=== PATIENT | male | born 1945 | race Caucasian/White ===

== ENCOUNTER 2016-07-09 09:20 | Emergency (ER) ==
[2016-07-09 09:29] VITALS: BP 113/75; TEMP 97; BMI 22.1
[2016-07-09] MEDS ORDERED: URO-JET MUCOUSMEMB STA (09:35)
--- NOTE | 2016-07-09 10:02 | ED.PDOC ---
General ED Provider: Dr. CHRIS WEISS-ER Chief Complaint: Urinary Problem Stated Complaint: i havent been able to pee since i took that cold medicine Time Seen by Physician: 09:30 Mode of Arrival: Walk-In Information Source: Patient Exam Limitations: No limitations Primary Care Provider: KATLIN KAUR Nursing and Triage Documentation Reviewed and Agree: Yes Complaint Exam - Complaint/Exam Patient Complains of: Reports: Groin pain Onset/Duration: a few hours Symptoms Are: Still present Timing: Constant Initial Severity: Mild Current Severity: Moderate Location of Pain: Reports: Suprapubic Character: Reports: Constant pressure, Dull Aggravating: Reports: Voiding, Straining Alleviating: Reports: None Associated Signs and Symptoms: Reports: Decreased urine output. Denies: Diaphoresis, Back pain, Fever, Hematuria, Dysuria, Constipation, Blood in stool , Rectal pain, Appetite change, Nausea, Vomiting, Penile swelling, Penile discharge, Increased urine frequency, Increased thirst, Decreased activity, Lethargy, Scrotal pain, Scrotal swelling, Abdominal Pain Testicular Torsion Risk Factors: Reports: None Abdominal Findings: Present: None Differential Diagnoses: Other (urinary retention) Review of Systems - Review Of Systems Constitutional: Reports: No symptoms Eyes: Reports: No symptoms Ears, Nose, Mouth, Throat: Reports: No symptoms Respiratory: Reports: No symptoms Cardiac: Reports: No symptoms GI: Reports: No symptoms : Reports: Other Musculoskeletal: Reports: No symptoms Skin: Reports: No symptoms Neurological: Reports: No symptoms Endocrine: Reports: No symptoms Hematologic/Lymphatic: Reports: No symptoms All Other Systems: Reviewed and Negative Past Medical History - Past Medical History Endocrine: Reports: Unknown Cardiovascular: Reports: Unknown Respiratory: Reports: Unknown Hematological: Reports: Unknown Gastrointestinal: Reports: Unknown Genitourinary: Reports: Unknown Neuro/Psych: Reports: Unknown Musculoskeletal: Reports: Unknown Cancer: Reports: Unknown - Surgical History General Surgical History: Reports: Unknown - Family History Family History: Reports: Unknown - Social History Smoking Status: Former smoker Hx Substance Use: No Alcohol Screening: None Lives: With family Physical Exam - Physical Exam Appearance: Well-appearing, No pain distress, Well-nourished Eyes: CYNTHIA, EOMI, Conjunctiva clear ENT: Ears normal, Nose normal, Oropharynx normal Neck: Supple Respiratory: Airway patent, Breath sounds clear, Breath sounds equal, Respirations nonlabored Cardiovascular: RRR, Pulses normal, No rub, No murmur GI/: Soft Musculoskeletal: Normal strength, ROM intact, No edema, No calf tenderness Skin: Warm, Dry, Normal color Neurological: Sensation intact, Motor intact, Reflexes intact, Cranial nerves intact, Alert, Oriented Psychiatric: Affect appropriate, Mood appropriate Re-Evaluation - Re-Evaluation Time of Re-Evaluation: 10:07 Status: Improved (1500cc residual---feeling much better) Vital Signs Stable: Yes Pain Level: 1 Appearance: NAD Lungs: Clear Skin: Warm and Dry Neuro: Alert and Oriented X3 CV: RRR Critical Care Note - Critical Care Note Total Time (mins): 0 Course - Course Orders, Labs, Meds: Orders Category Date Time Status Bladder [ED BLADDER SCAN] .ONCE EMERGENCY 07/09/16 09:36 Active [place] [ED CATHETER INSERTION AND CARE] .ONCE EMERGENCY 07/09/16 09:35 Completed URINALYSIS C & S IF INDICATED Stat LAB 07/09/16 10:00 Received Lidocaine HCl [Uro-Jet] MEDS 07/09/16 09:35 Discontinued 10 ml [email or web address] ONCE STA Tamsulosin HCl [Flomax] MEDS 07/09/16 10:16 Discontinued 0.4 mg PO ONCE STA Medications Discontinued Medications Generic Name Dose Route Start Last Admin Trade Name Freq PRN Reason Stop Dose Admin Lidocaine HCl 10 ml 07/09/16 09:35 07/09/16 10:01 Uro-Jet [email or web address] 07/09/16 09:36 10 ml ONCE STA Administration Tamsulosin HCl 0.4 mg 07/09/16 10:16 Flomax PO 07/09/16 10:17 ONCE STA Vital Signs: Temp Pulse Resp BP Pulse Ox 07/09/16 09:21 97 F L 93 H 20 113/75 95 Departure - Departure Time of Disposition: 10:02 Disposition: HOME SELF-CARE Discharge Problem: Urinary retention Instructions: Urinary Retention in Men (ED) Condition: Good Pt referred to PMD for follow-up: Yes Additional Instructions: --flomax 0.4mg q hs #4---keep appt with dr kaur on monday--stop all cold medication--return if you cannot urinate Allergies/Adverse Reactions: Allergies No Known Allergies Allergy (Unverified 07/09/16 09:30) Disposition Discussed With: Patient, Family
[2016-07-09] MEDS ORDERED: FLOMAX PO STA (10:16)
[2016-07-09 10:18] LABS: BILIRUBIN,URINE Negative (NEGATIVE); KETONES,URINE Negative (NEGATIVE); LEUKOCYTE ESTERASE ,URINE Negative (NEGATIVE); NITRITE,URINE Negative (NEGATIVE); PROTEIN,URINE Negative (NEGATIVE); URINE, BLOOD Trace-intact (NEGATIVE)
[2016-07-09 10:20] LABS: ADD URINE MICROSCOPIC YES
[2016-07-09 10:35] LABS: SPERM,URINE 2+ (NOT PRESENT)
[2016-07-09] MEDS ORDERED: PYRIDIUM PO STA (10:37)
== END 2016-07-09 10:50 | disposition home or self-care (01) ==
LOC: ED 09:20
DX: R33.9 Retention of urine, unspecified (principal); R10.30 Lower abdominal pain, unspecified
CPT/HCPCS: 81001; 99283

== ENCOUNTER 2016-07-10 11:42 | Emergency (ER) ==
[2016-07-10 11:45] VITALS: BMI 22.1
[2016-07-10 11:51] VITALS: BP 90/58; TEMP 97
[2016-07-10] MEDS ORDERED: URO-JET MUCOUSMEMB STA (12:55)
--- NOTE | 2016-07-10 12:57 | ED.PDOC ---
General ED Provider: Dr. VALDEMAR RAMOS JR Chief Complaint: Urinary Problem Stated Complaint: Pt. having trouble urinating, was in ER yesterday and was straight cath to void and voided yesterday evening but hasnt since[End]3 days 97.0 62 16 97% 90/58 Pt. states that he has had trouble voiding for 3 days now[ End]. In yesterday for similar symptoms note remarks about cold medication, states plan was to leave with catheter but pain and bleeding- removed catheter and placed on flomax Time Seen by Physician: 12:55 Mode of Arrival: Walk-In Information Source: Patient Exam Limitations: No limitations Primary Care Provider: KATLIN CORTES Nursing and Triage Documentation Reviewed and Agree: No Review of Systems - Review Of Systems Constitutional: Reports: No symptoms Eyes: Reports: No symptoms Ears, Nose, Mouth, Throat: Reports: No symptoms Respiratory: Reports: No symptoms Cardiac: Reports: No symptoms GI: Reports: No symptoms : Reports: Pain Musculoskeletal: Reports: No symptoms Skin: Reports: No symptoms Neurological: Reports: No symptoms Endocrine: Reports: No symptoms Hematologic/Lymphatic: Reports: No symptoms All Other Systems: Other Past Medical History - Past Medical History Endocrine: Reports: Unknown Cardiovascular: Reports: Hypertension, Unknown Respiratory: Reports: COPD, Unknown Hematological: Reports: Unknown Gastrointestinal: Reports: Unknown Genitourinary: Reports: Unknown Neuro/Psych: Reports: Unknown Musculoskeletal: Reports: Unknown Cancer: Reports: Unknown - Surgical History General Surgical History: Reports: Stent (cardiac stents ) - Family History Family History: Reports: Unknown - Social History Smoking Status: Former smoker Hx Substance Use: No Alcohol Screening: None - Immunizations Tetanus Shot up to Date: Yes Physical Exam - Physical Exam Appearance: Well-appearing, Thin Pain Distress: Moderate Neck: Supple Respiratory: Airway patent GI/: Soft, Tender Skin: Warm Neurological: Sensation intact Critical Care Note - Critical Care Note Total Time (mins): 0 Course - Course Orders, Labs, Meds: Lab Review 07/10/16 13:50 Urine Color Yellow Urine Clarity Clear Urine pH 6.0 Ur Specific [place] 1.015 Urine Protein Negative Urine Glucose (UA) Negative Urine Ketones 1+ Urine Blood Trace-intact Urine Nitrite Positive Urine Bilirubin Negative Urine Urobilinogen 1.0 Ur Leukocyte Esterase Negative Ur Squamous Epith Cells 0-2 Orders Category Date Time Status ED BLADDER SCAN .ONCE EMERGENCY 07/10/16 12:55 Active ED CATHETER INSERTION AND CARE .ONCE EMERGENCY 07/10/16 12:55 Active URINALYSIS C & S IF INDICATED Stat LAB 07/10/16 13:50 Completed Hydrocodone Bit/Acetaminophen [[place] 7.5-325] MEDS 07/10/16 14:27 Discontinued 1 tab PO ONCE STA Lidocaine HCl [Uro-Jet] MEDS 07/10/16 12:55 Discontinued 10 ml MUCOUSMEMB ONCE STA Medications Discontinued Medications Generic Name Dose Route Start Last Admin Trade Name Freq PRN Reason Stop Dose Admin Acetaminophen/Hydrocodone Bitart 1 tab 07/10/16 14:27 07/10/16 14:34 [place] 7.5-325 PO 07/10/16 14:28 1 tab ONCE STA Administration Lidocaine HCl 10 ml 07/10/16 12:55 07/10/16 13:35 Uro-Jet MUCOUSMEMB 07/10/16 12:56 10 ml ONCE STA Administration Vital Signs: Temp Pulse Resp BP Pulse Ox 07/10/16 11:45 97.0 F L 62 16 90/58 L 97 Departure - Departure Time of Disposition: 14:48 Disposition: HOME SELF-CARE Discharge Problem: Urinary retention Instructions: Urinary Retention in Men (ED) Condition: Fair Pt referred to PMD for follow-up: Yes Additional Instructions: Please follow-up with Dr. Cortes in 1-2 days. LEG BAG FOR URINE TOLLIVER CATHETER TO DRAIN FOLLOW UP WITH pmd DISCUSS UROLOGY CONSULT CONTINUE FLOMAX RETURN IF BLOOD IN URINE OR IF FEVER Prescriptions: Hydrocodone Bit/Acetaminophen [[place] 5-325] 1 - 2 tab PO Q6HR PRN #12 tablet PRN Reason: pain Allergies/Adverse Reactions: Allergies No Known Allergies Allergy (Unverified 07/09/16 09:30) Home Medications: Ambulatory Orders Albuterol Sulfate [Proair Hfa] 07/10/16 Arformoterol Tartrate [Brovana] 07/10/16 Ascorbate Calcium [Vitamin C] 500 mg PO DAILY 07/10/16 Aspirin [Aspirin EC] 81 mg PO DAILY 07/10/16 Atorvastatin Calcium [Lipitor] 20 mg PO DAILY 07/10/16 Carvedilol [Coreg] 6.25 mg PO BID 07/10/16 Clopidogrel Bisulfate [Clopidogrel] 75 mg PO DAILY 07/10/16 Cyanocobalamin (Vitamin B-12) [Vitamin B12] 5,000 mcg INH DAILY 07/10/16 Diltiazem HCl 60 mg PO BID 07/10/16 Hydrocodone Bit/Acetaminophen [[place] 5-325] 1 - 2 tab PO Q6HR PRN #12 tablet 09/21 Mometasone/Formoterol [Dulera 200 Mcg/5 Mcg Inhaler] 200 mcg IN DAILY 07/10/16 Tiotropium [place] [Spiriva] 1 mcg INH DAILY 07/10/16 Triamterene/Hydrochlorothiazid [Dyazide] 1 cap PO DAILY 07/10/16 Valsartan/Hydrochlorothiazide [Diovan Hct 320-12.5 mg Tab] 320 mg PO DAILY 07/10 Vitamin E 400 intnl unit PO DAILY 07/10/16
[2016-07-10 14:07] LABS: BILIRUBIN,URINE Negative (NEGATIVE); KETONES,URINE 1+ (NEGATIVE); LEUKOCYTE ESTERASE ,URINE Negative (NEGATIVE); NITRITE,URINE Positive (NEGATIVE); PROTEIN,URINE Negative (NEGATIVE); URINE, BLOOD Trace-intact (NEGATIVE)
[2016-07-10 14:09] LABS: ADD URINE MICROSCOPIC YES
[2016-07-10] MEDS ORDERED: NORCO 7.5-325 PO STA (14:27)
== END 2016-07-10 15:57 | disposition home or self-care (01) ==
LOC: ED 11:42
DX: R33.9 Retention of urine, unspecified (principal); Z79.899 Other long term (current) drug therapy
CPT/HCPCS: 81001; 99282

== ENCOUNTER 2016-07-15 02:04 | Emergency (ER) ==
[2016-07-15 02:15] VITALS: BP 104/64; TEMP 97.7; BMI 26.4
[2016-07-15] MEDS ORDERED: URO-JET MUCOUSMEMB ONE (02:20)
[2016-07-15] MEDS ORDERED: URO-JET MUCOUSMEMB STA (02:35)
--- NOTE | 2016-07-15 03:08 | ED.PDOC ---
General ED Provider: Dr. STEVEN FUENTES Chief Complaint: Urinary Problem Stated Complaint: Has not been able to urinate since his catheter was removed at Dr. Cortes's office on , 07/14/16, at 11:30 am. Is feeling alot of pressure and pain. Had catheter for 5 days before removal. Time Seen by Physician: 02:20 Mode of Arrival: Wheelchair Information Source: Patient Exam Limitations: No limitations Primary Care Provider: KATLIN CORTES Referred to ED by: PCP Nursing and Triage Documentation Reviewed and Agree: Yes Review of Systems - Review Of Systems Constitutional: Reports: No symptoms Eyes: Reports: No symptoms Respiratory: Reports: No symptoms Cardiac: Reports: No symptoms GI: Reports: No symptoms : Reports: Other (difficulty urinating ) Musculoskeletal: Reports: No symptoms Skin: Reports: No symptoms Neurological: Reports: Anxiety Endocrine: Reports: No symptoms Hematologic/Lymphatic: Reports: No symptoms All Other Systems: Reviewed and Negative Past Medical History - Past Medical History Endocrine: Reports: Unknown Cardiovascular: Reports: Hypertension, Unknown Respiratory: Reports: COPD, Unknown Hematological: Reports: Unknown Gastrointestinal: Reports: Unknown Genitourinary: Reports: Unknown Neuro/Psych: Reports: Unknown Musculoskeletal: Reports: Unknown Cancer: Reports: Unknown - Surgical History General Surgical History: Reports: Stent (cardiac stents ) - Family History Family History: Reports: Unknown - Social History Smoking Status: Former smoker Hx Substance Use: No Alcohol Screening: None - Immunizations Tetanus Shot up to Date: Yes Physical Exam - Physical Exam Appearance: Well-appearing, No pain distress, Well-nourished Eyes: CYNTHIA, EOMI, Conjunctiva clear ENT: Ears normal, Nose normal, Oropharynx normal Respiratory: Airway patent, Breath sounds clear, Breath sounds equal, Respirations nonlabored Cardiovascular: RRR, Pulses normal, No rub, No murmur GI/: Soft, Nontender, No masses, Bowel sounds normal, No Organomegaly Musculoskeletal: Normal strength, ROM intact, No edema, No calf tenderness Skin: Warm, Dry, Normal color Neurological: Sensation intact, Motor intact, Reflexes intact, Cranial nerves intact, Alert, Oriented Psychiatric: Affect appropriate, Mood appropriate Critical Care Note - Critical Care Note Total Time (mins): 0 Course - Course Orders, Labs, Meds: Lab Review 07/15/16 03:07 Urine Color Yellow Urine Clarity Clear Urine pH 7.5 Ur Specific [place] 1.020 Urine Protein Negative Urine Glucose (UA) Negative Urine Ketones Trace Urine Blood 2+ Urine Nitrite Negative Urine Bilirubin Negative Urine Urobilinogen 0.2 Ur Leukocyte Esterase Negative Urine Microscopic RBC 10-20 Ur Squamous Epith Cells Not present Amorphous Sediment Trace Orders Category Date Time Status Ahumada [ED CATHETER INSERTION AND CARE] .ONCE EMERGENCY 07/15/16 02:35 Active UA [URINALYSIS C & S IF INDICATED] Stat LAB 07/15/16 03:07 Completed Lidocaine HCl [Uro-Jet] MEDS 07/15/16 02:20 Discontinued 10 ml MUCOUSMEMB .STK-MED ONE Lidocaine HCl [Uro-Jet] MEDS 07/15/16 02:35 Discontinued 10 ml MUCOUSMEMB ONCE STA Medications Discontinued Medications Generic Name Dose Route Start Last Admin Trade Name Freq PRN Reason Stop Dose Admin Lidocaine HCl 10 ml 07/15/16 02:35 07/15/16 02:42 Uro-Jet [email or web address] 07/15/16 02:36 Not Given ONCE STA Vital Signs: Temp Pulse Resp BP Pulse Ox 07/15/16 02:05 97.7 F 88 18 104/64 97 Departure - Departure Time of Disposition: 03:20 Disposition: HOME SELF-CARE Discharge Problem: Retention of urine Instructions: Urinary Retention in Men (ED) Condition: Fair Pt referred to PMD for follow-up: Yes Additional Instructions: continue using the leg bag until seen by Dr Cortes. Allergies/Adverse Reactions: Allergies No Known Allergies Allergy (Verified 07/15/16 02:11) Home Medications: Ambulatory Orders Albuterol Sulfate [Proair Hfa] 2 puff INH Q4H PRN 07/10/16 Arformoterol Tartrate [Brovana] 1 vial INH BID 07/10/16 Ascorbate Calcium [Vitamin C] 500 mg PO DAILY 07/10/16 Aspirin [Aspirin EC] 81 mg PO DAILY 07/10/16 Atorvastatin Calcium [Lipitor] 20 mg PO DAILY 07/10/16 Carvedilol [Coreg] 6.25 mg PO BID 07/10/16 Clopidogrel Bisulfate [Clopidogrel] 75 mg PO DAILY 07/10/16 Cyanocobalamin (Vitamin B-12) [Vitamin B12] 5,000 mcg INH DAILY 07/10/16 Diltiazem HCl 60 mg PO BID 07/10/16 Hydrocodone Bit/Acetaminophen [[place] 5-325] 1 - 2 tab PO Q6HR PRN #12 tablet 09/21 Mometasone/Formoterol [Dulera 200 Mcg/5 Mcg Inhaler] 200 mcg IN DAILY 07/10/16 Tiotropium [place] [Spiriva] 1 mcg INH DAILY 07/10/16 Triamterene/Hydrochlorothiazid [Dyazide] 1 cap PO DAILY 07/10/16 Valsartan/Hydrochlorothiazide [Diovan Hct 320-12.5 mg Tab] 320 mg PO DAILY 07/10 Vitamin E 400 intnl unit PO DAILY 07/10/16 Tamsulosin HCl [Flomax] 0.4 mg PO DAILY 07/15/16 Disposition Discussed With: Patient, Family
[2016-07-15 03:20] LABS: BILIRUBIN,URINE Negative (NEGATIVE); KETONES,URINE Trace (NEGATIVE); LEUKOCYTE ESTERASE ,URINE Negative (NEGATIVE); NITRITE,URINE Negative (NEGATIVE); PH,URINE 7.5 (5-9); PROTEIN,URINE Negative (NEGATIVE); URINE, BLOOD 2+ (NEGATIVE)
[2016-07-15 03:21] LABS: ADD URINE MICROSCOPIC YES
== END 2016-07-15 04:05 | disposition home or self-care (01) ==
LOC: ED 02:04
DX: R33.9 Retention of urine, unspecified (principal); Z79.899 Other long term (current) drug therapy
CPT/HCPCS: 81001; 99283

== ENCOUNTER 2016-07-18 13:28 | Outpatient (CLI) ==
[2016-07-18 13:58] LABS: ALBUMIN 3.2 g/dL (3.4-5.0); ALBUMIN/GLOBULIN RATIO 1.03; ANION GAP 11.6; BILIRUBIN,TOTAL 0.47 mg/dL (0.00-1.20); BUN/CREATININE RATIO 13.26; CALCIUM 9.1 mg/dL (8.2-10.2); CREATININE 0.98 mg/dL (0.60-1.10); POTASSIUM 4.6 mmol/L (3.5-5.1); TOTAL PROTEIN 6.3 g/dL (5.8-8.1)
== END 2016-07-18 13:29 | disposition home or self-care (01) ==
LOC: LAB 13:28
PROVIDERS: ATTEND Internal Medicine
DX: E87.1 Hypo-osmolality and hyponatremia (principal)
CPT/HCPCS: 36415; 80053

== ENCOUNTER 2016-07-26 01:47 | Inpatient (IN) ==
[2016-07-26] MEDS ORDERED: SOLU-MEDROL 125 MG IVP STA (01:49)
[2016-07-26] MEDS ORDERED: XOPENEX 1.25 MG NEB STA (01:50)
[2016-07-26] MEDS ORDERED: DUONEB NEB STA (01:50)
[2016-07-26 02:00] LABS: BASOPHILS # (AUTO) 0.1 K/uL (0-0.2); BASOPHILS % (AUTO) 0.3 % (0.0-3.0); EOSINOPHILS # (AUTO) 0.1 K/ul (0.0-0.7); EOSINOPHILS % (AUTO) 0.4 % (0.0-7.0); HEMATOCRIT 35.2 % (42.0-52.0); HEMOGLOBIN 12.4 g/dl (14.0-18.0); IMMATURE GRANULOCYTE % (AUTO) 0.7 % (0.0-5.0); LYMPHOCYTES # (AUTO) 2.1 K/uL (0.60-3.4); LYMPHOCYTES % (AUTO) 13.6 (10.0-50.0); MEAN CORPUSCULAR HEMOGLOBIN 28.6 pg (27.0-31.0); MEAN CORPUSCULAR HGB CONC 35.2 (31.8-35.4); MEAN CORPUSCULAR VOLUME 81.3 fl (80.0-94.0); MONOCYTES # (AUTO) 1.1 K/uL (0.4-2.0); MONOCYTES % (AUTO) 7.5 (0-10); NEUTROPHILS # (AUTO) 11.7 K/ul (2.0-6.9); NEUTROPHILS % (AUTO) 77.5; PLATELET COUNT 286 10^3/uL (140-440); RED BLOOD COUNT 4.33 10^6/ul (4.70-6.10); WHITE BLOOD COUNT 15.13 K/ul (4.2-10.2)
[2016-07-26 02:04] LABS: ABG BASE EXCESS -3 (-2.0-2.0); ABG HCO3 20.6 (22.0-26.0); ABG PCO2 29.3 mmHg (35-45); ABG PH 7.455 (7.35-7.45); ABG TCO2 21 (22.0-28.0)
[2016-07-26 02:28] LABS: ALANINE AMINOTRANSFERASE 23 U/L (12-78); ALBUMIN 3.1 g/dL (3.4-5.0); ALBUMIN/GLOBULIN RATIO 0.94; ALKALINE PHOSPHATASE 107 U/L (56-119); ASPARTATE AMINO TRANSFERASE 23 U/L (15-37); BILIRUBIN,TOTAL 0.61 mg/dL (0.00-1.20); BLOOD UREA NITROGEN 9 mg/dL (7-18); BUN/CREATININE RATIO 11.53; CALCIUM 8.8 mg/dL (8.2-10.2); CARBON DIOXIDE 24 mmol/L (23-31); CHLORIDE 92 mmol/L (98-107); CREATINE KINASE 44 U/L; CREATININE 0.78 mg/dL (0.60-1.10); GLUCOSE 92 mg/dL (82-115); SODIUM 125 mmol/L (136-145); TOTAL PROTEIN 6.4 g/dL (5.8-8.1)
--- NOTE | 2016-07-26 03:01 | ED.PDOC ---
General ED Provider: Dr. CHRIS WEISS-ER Chief Complaint: Shortness of Air Stated Complaint: hes had a prod cough and wheezing--using inhalers all day and got worse Time Seen by Physician: 02:05 Mode of Arrival: Ambulance Information Source: Patient, Family, EMT Exam Limitations: No limitations Primary Care Provider: KATLIN KAUR Nursing and Triage Documentation Reviewed and Agree: Yes Respiratory Complaint Exam - Respiratory Complaint/Exam Onset/Duration: 24hrs Symptoms Are: Still present Timing: Constant Initial Severity: Mild Current Severity: Moderate Location: Chest Character: Reports: Productive cough Aggravating: Reports: URI Alleviating: Reports: Bronchodilators, Spontaneous resolution Associated Signs and Symptoms: Reports: Dyspnea, Wheezing, URI. Denies: Rapid breathing, Fever, Chills, Chest pain, Pleuritic chest pain, Hemoptysis, Dizziness, Calf pain, Calf swelling, Edema, Nasal congestion, Hoarseness, Sinus discomfort, Vomiting, Sore throat, Weight loss, Decreased oral intake, Increased thirst, Increased appetite, Increased urination Related History: Reports: Similar episode History of Healthcare-Acquired Pneumonia: No Related Surgical History: Reports: None Pulmonary Embolism Risk Factors: None Cardiac Risk Factors: Reports: None Pseudomonas Risk Factors: Reports: Chronic Lung Disease Tuberculosis Risk Factors: Reports: Chronic Resp. Faliure Status Asthmaticus Risk Factors: Reports: None Home Oxygen Use: No Recent Stress Test: No Recent Echo/LV Function: No Current Antibiotic Use: No Current Asthma Medication Use: Yes Respiratory Distress: None Inadequate Respiratory Effort: No Dysphagia Present: No Stridor Present: No JVD Present: No Accessory Muscle Use: No Retractions: Intercostal Diminished Breath Sounds: No Prolonged Respiration: Expiratory phase Sinus Tenderness: None Grunting Respirations: No Kussmaul Respirations: No Differential Diagnoses: COPD Exacerbation, Pneumonia, Bronchitis Non-Traumatic Chest Pain Syncope: EKG Performed Review of Systems - Review Of Systems Constitutional: Reports: No symptoms Eyes: Reports: No symptoms Ears, Nose, Mouth, Throat: Reports: No symptoms Respiratory: Reports: Cough, Short of air, Wheezing Cardiac: Reports: No symptoms GI: Reports: No symptoms : Reports: No symptoms Musculoskeletal: Reports: No symptoms Skin: Reports: No symptoms Neurological: Reports: No symptoms Endocrine: Reports: No symptoms Hematologic/Lymphatic: Reports: No symptoms All Other Systems: Reviewed and Negative Past Medical History - Past Medical History Endocrine: Reports: Unknown Cardiovascular: Reports: Hypertension, Unknown Respiratory: Reports: COPD, Unknown Hematological: Reports: Unknown Gastrointestinal: Reports: Unknown Genitourinary: Reports: Unknown Neuro/Psych: Reports: Unknown Musculoskeletal: Reports: Unknown Cancer: Reports: Unknown - Surgical History General Surgical History: Reports: Stent (cardiac stents ) - Family History Family History: Reports: Unknown - Social History Smoking Status: Former smoker Hx Substance Use: No Alcohol Screening: None - Immunizations Tetanus Shot up to Date: Yes Physical Exam - Physical Exam Appearance: Well-appearing, No pain distress, Well-nourished Eyes: CYNTHIA, EOMI, Conjunctiva clear ENT: Ears normal, Nose normal, Oropharynx normal Neck: Supple Respiratory: Rhonchi, Wheezes Cardiovascular: RRR GI/: Soft, Nontender, No masses, Bowel sounds normal, No Organomegaly Musculoskeletal: Normal strength, ROM intact, No edema, No calf tenderness Skin: Warm Neurological: Sensation intact Psychiatric: Affect appropriate, Mood appropriate Interpretation - Radiology Interpretation Radiology Interpretation By: ED Physician Radiology Results: Negative Exam Interpreted: Portable CXR - EKG Interpretation Time of EKG #1: 03:01 Rate: Normal Rhythm: Sinus Ectopy: None [place]: NL ST Segment: Normal Re-Evaluation - Re-Evaluation Time of Re-Evaluation: 03:01 Status: Improved Vital Signs Stable: Yes Pain Level: 0 Appearance: NAD Lungs: Other (improved but stil with wheezes) Skin: Warm and Dry Neuro: Alert and Oriented X3 CV: RRR Physician Notification - Case Discussed Physician Notified: dr kaur Time of Notification: 03:02 Critical Care Note - Critical Care Note Total Time (mins): 0 Course - Course Hematology/Chemistry: 07/26/16 01:57 07/26/16 01:57 Orders, Labs, Meds: Lab Review 07/26/16 07/26/16 01:48 01:57 WBC 15.13 H RBC 4.33 L Hgb 12.4 L Hct 35.2 L MCV 81.3 MCH 28.6 MCHC 35.2 RDW Coeff of Bull 12.9 Plt Count 286 Immature Gran % (Auto) 0.7 Neut % (Auto) 77.5 Lymph % (Auto) 13.6 [place] % (Auto) 7.5 Eos % (Auto) 0.4 Baso % (Auto) 0.3 Immature Gran # (Auto) 0.1 Neut # 11.7 H Lymph # 2.1 [place] # 1.1 Eos # 0.1 Baso # 0.1 D-Dimer 2.01 Puncture Site Lb O2 Saturation 95.0 ABG pH 7.455 H ABG pCO2 29.3 L ABG pO2 72.0 L ABG HCO3 20.6 L ABG Total CO2 21 L ABG Base Excess -3 L Mohamud Test + O2 Delivery Device Neb Oxygen Liter Flow 10.00 FiO2 % 100.0 Sodium 125 L Potassium 4.0 Chloride 92 L Carbon Dioxide 24 Anion Gap 13.0 BUN 9 Creatinine 0.78 Estimated GFR (MDRD) 98.00 BUN/Creatinine Ratio 11.53 Glucose 92 Calcium 8.8 Total Bilirubin 0.61 AST 23 ALT 23 Alkaline Phosphatase 107 Total Creatine Kinase 44 Troponin I < 0.0100 B-Natriuretic Peptide 49 Total Protein 6.4 Albumin 3.1 L Globulin 3.3 Albumin/Globulin Ratio 0.94 Orders Category Date Time Status ABG DRAW REQUEST Stat CARDIO 07/26/16 01:48 Completed EKG-(ED ONLY) Stat CARDIO 07/26/16 01:48 Completed NEBULIZER TREATMENT Stat CARDIO 07/26/16 01:50 Completed [employer] [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] .ONCE EMERGENCY 07/26/16 01:49 Active IV [ED IV/MEDIPORT/POWERPORT] .ONCE EMERGENCY 07/26/16 01:49 Active ABG Stat LAB 07/26/16 01:48 Completed BNP [B-TYPE NATRIURETIC PEPTIDE] Stat LAB 07/26/16 01:57 Completed CBC W/ AUTO DIFF Stat LAB 07/26/16 01:57 Completed COMPREHENSIVE METABOLIC PANEL Stat LAB 07/26/16 01:57 Completed CREATINE KINASE Stat LAB 07/26/16 01:57 Completed D-DIMER Stat LAB 07/26/16 01:57 Completed RAPID FLU A/B Stat LAB 07/26/16 02:58 Ordered STREP SCREEN Stat LAB 07/26/16 02:58 Ordered TROPONIN I Stat LAB 07/26/16 01:57 Completed 0.9 % Sodium Chloride [Saline Flush] MEDS 07/26/16 01:49 Ordered 1 syr IVF PRN PRN Ipratropium/Albuterol Neb [Duoneb] MEDS 07/26/16 01:50 Discontinued 1 vial NEB ONCE STA Levalbuterol HCl [Xopenex 1.25 mg] MEDS 07/26/16 01:50 Discontinued 1 vial NEB ONCE STA Methylprednisolone Sod Succ/Pf [Solu-Medrol 125 mg] MEDS 07/26/16 01:49 Discontinued 125 mg IVP ONCE STA CXR [CHEST, 1V AP ONLY] Stat RADS 07/26/16 01:50 Taken Medications Generic Name Dose Route Start Last Admin Trade Name Jillian PRN Reason Stop Dose Admin Sodium Chloride 1 syr 07/26/16 01:49 07/26/16 01:59 Saline Flush IVF 1 syr PRN PRN Administration To flush IV Discontinued Medications Generic Name Dose Route Start Last Admin Trade Name Freq PRN Reason Stop Dose Admin Albuterol/Ipratropium 1 vial 07/26/16 01:50 07/26/16 02:00 Duoneb NEB 07/26/16 01:51 1 vial ONCE STA Administration Levalbuterol HCl 1 vial 07/26/16 01:50 07/26/16 02:10 Xopenex 1.25 Mg NEB 07/26/16 01:51 1 vial ONCE STA Administration Methylprednisolone Sodium Succinate 125 mg 07/26/16 01:49 07/26/16 01:58 Solu-Medrol 125 Mg IVP 07/26/16 01:50 125 mg ONCE STA Administration Vital Signs: Temp Pulse Resp BP Pulse Ox 07/26/16 02:03 99 F 96 H 36 H 149/67 H 95 Departure - Departure Time of Disposition: 03:02 Disposition: ADMITTED INPATIENT Discharge Problem: Obstructive chronic bronchitis with exacerbation Instructions: COPD (Chronic Obstructive Pulmonary Disease) (ED) Condition: Good Pt referred to PMD for follow-up: Yes Allergies/Adverse Reactions: Allergies No Known Allergies Allergy (Verified 07/26/16 02:35) Home Medications: Ambulatory Orders Albuterol Sulfate [Proair Hfa] 2 puff INH Q4H PRN 07/10/16 Arformoterol Tartrate [Brovana] 1 vial INH BID 07/10/16 Ascorbate Calcium [Vitamin C] 500 mg PO DAILY 07/10/16 Atorvastatin Calcium [Lipitor] 20 mg PO DAILY 07/10/16 Carvedilol [Coreg] 6.25 mg PO BID 07/10/16 Clopidogrel Bisulfate [Clopidogrel] 75 mg PO DAILY 07/10/16 Cyanocobalamin (Vitamin B-12) [Vitamin B12] 5,000 mcg PO DAILY 07/10/16 Diltiazem HCl 60 mg PO BID 07/10/16 Mometasone/Formoterol [Dulera 200 Mcg/5 Mcg Inhaler] 200 mcg IN DAILY 07/10/16 Tiotropium [place] [Spiriva] 1 mcg INH DAILY 07/10/16 Valsartan/Hydrochlorothiazide [Diovan Hct 320-12.5 mg Tab] 320 mg PO DAILY 07/10 Vitamin E 400 intnl unit PO DAILY 07/10/16 Tamsulosin HCl [Flomax] 0.4 mg PO DAILY 07/15/16 Aspirin [Ecotrin] 325 mg PO DAILY 07/26/16 Ciprofloxacin HCl [Cipro] 500 mg PO BID 07/26/16 Disposition Discussed With: Patient, Family
[2016-07-26] MEDS ORDERED: ROCEPHIN 1 GM in SODIUM CHLORIDE 100 ML IV STA (03:03)
[2016-07-26] MEDS: SODIUM CHLORIDE 1,000 ML IV SCH (03:19)
[2016-07-26] MEDS ORDERED: ROCEPHIN ONE (03:25)
[2016-07-26 03:26] LABS: FLU INTERNAL QC INTERNAL QC VALID; RAPID FLU A NEGATIVE (NEGATIVE); RAPID FLU B NEGATIVE (NEGATIVE)
[2016-07-26 04:14] VITALS: BMI 19.9
[2016-07-26] MEDS: DUONEB NEB SCH ×5 (05:04→22:50)
[2016-07-26] MEDS: SOLU-MEDROL 125 MG IVP SCH ×3 (05:57→20:50)
[2016-07-26 07:07] LABS: BASOPHILS % (AUTO) 0.2 % (0.0-3.0); HEMOGLOBIN 11.7 g/dl (14.0-18.0); IMMATURE GRANULOCYTE % (AUTO) 0.7 % (0.0-5.0); LYMPHOCYTES # (AUTO) 0.7 K/uL (0.60-3.4); MEAN CORPUSCULAR HEMOGLOBIN 28.7 pg (27.0-31.0); MEAN CORPUSCULAR HGB CONC 35.5 (31.8-35.4); MEAN CORPUSCULAR VOLUME 81.1 fl (80.0-94.0); MONOCYTES # (AUTO) 0.1 K/uL (0.4-2.0); NEUTROPHILS % (AUTO) 93.1; PLATELET COUNT 272 10^3/uL (140-440); RED BLOOD COUNT 4.07 10^6/ul (4.70-6.10); WHITE BLOOD COUNT 12.88 K/ul (4.2-10.2)
--- NOTE | 2016-07-26 07:26 | DI ---
Examination: Single radiographic image of the chest. Comparison: 07/16/2015. Reason for study: Dyspnea. FINDINGS: The lungs are hyperinflated. No pneumothorax, pleural effusion, or focal consolidation. There is blunting of the hemidiaphragms. Impression: 1. No acute cardiopulmonary process. 2. Likely chronic obstructive pulmonary disease.
[2016-07-26] MEDS: ASPIRIN EC PO SCH (08:07)
[2016-07-26] MEDS: COREG PO SCH ×2 (08:07→17:24)
[2016-07-26] MEDS ORDERED: MOMETASONE IN SCH (09:00)
[2016-07-26] MEDS ORDERED: HYDROCHLOROTHIAZIDE PO SCH ×2 (09:00)
[2016-07-26] MEDS ORDERED: NON-FORMULARY MEDICATION (Arformoterol Tartrate [Brovana] 1 VIAL) INH SCH (09:00)
[2016-07-26] MEDS ORDERED: FORMOTEROL IN SCH (09:00)
[2016-07-26] MEDS ORDERED: MUCINEX PO SCH (09:00)
[2016-07-26] MEDS ORDERED: [UNRECOGNIZED DRUG - OTHER] PO SCH (09:00)
[2016-07-26] MEDS ORDERED: VALSARTAN PO SCH (09:00)
[2016-07-26] MEDS ORDERED: CARDIZEM PO SCH ×2 (09:00)
[2016-07-26] MEDS: LOVENOX SUBCUT SCH (09:30)
[2016-07-26] MEDS: PLAVIX PO SCH (09:30)
[2016-07-26] MEDS: LIPITOR PO SCH (09:31)
[2016-07-26] MEDS: DIOVAN PO SCH (09:31)
[2016-07-26] MEDS: ZITHROMAX 500 MG in SODIUM CHLORIDE 250 ML IV SCH (09:32)
[2016-07-26] MEDS: FLOMAX PO SCH (09:33)
[2016-07-26] MEDS: CARDIZEM PO SCH ×4 (09:33→20:43)
[2016-07-26] MEDS: ROCEPHIN 1 GM in SODIUM CHLORIDE 100 ML IV SCH (11:36)
[2016-07-26 12:02] LABS: BILIRUBIN,URINE Negative (NEGATIVE); KETONES,URINE 1+ (NEGATIVE); LEUKOCYTE ESTERASE ,URINE Negative (NEGATIVE); NITRITE,URINE Negative (NEGATIVE); PROTEIN,URINE Negative (NEGATIVE); URINE, BLOOD 3+ (NEGATIVE)
[2016-07-26 12:04] LABS: ADD URINE MICROSCOPIC YES
--- NOTE | 2016-07-26 13:33 | HP ---
DATE OF SERVICE: 07/26/16 REASON FOR HOSPITALIZATION: Cough, congestion, shortness of breath. HISTORY OF PRESENT ILLNESS: This 71 year old WHITE/ M was hospitalized 07/26/16. The patient is hospitalized with acute respiratory failure and chronic lung disease. The patient's condition had been deteriorating for two days but last night got worse to the point where he was brought to the emergency room in the early a.m. with cough, congestion and shortness of breath. The patient's ABG on 100% FI02 showed a p02 of 72.0, pH of 7.455 with 95% saturation. REVIEW OF SYSTEMS: CONSTITUTIONAL: Weakness and fatigue. No night sweats. No fever or chills. HEENT: Eyes: No visual changes. No eye pain. No eye discharge. ENT: No runny nose. No epistaxis. No sinus pain. No sore throat. No odynophagia. No ear pain. No congestion. RESPIRATORY: Cough and congestion with yellowish sputum production. No hemoptysis. CARDIOVASCULAR: No angina symptoms. No CHF symptoms. Pleuritic type of chest pain. No palpitations. Shortness of breath. GASTROINTESTINAL: Poor appetite. No abdominal pain. No nausea or vomiting. No diarrhea or constipation. No hematemesis. No hematochezia. GENITOURINARY: Catheter in place - has been having problems passing urine for past 2 weeks with catheter introduced twice in ER. MUSCULOSKELETAL: No musculoskeletal pain. No joint swelling. NEUROLOGICAL: No headache. No neck pain. No syncope. No seizures. No dizziness. PSYCHIATRIC: Not anxious. No depression. No suicidal thoughts. No homicidal thoughts. SKIN: No rash. No lesions. Bruising to bottom of right foot. ENDOCRINE: No unexplained weight loss. No weight gain. HEMATOLOGIC/LYMPHATIC: No anemia. No purpura. No petechiae. No prolonged or excessive bleeding. No palpable lymph nodes. PERSONAL/FAMILY/SOCIAL HISTORY: , lives with . He is independent of all ADLs. Nonsmoker. No alcohol abuse. Family history of [place]. PAST MEDICAL/SURGICAL PROBLEMS: Cataracts Heart stents times four Enlarged prostate History of nicotine use Skin cancer with eyelid reconstruction Chronic lung disease Dyslipidemia Hypertension MEDICATIONS: (HOME) Valsartan/Hydrochlorothiazide 320 mg p.o. daily Atorvastatin/Lipitor 20 mg p.o. daily Diltiazem 60 mg p.o. b.i.d. Carvedilol 6.25 mg p.o. b.i.d. Vitamin E 400 unit p.o. daily Tiotropium [place] 1 mcg INH daily Mometasone/Formoterol 200 mcg IN daily Cyanocobalamin (Vitamin B12) 5,000 mcg p.o. daily Clopidogrel 75 mg p.o. daily Ascorbate Calcium 500 mg p.o. daily Arformoterol Tartrate (Brovana) one vial INH b.i.d. Albuterol (ProAir) two puff INH q.4h p.r.n. Tamsulosin 0.4 mg p.o. daily Ciprofloxacin 500 mg p.o. b.i.d. Aspirin 325 mg p.o. daily ALLERGIES: NKDA PHYSICAL EXAMINATION: GENERAL: The patient is lying in bed in no distress. VITAL SIGNS: Temperature 97.1, pulse 101, BP 140/71, respiratory rate 22, sats 100% on cannula. HEENT: Head normocephalic, atraumatic. Eyes: Extraocular muscles are intact. Pupils are equal, round and reactive to light and accommodation. Ears: No lesions. Nose appeared normal. Throat: No exudate or erythema. NECK: Supple. No JVD, no carotid bruit. No lymphadenopathy or thyromegaly. LUNGS: Decreased breath sounds bilaterally with mild wheeze. Percussion note normal. Chest symmetrical. HEART: S1, S2, no S3. No murmurs. No cyanosis or clubbing. No ascites. Pulses: Dorsalis pedis and posterior tibial pulses +1 both sides. ABDOMEN: Soft. Nontender. Bowel sounds active. No CVA tenderness. No mass felt. EXTREMITIES: Trace to 1+ pitting edema. Full range of motion of all extremities , equal. Bruise on the bottom of right foot. NEUROLOGIC: No focal deficit. Cranial nerves II through XII are grossly intact. No headache, no double vision or headache. SKIN: Not dry. Intact. Turgor - normal. LYMPHATIC: No palpable lymph nodes/no lymphedema. MUSCULOSKELETAL: Normal joints with no swelling. Muscle tone is normal. LAB DATA: 07/26/16 06:00: WBC 12.88 H, RBC 4.07 L, Hgb 11.7 L, Hct 33.0 L, MCV 81.1, MCH 28.7, MCHC 35.5 H, RDW Coeff of Bull 12.9, Plt Count 272, Immature Gran % (Auto) 0.7, Neut % (Auto) 93.1, Lymph % (Auto) 5.0 L, [place] % (Auto) 1.0, Eos % (Auto) 0.0, Baso % (Auto) 0.2, Immature Gran # (Auto) 0.1, Neut # 12.0 H, Lymph # 0.7, [place] # 0.1 L, Eos # 0.0, Baso # 0.0 ASSESSMENT: 1. Acute respiratory failure 2. Acute bronchitis 3. Severe chronic lung disease 4. Prostatic hypertrophy with obstruction 5. Dyslipidemia 6. Hypertension PLAN: 1. ABG in a.m. on room air 2. Increase Diltiazem to 90 mg b.i.d. 3. Discontinue Mucinex 4. IV antibiotics Rocephin and Zithromax 5. IV steroids 6. Nebs treatment 7. Monitor telemetry 8. Monitor oximetry 9. Continue IV fluids 10. Continue Ahumada 11. The patient is to see Dr. Solares on 07/28/16 EDUCATION CARRIED OUT ABOUT: The is in the room discussed the condition of the patient, answered all questions. CONDITION: Stable TIME SPENT: More than 70 minutes. SCRIBED BY: CHARLETTE PAINTING Aeronautical Engineering Teacher scribed while in presence of service performed by Dr. KATLIN CORTES on 07/26/16 ([id number]) [facility]
[2016-07-26] MEDS: NON-FORMULARY MEDICATION (Mometasone/Formoterol [Dulera 200 Mcg/5 Mcg Inhaler] 2 PUFF) IN SCH (14:59)
[2016-07-26 17:55] LABS: ABG BASE EXCESS 0 (-2.0-2.0); ABG HCO3 23.6 (22.0-26.0); ABG PCO2 31.1 mmHg (35-45); ABG PH 7.489 (7.35-7.45); ABG TCO2 25 (22.0-28.0)
[2016-07-26] MEDS: PERFOROMIST NEB SCH (21:28)
[2016-07-27] MEDS: DUONEB NEB SCH ×6 (04:25→22:02)
[2016-07-27] MEDS: SOLU-MEDROL 125 MG IVP SCH (04:53)
[2016-07-27 04:57] LABS: BASOPHILS % (AUTO) 0.1 % (0.0-3.0); HEMATOCRIT 32.7 % (42.0-52.0); HEMOGLOBIN 11.4 g/dl (14.0-18.0); IMMATURE GRANULOCYTE % (AUTO) 0.9 % (0.0-5.0); LYMPHOCYTES # (AUTO) 1.5 K/uL (0.60-3.4); MEAN CORPUSCULAR HEMOGLOBIN 28.6 pg (27.0-31.0); MEAN CORPUSCULAR HGB CONC 34.9 (31.8-35.4); MEAN CORPUSCULAR VOLUME 82.2 fl (80.0-94.0); MONOCYTES # (AUTO) 0.5 K/uL (0.4-2.0); MONOCYTES % (AUTO) 3.7 (0-10); NEUTROPHILS # (AUTO) 11.3 K/ul (2.0-6.9); NEUTROPHILS % (AUTO) 84.3; PLATELET COUNT 296 10^3/uL (140-440); RED BLOOD COUNT 3.98 10^6/ul (4.70-6.10); WHITE BLOOD COUNT 13.35 K/ul (4.2-10.2)
[2016-07-27 05:06] LABS: ABG PCO2 30.6 mmHg (35-45); ABG PH 7.497 (7.35-7.45)
[2016-07-27 05:07] LABS: ABG BASE EXCESS 0 (-2.0-2.0); ABG HCO3 23.7 (22.0-26.0); ABG TCO2 25 (22.0-28.0)
[2016-07-27 05:21] LABS: ALBUMIN 2.7 g/dL (3.4-5.0); ALBUMIN/GLOBULIN RATIO 0.93; ANION GAP 11.8; BILIRUBIN,TOTAL 0.35 mg/dL (0.00-1.20); BUN/CREATININE RATIO 12.98; CALCIUM 8.7 mg/dL (8.2-10.2); CREATININE 0.77 mg/dL (0.60-1.10); POTASSIUM 3.8 mmol/L (3.5-5.1); TOTAL PROTEIN 5.6 g/dL (5.8-8.1)
[2016-07-27] MEDS: PERFOROMIST NEB SCH ×2 (05:24→17:49)
[2016-07-27] MEDS: SODIUM CHLORIDE 1,000 ML IV SCH (07:26)
[2016-07-27] MEDS: ASPIRIN EC PO SCH (09:14)
[2016-07-27] MEDS: CARDIZEM PO SCH ×4 (09:14→20:26)
[2016-07-27] MEDS: COREG PO SCH ×2 (09:14→17:05)
[2016-07-27] MEDS: DIOVAN PO SCH (09:15)
[2016-07-27] MEDS: LIPITOR PO SCH (09:16)
[2016-07-27] MEDS: FLOMAX PO SCH (09:16)
[2016-07-27] MEDS: LOVENOX SUBCUT SCH (09:17)
[2016-07-27] MEDS: PLAVIX PO SCH (09:17)
[2016-07-27] MEDS: PREDNISONE PO SCH ×2 (09:17→17:05)
[2016-07-27] MEDS: ROCEPHIN 1 GM in SODIUM CHLORIDE 100 ML IV SCH (09:17)
[2016-07-27] MEDS: ZITHROMAX 500 MG in SODIUM CHLORIDE 250 ML IV SCH (10:30)
[2016-07-27] MEDS: NON-FORMULARY MEDICATION (Mometasone/Formoterol [Dulera 200 Mcg/5 Mcg Inhaler] 2 PUFF) IN SCH (14:55)
[2016-07-28] MEDS: DUONEB NEB SCH ×2 (01:32→04:47)
[2016-07-28] MEDS ORDERED: ROCEPHIN 1 GM in SODIUM CHLORIDE 100 ML IV SCH (05:00)
[2016-07-28] MEDS: PERFOROMIST NEB SCH (05:00)
[2016-07-28 05:21] VITALS: BP 151/66; TEMP 97.5
[2016-07-28 05:54] LABS: BASOPHILS % (AUTO) 0.1 % (0.0-3.0); HEMATOCRIT 34.4 % (42.0-52.0); LYMPHOCYTES # (AUTO) 1.6 K/uL (0.60-3.4); LYMPHOCYTES % (AUTO) 12.2 (10.0-50.0); MEAN CORPUSCULAR HEMOGLOBIN 28.5 pg (27.0-31.0); MEAN CORPUSCULAR HGB CONC 34.9 (31.8-35.4); MEAN CORPUSCULAR VOLUME 81.7 fl (80.0-94.0); MONOCYTES # (AUTO) 0.8 K/uL (0.4-2.0); MONOCYTES % (AUTO) 6.4 (0-10); NEUTROPHILS # (AUTO) 10.3 K/ul (2.0-6.9); NEUTROPHILS % (AUTO) 80.3; PLATELET COUNT 381 10^3/uL (140-440); RED BLOOD COUNT 4.21 10^6/ul (4.70-6.10); WHITE BLOOD COUNT 12.87 K/ul (4.2-10.2)
[2016-07-28] MEDS ORDERED: ZITHROMAX 500 MG in SODIUM CHLORIDE 250 ML IV SCH (06:00)
[2016-07-28 06:10] LABS: ALBUMIN 2.9 g/dL (3.4-5.0); ALBUMIN/GLOBULIN RATIO 0.94; ANION GAP 12.1; BILIRUBIN,TOTAL 0.39 mg/dL (0.00-1.20); CALCIUM 9.3 mg/dL (8.2-10.2); CREATININE 0.8 mg/dL (0.60-1.10); POTASSIUM 4.1 mmol/L (3.5-5.1)
[2016-07-28] MEDS: PREDNISONE PO SCH (08:21)
[2016-07-28] MEDS: FLOMAX PO SCH (08:21)
[2016-07-28] MEDS: CARDIZEM PO SCH ×2 (08:22→08:23)
[2016-07-28] MEDS: LIPITOR PO SCH (08:22)
[2016-07-28] MEDS: DIOVAN PO SCH (08:23)
[2016-07-28] MEDS: ASPIRIN EC PO SCH (08:23)
[2016-07-28] MEDS: COREG PO SCH (08:23)
[2016-07-28] MEDS: PLAVIX PO SCH (08:23)
[2016-07-28] MEDS: LOVENOX SUBCUT SCH (08:25)
--- NOTE | 2016-07-28 08:27 | PCM.PROG ---
Attending Provider: ATTENDING PROVIDER: Dr. KATILN CORTES DATE OF SERVICE: 07/28/16 discharge note SUBJECTIVE: This 71 year old WHITE/ M was hospitalized 07/26/16. The patient is hospitalized with bronchitis and pneumonitis. No cough or congestion. Condition has improved remarkably. REVIEW OF SYSTEMS: CONSTITUTIONAL: No night sweats. No fatigue, malaise, lethargy. No fever or chills. HEENT: Eyes: No visual changes. No eye pain. No eye discharge. ENT: No runny nose. No epistaxis. No sinus pain. No odynophagia. No congestion. RESPIRATORY: No cough, no congestion. No hemoptysis. CARDIOVASCULAR: No angina symptoms. No CHF symptoms. No atypical chest pain for CAD. No palpitations. No shortness of breath. GASTROINTESTINAL: No abdominal pain. No nausea or vomiting. No diarrhea or constipation. No hematemesis. No hematochezia. GENITOURINARY: No urgency. No frequency. No dysuria. No hematuria. No obstructive symptoms. No discharge. No pain. No significant abnormal bleeding. MUSCULOSKELETAL: No musculoskeletal pain; no joint swelling. NEUROLOGICAL: Awake, alert, oriented to time, place and person. No headache. No neck pain. No syncope. No seizures. No dizziness. PSYCHIATRIC: Not anxious. No depression. No suicidal thoughts. No homicidal thoughts. SKIN: No rash. No lesions. No wounds. ENDOCRINE: No unexplained weight loss. No weight gain. HEMATOLOGIC/LYMPHATIC: No anemia. No purpura. No petechiae. No prolonged or excessive bleeding. No palpable lymph nodes. PHYSICAL EXAMINATION: GENERAL: The patient is awake, alert and oriented, lying/sitting in bed in no distress. VITAL SIGNS: Temperature 97.5 F, Pulse 100, Respiratory Rate 22, BP 151/66, Pulse Ox 96% HEENT: Head normocephalic, atraumatic. Eyes: Extraocular muscles are intact. Pupils are equal, round and reactive to light and accommodation. Ears: No lesions. Nose appeared normal. Throat: No exudate or erythema. NECK: Supple. No JVD, no carotid bruit. No lymphadenopathy or thyromegaly. LUNGS: Decreased breath sounds. Clear to auscultation. Percussion note normal. Chest symmetrical. HEART: S1, S2, no S3. No murmurs. No cyanosis or clubbing. No ascites. Pulses: Dorsalis pedis and posterior tibial pulses +1 to +2 both sides. ABDOMEN: Soft. Non-tender. Bowel sounds active. No CVA tenderness. No mass felt. EXTREMITIES: No edema. Full range of motion of all extremities, equal. NEUROLOGIC: No focal deficit. Cranial nerves II through XII are grossly intact. No headache, no double vision or headache. SKIN: Not dry. Intact. Turgor-normal. LYMPHATIC: No palpable lymph nodes/no lymphedema. MUSCULOSKELETAL: Normal joints with no swelling. Muscle tone is normal. LAB REVIEW: 07/28/16 05:00 07/28/16 05:10 07/28/16 05:10: Sodium 129 L, Potassium 4.1, Chloride 95 L, Carbon Dioxide 26, Anion Gap 12.1, BUN 16, Creatinine 0.80, Estimated GFR (MDRD) 95.00, BUN/ Creatinine Ratio 20.00, Glucose 111, Calcium 9.3, Total Bilirubin 0.39, AST 37, ALT 28, Alkaline Phosphatase 88, Total Protein 6.0, Albumin 2.9 L, Globulin 3.1 , Albumin/Globulin Ratio 0.94 07/28/16 05:00: WBC 12.87 H, RBC 4.21 L, Hgb 12.0 L, Hct 34.4 L, MCV 81.7, MCH 28.5, MCHC 34.9, RDW Coeff of Bull 12.8, Plt Count 381, Immature Gran % (Auto) 1.0, Neut % (Auto) 80.3, Lymph % (Auto) 12.2, [place] % (Auto) 6.4, Eos % (Auto) 0.0, Baso % (Auto) 0.1, Immature Gran # (Auto) 0.1, Neut # 10.3 H, Lymph # 1.6, [place] # 0.8, Eos # 0.0, Baso # 0.0 ASSESSMENT: 1. Acute pneumonitis/bronchitis resolved. ABGs done yesterday showed oxygen saturation more than 90% on room air. 2. BPH with obstruction taken care of by Dr. Archuleta. Ahumada will be removed by Dr. Archuleta this morning. PLAN: 1. Discharge home 2. Prednisone and Keflex The patient requires home oxygen, continuous, due to shortness of air and saturation of 85% on room air at rest and patient is agreeable. Plan and coordination of the patient's care discussed in the presence of Buggy Operator and nurse. CONDITION: Stable SCRIBED BY: CHARLETTE PAINTING Land Classifier scribed while in presence of service performed by Dr. KATLIN CORTES on 07/28/16 ([id number])
--- NOTE | 2016-07-28 10:09 | CM.DICTOOL ---
ADMISSION: 07/26/16 03:06 DISCHARGE: July 28, 2016 DATE OF SERVICE: 07/28/16 FINAL DIAGNOSIS Acute Respiratory Failure COPD exacerbation Severe Chronic Lung Disease Hypertension Dyslipidemia Stent Application x 4 Enlarged Prostate with obstruction; Dr. Archuleta Former Smoker LAST VITALS Temp Pulse Resp BP Pulse Ox 97.5 F L 100 22 151/66 L 96 07/28/16 05:20 07/28/16 05:20 07/28/16 05:20 07/28/16 05:20 07/28/16 05:20 ACTIVE HOME MEDICATIONS Arformoterol Tartrate (Brovana) 1 vial nebulizer BID Last Admin: Aspirin (Aspirin Ec) 325 mg PO DAILYWM [facility] Last Admin: 07/28/16 08:23 Dose: 325 mg Atorvastatin Calcium (Lipitor) 20 mg PO DAILY [facility] Last Admin: 07/28/16 08:20 Dose: 20 mg Carvedilol (Coreg) 6.25 mg PO BIDWM [facility] Last Admin: 07/28/16 08:23 Dose: 6.25 mg Clopidogrel Bisulfate (Plavix) 75 mg PO DAILY [facility] Last Admin: 07/27/16 09:17 Dose: 75 mg Diltiazem HCl (Cardizem) 30 mg PO BID [facility] Last Admin: 07/28/16 08:23 Dose: 30 mg Diltiazem HCl (Cardizem) 60 mg PO BID [facility] Last Admin: 07/28/16 08:23 Dose: 60 mg Non-Formulary Medication (Mometasone/Formoterol [Dulera 200 Mcg/5 Mcg Inhaler]) 2 puff IN 1500 [facility] Last Admin: 07/27/16 14:55 Dose: 2 puff Prednisone (Prednisone) 10 mg PO BIDWM [facility] Last Admin: 07/28/16 08:21 Dose: 10 mg (PRESCRIPTION) Tamsulosin HCl (Flomax) 0.4 mg PO DAILY [facility] Last Admin: 07/28/16 08:23 Dose: 0.4 mg Valsartan (Diovan) 320 mg PO DAILY [facility] Last Admin: 07/07/16 08:23 Dose: 320 mg Tiotropium [place] (Spiriva) 1 mcg INH Daily Last Admin: ALLERGIES No Known Allergies Allergy (Verified 07/26/16 02:35) NEW PRESCRIPTIONS: Keflex 500 mg TID for 5 days Prednisone 10 mg BID Cardizem 90 mg BID SMOKING: Not Applicable DISEASE SPECIFIC EDUCATION: Oxygen use Prescriptions Use of Steroids Appointments LAB REVIEW: 07/27/16 04:53 07/27/16 04:53 07/27/16 04:55: Puncture Site Lb, O2 Saturation 91.0 L, ABG pH 7.497 H, ABG pCO2 30.6 L, ABG pO2 56.0 L*, ABG HCO3 23.7, ABG Total CO2 25, ABG Base Excess 0 , Mohamud Test +, FiO2 % 21.0 07/27/16 04:53: WBC 13.35 H, RBC 3.98 L, Hgb 11.4 L, Hct 32.7 L, MCV 82.2, MCH 28.6, MCHC 34.9, RDW Coeff of Bull 12.8, Plt Count 296, Immature Gran % (Auto) 0.9, Neut % (Auto) 84.3, Lymph % (Auto) 11.0, [place] % (Auto) 3.7, Eos % (Auto) 0.0, Baso % (Auto) 0.1, Immature Gran # (Auto) 0.1, Neut # 11.3 H, Lymph # 1.5, [place] # 0.5, Eos # 0.0, Baso # 0.0, Sodium 127 L, Potassium 3.8, Chloride 94 L, Carbon Dioxide 25, Anion Gap 11.8, BUN 10, Creatinine 0.77, Estimated GFR (MDRD ) 99.00, BUN/Creatinine Ratio 12.98, Glucose 155 H, Calcium 8.7, Total Bilirubin 0.35, AST 25, ALT 22, Alkaline Phosphatase 89, Total Protein 5.6 L, Albumin 2.7 L, Globulin 2.9, Albumin/Globulin Ratio 0.93 07/26/16 17:11: Puncture Site Lbrach, O2 Saturation 96.0, ABG pH 7.489 H, ABG pCO2 31.1 L, ABG pO2 71.0 L, ABG HCO3 23.6, ABG Total CO2 25, ABG Base Excess 0 , O2 Delivery Device Nc, Oxygen Liter Flow 2.00 PLAN: Discharge home with family Diet: Heart Healthy Activity: Gradually resume as tolerated Please call Dr. Billings's office to arrange a hospital follow-up visit for Monday or Monday of next week. Please keep appointment today (07-28-2016) with Dr. Archuleta at 9 am for catheter removal. Please follow any instructions given by urology for further appointments, catheter care if you are sent home with a new roger catheter. Home oxygen has been arranged through [facility] for continuous use at 2 liters per nasal cannula. Mr. Christian is alert and oriented x 3. He is independent with ADL'S, but may require minimal assistance due to shortness of air. He continues to have a productive cough of yellow mucus. Home oxygen has been arranged through [facility]. Patient will be discharged today with portable oxygen with conserving device at 2 liters per cannula. Skin is dry, bruising noted to bottom of right foot, upper extremities, scratches are noted to the right upper thigh. His appetite is good with intakes of 25-75%. Errol Blilings MD
--- NOTE | 2016-08-04 14:48 | PN ---
DATE OF SERVICE: 07/27/16 SUBJECTIVE: 71-year-old white male hospitalized with acute bronchitis, chronic lung disease. The patient's condition has improved remarkably. He wants to go home. He wants to keep his appointment tomorrow with Dr. Archuleta for his prostate problem for which he has a Tolliver catheter. REVIEW OF SYSTEMS: CONSTITUTIONAL: No night sweats. No fatigue, malaise, lethargy. No fever or chills. HEENT: Eyes: No visual changes. No eye pain. No eye discharge. ENT: No runny nose. No epistaxis. No sinus pain. No sore throat. No odynophagia. No congestion. RESPIRATORY: No cough, no congestion. No hemoptysis. CARDIOVASCULAR: No angina symptoms. No CHF symptoms. No atypical chest pain for CAD. No palpitations. No shortness of breath. GASTROINTESTINAL: Appetite has improved. No abdominal pain. No nausea or vomiting. No diarrhea or constipation. No hematemesis. No hematochezia. GENITOURINARY: No urgency. No frequency. No dysuria. No hematuria. No obstructive symptoms. No discharge. No pain. No significant abnormal bleeding. MUSCULOSKELETAL: No musculoskeletal pain; no joint swelling. NEUROLOGICAL: No headache. No neck pain. No syncope. No seizures. No dizziness. PSYCHIATRIC: Not anxious. No depression. No suicidal thoughts. No homicidal thoughts. SKIN: No rash. No lesions. No wounds. ENDOCRINE: No unexplained weight loss. No weight gain. HEMATOLOGIC/LYMPHATIC: No anemia. No purpura. No petechiae. No prolonged or excessive bleeding. No palpable lymph nodes. PHYSICAL EXAMINATION: GENERAL: The patient is oriented to time, place and person. VITAL SIGNS: Temperature 98, pulse 83, respiratory rate 20, BP 126/64, pulse ox 94%. HEENT: Head normocephalic, atraumatic. Eyes: Extraocular muscles are intact. Pupils are equal, round and reactive to light and accommodation. Ears: No lesions. Nose appeared normal. Throat: No exudate or erythema. NECK: Supple. No JVD, no carotid bruit. No lymphadenopathy or thyromegaly. LUNGS: Decreased breath sounds. Clear to auscultation. Percussion note normal. Chest symmetrical. HEART: S1, S2, no S3. No murmurs. No cyanosis or clubbing. No ascites. Pulses: Dorsalis pedis and posterior tibial pulses +1 to +2 both sides. ABDOMEN: Soft. Nontender. Bowel sounds active. No CVA tenderness. No mass felt. EXTREMITIES: No edema. Full range of motion of all extremities, equal. NEUROLOGIC: No focal deficit. Cranial nerves II through XII are grossly intact. No headache, no double vision or headache. SKIN: Not dry. Intact. Turgor - normal. LYMPHATIC: No palpable lymph nodes/no lymphedema. MUSCULOSKELETAL: Normal joints with no swelling. Muscle tone is normal. LABS: Hemoglobin 11.4, hematocrit 32, WBC 13,000, normal differential. Creatinine 0.7 , BUN 10, potassium 3.8, BNP 49. ASSESSMENT: 1. ACUTE RESPIRATORY FAILURE/ACUTE BRONCHITIS/PNEUMONITIS SEEMS TO BE RESOLVING 2. TOLLIVER CATHETER WITH BPH PLAN: 1. Continue Tolliver 2. Discharge tomorrow and the patient has appointment with urologist at 9 a.m. 3. Discontinue Hydrochlorothiazide because of hyponatremia. 4. Restrict fluid intake. 5. Discontinue telemetry. 6. The patient will be discharged on Keflex and Prednisone which will be started today. 7. Cardizem 90 mg p.o. twice a day. 8. Prednisone 10 mg twice a day. EDUCATION CARRIED OUT ABOUT: The side effects of Prednisone with avascular necrosis of the femoral head is discussed. The side effects of steroids like cataracts, osteoporosis, all discussed. TIME SPENT: More than 30 minutes. Plan and coordination of the patient's care discussed in the presence of nurse. SHEA
--- NOTE | 2016-08-04 14:56 | DS ---
DATE OF SERVICE: 07/28/16 FINAL DIAGNOSIS: 1. ACUTE RESPIRATORY FAILURE 2. COPD EXACERBATION 3. SEVERE CHRONIC LUNG DISEASE 4. HYPERTENSION 5. DYSLIPIDEMIA 6. STENT APPLICATION TIMES FOUR 7. ENLARGED PROSTATE WITH OBSTRUCTION; DR. GUADARRAMA 8. FORMER SMOKER V/S AT DISCHARGE: Temperature 97.5, pulse 100, respiratory rate 22, BP 151/66, pulse ox 96 DISCHARGE INSTRUCTIONS: Followup appointment: Please call Dr. Billings's office to arrange a followup visit for Monday or Monday of next week. Please keep appointment today 07/28/[address] Guadarrama at 9 a.m. for catheter removal. Please follow any instructions given by urology for further appointments, catheter care if you are sent home with a new roger catheter. MEDICATIONS AT DISCHARGE: Valsartan/Hydrochlorothiazide 320 mg p.o. daily Atorvastatin Calcium (Lipitor) 20 mg p.o. daily Diltiazem 60 mg p.o. b.i.d. Carvedilol (Coreg) 6.25 mg p.o. b.i.d. Vitamin E 400 international units p.o. daily Tiotropium [place] (Spiriva) one mcg INH daily Mometasone/Formoterol (Dulera 200 mcg/5 mcg inhaler) 8.8 gm two puff IN daily Cyanocobalamin 5,000 mcg p.o. daily Clopidogrel 75 mg p.o. daily Ascorbate Calcium 500 mg p.o. daily Arformoterol (Brovana) one vial INH b.i.d. Albuterol two puff INH q.4h p.r.n. Tamsulosin 0.4 mg p.o. daily Aspirin 325 mg p.o. daily NEW PRESCRIPTIONS: Keflex 500 mg t.i.d. for 5 days Prednisone 10 mg b.i.d. Cardizem 90 mg b.i.d. DIET INSTRUCTIONS: Heart Healthy ACTIVITY: Gradually resume as tolerated SMOKING: N/A DISEASE SPECIFIC EDUCATION: Oxygen use Prescriptions Use of steroids Appointments HOSPITAL COURSE: This is a 71-year-old white male hospitalized with COPD, acute bronchitis, pneumonitis. The patient was treated with IV antibiotics, steroids. The patient' s condition improved. Nebs treatments were also given. The patient's respiratory status improved remarkably. Sodium was going up at time of discharge. He was advised to restrict fluid intake which he has been taking more because of his kidney problems. 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 He is going to go to Dr. Guadarrama , Urologist, for further evaluation. Very likely the Roger catheter will be removed. He is already on Flomax. The patient is going to be discharged on Keflex and Prednisone. Condition at time of discharge is stable. LABS: Hemoglobin 12, hematocrit 34, WBC 12,000, normal differential. Creatinine 0.8, BUN 16, potassium 4.1, sodium 129, BNP 49. TIME SPENT: More than 60 minutes. MTDD
== END 2016-07-28 08:40 | disposition home or self-care (01) | DRG 190 ==
LOC: ED 01:47 → SCU 03:06
PROVIDERS: ADMIT Internal Medicine; ATTEND Internal Medicine
DX: J44.1 Chronic obstructive pulmonary disease with (acute) exacerbation (principal); J18.9 Pneumonia, unspecified organism; J96.00 Acute respiratory failure, unspecified whether with hypoxia or hypercapnia; N13.8 Other obstructive and reflux uropathy; N40.1 Benign prostatic hyperplasia with lower urinary tract symptoms; J20.9 Acute bronchitis, unspecified; I10 Essential (primary) hypertension; E78.5 Hyperlipidemia, unspecified; Z96.0 Presence of urogenital implants; Z79.01 Long term (current) use of anticoagulants; Z79.899 Other long term (current) drug therapy; Z87.891 Personal history of nicotine dependence
CPT/HCPCS: 36415; 80053; 81001; 82550; 82803; 83880; 84484; 85025; 85379; 87081; 87651; 87804; 87880; 93005; 93010; 94640; 94761; 96365; 96375; 99284

== ENCOUNTER 2016-07-29 04:13 | Emergency (ER) ==
[2016-07-29] MEDS ORDERED: URO-JET MUCOUSMEMB STA (04:14)
[2016-07-29 04:24] VITALS: TEMP 97.1; BMI 20.7
--- NOTE | 2016-07-29 04:24 | ED.PDOC ---
General ED Provider: Dr. CHRIS WEISS-ER Chief Complaint: Urinary Problem Stated Complaint: i cant pee Time Seen by Physician: 04:22 Mode of Arrival: Walk-In Information Source: Patient, Family Exam Limitations: No limitations Primary Care Provider: KATLIN KAUR Nursing and Triage Documentation Reviewed and Agree: Yes Complaint Exam - Complaint/Exam Patient Complains of: Reports: Groin pain Onset/Duration: today Symptoms Are: Still present Timing: Constant Episodes of Voiding Over Last 12 Hours: 0 Initial Severity: Mild Current Severity: Moderate Location of Pain: Reports: Suprapubic Character: Reports: Constant pressure, Dull Aggravating: Reports: Voiding, Straining, Palpation Alleviating: Reports: None Associated Signs and Symptoms: Reports: Decreased urine output Related History: Reports: Similar episode Last Voided: this am after catheter removed at urology office Testicular Torsion Risk Factors: Reports: None Surgical Obstruction Risk Factors: Reports: None Differential Diagnoses: Other Review of Systems - Review Of Systems Constitutional: Reports: No symptoms Eyes: Reports: No symptoms Ears, Nose, Mouth, Throat: Reports: No symptoms Respiratory: Reports: No symptoms Cardiac: Reports: No symptoms GI: Reports: No symptoms : Reports: Pain Musculoskeletal: Reports: No symptoms Skin: Reports: No symptoms Neurological: Reports: No symptoms Endocrine: Reports: No symptoms Hematologic/Lymphatic: Reports: No symptoms All Other Systems: Reviewed and Negative Past Medical History - Past Medical History Endocrine: Reports: Unknown Cardiovascular: Reports: Hypertension, Unknown Respiratory: Reports: COPD, Unknown Hematological: Reports: Unknown Gastrointestinal: Reports: Unknown Genitourinary: Reports: Unknown Neuro/Psych: Reports: Unknown Musculoskeletal: Reports: Unknown Cancer: Reports: Unknown - Surgical History General Surgical History: Reports: Stent (cardiac stents ) - Family History Family History: Reports: Unknown - Social History Smoking Status: Former smoker Hx Substance Use: No Alcohol Screening: None Lives: With family Physical Exam - Physical Exam Appearance: Well-appearing, No pain distress, Well-nourished Eyes: CYNTHIA ENT: Ears normal, Nose normal, Oropharynx normal Neck: Supple Respiratory: Airway patent Cardiovascular: RRR, Pulses normal, No rub, No murmur GI/: Soft, Nontender, No masses, Bowel sounds normal, No Organomegaly Musculoskeletal: Normal strength, ROM intact, No edema, No calf tenderness Skin: Warm, Dry, Normal color Neurological: Sensation intact Psychiatric: Affect appropriate, Mood appropriate Re-Evaluation - Re-Evaluation Time of Re-Evaluation: 04:50 Status: Improved (450cc in roger bag) Vital Signs Stable: Yes Pain Level: 1 Appearance: NAD Lungs: Clear Skin: Warm and Dry Neuro: Alert and Oriented X3 CV: RRR Critical Care Note - Critical Care Note Total Time (mins): 0 Course - Course Orders, Labs, Meds: Orders Category Date Time Status Roger [ED CATHETER INSERTION AND CARE] .ONCE EMERGENCY 07/29/16 04:14 Active Hydrocodone Bit/Acetaminophen [[place] 5-325] MEDS 07/29/16 04:44 Discontinued 1 tab PO ONCE STA Lidocaine HCl [Uro-Jet] MEDS 07/29/16 04:14 Discontinued 10 ml MUCOUSMEMB ONCE STA Medications Discontinued Medications Generic Name Dose Route Start Last Admin Trade Name Freq PRN Reason Stop Dose Admin Acetaminophen/Hydrocodone Bitart 1 tab 07/29/16 04:44 [place] 5-325 PO 07/29/16 04:45 ONCE STA Lidocaine HCl 10 ml 07/29/16 04:14 07/29/16 04:29 Uro-Jet MUCOUSMEMB 07/29/16 04:15 10 ml ONCE STA Administration Vital Signs: Temp Pulse Resp BP Pulse Ox 07/29/16 04:15 97.1 F L 95 H 28 H 156/102 H 97 Departure - Departure Time of Disposition: 04:51 Disposition: HOME SELF-CARE Discharge Problem: Urinary retention Instructions: Urinary Retention in Men (ED) Condition: Fair Pt referred to PMD for follow-up: Yes Additional Instructions: f/u with urology/dr kaur Allergies/Adverse Reactions: Allergies No Known Allergies Allergy (Verified 07/29/16 04:24) Home Medications: Ambulatory Orders Albuterol Sulfate [Proair Hfa] 2 puff INH Q4H PRN 07/10/16 Arformoterol Tartrate [Brovana] 1 vial INH BID 07/10/16 Ascorbate Calcium [Vitamin C] 500 mg PO DAILY 07/10/16 Atorvastatin Calcium [Lipitor] 20 mg PO DAILY 07/10/16 Carvedilol [Coreg] 6.25 mg PO BID 07/10/16 Clopidogrel Bisulfate [Clopidogrel] 75 mg PO DAILY 07/10/16 Cyanocobalamin (Vitamin B-12) [Vitamin B12] 5,000 mcg PO DAILY 07/10/16 Mometasone/Formoterol [Dulera 200 Mcg/5 Mcg Inhaler] 2 puff IN DAILY 07/10/16 Tiotropium [place] [Spiriva] 1 mcg INH DAILY 07/10/16 Valsartan/Hydrochlorothiazide [Diovan Hct 320-12.5 mg Tab] 320 mg PO DAILY 07/10 Vitamin E 400 intnl unit PO DAILY 07/10/16 Tamsulosin HCl [Flomax] 0.4 mg PO DAILY 07/15/16 Aspirin [Ecotrin] 325 mg PO DAILY 07/26/16 Cephalexin [Keflex] 500 mg PO Q8HR #15 capsule 07/28/16 Diltiazem HCl [Cardizem] 90 mg PO BID #60 tablet 07/28/16 Prednisone 10 mg PO BIDWM #10 tablet 07/28/16 Disposition Discussed With: Patient, Family
[2016-07-29] MEDS ORDERED: NORCO 5-325 PO STA (04:44)
[2016-07-29 05:42] VITALS: BP 106/74
== END 2016-07-29 05:42 | disposition home or self-care (01) ==
LOC: ED 04:13
DX: R33.9 Retention of urine, unspecified (principal); R10.30 Lower abdominal pain, unspecified; Z79.899 Other long term (current) drug therapy
CPT/HCPCS: 99283

== ENCOUNTER 2016-08-08 11:16 | Inpatient (IN) ==
[2016-08-08] MEDS ORDERED: CARDIZEM INJ IVP STA ×3 (11:39→14:02)
[2016-08-08] MEDS ORDERED: SOLU-MEDROL 125 MG IVP STA (11:44)
[2016-08-08] MEDS ORDERED: XOPENEX 0.63 MG NEB STA (11:44)
[2016-08-08] MEDS ORDERED: SOLU-MEDROL 125 MG ONE (11:45)
[2016-08-08 11:47] LABS: ABG BASE EXCESS -1 (-2.0-2.0); ABG HCO3 21.8 (22.0-26.0); ABG TCO2 23 (22.0-28.0)
[2016-08-08 12:00] LABS: BASOPHILS # (AUTO) 0.1 K/uL (0-0.2); BASOPHILS % (AUTO) 0.2 % (0.0-3.0); EOSINOPHILS # (AUTO) 0.1 K/ul (0.0-0.7); EOSINOPHILS % (AUTO) 0.3 % (0.0-7.0); HEMATOCRIT 35.8 % (42.0-52.0); HEMOGLOBIN 12.2 g/dl (14.0-18.0); IMMATURE GRANULOCYTE % (AUTO) 1.1 % (0.0-5.0); LYMPHOCYTES # (AUTO) 1.7 K/uL (0.60-3.4); LYMPHOCYTES % (AUTO) 8.6 (10.0-50.0); MEAN CORPUSCULAR HEMOGLOBIN 28.5 pg (27.0-31.0); MEAN CORPUSCULAR HGB CONC 34.1 (31.8-35.4); MEAN CORPUSCULAR VOLUME 83.6 fl (80.0-94.0); MONOCYTES # (AUTO) 1.6 K/uL (0.4-2.0); MONOCYTES % (AUTO) 7.9 (0-10); NEUTROPHILS # (AUTO) 16.4 K/ul (2.0-6.9); NEUTROPHILS % (AUTO) 81.9; PLATELET COUNT 370 10^3/uL (140-440); RED BLOOD COUNT 4.28 10^6/ul (4.70-6.10); WHITE BLOOD COUNT 20.03 K/ul (4.2-10.2)
[2016-08-08] MEDS ORDERED: AMIDATE IVP STA (12:07)
[2016-08-08] MEDS ORDERED: AMIDATE IVP ONE (12:08)
[2016-08-08 12:16] LABS: FLU INTERNAL QC INTERNAL QC VALID; RAPID FLU A NEGATIVE (NEGATIVE); RAPID FLU B NEGATIVE (NEGATIVE)
[2016-08-08 12:41] LABS: ALBUMIN 2.9 g/dL (3.4-5.0); ALBUMIN/GLOBULIN RATIO 0.91; ANION GAP 14.5; BILIRUBIN,TOTAL 0.74 mg/dL (0.00-1.20); BUN/CREATININE RATIO 19.53; CALCIUM 9.2 mg/dL (8.2-10.2); CREATININE 1.28 mg/dL (0.60-1.10); POTASSIUM 4.5 mmol/L (3.5-5.1); TOTAL PROTEIN 6.1 g/dL (5.8-8.1); TROPONIN I 0.017 ng/ml (0.0000-0.4000)
[2016-08-08] MEDS ORDERED: CARDIZEM INJ 125 MG in SODIUM CHLORIDE 100 ML IV SCH (13:00)
--- NOTE | 2016-08-08 13:38 | DI ---
EXAM: CHEST FRONTAL VIEW HISTORY: Shortness of breath. COMPARISON: 07/26/2016 FINDINGS: Heart size remains within normal limits. There is diffuse, chronic appearing interstitial accentuation. Lungs are hyperinflated and there is relative lucency of the lung zones suggesting e mphysema. Moderate density in the right lung base is new and consistent with pneumonia. Probable t race right pleural effusion. Lungs are otherwise clear. IMPRESSION: Moderate right base pneumonia. Cannot exclude a component chronic obstructive pulmonary disease. Correlate clinically.
[2016-08-08] MEDS ORDERED: VANCOMYCIN 1 GM in SODIUM CHLORIDE 250 ML IV STA (14:01)
[2016-08-08] MEDS ORDERED: ROCEPHIN 1 GM in SODIUM CHLORIDE 50 ML IV STA (14:01)
--- NOTE | 2016-08-08 14:03 | US ---
EXAM: ULTRASOUND LOWER EXTREMITY VENOUS DOPPLER EXAM HISTORY: Leg pain. FINDINGS: Bilateral lower extremity venous Doppler exam. Real time genao-scale, Doppler spectral abdirashid lysis and color-flow Doppler imaging performed. The veins targeted for evaluation include the commo n femoral, greater saphenous, profundus, femoral, popliteal, peroneal, anterior tibial and posterior tibial. The evaluated veins demonstrated normal spontaneous flow and compression without evidence of thrombosis. IMPRESSION: No venous thrombosis identified within the areas evaluated.
[2016-08-08] MEDS ORDERED: ROCEPHIN ONE (14:08)
--- NOTE | 2016-08-08 15:06 | CT ---
EXAM: CT ABDOMEN AND PELVIS HISTORY: Abdominal pain, urinary retention TECHNIQUE: CT abdomen and pelvis without intravenous contrast. Images were reconstructed using 5 m m section thickness. Reformations were prepared. COMPARISON: 03/06/2013 FINDINGS: Diagnostic limitations exist without including contrast enhanced images. Artifact from arms remaini ng down within the scanning field of view degrades image quality. No obvious focal hepatic lesions. Splenic calcifications consistent with old granulomatous disease. Gallbladder is poorly seen. No gross pancreatic or adrenal pathology. There is no hydronephrosis. Severe atherosclerotic disease without aneurysmal caliber of the aorta. There is a 1.1 cm retrocrural lymph node on the right whic h has been seen since at least the prior study in 2012, nonspecific although slightly larger. No obvious gastric pathology. An appendix, if present is not seen. There is no right lower quadran t inflammation identified. Moderate fecal retention with nonobstructive bowel gas pattern. Urinary bladder is decompressed via Ahumada catheter. The prostate is mildly enlarged. No ascites. No abdominal wall hernia. Moderate degenerative disc and facet disease of the lower spine. There i s a tiny droplet of gas seen anterior to the left sided L5/S1 facets, possibly related to degenerati ve disc or joint disease, less likely regional infection. Cannot exclude a disc extrusion central/l eft paracentral L3/L4. There is no paraspinal fluid collection. Consider correlation with MRI. Jo-Ann ng bases reveal a mass-like consolidations posteriorly on the right with a background of emphysema. No pneumoperitoneum. IMPRESSION: 1. There is a tiny droplet of gas seen anterior to the left sided L5/S1 facets, possibly related to degenerative disc or joint disease, less likely regional infection. Cannot exclude a disc extrusio n central/left paracentral L3/L4. There is no paraspinal fluid collection. Consider obtaining joel ent history and physical examination. Correlation with MRI can be considered if indicated. 2. Mass-like consolidations in the right lung base could represent neoplasia and / or pneumonia. Fo llow-up CT chest recommended. 3. Urinary bladder is decompressed by a Ahumada catheter. Mild prostate enlargement. 4. Severe atherosclerotic disease.
[2016-08-08] MEDS ORDERED: LASIX IVP ONE (16:00)
[2016-08-08] MEDS ORDERED: SODIUM CHLORIDE 1,000 ML IV SCH ×2 (16:00)
[2016-08-08 16:33] VITALS: BMI 22.0
[2016-08-08] MEDS ORDERED: PROAIR HFA IH PRN (16:37)
[2016-08-08] MEDS: COREG PO SCH (17:27)
[2016-08-08] MEDS ORDERED: LASIX IVP STA (17:56)
[2016-08-08] MEDS: DUONEB NEB SCH ×2 (18:25→23:55)
[2016-08-08] MEDS: ELIQUIS PO SCH (20:35)
[2016-08-08] MEDS: CARDIZEM PO SCH (20:36)
[2016-08-08] MEDS: SOLU-MEDROL 125 MG IVP SCH (20:52)
[2016-08-08] MEDS ORDERED: NON-FORMULARY MEDICATION (Arformoterol Tartrate [Brovana] 1 VIAL) INH SCH (21:00)
[2016-08-08] MEDS ORDERED: CARDIZEM PO SCH ×2 (21:00)
[2016-08-08 22:11] LABS: CREATINE KINASE 28 U/L
[2016-08-09] MEDS: SODIUM CHLORIDE 1,000 ML IV SCH (01:15)
[2016-08-09] MEDS: DUONEB NEB SCH ×4 (05:10→23:35)
[2016-08-09] MEDS: PERFOROMIST NEB SCH ×2 (05:20→18:28)
[2016-08-09] MEDS: SOLU-MEDROL 125 MG IVP SCH (05:29)
[2016-08-09 05:56] LABS: BASOPHILS % (AUTO) 0.1 % (0.0-3.0); HEMATOCRIT 30.8 % (42.0-52.0); HEMOGLOBIN 10.6 g/dl (14.0-18.0); IMMATURE GRANULOCYTE % (AUTO) 0.7 % (0.0-5.0); LYMPHOCYTES # (AUTO) 1.5 K/uL (0.60-3.4); LYMPHOCYTES % (AUTO) 13.3 (10.0-50.0); MEAN CORPUSCULAR HEMOGLOBIN 28.7 pg (27.0-31.0); MEAN CORPUSCULAR HGB CONC 34.4 (31.8-35.4); MEAN CORPUSCULAR VOLUME 83.5 fl (80.0-94.0); MONOCYTES # (AUTO) 0.2 K/uL (0.4-2.0); MONOCYTES % (AUTO) 1.7 (0-10); NEUTROPHILS # (AUTO) 9.3 K/ul (2.0-6.9); NEUTROPHILS % (AUTO) 84.2; PLATELET COUNT 303 10^3/uL (140-440); RED BLOOD COUNT 3.69 10^6/ul (4.70-6.10)
[2016-08-09 06:17] LABS: ALBUMIN 2.5 g/dL (3.4-5.0); ALBUMIN/GLOBULIN RATIO 0.89; ANION GAP 14.7; BILIRUBIN,TOTAL 0.47 mg/dL (0.00-1.20); BUN/CREATININE RATIO 25.21; CALCIUM 8.4 mg/dL (8.2-10.2); CREATININE 1.15 mg/dL (0.60-1.10); POTASSIUM 4.7 mmol/L (3.5-5.1); TOTAL PROTEIN 5.3 g/dL (5.8-8.1)
[2016-08-09 06:23] LABS: CREATINE KINASE 28 U/L
[2016-08-09] MEDS ORDERED: SOLU-MEDROL 125 MG IVP SCH (08:56)
[2016-08-09] MEDS ORDERED: PLAVIX PO SCH (09:00)
[2016-08-09] MEDS ORDERED: NON-FORMULARY MEDICATION (Ascorbate Calcium [Vitamin C] 500 MG) PO SCH ×22 (09:00)
[2016-08-09] MEDS ORDERED: VITAMIN E PO SCH (09:00)
[2016-08-09] MEDS: ROCEPHIN 1 GM in SODIUM CHLORIDE 100 ML IV SCH (10:06)
[2016-08-09] MEDS: ASPIRIN EC PO SCH (10:09)
[2016-08-09] MEDS: ELIQUIS PO SCH ×2 (10:10→22:03)
[2016-08-09] MEDS: COREG PO SCH ×2 (10:10→17:08)
[2016-08-09] MEDS: NON-FORMULARY MEDICATION (Cyanocobalamin (Vitamin B-12) [Vitamin B12] 5,000 MCG) PO SCH (10:10)
[2016-08-09] MEDS: CARDIZEM PO SCH ×2 (10:10→22:03)
[2016-08-09] MEDS: FLOMAX PO SCH (10:11)
[2016-08-09] MEDS: LIPITOR PO SCH (10:11)
[2016-08-09] MEDS: NON-FORMULARY MEDICATION (Mometasone/Formoterol [Dulera 200 Mcg/5 Mcg Inhaler] 2 PUFF) IN SCH (10:12)
[2016-08-09] MEDS: VITAMIN E PO SCH (10:12)
[2016-08-09] MEDS: VITAMIN C PO SCH (10:12)
[2016-08-09] MEDS: SPIRIVA IH SCH (10:14)
--- NOTE | 2016-08-09 10:16 | CT ---
EXAM: CT chest with contrast. HISTORY: Right lung base. Mass-like consolidation. COMPARISON: Abdominal CT [address] 12/05/2012. TECHNIQUE: Multiple axial images of the chest were obtained following intravenous administration of 75 mL of Omnipaque 350, low osmolar. Images were reformatted in the sagittal and coronal planes. FINDINGS: Nonenlarged mediastinal and hilar lymph nodes present. Heart size is normal. Atheroscle rotic calcifications present. No pericardial effusion identified. Small right pleural effusion noted. Several discrete spiculated nodular densities are seen in the r ight lower lobe. The largest area measures 2.9 x 2.2 cm on axial image 50. Tiny left pleural effus ion is present. Biapical scarring is stable. Severe emphysematous changes are present. Calcified granulomatous changes noted. No pneumothorax identified. Limited images of the upper abdomen demonstrate no acute finding. There are mild compression deform ities of the superior endplates of T11 and L1 with minimal retropulsion of the posterior-superior en dplate of L1 which flattens the ventral thecal sac IMPRESSION: 1. Spiculated nodular densities in the right lower lobe could represent pneumonia in the appropriat e setting. Neoplasm could be present. Recommend follow-up chest CT in 4-6 weeks after appropriate therapy if clinical history is suggestive of pneumonia. Otherwise, tissue sampling should be consid ered. 2. Small right and tiny left pleural effusions. 3. Severe emphysema. 4. Mild T11 and L1 superior endplate fractures which may be subacute.
[2016-08-09] MEDS ORDERED: LASIX IVP ONE (10:20)
--- NOTE | 2016-08-09 11:39 | HP ---
DATE OF SERVICE: 08/08/16 CHIEF COMPLAINT: Shortness of breath. HISTORY OF PRESENT ILLNESS: This is a 71-year-old male who was recently admitted to Dr. Billings on 07/26/16 for COPD exacerbation secondary to bronchitis. He went home, was not feeling better with cough, congestion and shortness of breath which was getting worse. Today he had palpitations and felt so short of breath he could not even get up so the patient's called the EMT, who brought the patient to the emergency room. He was seen by Dr. Santa in the emergency room. The patient was in rapid atrial fibrillation with hypotension. Cardizem IV push was given and they were almost ready to do the cardioversion but the blood pressure came back and the patient was further evaluated. White count was 20,000. ABGs showed a pH 7.50, pc02 28.0, p02 63. BNP was 171. BUN and creatinine were slightly elevated [address]28. Influenza negative. CT of the abdomen and pelvis done which did show right-sided pleural effusion with mass-like structure and fluid and some air under L4-L5 but the patient does not have any lower back pain. At that time the patient was admitted to the hospital for IV antibiotics and breathing treatments. The patient also had worsening of the lower extremity edema for which Venous Doppler was done and was negative for clots. REVIEW OF SYSTEMS: CONSTITUTIONAL: Weakness, tiredness. No fever, no chills. HEENT: Normal. ENDOCRINE: No weight gain; no weight loss. CVS: Shortness of breath. Palpitations. No chest pain. No PND, no orthopnea. RESPIRATORY: Cough and congestion. No hemoptysis. GI: No nausea, no vomiting. No abdominal pain. No melena. : No hematuria. No polyuria. MUSCULOSKELETAL: No joint swelling. PSYCHIATRIC: Not anxious. No depression. No suicidal thoughts. No homicidal thoughts. SKIN: Intact, no open lesions. PAST MEDICAL HISTORY: CAD status post four stents Hypertension COPD Enlarged prostate with obstructive uropathy on Tolliver catheter PAST SURGICAL HISTORY: Skin cancer, lower eyelid with reconstruction PERSONAL HISTORY: Nicotine use quitting 10 years ago. FAMILY HISTORY: Significant for [place]. MEDICATIONS: (HOME) Lipitor Coreg Vitamin E Spiriva Dulera Vitamin B Plavix Vitamin C Brovana ProAir Flomax Ecotrin Cardizem Cipro ALLERGIES: NKDA PHYSICAL EXAMINATION: V/S: BP 110/50, respiratory rate 22, heart rate 89 irregular. HEENT: Atraumatic, normocephalic. Ill appearing male lying in bed, Cachetic. No scleral icterus. Mucosa dry, pallor positive. NECK: Supple. No JVD, no bruit. No lymphadenopathy. No thyromegaly. HEART: S1, S2 irregular. LUNGS: Decreased basilar crackles, decreased entry. ABDOMEN: Soft, nontender. Bowel sounds are active. No CVA tenderness. No rigidity or guarding. EXTREMITIES: 2 to 3+ edema. No cyanosis or clubbing. MUSCULOSKELETAL: Normal joints, no swelling. NEUROLOGIC: The patient is awake, alert, oriented times three. SKIN: Intact; no open lesions. LYMPHATIC: No lymph nodes palpable. LABS: White count 20.03, hemoglobin 12.2, hematocrit 35.8, platelet count 370. ABG pH 7.50, pc02 28.0, p02 63. Sodium 131, potassium 4.5, chloride 96, bicarb 25, BUN 25, creatinine 1.28, BNP 171. Influenza negative. Chest x-ray shows moderate right basilar pneumonia, cannot exclude component of COPD. Venous Doppler negative for clots. CT of abdomen and pelvis showed right lower lobe consolidation with questionable mass. ASSESSMENT: 1. RESPIRATORY DISTRESS FROM RIGHT LOWER LOBE PNEUMONIA, QUESTIONABLE MASS SECONDARY TO [facility] ACQUIRED PNEUMONIA WITH RECENT HOSPITALIZATION 2. HYPOXEMIA 3. STATUS POST RAPID ATRIAL FIBRILLATION STATUS POST HYPOTENSION 4. HISTORY OF COPD STATUS POST STENT 5. RENAL OUTFLOW OBSTRUCTION FROM THE PROSTATE ON TOLLIVER CATHETER 6. ACUTE RENAL FAILURE 7. HYPERTENSION PLAN: 1. Admit the patient to SCU 2. CBC, CMP today and daily 3. Cardiac enzymes and troponins 4. Daily I & O's 5. Keep legs elevated 6. Rocephin 1 gm daily 7. Vancomycin 1 gm daily 8. Solu-Medrol 80 q.8hr 9. Eliquis 2.5 mg twice a day 10. Cardizem 60 mg b.i.d. not 90 b.i.d. 11. I will follow with the patient in daily rounds [facility]
[2016-08-09] MEDS: VANCOMYCIN 1 GM in SODIUM CHLORIDE 250 ML IV SCH (11:55)
--- NOTE | 2016-08-09 11:57 | PCM.PROG ---
Attending Provider: ATTENDING PROVIDER: Dr. LUDWIG ESCOBEDO DATE OF SERVICE: 08/09/16 SUBJECTIVE: This 71 year old WHITE/ M was hospitalized 08/08/16. The patient is in sinus rhythm. Swelling in lower extremities has gone down considerably. The patient is admitted with right lower lobe pneumonia. CT scan of the chest showed a questionable mass. The patient is feeling better today. Leg edema has virtually resolved back in sinus rhythm REVIEW OF SYSTEMS: CONSTITUTIONAL: No fever, no chills. ENDOCRINE: No weight loss or weight gain. HEENT: No sinus drainage, no sore throat. CVS: No angina symptoms. No CHF symptoms. No palpitations. No atypical chest pain for CAD. No shortness of breath. RESPIRATORY: No cough, no hemoptysis. GI: No melena. No abdominal pain. No nausea, no vomiting. : No hematuria. No polyuria. SKIN: No rash. No wounds. MUSCULOSKELETAL: No pain. CRANE CHASER: No blackout, no dizziness. No headache. No double vision. PSYCHIATRIC: Not anxious; no depression. No suicidal thoughts. No homicidal thoughts. PHYSICAL EXAMINATION: GENERAL: Lying in bed in no distress. VITAL SIGNS: Temperature 97.9 F, Pulse 87, Respiratory Rate 20, BP 121/54, Pulse Ox 95% HEENT: Normocephalic, atraumatic. Mucosa is dry, pallor positive. NECK: No JVD, no carotid bruit. No lymphadenopathy. CARDIAC: S1, S2, no S3. No murmur, gallop or regurgitation. LUNGS: Clear to auscultation.decreased entry some crackles. ABDOMEN: Soft, non-tender. Bowel sounds active. No rigidity, guarding or CVA tenderness. EXTREMITIES: No clubbing, cyanosis. Wrinkles in the lower extremities, trace edema. NEUROLOGIC: Awake, alert and oriented x3. LYMPHATIC: No palpable lymph nodes SKIN: Not dry. Intact. MUSCULOSKELETAL: No joint swelling. LAB REVIEW: 08/09/16 05:53 08/09/16 05:53 08/09/16 05:53: WBC 11.10 H D, RBC 3.69 L, Hgb 10.6 L, Hct 30.8 L, MCV 83.5, MCH 28.7, MCHC 34.4, RDW Coeff of Bull 13.4, Plt Count 303, Immature Gran % (Auto ) 0.7, Neut % (Auto) 84.2, Lymph % (Auto) 13.3, [place] % (Auto) 1.7, Eos % (Auto) 0.0, Baso % (Auto) 0.1, Immature Gran # (Auto) 0.1, Neut # 9.3 H, Lymph # 1.5, W[place]er # 0.2 L, Eos # 0.0, Baso # 0.0, Sodium 131 L, Potassium 4.7, Chloride 98, Carbon Dioxide 23, Anion Gap 14.7, BUN 29 H, Creatinine 1.15 H, Estimated GFR ( MDRD) 63.00, BUN/Creatinine Ratio 25.21, Glucose 110, Calcium 8.4, Total Bilirubin 0.47, AST 21, ALT 27, Alkaline Phosphatase 73, Total Creatine Kinase 28, Troponin I < 0.0100, Total Protein 5.3 L, Albumin 2.5 L, Globulin 2.8, Albumin/Globulin Ratio 0.89 08/08/16 21:45: Total Creatine Kinase 28, Troponin I < 0.0100 ASSESSMENT: 1. RESPIRATORY DISTRESS FROM RIGHT LOWER LOBE PNEUMONIA, QUESTIONABLE MASS SECONDARY TO [facility] ACQUIRED PNEUMONIA WITH RECENT HOSPITALIZATION 2. HYPOXEMIA 3. STATUS POST RAPID ATRIAL FIBRILLATION STATUS POST HYPOTENSION 4. HISTORY OF COPD STATUS POST STENT 5. RENAL OUTFLOW OBSTRUCTION FROM THE PROSTATE ON TOLLIVER CATHETER 6. ACUTE RENAL FAILURE 7. HYPERTENSION PLAN: 1. CT chest with contrast then give Lasix 20 mg iv push once after CT 2. Stop Plavix 3. Continue Ecotrin 4. Continue Coreg 5. Continue Cardizem 6. Continue Vancomycin 7. Continue Rocephin 8. Decrease Solu-Medrol to 40 mg 9. Duonebs Plan and coordination of the patient's care discussed in the presence of Restaurant Area Manager and nurse. EDUCATION: CONDITION: SCRIBED BY: CHARLETTE PAINTING, Telephone Order Supervisor scribed while in presence of service performed by Dr. LUDWIG ESCOBEDO on 08/09/16 ([id number])
[2016-08-09] MEDS: SOLU-MEDROL 40 MG IVP SCH ×2 (12:07→22:42)
[2016-08-10 04:18] LABS: BASOPHILS % (AUTO) 0.1 % (0.0-3.0); HEMOGLOBIN 10.6 g/dl (14.0-18.0); IMMATURE GRANULOCYTE % (AUTO) 0.6 % (0.0-5.0); LYMPHOCYTES # (AUTO) 1.1 K/uL (0.60-3.4); LYMPHOCYTES % (AUTO) 6.7 (10.0-50.0); MEAN CORPUSCULAR HEMOGLOBIN 28.6 pg (27.0-31.0); MEAN CORPUSCULAR HGB CONC 35.3 (31.8-35.4); MEAN CORPUSCULAR VOLUME 81.1 fl (80.0-94.0); MONOCYTES # (AUTO) 0.4 K/uL (0.4-2.0); MONOCYTES % (AUTO) 2.4 (0-10); NEUTROPHILS # (AUTO) 15.4 K/ul (2.0-6.9); NEUTROPHILS % (AUTO) 90.2; PLATELET COUNT 330 10^3/uL (140-440); WHITE BLOOD COUNT 17.03 K/ul (4.2-10.2)
[2016-08-10 04:39] LABS: ALBUMIN 2.5 g/dL (3.4-5.0); ALBUMIN/GLOBULIN RATIO 0.83; ANION GAP 12.2; BILIRUBIN,TOTAL 0.32 mg/dL (0.00-1.20); BUN/CREATININE RATIO 28.7; CALCIUM 8.6 mg/dL (8.2-10.2); CREATININE 1.08 mg/dL (0.60-1.10); POTASSIUM 4.2 mmol/L (3.5-5.1); TOTAL PROTEIN 5.5 g/dL (5.8-8.1)
[2016-08-10] MEDS: PERFOROMIST NEB SCH ×2 (04:46→18:20)
[2016-08-10] MEDS: DUONEB NEB SCH ×4 (05:00→23:32)
[2016-08-10] MEDS: SOLU-MEDROL 40 MG IVP SCH ×3 (05:11→20:03)
[2016-08-10] MEDS: SODIUM CHLORIDE 1,000 ML IV SCH (06:15)
[2016-08-10] MEDS: SPIRIVA IH SCH (08:39)
[2016-08-10] MEDS: ELIQUIS PO SCH ×2 (08:40→20:03)
[2016-08-10] MEDS: VITAMIN E PO SCH (08:40)
[2016-08-10] MEDS: ROCEPHIN 1 GM in SODIUM CHLORIDE 100 ML IV SCH (08:41)
[2016-08-10] MEDS: COREG PO SCH ×2 (08:41→17:49)
[2016-08-10] MEDS: LIPITOR PO SCH (08:41)
[2016-08-10] MEDS: CARDIZEM PO SCH ×2 (08:41→20:03)
[2016-08-10] MEDS: VITAMIN C PO SCH (08:41)
[2016-08-10] MEDS: ASPIRIN EC PO SCH (08:41)
[2016-08-10] MEDS: FLOMAX PO SCH (08:41)
[2016-08-10] MEDS: NON-FORMULARY MEDICATION (Cyanocobalamin (Vitamin B-12) [Vitamin B12] 5,000 MCG) PO SCH (08:50)
[2016-08-10] MEDS: NON-FORMULARY MEDICATION (Mometasone/Formoterol [Dulera 200 Mcg/5 Mcg Inhaler] 2 PUFF) IN SCH (08:50)
[2016-08-10] MEDS: SILVADENE CREAM TP SCH ×2 (09:54→20:04)
[2016-08-10] MEDS: VANCOMYCIN 1 GM in SODIUM CHLORIDE 250 ML IV SCH (09:55)
[2016-08-10] MEDS ORDERED: LASIX IVP ONE (10:20)
--- NOTE | 2016-08-10 10:46 | PCM.PROG ---
Attending Provider: ATTENDING PROVIDER: Dr. LUDWIG ESCOBEDO DATE OF SERVICE: 08/10/16 SUBJECTIVE: This 71 year old WHITE/ M was hospitalized 08/08/16. The patient states he is breathing better. He is still coughing. Bowels have not moved since the , which he states is normal for him. Will try some prune juice. Discussed results of chest CT, reveals mass or pneumonia, discussed with the patient seeing Dr. Hopkins as an outpatient. The patient has a wound to the right buttock, 2 cm x 2 cm, open, which is from using a heating pad at home. REVIEW OF SYSTEMS: CONSTITUTIONAL: No night sweats. No fatigue, malaise, lethargy. No fever or chills. HEENT: Eyes: No visual changes. No eye pain. No eye discharge. ENT: No runny nose. No epistaxis. No sinus pain. No odynophagia. No congestion. RESPIRATORY: Cough and congestion. No hemoptysis. CARDIOVASCULAR: No angina symptoms. No CHF symptoms. No atypical chest pain for CAD. No palpitations. No shortness of breath. GASTROINTESTINAL: Constipation. No abdominal pain. No nausea or vomiting. No hematemesis. No hematochezia. GENITOURINARY: No urgency. No frequency. No dysuria. No hematuria. No obstructive symptoms. No discharge. No pain. No significant abnormal bleeding. MUSCULOSKELETAL: No musculoskeletal pain; no joint swelling. NEUROLOGICAL: Awake, alert, oriented to time, place and person. No headache. No neck pain. No syncope. No seizures. No dizziness. PSYCHIATRIC: Not anxious. No depression. No suicidal thoughts. No homicidal thoughts. SKIN: No rash. No lesions. Wound, right buttock 2 x 2 cm, red, open. ENDOCRINE: No unexplained weight loss. No weight gain. HEMATOLOGIC/LYMPHATIC: No anemia. No purpura. No petechiae. No prolonged or excessive bleeding. No palpable lymph nodes. PHYSICAL EXAMINATION: GENERAL: The patient is awake, alert and oriented, sitting up in bed in no distress. VITAL SIGNS: Temperature 97.9 F, Pulse 96, Respiratory Rate 18, BP 123/73, Pulse Ox 96% HEENT: Head normocephalic, atraumatic. Eyes: Extraocular muscles are intact. Pupils are equal, round and reactive to light and accommodation. Ears: No lesions. Nose appeared normal. Throat: No exudate or erythema. NECK: Supple. No JVD, no carotid bruit. No lymphadenopathy or thyromegaly. LUNGS: Decreased entry. Clear to auscultation. Percussion note normal. Chest symmetrical. HEART: S1, S2, no S3. No murmurs. No cyanosis or clubbing. No ascites. Pulses: Dorsalis pedis and posterior tibial pulses +1 to +2 both sides. ABDOMEN: Soft. Non-tender. Bowel sounds active. No CVA tenderness. No mass felt. Wound, right buttock 2cm x 2 cm, red, open. EXTREMITIES: No edema. Full range of motion of all extremities, equal. NEUROLOGIC: No focal deficit. Cranial nerves II through XII are grossly intact. No headache, no double vision or headache. SKIN: Not dry. Intact. Turgor-normal. LYMPHATIC: No palpable lymph nodes/no lymphedema. MUSCULOSKELETAL: Normal joints with no swelling. Muscle tone is normal. LAB REVIEW: 08/10/16 04:00 08/10/16 04:00 08/10/16 04:00: WBC 17.03 H D, RBC 3.70 L, Hgb 10.6 L, Hct 30.0 L, MCV 81.1, MCH 28.6, MCHC 35.3, RDW Coeff of Bull 13.5, Plt Count 330, Immature Gran % (Auto ) 0.6, Neut % (Auto) 90.2, Lymph % (Auto) 6.7 L, [place] % (Auto) 2.4, Eos % (Auto ) 0.0, Baso % (Auto) 0.1, Immature Gran # (Auto) 0.1, Neut # 15.4 H, Lymph # 1.1 , [place] # 0.4, Eos # 0.0, Baso # 0.0, Sodium 133 L, Potassium 4.2, Chloride 99, Carbon Dioxide 26, Anion Gap 12.2, BUN 31 H, Creatinine 1.08, Estimated GFR ( MDRD) 67.00, BUN/Creatinine Ratio 28.70, Glucose 115, Calcium 8.6, Total Bilirubin 0.32, AST 22, ALT 31, Alkaline Phosphatase 71, Total Protein 5.5 L, Albumin 2.5 L, Globulin 3.0, Albumin/Globulin Ratio 0.83 ASSESSMENT: 1. RESPIRATORY DISTRESS FROM RIGHT LOWER LOBE PNEUMONIA, QUESTIONABLE MASS SECONDARY TO [facility] ACQUIRED PNEUMONIA WITH RECENT HOSPITALIZATION 2. HYPOXEMIA 3. STATUS POST RAPID ATRIAL FIBRILLATION STATUS POST HYPOTENSION 4. HISTORY OF COPD STATUS POST STENT 5. RENAL OUTFLOW OBSTRUCTION FROM THE PROSTATE ON TOLLIVER CATHETER 6. ACUTE RENAL FAILURE 7. HYPERTENSION PLAN: 1. Apply Silvadene to wound on the buttock area. 2. Lasix 20 mg IVP once 3. Discussion with patient concerning mass in lung; advised to followup with Dr. Hopkins as an outpatient. 4. Prune juice or magnesium citrate for constipation. Plan and coordination of the patient's care discussed in the presence of Senior Support Engineer and nurse. CONDITION: Stable SCRIBED BY: CHARLETTE PAINTING, Manager Farm scribed while in presence of service performed by Dr. LUDWIG ESCOBEDO on 08/10/16 ([id number])
[2016-08-10] MEDS ORDERED: CITRATE OF MAGNESIA PO STA (17:51)
[2016-08-10] MEDS ORDERED: ZOFRAN 4 MG/2 ML IVP PRN (20:07)
[2016-08-11] MEDS: SOLU-MEDROL 40 MG IVP SCH (04:34)
[2016-08-11] MEDS: DUONEB NEB SCH ×4 (05:11→23:00)
[2016-08-11] MEDS: PERFOROMIST NEB SCH ×2 (05:24→18:20)
[2016-08-11 05:33] LABS: BASOPHILS % (AUTO) 0.1 % (0.0-3.0); HEMATOCRIT 30.5 % (42.0-52.0); HEMOGLOBIN 10.3 g/dl (14.0-18.0); IMMATURE GRANULOCYTE % (AUTO) 0.8 % (0.0-5.0); LYMPHOCYTES # (AUTO) 1.2 K/uL (0.60-3.4); LYMPHOCYTES % (AUTO) 9.4 (10.0-50.0); MEAN CORPUSCULAR HEMOGLOBIN 28.1 pg (27.0-31.0); MEAN CORPUSCULAR HGB CONC 33.8 (31.8-35.4); MEAN CORPUSCULAR VOLUME 83.3 fl (80.0-94.0); MONOCYTES # (AUTO) 0.4 K/uL (0.4-2.0); NEUTROPHILS # (AUTO) 11.4 K/ul (2.0-6.9); NEUTROPHILS % (AUTO) 86.7; PLATELET COUNT 321 10^3/uL (140-440); RED BLOOD COUNT 3.66 10^6/ul (4.70-6.10); WHITE BLOOD COUNT 13.13 K/ul (4.2-10.2)
[2016-08-11 05:45] LABS: ALBUMIN 2.5 g/dL (3.4-5.0); ALBUMIN/GLOBULIN RATIO 0.89; ANION GAP 11.8; BILIRUBIN,TOTAL 0.3 mg/dL (0.00-1.20); BUN/CREATININE RATIO 29.47; CALCIUM 8.4 mg/dL (8.2-10.2); CREATININE 0.95 mg/dL (0.60-1.10); POTASSIUM 4.8 mmol/L (3.5-5.1); TOTAL PROTEIN 5.3 g/dL (5.8-8.1)
[2016-08-11] MEDS: ROCEPHIN 1 GM in SODIUM CHLORIDE 100 ML IV SCH (08:41)
[2016-08-11] MEDS: VITAMIN C PO SCH (08:44)
[2016-08-11] MEDS: ELIQUIS PO SCH ×2 (08:44→20:40)
[2016-08-11] MEDS: VITAMIN E PO SCH (08:44)
[2016-08-11] MEDS: ASPIRIN EC PO SCH (08:44)
[2016-08-11] MEDS: FLOMAX PO SCH (08:44)
[2016-08-11] MEDS: CARDIZEM PO SCH ×2 (08:44→20:40)
[2016-08-11] MEDS: COREG PO SCH ×2 (08:44→18:24)
[2016-08-11] MEDS: LIPITOR PO SCH (08:44)
[2016-08-11] MEDS: NON-FORMULARY MEDICATION (Cyanocobalamin (Vitamin B-12) [Vitamin B12] 5,000 MCG) PO SCH (08:45)
[2016-08-11] MEDS: SILVADENE CREAM TP SCH ×2 (08:45→20:50)
[2016-08-11] MEDS: SPIRIVA IH SCH (08:46)
[2016-08-11] MEDS: NON-FORMULARY MEDICATION (Mometasone/Formoterol [Dulera 200 Mcg/5 Mcg Inhaler] 2 PUFF) IN SCH (08:46)
[2016-08-11] MEDS: VANCOMYCIN 1 GM in SODIUM CHLORIDE 250 ML IV SCH (09:50)
--- NOTE | 2016-08-11 10:19 | PCM.PROG ---
Attending Provider: ATTENDING PROVIDER: Dr. LUDWIG ESCOBEDO DATE OF SERVICE: 08/11/16 SUBJECTIVE: This 71 year old WHITE/ M was hospitalized 08/08/16. The patient had a small bowel movement after Fleet's enema was given. The patient states he is feeling pretty good. REVIEW OF SYSTEMS: CONSTITUTIONAL: No fever, no chills. ENDOCRINE: No weight loss or weight gain. HEENT: No sinus drainage, no sore throat. CVS: No angina symptoms. No CHF symptoms. No palpitations. No atypical chest pain for CAD. No shortness of breath. RESPIRATORY: No cough, no hemoptysis. GI: No melena. No abdominal pain. No nausea, no vomiting. : No hematuria. No polyuria. SKIN: No rash. No wounds. MUSCULOSKELETAL: No pain. CERTIFIED PHYSICIAN ASSISTANT: No blackout, no dizziness. No headache. No double vision. PSYCHIATRIC: Not anxious; no depression. No suicidal thoughts. No homicidal thoughts. PHYSICAL EXAMINATION: GENERAL: Sitting in chair in no distress. VITAL SIGNS: Temperature 97.1 F, Pulse 81, Respiratory Rate 20, BP 112/66, Pulse Ox 98% HEENT: Normocephalic, atraumatic. Mucosa is dry, pallor positive. NECK: No JVP, no carotid bruit. No lymphadenopathy. CARDIAC: S1, S2, no S3. No murmur, gallop or regurgitation. LUNGS: Decreased entry. Clear to auscultation. ABDOMEN: Soft, non-tender. Bowel sounds active. No rigidity, guarding or CVA tenderness. EXTREMITIES: No clubbing, cyanosis or edema. NEUROLOGIC: Awake, alert and oriented x3. LYMPHATIC: No palpable lymph nodes SKIN: Not dry. Intact. MUSCULOSKELETAL: No joint swelling. LAB REVIEW: 08/11/16 05:05 08/11/16 05:05 08/11/16 05:05: WBC 13.13 H, RBC 3.66 L, Hgb 10.3 L, Hct 30.5 L, MCV 83.3, MCH 28.1, MCHC 33.8, RDW Coeff of Bull 13.3, Plt Count 321, Immature Gran % (Auto) 0.8, Neut % (Auto) 86.7, Lymph % (Auto) 9.4 L, [place] % (Auto) 3.0, Eos % (Auto) 0.0, Baso % (Auto) 0.1, Immature Gran # (Auto) 0.1, Neut # 11.4 H, Lymph # 1.2, [place] # 0.4, Eos # 0.0, Baso # 0.0, Sodium 136, Potassium 4.8, Chloride 102, Carbon Dioxide 27, Anion Gap 11.8, BUN 28 H, Creatinine 0.95, Estimated GFR ( MDRD) 78.00, BUN/Creatinine Ratio 29.47, Glucose 111, Calcium 8.4, Total Bilirubin 0.30, AST 22, ALT 35, Alkaline Phosphatase 67, Total Protein 5.3 L, Albumin 2.5 L, Globulin 2.8, Albumin/Globulin Ratio 0.89 ASSESSMENT: 1. RESPIRATORY DISTRESS FROM RIGHT LOWER LOBE PNEUMONIA, QUESTIONABLE MASS SECONDARY TO [facility] ACQUIRED PNEUMONIA WITH RECENT HOSPITALIZATION 2. HYPOXEMIA 3. STATUS POST RAPID ATRIAL FIBRILLATION STATUS POST HYPOTENSION 4. HISTORY OF COPD STATUS POST STENT 5. RENAL OUTFLOW OBSTRUCTION FROM THE PROSTATE ON TOLLIVER CATHETER 6. ACUTE RENAL FAILURE 7. HYPERTENSION PLAN: 1. KUB 2. Have patient up and about 3. Prednisone 10 mg b.i.d. 4. Continue antibiotics Rocephin and Vancomycin Plan and coordination of the patient's care discussed in the presence of Software Installer and nurs CONDITION: Stable SCRIBED BY: CHARLETTE PAINTING Bunch Breaker scribed while in presence of service performed by Dr. LUDWIG ESCOBEDO on 08/11/16 ([id number])
--- NOTE | 2016-08-11 12:14 | DI ---
EXAM: KUB HISTORY: Constipation and abdominal discomfort FINDINGS / IMPRESSION: The stomach is mildly distended with air. Bowel gas pattern grossly unrema rkable. Slight excess fecal retention without obstructive bowel gas pattern. No suspicious calcifi cation.
[2016-08-11] MEDS: SODIUM CHLORIDE 1,000 ML IV SCH ×2 (12:38)
[2016-08-11] MEDS: PREDNISONE PO SCH (18:24)
[2016-08-12] MEDS: DUONEB NEB SCH ×2 (05:18→11:10)
[2016-08-12] MEDS: PERFOROMIST NEB SCH (05:28)
[2016-08-12 05:49] LABS: BASOPHILS % (AUTO) 0.1 % (0.0-3.0); HEMATOCRIT 30.7 % (42.0-52.0); HEMOGLOBIN 10.3 g/dl (14.0-18.0); IMMATURE GRANULOCYTE % (AUTO) 0.7 % (0.0-5.0); LYMPHOCYTES # (AUTO) 1.3 K/uL (0.60-3.4); LYMPHOCYTES % (AUTO) 10.4 (10.0-50.0); MEAN CORPUSCULAR HEMOGLOBIN 28.4 pg (27.0-31.0); MEAN CORPUSCULAR HGB CONC 33.6 (31.8-35.4); MEAN CORPUSCULAR VOLUME 84.6 fl (80.0-94.0); MONOCYTES # (AUTO) 0.7 K/uL (0.4-2.0); MONOCYTES % (AUTO) 5.3 (0-10); NEUTROPHILS # (AUTO) 10.3 K/ul (2.0-6.9); NEUTROPHILS % (AUTO) 83.5; PLATELET COUNT 294 10^3/uL (140-440); RED BLOOD COUNT 3.63 10^6/ul (4.70-6.10); WHITE BLOOD COUNT 12.35 K/ul (4.2-10.2)
[2016-08-12 06:04] LABS: ALBUMIN 2.4 g/dL (3.4-5.0); ALBUMIN/GLOBULIN RATIO 0.96; ANION GAP 10.5; BILIRUBIN,TOTAL 0.34 mg/dL (0.00-1.20); BUN/CREATININE RATIO 29.76; CALCIUM 8.3 mg/dL (8.2-10.2); CREATININE 0.84 mg/dL (0.60-1.10); POTASSIUM 4.5 mmol/L (3.5-5.1); TOTAL PROTEIN 4.9 g/dL (5.8-8.1)
[2016-08-12] MEDS: CARDIZEM PO SCH (08:57)
[2016-08-12] MEDS: ASPIRIN EC PO SCH (08:57)
[2016-08-12] MEDS: COREG PO SCH (08:57)
[2016-08-12] MEDS: NON-FORMULARY MEDICATION (Cyanocobalamin (Vitamin B-12) [Vitamin B12] 5,000 MCG) PO SCH (08:58)
[2016-08-12] MEDS: ELIQUIS PO SCH (09:00)
[2016-08-12] MEDS: FLOMAX PO SCH (09:00)
[2016-08-12] MEDS: LIPITOR PO SCH (09:00)
[2016-08-12] MEDS: VITAMIN E PO SCH (09:01)
[2016-08-12] MEDS: SPIRIVA IH SCH (09:01)
[2016-08-12] MEDS: PREDNISONE PO SCH (09:01)
[2016-08-12] MEDS: NON-FORMULARY MEDICATION (Mometasone/Formoterol [Dulera 200 Mcg/5 Mcg Inhaler] 2 PUFF) IN SCH (09:01)
[2016-08-12] MEDS: ROCEPHIN 1 GM in SODIUM CHLORIDE 100 ML IV SCH (09:01)
[2016-08-12] MEDS: SILVADENE CREAM TP SCH (09:01)
[2016-08-12] MEDS: VITAMIN C PO SCH (09:01)
[2016-08-12] MEDS: VANCOMYCIN 1 GM in SODIUM CHLORIDE 250 ML IV SCH (09:40)
[2016-08-12 10:20] VITALS: BP 128/70; TEMP 98.4
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
--- NOTE | 2016-08-12 11:44 | PCM.PROG ---
Attending Provider: ATTENDING PROVIDER: Dr. LUDWIG MUÑOZ DATE OF SERVICE: 08/12/16 SUBJECTIVE: This 71 year old WHITE/ M was hospitalized 08/08/16. The patient states he is doing good today. He is breathing better. He has no edema. The patient's Tolliver catheter will remain in place until followup with the urologist. REVIEW OF SYSTEMS: CONSTITUTIONAL: No fever, no chills. ENDOCRINE: No weight loss or weight gain. HEENT: No sinus drainage, no sore throat. CVS: No angina symptoms. No CHF symptoms. No palpitations. No atypical chest pain for CAD. No shortness of breath. No PND, no orthopnea. RESPIRATORY: No cough, no hemoptysis. GI: No melena. No abdominal pain. No nausea, no vomiting. : No hematuria. No polyuria. SKIN: No rash. No wounds. MUSCULOSKELETAL: No pain. TEST HOLE DRILLER: No blackout, no dizziness. No headache. No double vision. PSYCHIATRIC: Not anxious; no depression. No suicidal thoughts. No homicidal thoughts. PHYSICAL EXAMINATION: GENERAL: Lying in bed in no distress. VITAL SIGNS: Temperature 98.0 F, Pulse 75, Respiratory Rate 22, BP 132/73, Pulse Ox 98% HEENT: Normocephalic, atraumatic. Mucosa is dry, pallor positive. NECK: No JVP, no carotid bruit. No lymphadenopathy. CARDIAC: S1, S2, no S3. No murmur, gallop or regurgitation. LUNGS: Decreased breath sounds. Clear to auscultation. ABDOMEN: Soft, non-tender. Bowel sounds active. No rigidity, guarding or CVA tenderness. EXTREMITIES: No clubbing, cyanosis or edema. NEUROLOGIC: Awake, alert and oriented x3. LYMPHATIC: No palpable lymph nodes SKIN: Not dry. Intact. MUSCULOSKELETAL: No joint swelling. LAB REVIEW: 08/12/16 05:05 08/12/16 05:05 08/12/16 05:05: WBC 12.35 H, RBC 3.63 L, Hgb 10.3 L, Hct 30.7 L, MCV 84.6, MCH 28.4, MCHC 33.6, RDW Coeff of Bull 13.2, Plt Count 294, Immature Gran % (Auto) 0.7, Neut % (Auto) 83.5, Lymph % (Auto) 10.4, [place] % (Auto) 5.3, Eos % (Auto) 0.0, Baso % (Auto) 0.1, Immature Gran # (Auto) 0.1, Neut # 10.3 H, Lymph # 1.3, [place] # 0.7, Eos # 0.0, Baso # 0.0, Sodium 135 L, Potassium 4.5, Chloride 102, Carbon Dioxide 27, Anion Gap 10.5, BUN 25 H, Creatinine 0.84, Estimated GFR ( MDRD) 90.00, BUN/Creatinine Ratio 29.76, Glucose 95, Calcium 8.3, Total Bilirubin 0.34, AST 23, ALT 37, Alkaline Phosphatase 67, Total Protein 4.9 L, Albumin 2.4 L, Globulin 2.5, Albumin/Globulin Ratio 0.96 ASSESSMENT: Please see below. 1. RESPIRATORY DISTRESS FROM RIGHT LOWER LOBE PNEUMONIA, QUESTIONABLE MASS SECONDARY TO [facility] ACQUIRED PNEUMONIA WITH RECENT HOSPITALIZATION 2. HYPOXEMIA 3. STATUS POST RAPID ATRIAL FIBRILLATION STATUS POST HYPOTENSION 4. HISTORY OF COPD STATUS POST STENT 5. RENAL OUTFLOW OBSTRUCTION FROM THE PROSTATE ON TOLLIVER CATHETER 6. ACUTE RENAL FAILURE 7. HYPERTENSION PLAN: 1. Discharge home 2. Keflex 500 mg twice a day for 10 days 3. Prednisone 10 mg twice a day for five days 4. Probiotics 5. Increase hydration 6. Elevate legs when at rest 7. Keep followup with Dr. Hopkins on the 8. Followup with Urology, Dr. Archuleta as advised 8. Dr. Muñoz will see next week in the office Plan and coordination of the patient's care discussed in the presence of Map Drafter and nurse. EDUCATION: Discussed with the patient medications, Prednisone and its side effects to include avascular necrosis, cataracts, diabetes mellitus, et cetera. The patient has a nebulizer with continuous oxygen, and would benefit from a rollator walker at home to assist in ambulation and to assist him in carrying his portable oxygen tank as needed. CONDITION: Stable SCRIBED BY: CHARLETTE PAINTNIG, Department Coordinator scribed while in presence of service performed by Dr. LUDWIG MUÑOZ on 08/12/16 ([id number])
--- NOTE | 2016-08-17 15:41 | PN ---
DATE OF SERVICE: 08/12/16 FINAL DIAGNOSIS: 1. Pneumonia 2. COPD exacerbation 3. Atrial fibrillation, converted to Sinus Rhythm 4. Hypertension 5. Dyslipidemia 6. Cardiac stent X4 7. Enlarged Prostate with obstruction, Dr. Archuleta 8. Mild T11 and L1 superior endplate fractures per CT 9. Neoplasm verus pneumonia RLL per CT. LAST VITALS: Temperature 98.4, pulse 82, respiratory rate 16, blood pressure 128/70 and pulse ox 98%. DISCHARGE INSTRUCTIONS: Discharge the patient home. Continue use of oxygen at 2 liters per cannula at all times. Continue home nebulizer treatments of Brovana twice daily. Elevate head to assist breathing. Elevate legs at all times when in bed or sitting to reduce swelling. Ahumada catheter to close drainage system. Empty collection bad when needed. Catheter care twice daily with soap/water cleaning around insertion site. MEDICATIONS AT DISCHARGE: ProAir Vitamin C Aspirin Lipitor Coreg Cardizem Dulera Cyanocobalamin Prednisone Flomax Spiriva Vitamin E Brovana Plavix ALLERGIES: No known allergies NEW PRESCRIPTIONS: Keflex 500mg twice a day for five days Prednisone 10mg twice a day for five days. DIET INSTRUCTIONS: Heart healthy. Add yogurt once or twice daily ACTIVITY: Gradually resume as tolerated. Use Rollator for stability and to assist with oxygen. SMOKING: N/A DISEASE SPECIFIC EDUCATION: Steroids Pneumonia COPD Appointments Oxygen Activity HOSPITAL COURSE: Kishore Christian who was recently discharged from the hospital after diagnosis with the pneumonia. He was under the under the care of Dr. Billings. He went home and started coughing, congestion like he was getting worse so he came back to the emergency room and was seen by Dr. Louie. White count was 20,000. ABG showed the pH 7.50, pCO2 28 and pO2 63. BNP was 171 and lactic acid 15.2. CT of the chest, Venous Doppler looking for the clots and the CT of the chest showed the right lower lobe questionable mass with the consolidation and pleural effusion. At that time the patient was admitted to the hospital for the IV antibiotics and the IV fluids. The patient's legs were elevated and Lasix was given. With that the patient's leg edema instantly disappeared. The patient was given Vancomycin and Rocephin 1 gram daily, DUO NEBS, Solu-Medrol was given. The patient was initially in atrial fibrillation with rapid ventricular rate and hypotensive but the fluid Bolus given in the emergency room the blood pressure came back. Continued on the Solu-Medrol 80mg Q 8 hours. The rhythm later went into the regular rhythm and did not have any problem. White count became normal. Vancomycin drop levels were normal. Influenza test was negative. CT of the chest was repeated with the IV contrast which it did show the spiculated appearance of the mass. We made an outpatient consultation with the Dr. Hopkins. The patient verbalized understanding. The patient has seen Dr. Hopkins in the past. The patient is on the Ahumada Catheter from the complication of the urinary flow obstruction. He has an appointment with Dr. Steven and he will followup with the clinic on August 19. As the patient is doing better and up and about and did not have problem. Saturation being maintained about 92-93% he is discharged home. TIME SPENT: More than 55 minutes today. SHEA
--- NOTE | 2016-08-18 10:49 | ED.PDOC ---
General ED Provider: Dr. MEENA JONES Chief Complaint: Shortness of Air Stated Complaint: SHORT OF AIR Time Seen by Physician: 11:20 Mode of Arrival: Wheelchair Information Source: Patient, Family Exam Limitations: No limitations Primary Care Provider: KATLIN CORTES Nursing and Triage Documentation Reviewed and Agree: Yes Respiratory Complaint Exam - Respiratory Complaint/Exam Symptoms Are: Still present Timing: Intermittent Initial Severity: Mild Current Severity: Mild Location: Throat, Chest Character: Reports: Non-productive cough Aggravating: Reports: None Alleviating: Reports: Spontaneous resolution Associated Signs and Symptoms: Denies: Rapid breathing, Dyspnea, Fever, Chills, Chest pain, Pleuritic chest pain, Wheezing, Hemoptysis, Dizziness, Calf pain, Calf swelling, Edema, URI, Nasal congestion, Hoarseness, Sinus discomfort, Vomiting, Sore throat, Weight loss, Decreased oral intake, Increased thirst, Increased appetite, Increased urination Related History: Reports: Similar episode History of Healthcare-Acquired Pneumonia: No Related Surgical History: Reports: None Pulmonary Embolism Risk Factors: Bedrest Cardiac Risk Factors: Reports: Hypertension Pseudomonas Risk Factors: Reports: None Tuberculosis Risk Factors: Reports: None Status Asthmaticus Risk Factors: Reports: None Home Oxygen Use: No Recent Stress Test: No Recent Echo/LV Function: No Current Antibiotic Use: No Current Asthma Medication Use: No Respiratory Distress: None Inadequate Respiratory Effort: No Dysphagia Present: No Stridor Present: No JVD Present: No Accessory Muscle Use: No Retractions: Not Present Diminished Breath Sounds: No Sinus Tenderness: None Grunting Respirations: No Kussmaul Respirations: No Differential Diagnoses: Pneumonia, Bronchitis Review of Systems - Review Of Systems Constitutional: Reports: Malaise, Weakness Eyes: Reports: No symptoms Ears, Nose, Mouth, Throat: Reports: No symptoms Respiratory: Reports: Cough, Short of air, Wheezing Cardiac: Reports: No symptoms GI: Reports: No symptoms : Reports: No symptoms Musculoskeletal: Reports: No symptoms Skin: Reports: No symptoms Neurological: Reports: No symptoms Endocrine: Reports: No symptoms Hematologic/Lymphatic: Reports: No symptoms All Other Systems: Reviewed and Negative Past Medical History - Past Medical History Endocrine: Reports: Unknown Cardiovascular: Reports: Hypertension, Unknown Respiratory: Reports: COPD, Unknown Hematological: Reports: Unknown Gastrointestinal: Reports: Unknown Genitourinary: Reports: Unknown Neuro/Psych: Reports: Unknown Musculoskeletal: Reports: Unknown Cancer: Reports: Unknown - Surgical History General Surgical History: Reports: Stent (cardiac stents ) - Family History Family History: Reports: Unknown - Social History Smoking Status: Former smoker Hx Substance Use: No Alcohol Screening: None Physical Exam - Physical Exam Appearance: Well-appearing, No pain distress, Well-nourished Eyes: CYNTHIA, EOMI, Conjunctiva clear ENT: Ears normal, Nose normal, Oropharynx normal Respiratory: Rhonchi, Wheezes Cardiovascular: RRR, Pulses normal, No rub, No murmur GI/: Soft, Nontender, No masses, Bowel sounds normal, No Organomegaly Musculoskeletal: Normal strength, ROM intact, No edema, No calf tenderness Skin: Warm, Dry, Normal color Neurological: Sensation intact, Motor intact, Reflexes intact, Cranial nerves intact, Alert, Oriented Psychiatric: Affect appropriate, Mood appropriate Critical Care Note - Critical Care Note Total Time (mins): 0 Course - Course Hematology/Chemistry: 08/12/16 05:05 08/12/16 05:05 Orders, Labs, Meds: Lab Review 08/08/16 08/08/16 11:40 11:45 WBC 20.03 H RBC 4.28 L Hgb 12.2 L Hct 35.8 L MCV 83.6 MCH 28.5 MCHC 34.1 RDW Coeff of Bull 13.4 Plt Count 370 Immature Gran % (Auto) 1.1 Neut % (Auto) 81.9 Lymph % (Auto) 8.6 L [place] % (Auto) 7.9 Eos % (Auto) 0.3 Baso % (Auto) 0.2 Immature Gran # (Auto) 0.2 Neut # 16.4 H Lymph # 1.7 [place] # 1.6 Eos # 0.1 Baso # 0.1 Puncture Site R brach O2 Saturation 94.0 L ABG pH 7.50 H ABG pCO2 28.0 L ABG pO2 63.0 L ABG HCO3 21.8 L ABG Total CO2 23 ABG Base Excess -1 Mohamud Test + O2 Delivery Device Nc Oxygen Liter Flow 2.00 Sodium 131 L Potassium 4.5 Chloride 96 L Carbon Dioxide 25 Anion Gap 14.5 BUN 25 H Creatinine 1.28 H Estimated GFR (MDRD) 55.00 BUN/Creatinine Ratio 19.53 Glucose 94 Lactic Acid 15.2 Calcium 9.2 Total Bilirubin 0.74 AST 19 ALT 29 Alkaline Phosphatase 87 Total Creatine Kinase 32 Troponin I 0.0170 B-Natriuretic Peptide 171 H Total Protein 6.1 Albumin 2.9 L Globulin 3.2 Albumin/Globulin Ratio 0.91 TSH 1.532 Free T4 1.21 H Influenza A (Rapid) Negative Influenza B (Rapid) Negative Orders Category Date Time Status ABG DRAW REQUEST Stat CARDIO 08/08/16 11:37 Completed EKG-(ED ONLY) Stat CARDIO 08/08/16 11:34 Completed EKG-(ED ONLY) Stat CARDIO 08/08/16 12:15 Completed ED IV/MEDIPORT/POWERPORT .ONCE EMERGENCY 08/08/16 11:34 Active ABG Stat LAB 08/08/16 11:40 Completed B-TYPE NATRIURETIC PEPTIDE Stat LAB 08/08/16 11:45 Completed BLOOD CULTURE Stat LAB 08/08/16 11:45 Completed CBC W/ AUTO DIFF Stat LAB 08/08/16 11:45 Completed COMPREHENSIVE METABOLIC PANEL Stat LAB 08/08/16 11:45 Completed CREATINE KINASE Stat LAB 08/08/16 11:45 Completed FREE T4 (FREE THYROXINE) Stat LAB 08/08/16 11:45 Completed LACTIC ACID Stat LAB 08/08/16 11:45 Completed MOLECULAR GROUP A STREP Stat LAB 08/08/16 11:45 Completed RAPID FLU A/B Stat LAB 08/08/16 11:45 Completed STREP SCREEN Stat LAB 08/08/16 11:45 Completed THYROID STIMULATING HORMONE Stat LAB 08/08/16 11:45 Completed TROPONIN I Stat LAB 08/08/16 11:45 Completed 0.9 % Sodium Chloride [Saline Flush] MEDS 08/08/16 11:34 Discontinued 1 syr IVF PRN PRN Ceftriaxone Sodium [Rocephin] MEDS 08/08/16 14:08 Discontinued 1 gm .ROUTE .STK-MED ONE Ceftriaxone Sodium [Rocephin] 1 gm MEDS 08/08/16 14:01 Discontinued 0.9 % Sodium Chloride [Sodium Chloride] 50 ml IV ONCE Diltiazem HCl Inj [Cardizem Inj] MEDS 08/08/16 11:39 Discontinued 15 mg IVP ONCE STA Diltiazem HCl Inj [Cardizem Inj] MEDS 08/08/16 14:02 Discontinued 15 mg IVP ONCE STA Etomidate [Amidate] MEDS 08/08/16 12:08 Discontinued 20 mg IVP .STK-MED ONE Methylprednisolone Sod Succ/Pf [Solu-Medrol 125 mg] MEDS 08/08/16 11:45 Discontinued 125 mg .ROUTE .STK-MED ONE Methylprednisolone Sod Succ/Pf [Solu-Medrol 125 mg] MEDS 08/08/16 11:44 Discontinued 125 mg IVP ONCE STA Vancomycin HCl [Vancomycin] 1 gm MEDS 08/08/16 14:01 Discontinued 0.9 % Sodium Chloride [Sodium Chloride] 250 ml IV ONCE CHEST, 1V AP ONLY Stat RADS 08/08/16 11:[address] ABDOMEN/PELVIS WO CONTRAST Stat RADS 08/08/16 14:04 Completed U/S VENOUS SCAN DARY LEGS Stat RADS 08/08/16 11:34 Completed Medications Discontinued Medications Generic Name Dose Route Start Last Admin Trade Name Freq PRN Reason Stop Dose Admin Albuterol Sulfate 2 puff 08/08/16 16:37 Proair Hfa IH Q4H PRN shortness of air Albuterol/Ipratropium 1 vial 08/08/16 18:00 08/12/16 11:10 Duoneb NEB 1 vial RTQ6H ADDY Administration Apixaban 2.5 mg 08/08/16 21:00 08/12/16 09:00 Eliquis PO 2.5 mg BID ADDY Administration Ascorbic Acid 500 mg 08/09/16 09:00 08/12/16 09:01 Vitamin C PO 500 mg DAILY ADDY Administration Aspirin 325 mg 08/09/16 08:00 08/12/16 08:57 Aspirin Ec PO 325 mg DAILYWM ADDY Administration Atorvastatin Calcium 20 mg 08/09/16 09:00 08/12/16 09:00 Lipitor PO 20 mg DAILY ADDY Administration Carvedilol 6.25 mg 08/08/16 17:30 08/12/16 08:57 Coreg PO 6.25 mg BIDWM ADDY Administration Diltiazem HCl 15 mg 08/08/16 11:39 08/08/16 11:52 Cardizem Inj IVP 08/08/16 11:40 15 mg ONCE STA Administration Diltiazem HCl 15 mg 08/08/16 14:02 08/08/16 12:02 Cardizem Inj IVP 08/08/16 14:03 15 mg ONCE STA Administration Diltiazem HCl 90 mg 08/08/16 21:00 Cardizem PO BID ADDY Diltiazem HCl 60 mg 08/08/16 21:00 08/12/16 08:57 Cardizem PO 60 mg BID ADDY Administration Formoterol Fumarate 1 mcg 08/08/16 18:00 08/09/16 05:20 Perforomist NEB 20 mcg RTBID ADDY Administration Formoterol Fumarate 20 mcg 08/09/16 18:00 08/12/16 05:28 Perforomist NEB 20 mcg RTBID ADDY Administration Furosemide 20 mg 08/08/16 17:56 08/08/16 19:17 Lasix IVP 08/08/16 17:57 Not Given ONCE STA Furosemide 20 mg 08/08/16 16:00 08/09/16 06:58 Lasix IVP 08/08/16 16:01 Not Given ONCE ONE Furosemide 20 mg 08/10/16 10:20 Lasix IVP 08/10/16 10:21 ONCE ONE Furosemide 20 mg 08/09/16 10:20 08/09/16 10:29 Lasix IVP 08/09/16 10:21 20 mg ONCE ONE Administration Vancomycin HCl 1 gm/ Sodium 250 mls @ 250 mls/hr 08/08/16 14:01 08/08/16 15: 17 Chloride IV 08/08/16 15:00 250 mls/hr ONCE STA Administration Ceftriaxone Sodium 1 gm/ 50 mls @ 75 mls/hr 08/08/16 14:01 08/08/16 14:23 Sodium Chloride IV 08/08/16 14:40 75 mls/hr ONCE STA Administration Sodium Chloride 1,000 mls @ 75 mls/hr 08/08/16 16:00 08/08/16 19:17 Sodium Chloride IV Not Given .[id number] ADDY Sodium Chloride 1,000 mls @ 250 mls/hr 08/08/16 16:00 08/08/16 12:10 Sodium Chloride IV 250 mls/hr Q0H ADDY Administration Ceftriaxone Sodium 1 gm/ 100 mls @ 100 mls/hr 08/09/16 09:00 08/12/16 09:01 Sodium Chloride IV 100 mls/hr DAILY ADDY Administration Vancomycin HCl 1 gm/ Sodium 250 mls @ 125 mls/hr 08/09/16 09:00 08/12/16 09: 40 Chloride IV 125 mls/hr DAILY ADDY Administration Sodium Chloride 1,000 mls @ 40 mls/hr 08/08/16 17:04 08/11/16 12:38 Sodium Chloride IV 40 mls/hr .Q25H ADDY Administration Magnesium Citrate 5 oz 08/10/16 17:51 08/10/16 18:12 Citrate Of Magnesia PO 08/10/16 17:52 5 oz ONCE STA Administration Methylprednisolone Sodium Succinate 125 mg 08/08/16 11:44 08/08/16 11:48 Solu-Medrol 125 Mg IVP 08/08/16 11:45 125 mg ONCE STA Administration Methylprednisolone Sodium Succinate 80 mg 08/08/16 21:00 08/09/16 05:29 Solu-Medrol 125 Mg IVP 80 mg Q8HR ADDY Administration Methylprednisolone Sodium Succinate 40 mg 08/09/16 13:00 08/11/16 04:34 Solu-Medrol 40 Mg IVP 40 mg Q8HR ADDY Administration Non-Formulary Medication 2 puff 08/09/16 09:00 08/12/16 09:01 Mometasone/Formoterol [Dulera 200 Mcg/5 Mcg Inhaler] IN Not Given DAILY ADDY Non-Formulary Medication 5,000 mcg 08/09/16 09:00 08/12/16 08:58 Cyanocobalamin (Vitamin B-12) [Vitamin B12] PO Not Given DAILY ADDY Ondansetron HCl 4 mg 08/10/16 20:07 08/10/16 20:11 Zofran 4 Mg/2 Ml IVP 4 mg Q6H PRN Administration Nausea / Vomiting Prednisone 10 mg 08/11/16 17:30 08/12/16 09:01 Prednisone PO 10 mg BIDWM ADDY Administration Silver Sulfadiazine 1 applic 08/10/16 09:00 08/12/16 09:01 Silvadene Cream TP 1 applic BID ADDY Administration Sodium Chloride 1 syr 08/08/16 11:34 08/10/16 13:26 Saline Flush IVF 1 syr PRN PRN Administration To flush IV Sodium Chloride 1 syr 08/08/16 21:00 08/12/16 05:08 Saline Flush IVF 1 syr Q8HR ADDY Administration Tamsulosin HCl 0.4 mg 08/09/16 09:00 08/12/16 09:00 Flomax PO 0.4 mg DAILY ADDY Administration Tiotropium [place] 1 cap 08/09/16 09:00 08/12/16 09:01 Spiriva IH 1 cap DAILY ADDY Administration Vitamin E 400 unit 08/09/16 09:00 08/12/16 09:01 Vitamin E PO 400 unit DAILY ADDY Administration Vital Signs: Temp Pulse Resp BP Pulse Ox 08/08/16 12:21 110/50 L 08/08/16 12:15 80 91/59 L 08/08/16 12:08 140 H 76/40 L 08/08/16 12:04 160 H 60/38 L 08/08/16 11:18 96.4 F L 120 H 40 H 104/37 L 96 Departure - Departure Time of Disposition: 12:00 Disposition: ADMITTED INPATIENT Discharge Problem: A-fib Pneumonia Qualifiers: Pneumonia type: due to unspecified organism Condition: Fair Pt referred to PMD for follow-up: Yes (ADMITT) Allergies/Adverse Reactions: Allergies No Known Allergies Allergy (Verified 08/08/16 11:28) Home Medications: Ambulatory Orders Albuterol Sulfate [Proair Hfa] 2 puff INH Q4H PRN 07/10/16 Arformoterol Tartrate [Brovana] 1 vial INH BID 07/10/16 Ascorbate Calcium [Vitamin C] 500 mg PO DAILY 07/10/16 Atorvastatin Calcium [Lipitor] 20 mg PO DAILY 07/10/16 Carvedilol [Coreg] 6.25 mg PO BID 07/10/16 Clopidogrel Bisulfate [Clopidogrel] 75 mg PO DAILY 07/10/16 Cyanocobalamin (Vitamin B-12) [Vitamin B12] 5,000 mcg PO DAILY 07/10/16 Mometasone/Formoterol [Dulera 200 Mcg/5 Mcg Inhaler] 2 puff IN DAILY 07/10/16 Tiotropium [place] [Spiriva] 1 mcg INH DAILY 07/10/16 Vitamin E 400 intnl unit PO DAILY 07/10/16 Tamsulosin HCl [Flomax] 0.4 mg PO DAILY 07/15/16 Aspirin [Ecotrin] 325 mg PO DAILY 07/26/16 Ciprofloxacin HCl [Cipro] 500 mg PO Q12HR 08/08/16 Cephalexin [Keflex] 500 mg PO Q12HR #10 capsule 08/12/16 Prednisone 10 mg PO BIDWM #10 tablet 08/12/16 Disposition Discussed With: Patient
== END 2016-08-12 12:49 | disposition home or self-care (01) | DRG 194 ==
LOC: ED 11:16 → SCU 15:38 → UNDOADMIN 15:38
PROVIDERS: ADMIT Emergency Medicine; ATTEND Emergency Medicine
DX: J18.9 Pneumonia, unspecified organism (principal); J90 Pleural effusion, not elsewhere classified; N13.8 Other obstructive and reflux uropathy; S22.089A Unspecified fracture of T11-T12 vertebra, initial encounter for closed fracture; S32.019A Unspecified fracture of first lumbar vertebra, initial encounter for closed fracture; R06.02 Shortness of breath; D38.1 Neoplasm of uncertain behavior of trachea, bronchus and lung; I48.91 Unspecified atrial fibrillation; I10 Essential (primary) hypertension; E78.5 Hyperlipidemia, unspecified; N40.1 Benign prostatic hyperplasia with lower urinary tract symptoms; I95.9 Hypotension, unspecified; R60.0 Localized edema; K59.00 Constipation, unspecified; S31.819A Unspecified open wound of right buttock, initial encounter; Z79.01 Long term (current) use of anticoagulants; Z79.899 Other long term (current) drug therapy; Z95.5 Presence of coronary angioplasty implant and graft; Z87.891 Personal history of nicotine dependence
CPT/HCPCS: 36415; 80053; 80202; 82550; 82803; 83605; 83880; 84439; 84443; 84484; 85025; 87040; 87081; 87651; 87804; 87880; 93005; 93010; 94640; 96361; 96365; 96367; 96375; 99285

== ENCOUNTER 2016-09-10 23:43 | Inpatient (IN) ==
[2016-09-10] MEDS ORDERED: DUONEB NEB STA (23:48)
--- NOTE | 2016-09-10 23:50 | ED.PDOC ---
General ED Provider: Dr. STEVEN FUENTES Chief Complaint: Shortness of Air Stated Complaint: patient states he was discharged one month ago for COPD excercerbation. Since he has been home he has progressively gotten weaker with some shortness of breath today. His legs have become more swollen. Time Seen by Physician: 23:50 Mode of Arrival: Wheelchair Information Source: Patient Primary Care Provider: KATLIN CORTES Nursing and Triage Documentation Reviewed and Agree: Yes Respiratory Complaint Exam - Respiratory Complaint/Exam Symptoms Are: Still present Timing: Constant Initial Severity: Moderate Current Severity: Moderate Location: Chest Character: Reports: Non-productive cough Aggravating: Reports: Weather Associated Signs and Symptoms: Reports: Dyspnea, URI. Denies: Rapid breathing, Fever, Chills, Chest pain, Pleuritic chest pain, Wheezing, Hemoptysis, Dizziness , Calf pain, Calf swelling, Edema, Nasal congestion, Hoarseness, Sinus discomfort, Vomiting, Sore throat, Weight loss, Decreased oral intake, Increased thirst, Increased appetite, Increased urination History of Healthcare-Acquired Pneumonia: No Related Surgical History: Reports: None Pulmonary Embolism Risk Factors: None Cardiac Risk Factors: Reports: None Pseudomonas Risk Factors: Reports: Chronic Lung Disease, Repeat Antibx in 3 months Tuberculosis Risk Factors: Reports: Corticosteriod use Status Asthmaticus Risk Factors: Reports: Recent admissions Home Oxygen Use: Yes (2 liters ) Recent Stress Test: No Recent Echo/LV Function: No Current Antibiotic Use: No Current Asthma Medication Use: Yes Dysphagia Present: No Stridor Present: No JVD Present: No Accessory Muscle Use: No Diminished Breath Sounds: Yes Prolonged Respiration: Inspiratory phase Sinus Tenderness: None Grunting Respirations: No Kussmaul Respirations: No Differential Diagnoses: COPD Exacerbation Review of Systems - Review Of Systems Constitutional: Reports: Weakness. Denies: Loss of appetite Eyes: Reports: No symptoms Ears, Nose, Mouth, Throat: Reports: No symptoms Respiratory: Reports: Cough, Short of air Cardiac: Reports: No symptoms GI: Reports: No symptoms : Reports: No symptoms Musculoskeletal: Reports: No symptoms Skin: Reports: No symptoms Neurological: Reports: No symptoms Endocrine: Reports: No symptoms Hematologic/Lymphatic: Reports: No symptoms All Other Systems: Reviewed and Negative Past Medical History - Past Medical History Endocrine: Reports: Unknown Cardiovascular: Reports: Hypertension, Unknown Respiratory: Reports: COPD, Unknown Hematological: Reports: Unknown Gastrointestinal: Reports: Unknown Genitourinary: Reports: Unknown Neuro/Psych: Reports: Unknown Musculoskeletal: Reports: Unknown Cancer: Reports: Unknown - Surgical History General Surgical History: Reports: Stent (cardiac stents ) - Family History Family History: Reports: Unknown - Social History Smoking Status: Former smoker Hx Substance Use: No Alcohol Screening: None Physical Exam - Physical Exam Appearance: Ill-appearing, Thin Ill-appearing: Moderate Pain Distress: None Eyes: CYNTHIA, EOMI, Conjunctiva clear ENT: Ears normal, Nose normal, Oropharynx normal Neck: Supple Respiratory: Breath sounds diminished Cardiovascular: RRR Musculoskeletal: Normal strength, ROM intact, No calf tenderness, Edema (lower legs bilaterally 3+) Skin: Warm, Dry, Normal color Neurological: Sensation intact, Motor intact, Reflexes intact, Cranial nerves intact, Alert, Oriented Psychiatric: Anxious Interpretation - Radiology Interpretation Radiology Interpretation By: ED Physician Radiology Results: Negative Exam Interpreted: Portable CXR - Accounts Receivable Manager Rate: Normal Rhythm: Sinus Ectopy: None - EKG Interpretation Time of EKG #1: 23:54 Rate: Normal Rhythm: Sinus Ectopy: None [place]: NL ST Segment: Normal 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 Critical Care Note - Critical Care Note Total Time (mins): 30 Course - Course Hematology/Chemistry: 09/10/16 00:05 09/10/16 00:05 Orders, Labs, Meds: Lab Review 09/10/16 09/10/16 00:05 23:55 WBC 11.75 H RBC 3.92 L Hgb 10.8 L Hct 33.1 L MCV 84.4 MCH 27.6 MCHC 32.6 RDW Coeff of Bull 14.8 Plt Count 437 Immature Gran % (Auto) 2.3 Neut % (Auto) 58.5 Lymph % (Auto) 28.8 [place] % (Auto) 9.0 Eos % (Auto) 0.8 Baso % (Auto) 0.6 Immature Gran # (Auto) 0.3 Neut # 6.9 Lymph # 3.4 [place] # 1.1 Eos # 0.1 Baso # 0.1 Puncture Site Lb O2 Saturation 96.0 ABG pH 7.495 H ABG pCO2 40.6 ABG pO2 75.0 L ABG HCO3 31.2 H ABG Total CO2 32 H ABG Base Excess 8 H Mohamud Test + O2 Delivery Device Bnc Oxygen Liter Flow 2.00 FiO2 % 28.0 Sodium 132 L Potassium 3.5 Chloride 90 L Carbon Dioxide 33 H Anion Gap 12.5 BUN 12 Creatinine 0.73 Estimated GFR (MDRD) 106.00 BUN/Creatinine Ratio 16.43 Glucose 129 H Lactic Acid 10.2 Calcium 8.9 Total Bilirubin 0.47 AST 16 ALT 13 Alkaline Phosphatase 106 Total Creatine Kinase 20 Troponin I < 0.0100 B-Natriuretic Peptide 33 Total Protein 6.6 Albumin 2.7 L Globulin 3.9 Albumin/Globulin Ratio 0.69 Orders Category Date Time Status ADMIT PATIENT INPATIENT .TO [facility] (MONITORED BED) ADMISSION 09/11/16 00: 31 Active ABG DRAW REQUEST Stat CARDIO 09/10/16 23:48 Completed EKG-(ED ONLY) Stat CARDIO 09/10/16 23:48 Completed NEBULIZER TREATMENT Routine CARDIO 09/11/16 00:38 Ordered NEBULIZER TREATMENT Stat CARDIO 09/10/16 23:48 Completed OXYGEN Routine CARDIO 09/11/16 00:31 Ordered ACTIVITY .BR with BRP CARE 09/11/16 00:33 Active INTAKE & OUTPUT Q8HR CARE 09/11/16 00:31 Active TELEMETRY MONITORING TELE CARE 09/11/16 00:33 Active VITAL SIGNS Q4HR CARE 09/11/16 00:33 Active CARDIAC DIET DIETARY 09/11/16 Breakfast Ordered ED APPLY O2 .ONCE EMERGENCY 09/10/16 23:48 Active ED BODY ART TECHNICIAN APPLIED .ONCE EMERGENCY 09/10/16 23:48 Active ED IV/MEDIPORT/POWERPORT .ONCE EMERGENCY 09/10/16 23:48 Active ABG Stat LAB 09/10/16 23:55 Completed B-TYPE NATRIURETIC PEPTIDE Stat LAB 09/10/16 00:05 Completed BLOOD CULTURE Stat LAB 09/10/16 00:05 Received CBC W/ AUTO DIFF DAILY@0600 LAB 09/11/16 06:00 Ordered CBC W/ AUTO DIFF DAILY@0600 LAB 09/12/16 06:00 Ordered CBC W/ AUTO DIFF DAILY@0600 LAB 09/13/16 06:00 Ordered CBC W/ AUTO DIFF DAILY@0600 LAB 09/14/16 06:00 Ordered CBC W/ AUTO DIFF DAILY@0600 LAB 09/15/16 06:00 Ordered CBC W/ AUTO DIFF DAILY@0600 LAB 09/16/16 06:00 Ordered CBC W/ AUTO DIFF DAILY@0600 LAB 09/17/16 06:00 Ordered CBC W/ AUTO DIFF DAILY@0600 LAB 09/18/16 06:00 Ordered CBC W/ AUTO DIFF DAILY@0600 LAB 09/19/16 06:00 Ordered CBC W/ AUTO DIFF DAILY@0600 LAB 09/20/16 06:00 Ordered CBC W/ AUTO DIFF DAILY@0600 LAB 09/21/16 06:00 Ordered CBC W/ AUTO DIFF DAILY@0600 LAB 09/22/16 06:00 Ordered CBC W/ AUTO DIFF DAILY@0600 LAB 09/23/16 06:00 Ordered CBC W/ AUTO DIFF DAILY@0600 LAB 09/24/16 06:00 Ordered CBC W/ AUTO DIFF DAILY@0600 LAB 09/25/16 06:00 Ordered CBC W/ AUTO DIFF DAILY@0600 LAB 09/26/16 06:00 Ordered CBC W/ AUTO DIFF DAILY@0600 LAB 09/27/16 06:00 Ordered CBC W/ AUTO DIFF DAILY@0600 LAB 09/28/16 06:00 Ordered CBC W/ AUTO DIFF DAILY@0600 LAB 09/29/16 06:00 Ordered CBC W/ AUTO DIFF DAILY@06 LAB 09/30/16 06:00 Ordered CBC W/ AUTO DIFF Stat LAB 09/10/16 00:05 Completed COMPREHENSIVE METABOLIC PANEL DAILY@0600 LAB 09/11/16 06:00 Ordered COMPREHENSIVE METABOLIC PANEL DAILY@0600 LAB 09/12/16 06:00 Ordered COMPREHENSIVE METABOLIC PANEL DAILY@0600 LAB 09/13/16 06:00 Ordered COMPREHENSIVE METABOLIC PANEL DAILY@0600 LAB 09/14/16 06:00 Ordered COMPREHENSIVE METABOLIC PANEL DAILY@0600 LAB 09/15/16 06:00 Ordered COMPREHENSIVE METABOLIC PANEL DAILY@0600 LAB 09/16/16 06:00 Ordered COMPREHENSIVE METABOLIC PANEL DAILY@0600 LAB 09/17/16 06:00 Ordered COMPREHENSIVE METABOLIC PANEL DAILY@0600 LAB 09/18/16 06:00 Ordered COMPREHENSIVE METABOLIC PANEL DAILY@0600 LAB 09/19/16 06:00 Ordered COMPREHENSIVE METABOLIC PANEL DAILY@0600 LAB 09/20/16 06:00 Ordered COMPREHENSIVE METABOLIC PANEL DAILY@0600 LAB 09/21/16 06:00 Ordered COMPREHENSIVE METABOLIC PANEL DAILY@0600 LAB 09/22/16 06:00 Ordered COMPREHENSIVE METABOLIC PANEL DAILY@0600 LAB 09/23/16 06:00 Ordered COMPREHENSIVE METABOLIC PANEL DAILY@0600 LAB 09/24/16 06:00 Ordered COMPREHENSIVE METABOLIC PANEL DAILY@0600 LAB 09/25/16 06:00 Ordered COMPREHENSIVE METABOLIC PANEL DAILY@0600 LAB 09/26/16 06:00 Ordered COMPREHENSIVE METABOLIC PANEL DAILY@0600 LAB 09/27/16 06:00 Ordered COMPREHENSIVE METABOLIC PANEL DAILY@0600 LAB 09/28/16 06:00 Ordered COMPREHENSIVE METABOLIC PANEL DAILY@0600 LAB 09/29/16 06:00 Ordered COMPREHENSIVE METABOLIC PANEL DAILY@0600 LAB 09/30/16 06:00 Ordered COMPREHENSIVE METABOLIC PANEL Stat LAB 09/10/16 00:05 Completed CREATINE KINASE Stat LAB 09/10/16 00:05 Completed LACTIC ACID Stat LAB 09/10/16 00:05 Completed PROCALCITONIN Stat LAB 09/10/16 00:05 Received TROPONIN I Stat LAB 09/10/16 00:05 Completed 0.9 % Sodium Chloride [Saline Flush] MEDS 09/10/16 23:48 Ordered 1 syr IVF PRN PRN Acetaminophen [Tylenol] MEDS 09/11/16 00:31 Ordered 650 mg PO Q4H PRN Arformoterol Tartrate [Brovana] MEDS 09/11/16 09:00 Ordered 1 vial INH BID Ascorbate Calcium [Vitamin C] MEDS 09/11/16 09:00 Ordered 500 mg PO DAILY Aspirin [Aspirin EC] MEDS 09/11/16 09:00 Ordered 325 mg PO DAILY Carvedilol [Coreg] MEDS 09/11/16 09:00 Ordered 6.25 mg PO BID Clopidogrel Bisulfate [Plavix] MEDS 09/11/16 09:00 Ordered 75 mg PO DAILY Cyanocobalamin (Vitamin B-12) [Vitamin B12] MEDS 09/11/16 09:00 Ordered 5,000 mcg PO DAILY Enoxaparin Sodium [Lovenox] MEDS 09/11/16 09:00 Ordered 30 mg SUBCUT DAILY Ipratropium/Albuterol Neb [Duoneb] MEDS 09/10/16 23:48 Discontinued 1 vial NEB ONCE STA Ipratropium/Albuterol Neb [Duoneb] MEDS 09/11/16 00:31 Ordered 1 vial NEB RTQ2H PRN Ipratropium/Albuterol Neb [Duoneb] MEDS 09/11/16 06:00 Ordered 1 vial NEB RTQID Methylprednisolone Sod Succ/Pf [Solu-Medrol 125 mg] MEDS 09/11/16 00:25 Discontinued 125 mg IVP ONCE STA Methylprednisolone Sod Succ/Pf [Solu-Medrol 40 mg] MEDS 09/11/16 05:00 Ordered 80 mg IVP Q8HR Mometasone/Formoterol [Dulera 200 Mcg/5 Mcg Inhaler] MEDS 09/11/16 09:00 Ordered 2 puff IN DAILY Ondansetron HCl/Pf [Zofran 4 mg/2 ml] MEDS 09/11/16 00:31 Ordered 4 mg IVP Q6H PRN Sodium Chloride 0.9% [Sodium Chloride] 1,000 ml MEDS 09/11/16 01:00 Ordered IV 60 mls/hr Tamsulosin HCl [Flomax] MEDS 09/11/16 09:00 Ordered 0.4 mg PO DAILY Vitamin E [Vitamin E] MEDS 09/11/16 09:00 Ordered 400 intnl unit PO DAILY RESUSCITATION STATUS Routine OTHERS 09/11/16 00:31 Ordered CHEST, 1V AP ONLY Stat RADS 09/10/16 23:48 Taken OT CONSULTATION Routine THERAPIES 09/11/16 Ordered PT CONSULT Routine THERAPIES 09/11/16 Ordered Medications Generic Name Dose Route Start Last Admin Trade Name Freq PRN Reason Stop Dose Admin Acetaminophen 650 mg 09/11/16 00:31 Tylenol PO Q4H PRN Fever Albuterol/Ipratropium 1 vial 09/11/16 06:00 Duoneb NEB RTQID ADDY Albuterol/Ipratropium 1 vial 09/11/16 00:31 Duoneb NEB RTQ2H PRN Wheezing Aspirin 325 mg 09/11/16 09:00 Aspirin Ec PO DAILY [facility] Carvedilol 6.25 mg 09/11/16 09:00 Coreg PO BID ADDY Clopidogrel Bisulfate 75 mg 09/11/16 09:00 Plavix PO DAILY [facility] Enoxaparin Sodium 30 mg 09/11/16 09:00 Lovenox SUBCUT DAILY [facility] Sodium Chloride 1,000 mls @ 60 mls/hr 09/11/16 01:00 Sodium Chloride IV .[id number] [facility] Methylprednisolone Sodium Succinate 80 mg 09/11/16 05:00 Solu-Medrol 40 Mg IVP Q8HR [facility] Non-Formulary Medication 500 mg 09/11/16 09:00 Ascorbate Calcium [Vitamin C] PO DAILY [facility] Non-Formulary Medication 5,000 mcg 09/11/16 09:00 Cyanocobalamin (Vitamin B-12) [Vitamin B12] PO DAILY [facility] Non-Formulary Medication 2 puff 09/11/16 09:00 Mometasone/Formoterol [Dulera 200 Mcg/5 Mcg Inhaler] IN DAILY [facility] Non-Formulary Medication 400 intnl unit 09/11/16 09:00 Vitamin E [Vitamin E] PO DAILY [facility] Non-Formulary Medication 1 vial 09/11/16 09:00 Arformoterol Tartrate [Brovana] INH BID [facility] Ondansetron HCl 4 mg 09/11/16 00:31 Zofran 4 Mg/2 Ml IVP Q6H PRN Nausea / Vomiting Sodium Chloride 1 syr 09/10/16 23:48 09/11/16 00:35 Saline Flush IVF 1 syr PRN PRN Administration To flush IV Tamsulosin HCl 0.4 mg 09/11/16 09:00 Flomax PO DAILY [facility] Discontinued Medications Generic Name Dose Route Start Last Admin Trade Name Freq PRN Reason Stop Dose Admin Albuterol/Ipratropium 1 vial 09/10/16 23:48 09/10/16 23:58 Duoneb NEB 09/10/16 23:49 1 vial ONCE STA Administration Methylprednisolone Sodium Succinate 125 mg 09/11/16 00:25 09/11/16 00:35 Solu-Medrol 125 Mg IVP 09/11/16 00:26 125 mg ONCE STA Administration Vital Signs: Temp Pulse Resp BP Pulse Ox 09/10/16 23:45 98.7 F 80 21 139/66 98 Departure - Departure Time of Disposition: 00:45 Disposition: ADMITTED INPATIENT Discharge Problem: COPD exacerbation, Weakness generalized Condition: Fair Pt referred to PMD for follow-up: Yes Allergies/Adverse Reactions: Allergies No Known Allergies Allergy (Verified 08/08/16 11:28) Home Medications: Ambulatory Orders Albuterol Sulfate [Proair Hfa] 2 puff INH Q4H PRN 07/10/16 Arformoterol Tartrate [Brovana] 1 vial INH BID 07/10/16 Ascorbate Calcium [Vitamin C] 500 mg PO DAILY 07/10/16 Carvedilol [Coreg] 6.25 mg PO BID 07/10/16 Clopidogrel Bisulfate [Clopidogrel] 60 mg PO DAILY 07/10/16 Cyanocobalamin (Vitamin B-12) [Vitamin B12] 5,000 mcg PO DAILY 07/10/16 Mometasone/Formoterol [Dulera 200 Mcg/5 Mcg Inhaler] 2 puff IN DAILY 07/10/16 Tiotropium [place] [Spiriva] 1 mcg INH DAILY 07/10/16 Vitamin E 400 intnl unit PO DAILY 07/10/16 Tamsulosin HCl [Flomax] 0.4 mg PO DAILY 07/15/16 Aspirin [Ecotrin] 325 mg PO DAILY 07/26/16 Ciprofloxacin HCl [Cipro] 500 mg PO Q12HR 08/08/16
[2016-09-10] MEDS ORDERED: DUONEB NEB ONE (23:58)
[2016-09-11 00:12] LABS: ABG BASE EXCESS 8 (-2.0-2.0); ABG HCO3 31.2 (22.0-26.0); ABG PCO2 40.6 mmHg (35-45); ABG PH 7.495 (7.35-7.45); ABG TCO2 32 (22.0-28.0)
[2016-09-11 00:12] LABS: BASOPHILS # (AUTO) 0.1 K/uL (0-0.2); BASOPHILS % (AUTO) 0.6 % (0.0-3.0); EOSINOPHILS # (AUTO) 0.1 K/ul (0.0-0.7); EOSINOPHILS % (AUTO) 0.8 % (0.0-7.0); HEMATOCRIT 33.1 % (42.0-52.0); HEMOGLOBIN 10.8 g/dl (14.0-18.0); IMMATURE GRANULOCYTE % (AUTO) 2.3 % (0.0-5.0); LYMPHOCYTES # (AUTO) 3.4 K/uL (0.60-3.4); LYMPHOCYTES % (AUTO) 28.8 (10.0-50.0); MEAN CORPUSCULAR HEMOGLOBIN 27.6 pg (27.0-31.0); MEAN CORPUSCULAR HGB CONC 32.6 (31.8-35.4); MEAN CORPUSCULAR VOLUME 84.4 fl (80.0-94.0); MONOCYTES # (AUTO) 1.1 K/uL (0.4-2.0); NEUTROPHILS # (AUTO) 6.9 K/ul (2.0-6.9); NEUTROPHILS % (AUTO) 58.5; PLATELET COUNT 437 10^3/uL (140-440); RED BLOOD COUNT 3.92 10^6/ul (4.70-6.10); WHITE BLOOD COUNT 11.75 K/ul (4.2-10.2)
[2016-09-11] MEDS ORDERED: SOLU-MEDROL 125 MG IVP STA (00:25)
[2016-09-11] MEDS ORDERED: TYLENOL PO PRN (00:31)
[2016-09-11] MEDS ORDERED: ZOFRAN 4 MG/2 ML IVP PRN (00:31)
[2016-09-11] MEDS ORDERED: DUONEB NEB PRN (00:31)
[2016-09-11 00:39] LABS: ALANINE AMINOTRANSFERASE 13 U/L (12-78); ALBUMIN 2.7 g/dL (3.4-5.0); ALBUMIN/GLOBULIN RATIO 0.69; ALKALINE PHOSPHATASE 106 U/L (56-119); ANION GAP 12.5; ASPARTATE AMINO TRANSFERASE 16 U/L (15-37); BILIRUBIN,TOTAL 0.47 mg/dL (0.00-1.20); BLOOD UREA NITROGEN 12 mg/dL (7-18); BUN/CREATININE RATIO 16.43; CALCIUM 8.9 mg/dL (8.2-10.2); CARBON DIOXIDE 33 mmol/L (23-31); CHLORIDE 90 mmol/L (98-107); CREATINE KINASE 20 U/L; CREATININE 0.73 mg/dL (0.60-1.10); GLUCOSE 129 mg/dL (82-115); POTASSIUM 3.5 mmol/L (3.5-5.1); SODIUM 132 mmol/L (136-145); TOTAL PROTEIN 6.6 g/dL (5.8-8.1)
[2016-09-11] MEDS ORDERED: SODIUM CHLORIDE 1,000 ML IV SCH (01:00)
[2016-09-11 02:42] VITALS: BMI 18.1
[2016-09-11 04:53] LABS: BASOPHILS # (AUTO) 0.1 K/uL (0-0.2); BASOPHILS % (AUTO) 0.5 % (0.0-3.0); EOSINOPHILS % (AUTO) 0.1 % (0.0-7.0); HEMATOCRIT 31.6 % (42.0-52.0); HEMOGLOBIN 10.4 g/dl (14.0-18.0); IMMATURE GRANULOCYTE % (AUTO) 2.9 % (0.0-5.0); LYMPHOCYTES # (AUTO) 2.2 K/uL (0.60-3.4); LYMPHOCYTES % (AUTO) 19.1 (10.0-50.0); MEAN CORPUSCULAR HEMOGLOBIN 27.6 pg (27.0-31.0); MEAN CORPUSCULAR HGB CONC 32.9 (31.8-35.4); MEAN CORPUSCULAR VOLUME 83.8 fl (80.0-94.0); MONOCYTES # (AUTO) 0.2 K/uL (0.4-2.0); MONOCYTES % (AUTO) 1.9 (0-10); NEUTROPHILS # (AUTO) 8.7 K/ul (2.0-6.9); NEUTROPHILS % (AUTO) 75.5; PLATELET COUNT 427 10^3/uL (140-440); RED BLOOD COUNT 3.77 10^6/ul (4.70-6.10); WHITE BLOOD COUNT 11.52 K/ul (4.2-10.2)
[2016-09-11] MEDS ORDERED: SOLU-MEDROL 40 MG IVP SCH (05:00)
[2016-09-11 05:12] LABS: ALBUMIN 2.4 g/dL (3.4-5.0); ALBUMIN/GLOBULIN RATIO 0.71; ANION GAP 11.6; BILIRUBIN,TOTAL 0.49 mg/dL (0.00-1.20); BUN/CREATININE RATIO 14.28; CALCIUM 8.7 mg/dL (8.2-10.2); CREATININE 0.7 mg/dL (0.60-1.10); POTASSIUM 3.6 mmol/L (3.5-5.1); TOTAL PROTEIN 5.8 g/dL (5.8-8.1)
[2016-09-11] MEDS: DUONEB NEB SCH ×4 (05:22→22:42)
[2016-09-11] MEDS ORDERED: SOLU-MEDROL 40 MG ONE ×2 (05:39→05:44)
[2016-09-11] MEDS ORDERED: DUONEB NEB SCH (06:00)
--- NOTE | 2016-09-11 06:52 | DI ---
EXAM: Chest one view HISTORY: Cough, shortness of breath COMPARISON: 08/08/2016 TECHNIQUE: Single view of the chest was performed FINDINGS: Lungs are hyperinflated. Improved right basilar consolidation with small residual opacit y. Granulomatous calcification. There is no pleural effusion or pneumothorax. The heart is normal in size. The mediastinal contour is normal. There are no acute abnormalities of the bones. IMPRESSION: 1. Improved right basilar consolidation with small residual opacity. A spiculated nodular density was described on CT 08/09/2016. CT follow-up is recommended as described. 2. Emphysema. Report faxed at time of dictation
[2016-09-11] MEDS: PLAVIX PO SCH (08:24)
[2016-09-11] MEDS: VITAMIN C PO SCH (08:24)
[2016-09-11] MEDS: COREG PO SCH ×2 (08:24→16:56)
[2016-09-11] MEDS: LOVENOX SUBCUT SCH (08:24)
[2016-09-11] MEDS: FLOMAX PO SCH (08:24)
[2016-09-11] MEDS: ASPIRIN EC PO SCH (08:24)
[2016-09-11] MEDS: VITAMIN E PO SCH (08:24)
[2016-09-11] MEDS: NON-FORMULARY MEDICATION (Mometasone/Formoterol [Dulera 200 Mcg/5 Mcg Inhaler] 2 PUFF) IN SCH (08:59)
[2016-09-11] MEDS: NON-FORMULARY MEDICATION (Cyanocobalamin (Vitamin B-12) [Vitamin B12] 5,000 MCG) PO SCH (08:59)
[2016-09-11] MEDS ORDERED: NON-FORMULARY MEDICATION (Ascorbate Calcium [Vitamin C] 500 MG) PO SCH ×22 (09:00)
[2016-09-11] MEDS ORDERED: VITAMIN E PO SCH (09:00)
[2016-09-11] MEDS ORDERED: NON-FORMULARY MEDICATION (Arformoterol Tartrate [Brovana] 1 VIAL) INH SCH (09:00)
[2016-09-11] MEDS ORDERED: ROCEPHIN ONE (13:37)
[2016-09-11] MEDS: SOLU-MEDROL 125 MG IVP SCH ×2 (13:39→20:54)
[2016-09-11] MEDS: ROCEPHIN 1 GM in SODIUM CHLORIDE 50 ML IV SCH (13:40)
[2016-09-11] MEDS: SODIUM CHLORIDE 1,000 ML IV SCH ×2 (13:40→21:00)
--- NOTE | 2016-09-11 13:52 | CT ---
EXAM: CT of the chest without contrast History: Chronic obstructive pulmonary disease, lung mass. Comparison: Chest radiograph 09/11/2016, chest CT 08/09/2016 Technique: Multiplanar CT images through the thorax were obtained without the administration of IV contrast Findings: Heart size is within normal limits. Trace pericardial fluid. Atherosclerotic vascular c alcifications of the thoracic aorta. Coronary calcifications. No pathologically enlarged axillary or mediastinal lymph nodes. Evaluation for hilar lymph nodes is limited due to the lack of contrast administration but no bulky hilar adenopathy is seen. Emphysema again noted. Biapical scarring again noted. Significantly improved spiculated right lowe r lung mass-like area of consolidation now measuring 1.9 cm x 1.2 cm. No pleural fluid and no pneum othorax. Within the visualized upper abdomen, evaluation is limited due to motion artifact. The visualized o sseous structures unchanged. No acute osseous abnormalities identified. Stable chronic compression deformities within the lower thoracic and upper lumbar spine. Impression: 1. Significantly decreased size of right basilar nodular consolidation. Continued follow-up is rec ommended to document complete resolution. No developing opacities. 2. Emphysema. 3. Coronary artery disease.
[2016-09-11] MEDS: LASIX TAB PO SCH (13:59)
[2016-09-11] MEDS ORDERED: PERFOROMIST NEB SCH (18:00)
[2016-09-12 04:44] LABS: BASOPHILS % (AUTO) 0.2 % (0.0-3.0); HEMATOCRIT 29.2 % (42.0-52.0); HEMOGLOBIN 9.8 g/dl (14.0-18.0); IMMATURE GRANULOCYTE % (AUTO) 2.9 % (0.0-5.0); LYMPHOCYTES # (AUTO) 2.6 K/uL (0.60-3.4); LYMPHOCYTES % (AUTO) 20.3 (10.0-50.0); MEAN CORPUSCULAR HEMOGLOBIN 27.5 pg (27.0-31.0); MEAN CORPUSCULAR HGB CONC 33.6 (31.8-35.4); MEAN CORPUSCULAR VOLUME 81.8 fl (80.0-94.0); MONOCYTES # (AUTO) 0.4 K/uL (0.4-2.0); MONOCYTES % (AUTO) 3.3 (0-10); NEUTROPHILS # (AUTO) 9.3 K/ul (2.0-6.9); NEUTROPHILS % (AUTO) 73.3; PLATELET COUNT 425 10^3/uL (140-440); RED BLOOD COUNT 3.57 10^6/ul (4.70-6.10); WHITE BLOOD COUNT 12.67 K/ul (4.2-10.2)
[2016-09-12 05:02] LABS: ALBUMIN 2.3 g/dL (3.4-5.0); ALBUMIN/GLOBULIN RATIO 0.79; ANION GAP 11.6; BILIRUBIN,TOTAL 0.34 mg/dL (0.00-1.20); BUN/CREATININE RATIO 17.91; CALCIUM 8.4 mg/dL (8.2-10.2); CREATININE 0.67 mg/dL (0.60-1.10); POTASSIUM 3.6 mmol/L (3.5-5.1); TOTAL PROTEIN 5.2 g/dL (5.8-8.1)
[2016-09-12] MEDS: DUONEB NEB SCH ×2 (05:04→11:05)
[2016-09-12] MEDS: SOLU-MEDROL 125 MG IVP SCH ×2 (05:59→13:00)
[2016-09-12] MEDS: LASIX TAB PO SCH (06:06)
[2016-09-12] MEDS: LOVENOX SUBCUT SCH (08:29)
[2016-09-12] MEDS: ROCEPHIN 1 GM in SODIUM CHLORIDE 50 ML IV SCH (08:29)
[2016-09-12] MEDS: COREG PO SCH (08:30)
[2016-09-12] MEDS: FLOMAX PO SCH (08:30)
[2016-09-12] MEDS: PLAVIX PO SCH (08:30)
[2016-09-12] MEDS: VITAMIN C PO SCH (08:30)
[2016-09-12] MEDS: ASPIRIN EC PO SCH (08:30)
[2016-09-12] MEDS: VITAMIN E PO SCH (08:30)
[2016-09-12] MEDS: NON-FORMULARY MEDICATION (Mometasone/Formoterol [Dulera 200 Mcg/5 Mcg Inhaler] 2 PUFF) IN SCH (08:31)
[2016-09-12] MEDS: NON-FORMULARY MEDICATION (Cyanocobalamin (Vitamin B-12) [Vitamin B12] 5,000 MCG) PO SCH (08:31)
[2016-09-12 10:17] VITALS: BP 123/73; TEMP 97
--- NOTE | 2016-09-12 11:14 | CM.DICTOOL ---
ADMISSION: 09/11/16 00:46 DISCHARGE: 09/12/16 DATE OF SERVICE: 09/12/16 FINAL DIAGNOSIS COPD EXACERBATION PENUMBOAZ 08/22 A-FIB BY HISTORY HYPERTENSION DYSLIPIDEMIA CAD S/P STENT APPLICATION X4 BPH WITH OBSTRUCTION (FOLLOWED BY DR. GUADARRAMA) COUDE CATH-LONG-TERM NEED MILD T 11 AND L1 SUPERIOR END PLATE FRACTURES (CT CHEST 08/09/16) LAST VITALS Temp Pulse Resp BP Pulse Ox 97 F L 115 H 20 123/73 99 09/12/16 10:00 09/12/16 10:00 09/12/16 10:00 09/12/16 10:00 09/12/16 10:00 ACTIVE MEDICATIONS Arformoterol Tartrate (Brovana) 1 vial INH BID Ascorbic Acid (Vitamin C) 500 mg PO DAILY [facility] Last Admin: 09/12/16 08:30 Dose: 500 mg Aspirin (Aspirin Ec) 325 mg PO DAILYWM [facility] Last Admin: 09/12/16 08:30 Dose: 325 mg Carvedilol (Coreg) 6.25 mg PO BIDWM [facility] Last Admin: 09/12/16 08:30 Dose: 6.25 mg Clopidogrel Bisulfate (Plavix) 75 mg PO DAILY [facility] Last Admin: 09/12/16 08:30 Dose: 75 mg Diltiazem HCL (Cardizem) 30 mg PO BID (REDUCED DOSE) Furosemide (Lasix Tab) 40 mg PO QDAC [facility] Last Admin: 09/12/16 06:06 Dose: 40 mg Cyanocobalamin (Vitamin B-12) [Vitamin B12] 5,000 mcg PO DAILY [facility] Last Admin: 09/12/16 08:31 Dose: Not Given Mometasone/Formoterol [Dulera 200 Mcg/5 Mcg Inhaler] 2 puff IN DAILY [facility] Last Admin: 09/12/16 08:31 Dose: Not Given Potassium Chloride (Micro K Cap) 10 meq PO DAILY Tamsulosin HCl (Flomax) 0.4 mg PO DAILY [facility] Last Admin: 09/12/16 08:30 Dose: 0.4 mg Tiotropium [place] (Spiriva) 1 mcg INH DAILY Vitamin E (Vitamin E) 400 unit PO DAILY [facility] Last Admin: 09/12/16 08:30 Dose: 400 unit ALLERGIES No Known Allergies Allergy (Verified 08/08/16 11:28) NEW PRESCRIPTIONS: REDUCE YOUR CARDIZEM TO 30 MG BY MOUTH TWICE DAILY NEW MEDICATIONS: KEFLEX 500 MG, TAKE ONE TABLET BY MOUTH EVERY 12 HOURS FOR 5 DAYS MEDROL DOSEPAK, TAKE DIRECTED WITH FOOD SMOKING: FORMER SMOKER NONE NOW DISEASE SPECIFIC EDUCATION: COPD HOME MEDICATIONS NEW MEDICATIONS FOLLOW UP LAB REVIEW: 09/12/16 04:42 09/12/16 04:42 09/12/16 04:42: WBC 12.67 H, RBC 3.57 L, Hgb 9.8 L, Hct 29.2 L, MCV 81.8, MCH 27.5, MCHC 33.6, RDW Coeff of Bull 14.6, Plt Count 425, Immature Gran % (Auto) 2.9, Neut % (Auto) 73.3, Lymph % (Auto) 20.3, [place] % (Auto) 3.3, Eos % (Auto) 0.0, Baso % (Auto) 0.2, Immature Gran # (Auto) 0.4, Neut # 9.3 H, Lymph # 2.6, [place] # 0.4, Eos # 0.0, Baso # 0.0, Sodium 131 L, Potassium 3.6, Chloride 95 L, Carbon Dioxide 28, Anion Gap 11.6, BUN 12, Creatinine 0.67, Estimated GFR (MDRD ) 117.00, BUN/Creatinine Ratio 17.91, Glucose 131 H, Calcium 8.4, Total Bilirubin 0.34, AST 15, ALT 12, Alkaline Phosphatase 81, Total Protein 5.2 L, Albumin 2.3 L, Globulin 2.9, Albumin/Globulin Ratio 0.79 PLAN: DISCHARGE HOME TODAY RETURN TO SEE DR. ESCOBEDO IN HIS OFFICE IN 5-7 DAYS. PLEASE PHONE TO SCHEDULE YOUR FOLLOW UP APPOINTMENT RESUME YOUR HOME MEDICATIONS PER LIST PROVIDED BY THE NURSING STAFF REDUCE YOUR CARDIZEM TO 30 MG BY MOUTH TWICE DAILY NEW MEDICATIONS: KEFLEX 500 MG, TAKE ONE TABLET BY MOUTH EVERY 12 HOURS FOR 5 DAYS MEDROL DOSEPAK, TAKE DIRECTED WITH FOOD ACTIVITY: GET PLENTY OF REST AT HOME. GRADUALLY INCREASE YOUR ACTIVITY LEVEL ACCORDING TO YOUR TOLERATIONS DIET: HEALTHY HEART SUMMARY: THE PATIENT IS ALERT AND ORIENTED X3. CURRENTLY HE RESIDES AT HOME WITH HIS SPOUSE. HE HAS BEEN INDEPENDENT WITH ADL'S. HE DESIRES TO RETURN TO HIS HOME AT DISCHARGE. WE OFFERED SHORT-TERM LONGTERM PLACEMENT. THE PATIENT DECLINES AT THIS TIME SAYING, "I THINK I AM OK AT HOME." HE HAS A ROLLING WALKER, OXYGEN, NEBULIZER AND A BEDSIDE COMMODE AT HOME. HE DOES NOT UTILIZE HOME HEALTH OR HOMEMAKING SERVICES. HE DECLINES HOME HEALTH SAYING HE DOES NOT WANT TO BE "HOME BOUND" TO MEET THE HOME HEALTH SERVICE REQUIREMENTS. THE PATIENT'S SKIN TURGOR IS INTACT. THERE ARE NO DECUBITUS ULCERS PRESENT AT DISCHARGE. HE IS AWARE AND AGREEABLE FOR TODAY'S DISCHARGE PLANS. DR. LUDWIG ESCOBEDO M.D
--- NOTE | 2016-09-12 13:06 | PCM.PROG ---
Attending Provider: ATTENDING PROVIDER: Dr. LUDWIG ESCOBEDO DATE OF SERVICE: 09/12/16 SUBJECTIVE: This 71 year old WHITE/ M was hospitalized 09/11/16. The patient is admitted with COPD exacerbation, bronchitis, and leg edema. The leg edema has resolved. CT of the chest was done yesterday which showed improved nodule in the lung, no mass. The patient has seen Dr. Hopkins in the past and has followup in the near future. No fever no chills. REVIEW OF SYSTEMS: CONSTITUTIONAL: No fever, no chills. ENDOCRINE: No weight loss or weight gain. HEENT: No sinus drainage, no sore throat. CVS: No angina symptoms. No CHF symptoms. No palpitations. No atypical chest pain for CAD. No shortness of breath. RESPIRATORY: No cough, no hemoptysis. GI: No melena. No abdominal pain. No nausea, no vomiting. : No hematuria. No polyuria. SKIN: No rash. No wounds. MUSCULOSKELETAL: No pain. PATTERN CUTTER: No blackout, no dizziness. No headache. No double vision. PSYCHIATRIC: Not anxious; no depression. No suicidal thoughts. No homicidal thoughts. PHYSICAL EXAMINATION: GENERAL: Lying in bed in no distress. VITAL SIGNS: Temperature 97.0 F, Pulse 104, Respiratory Rate 20, BP 130/67, Pulse Ox 98% HEENT: Normocephalic, atraumatic. Mucosa is dry, pallor positive. NECK: No JVP, no carotid bruit. No lymphadenopathy. CARDIAC: S1, S2, no S3. No murmur, gallop or regurgitation. LUNGS: Decreased breath sounds. Clear to auscultation. ABDOMEN: Soft, non-tender. Bowel sounds active. No rigidity, guarding or CVA tenderness. EXTREMITIES: Leg edema is not clinically seen. No clubbing, cyanosis. NEUROLOGIC: Awake, alert and oriented x3. LYMPHATIC: No palpable lymph nodes SKIN: Not dry. Intact. MUSCULOSKELETAL: No joint swelling. LAB REVIEW: 09/12/16 04:42 09/12/16 04:42 09/12/16 04:42: WBC 12.67 H, RBC 3.57 L, Hgb 9.8 L, Hct 29.2 L, MCV 81.8, MCH 27.5, MCHC 33.6, RDW Coeff of Bull 14.6, Plt Count 425, Immature Gran % (Auto) 2.9, Neut % (Auto) 73.3, Lymph % (Auto) 20.3, [place] % (Auto) 3.3, Eos % (Auto) 0.0, Baso % (Auto) 0.2, Immature Gran # (Auto) 0.4, Neut # 9.3 H, Lymph # 2.6, [place] # 0.4, Eos # 0.0, Baso # 0.0, Sodium 131 L, Potassium 3.6, Chloride 95 L, Carbon Dioxide 28, Anion Gap 11.6, BUN 12, Creatinine 0.67, Estimated GFR (MDRD ) 117.00, BUN/Creatinine Ratio 17.91, Glucose 131 H, Calcium 8.4, Total Bilirubin 0.34, AST 15, ALT 12, Alkaline Phosphatase 81, Total Protein 5.2 L, Albumin 2.3 L, Globulin 2.9, Albumin/Globulin Ratio 0.79 ASSESSMENT: 1. COPD exacerbation secondary to bronchitis 2. Worsening leg edema 3. CAD bypass surgery 4. CHF 5. Diastolic heart failure 6. Hypertension 7. Dyslipidemia 8. BPH Caudet catheter PLAN: 1. Have the patient ambulate today 2. Continue Rocephin and Solu-Medrol 3. Possible discharge per family Plan and coordination of the patient's care discussed in the presence of Cargo Broker and nurse. CONDITION: Stable SCRIBED BY: Fabienne GUILLENist scribed while in presence of service performed by Dr. LUDWIG ESCOBEDO on 09/12/16 ([id number])
--- NOTE | 2016-09-14 09:33 | HP ---
DATE OF SERVICE: 09/12/16 FINAL DIAGNOSIS: 1. COPD exacerbation 2. Pneumonia, which is better 3. Dependant edema, which is improved. 4. Atrial fibrillation by history 5. Hypertension 6. Dyslipidemia 7. Status post stent application x4 8. BPH with obstruction followed by Dr. Archuleta 9. Coude Catheterizing 10.Mild T11 and L1 superior end plate compression fractures VITALS AT DISCHARGE: Temperature 97, pulse 115, respiratory 20, blood pressure 123/73 and pulse ox 99 %. DISCHARGE INSTRUCTIONS: Discharge home today. Return to see Dr. Muñoz in his office in 5-7 days. Resume home medications as per list provided by the nursing staff. MEDICATIONS AT DISCHARGE: Vitamin E Spiriva Flomax Potassium Dulera Lasix Cardizem Plavix Coreg Aspirin Vitamin C Brovana NEW PRESCRIPTIONS: Reduce Cardizem to 30mg twice a day Keflex 500mg twice a day for five days Medrol dose pack DIET INSTRUCTIONS: Cardiac and Healthy ACTIVITY: As much as tolerated. Keep the legs elevated when resting. No salt diet. SMOKING: Former Smoker None Now DISEASE SPECIFIC EDUCATION: COPD Dependant leg edema Congestive heart failure been discussed with the patient on multiple occasions. HOSPITAL COURSE: Kishore Christian who is a 71 year old male with multiple medical problems came to the emergency room with cough and congestion, worsening leg edema. He was seen by Dr. Morales in the emergency room and the ABG showed the pH 7.95, pCO2 40.6. pO2 75. His BNP was 33. WBC was slightly elevated at 11.75. Chest x-ray showed improved right basilar consolidation with small residual opacity, a spiculated nodular density was seen on the CAT scan. At that time the patient was admitted to the hospital and started on the IV antibiotics and breathing treatments and steroids. Kept the legs elevated and Lasix was given. CAT scan was done for the opacity and the x-ray suggested significantly decreased right basilar nodular density. Continued followup, emphysema and coronary artery disease. Legs been keeping elevated and with the extra dose of Lasix the leg edema was eventually disappear and nonvisible. BUN and Creatinine was steady and did not have any complications. As patient was doing good and did not have any problems and had been up and about walking a little.The major concern was the leg edema which we did not explain that low protein and coronary artery disease and COPD are making the leg edema worse and he has to keep watching his salt intake and keep legs elevated when resting. Suggested about the tight fitting socks but the patient's refused to do that. TIME SPENT: More than 55 minutes. SHEA
--- NOTE | 2016-09-15 09:44 | HP ---
DATE OF SERVICE: 09/11/16 CHIEF COMPLAINT: Shortness of breath. HISTORY OF PRESENT ILLNESS: This is a 71-year-old male with history of COPD, dependent edema, was recently diagnosed with a lung mass on a CT scan last month and he has seen Dr. Hopkins. He has been having worsening shortness of breath, cough and congestion, productive of yellow-green phlegm and swelling in the legs were getting worse; the patient's was worried and brought the patient to the emergency room seen by Dr. Morales in the ER. The patient was afebrile. White count 11,000. ABG showed pH 7.49, pc02 40.0, p02 75, BNP negative. Chest x-ray showed considerable consolidation and there was 2 to 3+ leg edema. At that time, the patient was admitted to the hospital secondary to COPD exacerbation and worsening leg edema, acute on chronic. REVIEW OF SYSTEMS: CONSTITUTIONAL: No fever, no chills. HEENT: Normal. ENDOCRINE: No weight gain; no weight loss. CVS: No chest pain. No PND, no orthopnea. No shortness of breath. No PND, no orthopnea. RESPIRATORY: No cough, no congestion. No hemoptysis. GI: No nausea, no vomiting. No abdominal pain. No melena. : No hematuria. No polyuria. MUSCULOSKELETAL: No joint swelling. PSYCHIATRIC: Not anxious. No depression. No suicidal thoughts. No homicidal thoughts. SKIN: Intact, no open lesions. PAST MEDICAL HISTORY: 1. CAD status post stents times four 2. Atrial fibrillation which resolved by itself during hospital stay 3. Hypertension 4. History of pneumonia 5. COPD on 2L/nc 6. Enlarged prostate 7. Lung mass, seen by Dr. Hopkins in followup 8. The patient has BPH and Coude catheter in place. PAST SURGICAL HISTORY: None PERSONAL HISTORY: The patient quit smoking 10 years ago; and lives with the . FAMILY HISTORY: Significant for [place]. MEDICATIONS: (HOME) 1. Coreg 2. Vitamin E 3. Spiriva 4. Vitamin B12 5. Plavix 6. Vitamin C 7. Brovana 8. ProAir 9. Flomax 10. Ecotrin 11. Cardizem ALLERGIES: NKDA PHYSICAL EXAMINATION: V/S: BP 132/64, respiratory rate 16, heart rate 100, temperature 97.1. HEENT: Atraumatic, normocephalic. No scleral icterus. Pallor positive. Mucosa dry. NECK: Supple. No JVD, no bruit. No lymphadenopathy. No thyromegaly. HEART: S1, S2 normal. No murmur. No cyanosis or clubbing. No ascites. LUNGS: Decreased breath sounds with basilar crackles. ABDOMEN: Soft, nontender. Bowel sounds are active. No CVA tenderness. No rigidity or guarding. EXTREMITIES: No cyanosis, clubbing or pedal edema. MUSCULOSKELETAL: Grossly intact. NEUROLOGIC: The patient is awake, alert, oriented times three. SKIN: Intact and dry. LYMPHATIC: No lymph nodes palpable. LABS: Sodium 132, potassium 3.5, chloride 90, bicarb 33, BUN 12, creatinine 0.72, glucose 129. BNP 33. First set of cardiac enzymes are negative. White count 11.75, hemoglobin 10.8, hematocrit 33.1, platelet count 437. ASSESSMENT: 1. COPD EXACERBATION SECONDARY TO PNEUMONIA WITH LUNG MASS, WILL EVALUATE WITH CT SCAN. 2. DEPENDENT EDEMA. 3. HISTORY OF CAD STATUS POST STENT. 4. HYPERTENSION. 5. DYSLIPIDEMIA. 6. BPH, INDWELLING CATHETER. PLAN: 1. Admit the patient to the regular floor. 2. CBC, CMP today and daily. 3. Cardiac enzymes and troponin. 4. Will get CT scan of the chest to further evaluate the lung mass. 5. Continue home medication: a) Duonebs q.6hr b) Solu-Medrol 80 q.8hr 6. Will decrease fluid to 30 mL/hr. 7. Lasix 40 mg p.o. daily. 8. Rocephin 1 gm daily. 9. Daily I & O's. 10. Decrease fluids to 30 mL/hr. 11. Will follow the patient in daily rounds. TIME SPENT: More than 70 minutes today for admission. [facility]
== END 2016-09-12 13:00 | disposition home or self-care (01) | DRG 190 ==
LOC: ED 23:43 → MEDSURG B 09-11 00:46
PROVIDERS: ADMIT Emergency Medicine; ATTEND Emergency Medicine
DX: J44.1 Chronic obstructive pulmonary disease with (acute) exacerbation (principal); J18.9 Pneumonia, unspecified organism; I50.30 Unspecified diastolic (congestive) heart failure; N13.8 Other obstructive and reflux uropathy; R53.1 Weakness; R06.02 Shortness of breath; R60.0 Localized edema; I10 Essential (primary) hypertension; R91.8 Other nonspecific abnormal finding of lung field; E78.5 Hyperlipidemia, unspecified; N40.1 Benign prostatic hyperplasia with lower urinary tract symptoms; I25.2 Old myocardial infarction; Z96.0 Presence of urogenital implants; Z99.81 Dependence on supplemental oxygen; Z79.02 Long term (current) use of antithrombotics/antiplatelets; Z87.891 Personal history of nicotine dependence; Z86.79 Personal history of other diseases of the circulatory system; Z95.1 Presence of aortocoronary bypass graft; Z95.5 Presence of coronary angioplasty implant and graft
CPT/HCPCS: 36415; 80053; 82550; 82803; 83605; 83880; 84145; 84484; 85025; 87040; 93005; 93010; 94640; 96374; 97802; 99284

== ENCOUNTER 2016-10-03 12:15 | Emergency (ER) ==
[2016-10-03 12:21] VITALS: BP 127/75; TEMP 97.9; BMI 18.4
[2016-10-03] MEDS ORDERED: URO-JET MUCOUSMEMB ONE (12:31)
--- NOTE | 2016-10-03 12:43 | ED.PDOC ---
General ED Provider: Dr. CHRIS WEISS-ER Chief Complaint: Urinary Problem Stated Complaint: my catheter isnt working Time Seen by Physician: 12:20 Mode of Arrival: Wheelchair Information Source: Patient, Family Exam Limitations: No limitations Primary Care Provider: KATLIN CORTES Nursing and Triage Documentation Reviewed and Agree: Yes Complaint Exam - Complaint/Exam Patient Complains of: Reports: Dysuria Onset/Duration: 24hrs Symptoms Are: Still present Timing: Constant Initial Severity: Mild Current Severity: Mild Location of Pain: Reports: Suprapubic Character: Reports: Dull Aggravating: Reports: Voiding Associated Signs and Symptoms: Denies: Diaphoresis, Back pain, Fever, Hematuria , Dysuria, Constipation, Blood in stool, Rectal pain, Appetite change, Nausea, Vomiting, Penile swelling, Penile discharge, Decreased urine output, Increased urine frequency, Increased thirst, Decreased activity, Lethargy, Scrotal pain, Scrotal swelling, Abdominal Pain Testicular Torsion Risk Factors: Reports: None Surgical Obstruction Risk Factors: Reports: None Abdominal Findings: Present: None Differential Diagnoses: Other Review of Systems - Review Of Systems Constitutional: Reports: No symptoms Eyes: Reports: No symptoms Ears, Nose, Mouth, Throat: Reports: No symptoms Respiratory: Reports: No symptoms Cardiac: Reports: No symptoms GI: Reports: No symptoms : Reports: Other Musculoskeletal: Reports: No symptoms Skin: Reports: No symptoms Neurological: Reports: No symptoms Endocrine: Reports: No symptoms Hematologic/Lymphatic: Reports: No symptoms All Other Systems: Reviewed and Negative Past Medical History - Past Medical History Previously Healthy: No Endocrine: Reports: Unknown Cardiovascular: Reports: Hypertension, Unknown Respiratory: Reports: COPD, Unknown Hematological: Reports: Unknown Gastrointestinal: Reports: Unknown Genitourinary: Reports: Unknown Neuro/Psych: Reports: Unknown Musculoskeletal: Reports: Unknown Cancer: Reports: Unknown - Surgical History General Surgical History: Reports: Stent (cardiac stents ) - Family History Family History: Reports: Unknown - Social History Smoking Status: Former smoker Hx Substance Use: No Alcohol Screening: None Lives: With family Physical Exam - Physical Exam Appearance: Well-appearing, No pain distress, Well-nourished Pain Distress: Mild Eyes: CYNTHIA, EOMI, Conjunctiva clear ENT: Ears normal, Nose normal, Oropharynx normal Neck: Supple Respiratory: Airway patent Cardiovascular: RRR, Pulses normal, No rub, No murmur GI/: Soft, Nontender, No masses, Bowel sounds normal, No Organomegaly Musculoskeletal: Normal strength, ROM intact, No edema, No calf tenderness Skin: Warm, Dry, Normal color Neurological: Sensation intact, Motor intact, Reflexes intact, Cranial nerves intact, Alert, Oriented Psychiatric: Affect appropriate Procedures - Additional Procedures Additional Procedures: Other (urinary catheter replaced--18gr..draining urine) Critical Care Note - Critical Care Note Total Time (mins): 0 Course - Course Orders, Labs, Meds: Orders Category Date Time Status Lidocaine HCl [Uro-Jet] MEDS 10/03/16 12:31 Discontinued 10 ml MUCOUSMEMB .STK-MED ONE Vital Signs: Temp Pulse Resp BP Pulse Ox 10/03/16 12:15 97.9 F 98 H 22 127/75 95 Departure - Departure Time of Disposition: 12:51 Disposition: HOME SELF-CARE Discharge Problem: Retention of urine Instructions: Urinary Retention in Men (ED) Condition: Stable Pt referred to PMD for follow-up: Yes Additional Instructions: f/u with urology Allergies/Adverse Reactions: Allergies No Known Allergies Allergy (Verified 10/03/16 12:21) Home Medications: Ambulatory Orders Albuterol Sulfate [Proair Hfa] 2 puff INH Q4H PRN 07/10/16 Arformoterol Tartrate [Brovana] 1 vial INH BID 07/10/16 Ascorbate Calcium [Vitamin C] 500 mg PO DAILY 07/10/16 Carvedilol [Coreg] 6.25 mg PO BID 07/10/16 Clopidogrel Bisulfate [Clopidogrel] 60 mg PO DAILY 07/10/16 Cyanocobalamin (Vitamin B-12) [Vitamin B12] 5,000 mcg PO DAILY 07/10/16 Tiotropium [place] [Spiriva] 1 mcg INH DAILY 07/10/16 Vitamin E 400 intnl unit PO DAILY 07/10/16 Tamsulosin HCl [Flomax] 0.4 mg PO DAILY 07/15/16 Aspirin [Ecotrin] 325 mg PO DAILY 07/26/16 Furosemide [Lasix] 40 mg PO DAILY 09/11/16 Potassium Chloride [Micro-K Cap] 10 meq PO DAILY 09/11/16 Mometasone/Formoterol [Dulera 200 Mcg/5 Mcg Inhaler] 8.8 gm IH PRN PRN 09/12/16 Diltiazem HCl [Cardizem] 60 mg PO DAILY 10/03/16 Disposition Discussed With: Patient, Family
[2016-10-03] MEDS ORDERED: URO-JET MUCOUSMEMB STA (12:54)
== END 2016-10-03 13:15 | disposition home or self-care (01) ==
LOC: ED 12:15
DX: R33.9 Retention of urine, unspecified (principal); R30.0 Dysuria; Z96.0 Presence of urogenital implants
CPT/HCPCS: 99282

== ENCOUNTER 2016-10-05 09:56 | Emergency (ER) ==
[2016-10-05 10:06] VITALS: BP 96/64; TEMP 97.6; BMI 18.3
[2016-10-05] MEDS ORDERED: DUONEB NEB STA (10:23)
[2016-10-05 10:41] LABS: ABG BASE EXCESS 3 (-2.0-2.0); ABG HCO3 25.3 (22.0-26.0); ABG PCO2 28.8 mmHg (35-45); ABG PH 7.552 (7.35-7.45); ABG TCO2 26 (22.0-28.0)
[2016-10-05 10:44] LABS: BASOPHILS # (AUTO) 0.1 K/uL (0-0.2); BASOPHILS % (AUTO) 0.6 % (0.0-3.0); EOSINOPHILS # (AUTO) 0.2 K/ul (0.0-0.7); EOSINOPHILS % (AUTO) 1.9 % (0.0-7.0); HEMATOCRIT 33.3 % (42.0-52.0); HEMOGLOBIN 11.3 g/dl (14.0-18.0); IMMATURE GRANULOCYTE % (AUTO) 0.6 % (0.0-5.0); LYMPHOCYTES # (AUTO) 2.1 K/uL (0.60-3.4); LYMPHOCYTES % (AUTO) 20.6 (10.0-50.0); MEAN CORPUSCULAR HEMOGLOBIN 28.6 pg (27.0-31.0); MEAN CORPUSCULAR HGB CONC 33.9 (31.8-35.4); MEAN CORPUSCULAR VOLUME 84.3 fl (80.0-94.0); MONOCYTES % (AUTO) 9.2 (0-10); NEUTROPHILS # (AUTO) 6.9 K/ul (2.0-6.9); NEUTROPHILS % (AUTO) 67.1; PLATELET COUNT 281 10^3/uL (140-440); RED BLOOD COUNT 3.95 10^6/ul (4.70-6.10); WHITE BLOOD COUNT 10.33 K/ul (4.2-10.2)
--- NOTE | 2016-10-05 10:59 | DI ---
EXAM: Chest one view, frontal view only. HISTORY: Chest pain. COMPARISON: 09/11/2016. FINDINGS: The heart size is normal. There is no pulmonary vascular congestion. Th small focus of right basilar consolidation persists. Otherwise, the lungs are clear. No pleural effusion or pneum othorax is seen. No acute osseous abnormality is identified. IMPRESSION: Stable small focus of right basilar consolidation. Continued follow-up is recommended.
--- NOTE | 2016-10-05 11:05 | ED.PDOC ---
General Stated Complaint: states at 0500 "just couldnt breathe"--turned o2 up-- used neb without relief--uses o2 all the time-- states had pneumonia august and july this year--today has cough with yellow sputum[ End ]since 0500 97.6 83 24 92% 96/64 12/15 Time Seen by Physician: 10:15 Mode of Arrival: Walk-In Information Source: Family Exam Limitations: No limitations Nursing and Triage Documentation Reviewed and Agree: No <VALDEMAR RAMOS JR - Last Filed: 10/05/16 19:17> <LUDWIG ESCOBEDO - Last Filed: 10/05/16 19:38> ED Provider: Dr. LUDWIG ESCOBEDO Chief Complaint: Respiratory Complaint Primary Care Provider: KATLIN CORTES Review of Systems - Review Of Systems Constitutional: Reports: Chills, Malaise, Weakness Eyes: Reports: No symptoms Ears, Nose, Mouth, Throat: Reports: No symptoms Respiratory: Reports: Cough (yellow productive/Congestion ), Short of air Cardiac: Reports: No symptoms GI: Reports: No symptoms : Reports: Burning (at catheter site has had chills), Other Musculoskeletal: Reports: Muscle pain Skin: Reports: No symptoms Neurological: Reports: Cognitive dysfunction Endocrine: Reports: No symptoms Hematologic/Lymphatic: Reports: No symptoms All Other Systems: Other <VALDEMAR RAMOS JR - Last Filed: 10/05/16 19:17> Past Medical History - Past Medical History Previously Healthy: No Endocrine: Reports: Unknown Cardiovascular: Reports: CAD, Hypertension, A-Fib (intermittent afib in past), Unknown Respiratory: Reports: COPD, Unknown Hematological: Reports: Unknown Gastrointestinal: Reports: Unknown Genitourinary: Reports: Unknown Neuro/Psych: Reports: Unknown Musculoskeletal: Reports: Unknown Cancer: Reports: Unknown, Other - Surgical History General Surgical History: Reports: Stent (cardiac stents ), Other ( reconstruction on eye, skin C/A removed, prostrate ) - Family History Family History: Reports: Unknown - Social History Smoking Status: Former smoker Hx Substance Use: No Alcohol Screening: None <VALDEMAR RAMOS JR - Last Filed: 10/05/16 19:17> Physical Exam - Physical Exam Appearance: Ill-appearing, Thin Ill-appearing: Mild Pain Distress: Mild Eyes: CYNTHIA, EOMI, Conjunctiva clear ENT: Ears normal, Nose normal, Oropharynx normal Neck: Supple Respiratory: Airway patent, Breath sounds equal, Respirations nonlabored, Crackles, Rhonchi, Wheezes Cardiovascular: RRR, Pulses normal, No rub, No murmur GI/: Soft, Nontender, No masses, Bowel sounds normal, No Organomegaly Musculoskeletal: ROM intact, Limited strength Skin: Warm, Dry, Normal color Neurological: Alert Psychiatric: Mood appropriate <VALDEMAR RAMOS JR - Last Filed: 10/05/16 19:17> Interpretation - Radiology Interpretation Radiology Interpretation By: Radiologist Radiology Results: Positive Exam Interpreted: CT Scan (RLL pneumonia) Radiology Interpretation By: Radiologist Radiology Results: Positive Exam Interpreted: CXR - EKG Interpretation Time of EKG #1: 10:30 Rate: Normal Rhythm: Sinus ST Segment: Other (LBBB) EKG Comparison: Other (09/09 09/20 read as old ami no sig change pt notes hx afib) <VALDEMAR RAMOS JR - Last Filed: 10/05/16 19:17> Physician Notification - Case Discussed Physician Notified: FANNY Time of Notification: 17:15 (WILL SEE PATIENT AT 1830) <VALDEMAR RAMOS JR - Last Filed: 10/05/16 19:17> - Case Discussed Time of Notification: 19:38 (dr rivera) <LUDWIG ESCOBEDO - Last Filed: 10/05/16 19:38> Critical Care Note - Critical Care Note Total Time (mins): 20 <VALDEMAR RAMOS JR - Last Filed: 10/05/16 19:17> Course - Course Hematology/Chemistry: 10/05/16 10:40 10/05/16 10:40 <VALDEMAR RAMOS JR - Last Filed: 10/05/16 19:17> - Course Hematology/Chemistry: 10/05/16 10:40 10/05/16 10:40 <LUDWIG ESCOBEDO - Last Filed: 10/05/16 19:38> - Course Orders, Labs, Meds: Lab Review 10/05/16 10/05/16 10/05/16 10:35 10:40 11:40 WBC 10.33 H RBC 3.95 L Hgb 11.3 L Hct 33.3 L MCV 84.3 MCH 28.6 MCHC 33.9 RDW Coeff of Bull 15.6 H Plt Count 281 Immature Gran % (Auto) 0.6 Neut % (Auto) 67.1 Lymph % (Auto) 20.6 Stokes % (Auto) 9.2 Eos % (Auto) 1.9 Baso % (Auto) 0.6 Immature Gran # (Auto) 0.1 Neut # 6.9 Lymph # 2.1 Stokes # 1.0 Eos # 0.2 Baso # 0.1 D-Dimer (Manual) 1442.20 Puncture Site R rad O2 Saturation 98.0 ABG pH 7.552 H* ABG pCO2 28.8 L ABG pO2 85.0 ABG HCO3 25.3 ABG Total CO2 26 ABG Base Excess 3 H Mohamud Test + O2 Delivery Device Nc Oxygen Liter Flow 2.00 Sodium 129 L Potassium 3.4 L Chloride 91 L Carbon Dioxide 28 Anion Gap 13.4 BUN 10 Creatinine 0.72 Estimated GFR (MDRD) 107.00 BUN/Creatinine Ratio 13.88 Glucose 93 Lactic Acid 9.7 Calcium 9.0 Total Bilirubin 0.73 AST 18 ALT 19 Alkaline Phosphatase 101 Total Creatine Kinase 20 Troponin I < 0.0100 B-Natriuretic Peptide 31 Total Protein 6.1 Albumin 2.9 L Globulin 3.2 Albumin/Globulin Ratio 0.91 Procalcitonin 0.07 Urine Color [place] Urine Clarity Turbid Urine pH 5.0 Ur Specific [place] 1.010 Urine Protein 2+ Urine Glucose (UA) Trace Urine Ketones Negative Urine Blood 3+ Urine Nitrite Positive Urine Bilirubin 1+ Urine Urobilinogen 2.0 Ur Leukocyte Esterase 3+ Urine Microscopic WBC Tntc Ur Squamous Epith Cells Not present Orders Category Date Time Status ABG DRAW REQUEST Stat CARDIO 10/05/16 10:22 Completed EKG-(ED ONLY) Stat CARDIO 10/05/16 10:21 Completed NEBULIZER TREATMENT Stat CARDIO 10/05/16 10:23 Completed NPO REMINDER: IMAGING ONCE CARE 10/05/16 12:10 Completed ED APPLY O2 .ONCE EMERGENCY 10/05/16 10:21 Active ED GROUP WORK PROGRAM DIRECTOR APPLIED .ONCE EMERGENCY 10/05/16 10:21 Active ED IV/MEDIPORT/POWERPORT .ONCE EMERGENCY 10/05/16 10:21 Active ABG Stat LAB 10/05/16 10:35 Completed B-TYPE NATRIURETIC PEPTIDE Stat LAB 10/05/16 10:40 Completed BLOOD CULTURE Stat LAB 10/05/16 10:40 Received CBC W/ AUTO DIFF Stat LAB 10/05/16 10:40 Completed COMPREHENSIVE METABOLIC PANEL Stat LAB 10/05/16 10:40 Completed CREATINE KINASE Stat LAB 10/05/16 10:40 Completed D-DIMER Stat LAB 10/05/16 10:40 Completed LACTIC ACID Stat LAB 10/05/16 10:40 Completed PROCALCITONIN Stat LAB 10/05/16 10:40 Completed TROPONIN I Stat LAB 10/05/16 10:40 Completed UA [URINALYSIS C & S IF INDICATED] Stat LAB 10/05/16 11:40 Completed URINE CULTURE Routine LAB 10/05/16 11:40 Received 0.9 % Sodium Chloride [Saline Flush] MEDS 10/05/16 10:21 Active 1 syr IVF PRN PRN Ipratropium/Albuterol Neb [Duoneb] MEDS 10/05/16 10:23 Discontinued 1 vial NEB ONCE STA CHEST, 1V AP ONLY Stat RADS 10/05/16 10:[address] CHEST PE PROTOCOL Stat RADS 10/05/16 12:[address] THORACIC SPINE W/O CONTRAST Stat RADS 10/05/16 15:23 Completed Medications Generic Name Dose Route Start Last Admin Trade Name Freq PRN Reason Stop Dose Admin Sodium Chloride 1 syr 10/05/16 10:21 Saline Flush IVF PRN PRN To flush IV Discontinued Medications Generic Name Dose Route Start Last Admin Trade Name Freq PRN Reason Stop Dose Admin Albuterol/Ipratropium 1 vial 10/05/16 10:23 10/05/16 10:30 Duoneb NEB 10/05/16 10:24 1 vial ONCE STA Administration Vital Signs: Temp Pulse Resp BP Pulse Ox 10/05/16 09:57 97.6 F 83 24 96/64 92 L Departure - Departure Time of Disposition: 14:09 Pt referred to PMD for follow-up: Yes <VALDEMAR RAMOS JR - Last Filed: 10/05/16 19:17> - Departure Transfer Form Completed: Yes Disposition Discussed With: Patient, Family <LUDWIG ESCOBEDO - Last Filed: 10/05/16 19:38> - Departure Disposition: TSF SHORT-TRM HOSP Discharge Problem: UTI (urinary tract infection) due to urinary indwelling catheter Qualifiers: Indwelling urinary catheter type: indwelling urethral catheter Encounter type: initial encounter Qualifier Code: (T83.511A) Infection and inflammatory reaction due to indwelling urethral catheter, initial encounter Pneumonia Qualifiers: Pneumonia type: due to unspecified organism Laterality: right Lung location: lower lobe of lung Qualifier Code: (J18.1) Lobar pneumonia, unspecified organism Instructions: Urinary Tract Infection in Men (ED), Roger Catheter Placement and Care (ED), Phenazopyridine (By mouth) Condition: Fair Additional Instructions: vannessa Urologist about roger replacement if not available would have outpatient replacement of roger in two days(while on antibiotic) check urine culture in two days for effectiveness for infection chest shows changes consistent with infection- follow up as scheduled- recommend repeat chest xray return if fever over 101.0 worsening cough or new symptoms Prescriptions: Sulfamethoxazole/Trimethoprim [Bactrim Ds 800/160 mg] 1 tab PO Q12HR #14 tablet Guaifenesin/Codeine Phosphate [Robitussin AC Syrup] 10 ml PO Q6H PRN #240 ml PRN Reason: Cough Allergies/Adverse Reactions: Allergies No Known Allergies Allergy (Verified 10/05/16 10:08) Home Medications: Ambulatory Orders Albuterol Sulfate [Proair Hfa] 2 puff INH Q4H PRN 07/10/16 Arformoterol Tartrate [Brovana] 1 vial INH BID 07/10/16 Ascorbate Calcium [Vitamin C] 500 mg PO DAILY 07/10/16 Carvedilol [Coreg] 6.25 mg PO BID 07/10/16 Clopidogrel Bisulfate [Clopidogrel] 60 mg PO DAILY 07/10/16 Cyanocobalamin (Vitamin B-12) [Vitamin B12] 5,000 mcg PO DAILY 07/10/16 Tiotropium [place] [Spiriva] 1 mcg INH DAILY 07/10/16 Vitamin E 400 intnl unit PO DAILY 07/10/16 Tamsulosin HCl [Flomax] 0.4 mg PO DAILY 07/15/16 Aspirin [Ecotrin] 325 mg PO DAILY 07/26/16 Furosemide [Lasix] 40 mg PO DAILY 09/11/16 Potassium Chloride [Micro-K Cap] 10 meq PO DAILY 09/11/16 Mometasone/Formoterol [Dulera 200 Mcg/5 Mcg Inhaler] 8.8 gm IH PRN PRN 09/12/16 Diltiazem HCl [Cardizem] 60 mg PO DAILY 10/03/16 Guaifenesin/Codeine Phosphate [Robitussin AC Syrup] 10 ml PO Q6H PRN #240 ml Sulfamethoxazole/Trimethoprim [Bactrim Ds 800/160 mg] 1 tab PO Q12HR #14 tablet 10/05/16
[2016-10-05 11:15] LABS: ALANINE AMINOTRANSFERASE 19 U/L (12-78); ALBUMIN 2.9 g/dL (3.4-5.0); ALBUMIN/GLOBULIN RATIO 0.91; ALKALINE PHOSPHATASE 101 U/L (56-119); ANION GAP 13.4; ASPARTATE AMINO TRANSFERASE 18 U/L (15-37); BILIRUBIN,TOTAL 0.73 mg/dL (0.00-1.20); BLOOD UREA NITROGEN 10 mg/dL (7-18); BUN/CREATININE RATIO 13.88; CARBON DIOXIDE 28 mmol/L (23-31); CHLORIDE 91 mmol/L (98-107); CREATINE KINASE 20 U/L; CREATININE 0.72 mg/dL (0.60-1.10); GLUCOSE 93 mg/dL (82-115); POTASSIUM 3.4 mmol/L (3.5-5.1); SODIUM 129 mmol/L (136-145); TOTAL PROTEIN 6.1 g/dL (5.8-8.1)
[2016-10-05 11:47] LABS: BILIRUBIN,URINE 1+ (NEGATIVE); KETONES,URINE Negative (NEGATIVE); LEUKOCYTE ESTERASE ,URINE 3+ (NEGATIVE); NITRITE,URINE Positive (NEGATIVE); PROTEIN,URINE 2+ (NEGATIVE); URINE, BLOOD 3+ (NEGATIVE)
[2016-10-05 11:50] LABS: ADD URINE MICROSCOPIC YES
--- NOTE | 2016-10-05 13:10 | CT ---
EXAM: CT Angiogram Chest. HISTORY: Shortness of breath. Elevated D-dimer. COMPARISON: Radiograph earlier the same day. Chest CT 09/11/2016. TECHNIQUE: Multiple axial images of the chest were obtained following intravenous administration of 125 mL of Omnipaque 350, low osmolar. Images were reformatted in the sagittal and coronal plane. 3-D and maximum intensity projection reformatted images were created on an independent workstation. FINDINGS: No mediastinal, hilar, or axillary lymphadenopathy identified. Heart size is normal. No pericardial effusion identified. Atherosclerotic calcifications are present.. No pulmonary arteri al filling defects are seen. Severe emphysematous changes noted bilaterally. Biapical scarring is present. Multifocal nodular consolidation noted in the right lower lobe which may be slightly worse sedrick. No pleural effusion or pneumothorax identified. Limited images of the upper abdomen are unremarkable. Severe compression deformity of T9 is new. N o significant retropulsion identified. There are old stable compression deformities of T11 and L1. IMPRESSION: 1. No evidence for pulmonary embolus. 2. Slight worsening of right lower lobe consolidation suggesting pneumonia. Continued follow-up is recommended. 3. Emphysema with biapical scarring. 4. New severe T9 compression fracture.
--- NOTE | 2016-10-05 16:24 | CT ---
EXAM: CT thoracic spine without contrast. HISTORY: T9 fracture. COMPARISON: Chest CT earlier the same day as well as 09/11/2016. TECHNIQUE: Multiple axial images of the thoracic spine were obtained without intravenous contrast. Images were reformatted in the sagittal and coronal planes. FINDINGS: Compression fracture of T9 noted resulting in approximately 75% loss of vertebral body he ight. No significant retropulsion identified. Mild superior endplate compression deformities of T1 1 and mild superior endplate burst fracture of L1 are old. Vertebral body heights are otherwise nor mal. No subluxation identified. No significant spinal stenosis detected. Paravertebral soft tissu es are without acute abnormality. Right lower lobe consolidation, biapical scarring and severe emph ysematous changes again noted. IMPRESSION: 1. Severe compression fracture of T9 which is new since 09/11/2016. 2. Old T11 and L1 fractures.
[2016-10-05] MEDS ORDERED: ROCEPHIN 1 GM in SODIUM CHLORIDE 50 ML IV STA (19:38)
[2016-10-05] MEDS ORDERED: ROCEPHIN ONE (19:57)
== END 2016-10-05 20:22 | disposition short-term general hospital (02) ==
LOC: ED 09:56
DX: T83.511A Infection and inflammatory reaction due to indwelling urethral catheter, initial encounter (principal); J18.1 Lobar pneumonia, unspecified organism; R06.02 Shortness of breath; I44.7 Left bundle-branch block, unspecified; Z96.0 Presence of urogenital implants; Z86.79 Personal history of other diseases of the circulatory system; Z79.01 Long term (current) use of anticoagulants; Z79.899 Other long term (current) drug therapy; Z99.81 Dependence on supplemental oxygen
CPT/HCPCS: 36415; 80053; 81001; 82550; 82803; 83605; 83880; 84145; 84484; 85025; 85379; 87040; 87086; 93005; 93010; 94640; 96365; 99285

== ENCOUNTER 2016-10-05 20:27 | Outpatient (CLI) ==
[2016-10-05 10:06] VITALS: BMI 18.3
== END 2016-10-05 20:28 | disposition home or self-care (01) ==
LOC: AMBL 20:27
PROVIDERS: ATTEND Emergency Medicine
DX: J18.9 Pneumonia, unspecified organism (principal); N39.0 Urinary tract infection, site not specified; S22.079A Unspecified fracture of T9-T10 vertebra, initial encounter for closed fracture

== ENCOUNTER 2016-10-16 19:05 | Emergency (ER) ==
[2016-10-16 19:10] VITALS: BP 116/61; TEMP 98.6; BMI 18.4
[2016-10-16] MEDS ORDERED: URO-JET MUCOUSMEMB STA (19:14)
[2016-10-16 20:15] LABS: BILIRUBIN,URINE Negative (NEGATIVE); KETONES,URINE Negative (NEGATIVE); LEUKOCYTE ESTERASE ,URINE 1+ (NEGATIVE); NITRITE,URINE Positive (NEGATIVE); PROTEIN,URINE 1+ (NEGATIVE); URINE, BLOOD 1+ (NEGATIVE)
[2016-10-16 20:21] LABS: ADD URINE MICROSCOPIC YES; BACTERIA,URINE TRACE (NOT PRESENT)
[2016-10-16] MEDS ORDERED: AUGMENTIN 500-125 MG TAB PO STA (20:25)
--- NOTE | 2016-10-16 20:28 | ED.PDOC ---
General ED Provider: Dr. CHRIS WEISS-ER Chief Complaint: Urinary Problem Stated Complaint: my catheter is leaking and it ann Time Seen by Physician: 19:10 Mode of Arrival: Wheelchair Information Source: Patient Exam Limitations: No limitations Primary Care Provider: KATLIN CORTES Nursing and Triage Documentation Reviewed and Agree: Yes Complaint Exam - Complaint/Exam Patient Complains of: Reports: Dysuria Onset/Duration: 24hrs Symptoms Are: Still present Initial Severity: Mild Current Severity: Mild Location of Pain: Reports: None Character: Reports: Constant pressure, Dull, Dark urine, Cloudy urine Aggravating: Reports: Voiding Alleviating: Reports: None Associated Signs and Symptoms: Reports: Dysuria. Denies: Diaphoresis, Back pain , Fever, Hematuria, Constipation, Blood in stool, Rectal pain, Appetite change, Nausea, Vomiting, Penile swelling, Penile discharge, Decreased urine output, Increased urine frequency, Increased thirst, Decreased activity, Lethargy, Scrotal pain, Scrotal swelling, Abdominal Pain Related History: Reports: Similar episode Testicular Torsion Risk Factors: Reports: None Surgical Obstruction Risk Factors: Reports: None Abdominal Findings: Present: None Differential Diagnoses: Prostatitis, UTI, Other Review of Systems - Review Of Systems Constitutional: Reports: No symptoms Eyes: Reports: No symptoms Ears, Nose, Mouth, Throat: Reports: No symptoms Respiratory: Reports: No symptoms Cardiac: Reports: No symptoms GI: Reports: No symptoms : Reports: Burning, Dysuria Musculoskeletal: Reports: No symptoms Skin: Reports: No symptoms Neurological: Reports: No symptoms Endocrine: Reports: No symptoms Hematologic/Lymphatic: Reports: No symptoms All Other Systems: Reviewed and Negative Past Medical History - Past Medical History Previously Healthy: No Endocrine: Reports: Unknown Cardiovascular: Reports: CAD, Hypertension, A-Fib (intermittent afib in past), Unknown Respiratory: Reports: COPD, Unknown Hematological: Reports: Unknown Gastrointestinal: Reports: Unknown Genitourinary: Reports: Unknown Neuro/Psych: Reports: Unknown Musculoskeletal: Reports: Unknown Cancer: Reports: Unknown, Other Other Pertinent Past Medical History: htn ca cadcough/songestion prod yellow - Surgical History General Surgical History: Reports: Stent (cardiac stents ), Other ( reconstruction on eye, skin C/A removed, prostrate ) - Family History Family History: Reports: Unknown - Social History Smoking Status: Former smoker Hx Substance Use: No Alcohol Screening: None - Immunizations Tetanus Shot up to Date: Yes Physical Exam - Physical Exam Appearance: Well-appearing, No pain distress, Well-nourished Pain Distress: Mild Eyes: CYNTHIA ENT: Ears normal, Nose normal, Oropharynx normal Neck: Supple Respiratory: Airway patent, Breath sounds clear, Breath sounds equal, Respirations nonlabored Cardiovascular: RRR, Pulses normal, No rub, No murmur GI/: Soft, Nontender, No masses, Bowel sounds normal, No Organomegaly Musculoskeletal: Normal strength Skin: Warm Neurological: Sensation intact Psychiatric: Affect appropriate, Mood appropriate Critical Care Note - Critical Care Note Total Time (mins): 0 Course - Course Orders, Labs, Meds: Lab Review 10/16/16 19:55 Urine Color Yellow Urine Clarity Clear Urine pH 7.0 Ur Specific [place] 1.015 Urine Protein 1+ Urine Glucose (UA) Trace Urine Ketones Negative Urine Blood 1+ Urine Nitrite Positive Urine Bilirubin Negative Urine Urobilinogen 1.0 Ur Leukocyte Esterase 1+ Urine Microscopic RBC 5-10 Urine Microscopic WBC 5-10 Ur Squamous Epith Cells Not present Calcium Oxalate Crystal Trace Urine Bacteria Trace Orders Category Date Time Status [place] [ED CATHETER INSERTION AND CARE] .ONCE EMERGENCY 10/16/16 19:14 Active URINALYSIS C & S IF INDICATED Stat LAB 10/16/16 19:55 Completed URINE CULTURE Stat LAB 10/16/16 20:00 Ordered Amoxicillin/Potassium Clav [Augmentin 500-125 mg Tab] MEDS 10/16/16 20:25 Stat 1 tab PO ONCE STA Lidocaine HCl [Uro-Jet] MEDS 10/16/16 19:14 Discontinued 10 ml MUCOUSMEMB ONCE STA Medications Generic Name Dose Route Start Last Admin Trade Name Freq PRN Reason Stop Dose Admin Amoxicillin/Clavulanate Potassium 1 tab 10/16/16 20:25 Augmentin 500-125 Mg Tab PO 10/16/16 20:26 ONCE STA Discontinued Medications Generic Name Dose Route Start Last Admin Trade Name Freq PRN Reason Stop Dose Admin Lidocaine HCl 10 ml 10/16/16 19:14 10/16/16 19:44 Uro-Jet MUCOUSMEMB 10/16/16 19:15 10 ml ONCE STA Administration Vital Signs: Temp Pulse Resp BP Pulse Ox 10/16/16 19:06 98.6 F 83 20 116/61 90 L Departure - Departure Time of Disposition: 20:32 Disposition: HOME SELF-CARE Discharge Problem: Urinary retention UTI (urinary tract infection) Qualifiers: Urinary tract infection type: site unspecified Hematuria presence: without hematuria Qualifier Code: (N39.0) Urinary tract infection, site not specified Instructions: Urinary Retention in Men (ED) Condition: Good Pt referred to PMD for follow-up: Yes Additional Instructions: augmentin 500mg bid x 7days--f/u with pcp/urology Allergies/Adverse Reactions: Allergies azithromycin Adverse Reaction (Verified 10/16/16 19:12) lost voice, weakness Home Medications: Ambulatory Orders Albuterol Sulfate [Proair Hfa] 2 puff INH Q4H PRN 07/10/16 Arformoterol Tartrate [Brovana] 1 vial INH BID 07/10/16 Ascorbate Calcium [Vitamin C] 500 mg PO DAILY 07/10/16 Carvedilol [Coreg] 6.25 mg PO BID 07/10/16 Clopidogrel Bisulfate [Clopidogrel] 60 mg PO DAILY 07/10/16 Cyanocobalamin (Vitamin B-12) [Vitamin B12] 5,000 mcg PO DAILY 07/10/16 Tiotropium [place] [Spiriva] 1 mcg INH DAILY 07/10/16 Vitamin E 400 intnl unit PO DAILY 07/10/16 Tamsulosin HCl [Flomax] 0.4 mg PO DAILY 07/15/16 Aspirin [Ecotrin] 325 mg PO DAILY 07/26/16 Furosemide [Lasix] 40 mg PO DAILY 09/11/16 Potassium Chloride [Micro-K Cap] 10 meq PO DAILY 09/11/16 Diltiazem HCl [Cardizem] 60 mg PO DAILY 10/03/16 Phenazopyridine HCl [Urinary Pain Relief] 1 tab PO TID PRN 10/16/16 Disposition Discussed With: Patient, Family
== END 2016-10-16 20:40 | disposition home or self-care (01) ==
LOC: ED 19:05
DX: N39.0 Urinary tract infection, site not specified (principal); R33.9 Retention of urine, unspecified; Z79.899 Other long term (current) drug therapy; Z96.0 Presence of urogenital implants
CPT/HCPCS: 81001; 87086; 99283

== ENCOUNTER 2016-10-27 13:38 | Outpatient (CLI) ==
--- NOTE | 2016-10-27 15:29 | CT ---
EXAM: CT chest without contrast HISTORY: Lung nodule follow-up. Patient with history of pneumonia 4 weeks ago and history of chron ic obstructive pulmonary disease. COMPARISON: CT chest 10/05/2016, 09/11/2016 and multiple priors including 12/05/2012 TECHNIQUE: Serial axial images of the chest were obtained from the lung apices to the upper abdomen without contrast. These were viewed in multiple planes. FINDINGS: The thyroid is normal. The visualized vessels demonstrates scattered atherosclerotic dis ease of the aorta. Pulmonary arteries are unchanged from prior exam. The heart is normal with trac e pericardial fluid. There are atherosclerotic changes of the coronary arteries. There is no lymph adenopathy. There is no pneumothorax or pleural effusion. There is mild apical pleural thickening. Moderate to severe emphysematous disease is present. There is patchy ground-glass and nodularity in the right lower lobe. There is nodular consolidation adjacent to the fissure on image 58. There is nodular gr ound-glass in the left lower lobe. The airway is patent. Soft tissues in the upper abdomen are unremarkable. There is moderate atherosclerotic disease. Ther e is superior endplate fracture at L1 and T11. There is progression of compression fracture at T9. IMPRESSION: 1. Patchy nodular ground-glass was redemonstrated in the right lower lobe with nodular consolidatio n adjacent to the fissure in the right lower lobe. Findings may represent residual changes from pre vious infection noted on 08/09/2016. This has overall improved in comparison to 08/09/2016. 2. Stable moderate to severe emphysematous disease. There is stable apical fibrosis. 3. Progression of T9 compression fracture with unchanged superior endplate compression deformities at L1 and T11.
== END 2016-10-27 13:39 | disposition home or self-care (01) ==
LOC: RAD 13:38
PROVIDERS: ATTEND Internal Medicine Pulmonary Disease
DX: J44.9 Chronic obstructive pulmonary disease, unspecified (principal)

== ENCOUNTER 2016-10-29 19:27 | Inpatient (IN) | payer OTHER ==
[2016-10-29] MEDS ORDERED: SOLU-MEDROL 125 MG IVP STA (19:33)
[2016-10-29] MEDS ORDERED: ROCEPHIN 1 GM in SODIUM CHLORIDE 50 ML IV STA (19:33)
[2016-10-29] MEDS ORDERED: DUONEB NEB STA (19:36)
[2016-10-29] MEDS ORDERED: XOPENEX 1.25 MG NEB STA (19:36)
[2016-10-29 19:53] LABS: BASOPHILS % (AUTO) 0.5 % (0.0-3.0); EOSINOPHILS # (AUTO) 0.1 K/ul (0.0-0.7); EOSINOPHILS % (AUTO) 1.1 % (0.0-7.0); HEMATOCRIT 32.9 % (42.0-52.0); HEMOGLOBIN 11.3 g/dl (14.0-18.0); IMMATURE GRANULOCYTE % (AUTO) 0.4 % (0.0-5.0); LYMPHOCYTES # (AUTO) 2.6 K/uL (0.60-3.4); LYMPHOCYTES % (AUTO) 30.2 (10.0-50.0); MEAN CORPUSCULAR HEMOGLOBIN 28.3 pg (27.0-31.0); MEAN CORPUSCULAR HGB CONC 34.3 (31.8-35.4); MEAN CORPUSCULAR VOLUME 82.5 fl (80.0-94.0); MONOCYTES % (AUTO) 11.2 (0-10); NEUTROPHILS # (AUTO) 4.8 K/ul (2.0-6.9); NEUTROPHILS % (AUTO) 56.6; PLATELET COUNT 290 10^3/uL (140-440); RED BLOOD COUNT 3.99 10^6/ul (4.70-6.10); WHITE BLOOD COUNT 8.47 K/ul (4.2-10.2)
[2016-10-29 20:19] LABS: ABG BASE EXCESS 1 (-2.0-2.0); ABG PCO2 34.2 mmHg (35-45); ABG PH 7.466 (7.35-7.45)
[2016-10-29 20:20] LABS: ALBUMIN 3.2 g/dL (3.4-5.0); ALBUMIN/GLOBULIN RATIO 1.1; ANION GAP 14.8; BILIRUBIN,TOTAL 0.49 mg/dL (0.00-1.20); CREATININE 0.75 mg/dL (0.60-1.10); POTASSIUM 4.8 mmol/L (3.5-5.1); TOTAL PROTEIN 6.1 g/dL (5.8-8.1)
[2016-10-29 20:20] LABS: ABG HCO3 24.7 (22.0-26.0); ABG TCO2 26 (22.0-28.0)
[2016-10-29] MEDS ORDERED: ROCEPHIN ONE (20:40)
[2016-10-29] MEDS ORDERED: SODIUM CHLORIDE 500 ML IV STA (20:47)
[2016-10-29] MEDS ORDERED: LOPRESSOR IVP STA (20:50)
--- NOTE | 2016-10-29 20:51 | CT ---
Exam: CT of the chest without contrast History: Dyspnea Technique: [address] of the chest without intravascular contrast FINDINGS: Lung windows show severe emphysematous change. No infiltrative opacities. Bilateral api vannessa scarring. Right lower lobe midlung and posterior scarring stable from 10/27/2016. No mediastin al lymph node enlargement or abundance. Atherosclerotic vascular calcifications of the coronary art eries and aorta. No acute findings of the upper abdomen. Compression fracture of L1, T11 and T9: Change from recent prior. Impression: 1. Severe emphysema 2. Apical and right lower lobe scarring. No developing opacities compared with 10/27/2016.
--- NOTE | 2016-10-29 21:08 | ED.PDOC ---
General ED Provider: Dr. CHRIS WEISS-ER Chief Complaint: Shortness of Air Stated Complaint: im sob Time Seen by Physician: 20:45 Mode of Arrival: Wheelchair Information Source: Patient Exam Limitations: No limitations Primary Care Provider: KATLIN KAUR Nursing and Triage Documentation Reviewed and Agree: Yes Respiratory Complaint Exam - Respiratory Complaint/Exam Onset/Duration: 2 days Symptoms Are: Still present Timing: Constant Initial Severity: Mild Current Severity: Mild Location: Chest Character: Reports: Non-productive cough Aggravating: Reports: URI Alleviating: Reports: Bronchodilators Associated Signs and Symptoms: Reports: Dyspnea. Denies: Rapid breathing, Fever , Chills, Chest pain, Pleuritic chest pain, Wheezing, Hemoptysis, Dizziness, Calf pain, Calf swelling, Edema, URI, Nasal congestion, Hoarseness, Sinus discomfort, Vomiting, Sore throat, Weight loss, Decreased oral intake, Increased thirst, Increased appetite, Increased urination Related History: Reports: Similar episode History of Healthcare-Acquired Pneumonia: No Related Surgical History: Reports: None Pulmonary Embolism Risk Factors: None Cardiac Risk Factors: Reports: Hypertension Pseudomonas Risk Factors: Reports: Chronic Lung Disease Tuberculosis Risk Factors: Reports: Chronic Resp. Faliure Home Oxygen Use: Yes Recent Stress Test: No Recent Echo/LV Function: No Current Antibiotic Use: No Current Asthma Medication Use: No Respiratory Distress: Mild Inadequate Respiratory Effort: No Dysphagia Present: No Stridor Present: No JVD Present: No Accessory Muscle Use: No Retractions: Not Present Diminished Breath Sounds: Yes Sinus Tenderness: None Grunting Respirations: No Kussmaul Respirations: No Differential Diagnoses: COPD Exacerbation Non-Traumatic Chest Pain Syncope: EKG Performed Review of Systems - Review Of Systems Constitutional: Reports: No symptoms Eyes: Reports: No symptoms Ears, Nose, Mouth, Throat: Reports: No symptoms Respiratory: Reports: Short of air, Wheezing Cardiac: Reports: No symptoms GI: Reports: No symptoms : Reports: No symptoms Musculoskeletal: Reports: No symptoms Skin: Reports: No symptoms Neurological: Reports: No symptoms Endocrine: Reports: No symptoms Hematologic/Lymphatic: Reports: No symptoms All Other Systems: Reviewed and Negative Past Medical History - Past Medical History Previously Healthy: No Endocrine: Reports: Unknown Cardiovascular: Reports: CAD, Hypertension, A-Fib, Unknown Respiratory: Reports: COPD, Unknown Hematological: Reports: Unknown Gastrointestinal: Reports: Unknown Genitourinary: Reports: Unknown Neuro/Psych: Reports: Unknown Musculoskeletal: Reports: Unknown Cancer: Reports: Unknown, Other Other Pertinent Past Medical History: htn ca cadcough/songestion prod yellow - Surgical History General Surgical History: Reports: Stent, Other - Family History Family History: Reports: Unknown - Social History Smoking Status: Former smoker Hx Substance Use: No Alcohol Screening: None - Immunizations Tetanus Shot up to Date: Yes Physical Exam - Physical Exam Appearance: Well-appearing, No pain distress, Well-nourished Eyes: CYNTHIA, EOMI, Conjunctiva clear ENT: Ears normal, Nose normal, Oropharynx normal Neck: Supple Respiratory: Airway patent, Breath sounds diminished Cardiovascular: RRR, Pulses normal, No rub, No murmur GI/: Soft, Nontender, No masses, Bowel sounds normal, No Organomegaly Musculoskeletal: Normal strength Skin: Warm, Dry, Normal color Neurological: Sensation intact, Motor intact, Reflexes intact, Cranial nerves intact, Alert, Oriented Psychiatric: Affect appropriate, Anxious Interpretation - Radiology Interpretation Radiology Interpretation By: Radiologist Radiology Results: Positive Exam Interpreted: CT Scan Physician Notification - Case Discussed Physician Notified: dr kaur Time of Notification: 21:08 Critical Care Note - Critical Care Note Total Time (mins): 0 Course - Course Hematology/Chemistry: 10/29/16 19:45 10/29/16 19:45 Orders, Labs, Meds: Lab Review 10/29/16 10/29/16 19:45 20:10 WBC 8.47 RBC 3.99 L Hgb 11.3 L Hct 32.9 L MCV 82.5 MCH 28.3 MCHC 34.3 RDW Coeff of Bull 14.2 Plt Count 290 Immature Gran % (Auto) 0.4 Neut % (Auto) 56.6 Lymph % (Auto) 30.2 [place] % (Auto) 11.2 H Eos % (Auto) 1.1 Baso % (Auto) 0.5 Immature Gran # (Auto) 0.0 Neut # 4.8 Lymph # 2.6 [place] # 1.0 Eos # 0.1 Baso # 0.0 Puncture Site Rradial O2 Saturation 97.0 ABG pH 7.466 H ABG pCO2 34.2 L ABG pO2 81.0 L ABG HCO3 24.7 ABG Total CO2 26 ABG Base Excess 1 Mohamud Test + O2 Delivery Device Nc Oxygen Liter Flow 2.00 Sodium 122 L Potassium 4.8 Chloride 88 L Carbon Dioxide 24 Anion Gap 14.8 BUN 12 Creatinine 0.75 Estimated GFR (MDRD) 102.00 BUN/Creatinine Ratio 16.00 Glucose 84 Lactic Acid 8.9 Calcium 9.0 Total Bilirubin 0.49 AST 17 ALT 14 Alkaline Phosphatase 126 H B-Natriuretic Peptide 15 Total Protein 6.1 Albumin 3.2 L Globulin 2.9 Albumin/Globulin Ratio 1.10 Procalcitonin < 0.05 Orders Category Date Time Status ABG DRAW REQUEST Stat CARDIO 10/29/16 19:32 Completed EKG-(ED ONLY) Stat CARDIO 10/29/16 19:31 Completed NEBULIZER TREATMENT Stat CARDIO 10/29/16 19:37 Completed Loom Operator [ED COMPENSATION VICE PRESIDENT APPLIED] .ONCE EMERGENCY 10/29/16 19:32 Active IV [ED IV/MEDIPORT/POWERPORT] .ONCE EMERGENCY 10/29/16 19:32 Active ABG Stat LAB 10/29/16 20:10 Completed BLOOD CULTURE Stat LAB 10/29/16 19:45 Received BNP [B-TYPE NATRIURETIC PEPTIDE] Stat LAB 10/29/16 19:45 Completed CBC W/ AUTO DIFF Stat LAB 10/29/16 19:45 Completed COMPREHENSIVE METABOLIC PANEL Stat LAB 10/29/16 19:45 Completed LACTIC ACID Stat LAB 10/29/16 19:45 Completed PROCALCITONIN Stat LAB 10/29/16 19:45 Completed 0.9 % Sodium Chloride [Saline Flush] MEDS 10/29/16 19:32 Ordered 1 syr IVF PRN PRN Ceftriaxone Sodium [Rocephin] MEDS 10/29/16 20:40 Discontinued 1 gm .ROUTE .STK-MED ONE Ceftriaxone Sodium [Rocephin] 1 gm MEDS 10/29/16 19:33 Discontinued 0.9 % Sodium Chloride [Sodium Chloride] 50 ml IV ONCE Ipratropium/Albuterol Neb [Duoneb] MEDS 10/29/16 19:36 Discontinued 1 vial NEB ONCE STA Levalbuterol HCl [Xopenex 1.25 mg] MEDS 10/29/16 19:36 Discontinued 1 vial NEB ONCE STA Methylprednisolone Sod Succ/Pf [Solu-Medrol 125 mg] MEDS 10/29/16 19:33 Discontinued 125 mg IVP ONCE STA Metoprolol Tartrate [Lopressor] MEDS 10/29/16 20:50 Discontinued 10 mg IVP ONCE STA Sodium Chloride 0.9% [Sodium Chloride] 500 ml MEDS 10/29/16 20:[address] CHEST W/O CONTRAST Stat RADS 10/29/16 19:33 Completed Medications Generic Name Dose Route Start Last Admin Trade Name Freq PRN Reason Stop Dose Admin Sodium Chloride 500 mls @ 500 mls/hr 10/29/16 20:47 10/29/16 20:50 Sodium Chloride IV 10/29/16 21:46 500 mls/hr BOLUS STA Administration Sodium Chloride 1 syr 10/29/16 19:32 Saline Flush IVF PRN PRN To flush IV Discontinued Medications Generic Name Dose Route Start Last Admin Trade Name Freq PRN Reason Stop Dose Admin Albuterol/Ipratropium 1 vial 10/29/16 19:36 10/29/16 20:28 Duoneb NEB 10/29/16 19:37 1 vial ONCE STA Administration Ceftriaxone Sodium 1 gm/ 50 mls @ 75 mls/hr 10/29/16 19:33 Sodium Chloride IV 10/29/16 20:12 ONCE STA Levalbuterol HCl 1 vial 10/29/16 19:36 10/29/16 20:36 Xopenex 1.25 Mg NEB 10/29/16 19:37 1 vial ONCE STA Administration Methylprednisolone Sodium Succinate 125 mg 10/29/16 19:33 10/29/16 20:51 Solu-Medrol 125 Mg IVP 10/29/16 19:34 125 mg ONCE STA Administration Metoprolol Tartrate 10 mg 10/29/16 20:50 10/29/16 21:04 Lopressor IVP 10/29/16 20:51 10 mg ONCE STA Administration Vital Signs: Temp Pulse Resp BP Pulse Ox 10/29/16 20:40 97.9 F 150 H 38 H 85/62 L 82 L Departure - Departure Time of Disposition: 21:08 Disposition: ADMITTED INPATIENT Discharge Problem: COPD exacerbation Instructions: COPD (Chronic Obstructive Pulmonary Disease) (ED) Condition: Stable Pt referred to PMD for follow-up: No Allergies/Adverse Reactions: Allergies azithromycin Adverse Reaction (Verified 10/16/16 19:12) lost voice, weakness Home Medications: Ambulatory Orders Albuterol Sulfate [Proair Hfa] 2 puff INH Q4H PRN 07/10/16 Arformoterol Tartrate [Brovana] 1 vial INH BID 07/10/16 Ascorbate Calcium [Vitamin C] 500 mg PO DAILY 07/10/16 Carvedilol [Coreg] 6.25 mg PO BID 07/10/16 Clopidogrel Bisulfate [Clopidogrel] 60 mg PO DAILY 07/10/16 Cyanocobalamin (Vitamin B-12) [Vitamin B12] 5,000 mcg PO DAILY 07/10/16 Tiotropium [place] [Spiriva] 1 mcg INH DAILY 07/10/16 Vitamin E 400 intnl unit PO DAILY 07/10/16 Tamsulosin HCl [Flomax] 0.4 mg PO DAILY 07/15/16 Aspirin [Ecotrin] 325 mg PO DAILY 07/26/16 Furosemide [Lasix] 40 mg PO DAILY 09/11/16 Potassium Chloride [Micro-K Cap] 10 meq PO DAILY 09/11/16 Diltiazem HCl [Cardizem] 60 mg PO DAILY 10/03/16 Phenazopyridine HCl [Urinary Pain Relief] 1 tab PO TID PRN 10/16/16 Disposition Discussed With: Patient, Family
[2016-10-29] MEDS ORDERED: CARDIZEM INJ 125 MG in SODIUM CHLORIDE 100 ML IV SCH (22:00)
[2016-10-29] MEDS ORDERED: CARDIZEM INJ ONE (22:13)
[2016-10-29 23:41] VITALS: BMI 17.9
[2016-10-29 23:46] LABS: BILIRUBIN,URINE Negative (NEGATIVE); KETONES,URINE Negative (NEGATIVE); LEUKOCYTE ESTERASE ,URINE 3+ (NEGATIVE); NITRITE,URINE Negative (NEGATIVE); PROTEIN,URINE Negative (NEGATIVE); URINE, BLOOD 2+ (NEGATIVE)
[2016-10-29 23:54] LABS: ADD URINE MICROSCOPIC YES
[2016-10-29 23:55] LABS: BACTERIA,URINE 1+ (NOT PRESENT)
[2016-10-30] MEDS: XOPENEX 1.25 MG NEB SCH ×5 (00:06→23:31)
[2016-10-30] MEDS: SODIUM CHLORIDE 1,000 ML IV SCH ×3 (00:29→20:38)
[2016-10-30] MEDS ORDERED: SOLU-MEDROL 40 MG ONE (04:09)
[2016-10-30 04:59] LABS: HEMATOCRIT 32.7 % (42.0-52.0); HEMOGLOBIN 11.3 g/dl (14.0-18.0); IMMATURE GRANULOCYTE % (AUTO) 0.5 % (0.0-5.0); LYMPHOCYTES # (AUTO) 1.1 K/uL (0.60-3.4); LYMPHOCYTES % (AUTO) 28.6 (10.0-50.0); MEAN CORPUSCULAR HEMOGLOBIN 28.4 pg (27.0-31.0); MEAN CORPUSCULAR HGB CONC 34.6 (31.8-35.4); MEAN CORPUSCULAR VOLUME 82.2 fl (80.0-94.0); MONOCYTES % (AUTO) 1.1 (0-10); NEUTROPHILS # (AUTO) 2.6 K/ul (2.0-6.9); NEUTROPHILS % (AUTO) 69.8; PLATELET COUNT 275 10^3/uL (140-440); RED BLOOD COUNT 3.98 10^6/ul (4.70-6.10); WHITE BLOOD COUNT 3.77 K/ul (4.2-10.2)
[2016-10-30] MEDS ORDERED: SOLU-MEDROL 40 MG IVP SCH (05:00)
[2016-10-30 05:18] LABS: ALBUMIN/GLOBULIN RATIO 1.03; BILIRUBIN,TOTAL 0.38 mg/dL (0.00-1.20); BUN/CREATININE RATIO 15.06; CALCIUM 8.8 mg/dL (8.2-10.2); CREATININE 0.73 mg/dL (0.60-1.10); TOTAL PROTEIN 5.9 g/dL (5.8-8.1)
[2016-10-30] MEDS ORDERED: SOLU-MEDROL 125 MG IVP SCH (07:30)
[2016-10-30] MEDS: LASIX TAB PO SCH (08:38)
[2016-10-30] MEDS: FLOMAX PO SCH (08:38)
[2016-10-30] MEDS: ASPIRIN EC PO SCH (08:38)
[2016-10-30] MEDS: COREG PO SCH ×2 (08:38→20:38)
[2016-10-30] MEDS: SPIRIVA IH SCH (08:38)
[2016-10-30] MEDS: LOVENOX SUBCUT SCH ×2 (08:39→08:47)
[2016-10-30] MEDS: PLAVIX PO SCH (08:46)
[2016-10-30] MEDS: NON-FORMULARY MEDICATION (Cyanocobalamin (Vitamin B-12) [Vitamin B12] 5,000 MCG) PO SCH (08:48)
[2016-10-30] MEDS ORDERED: MICRO-K CAP PO SCH (09:00)
[2016-10-30] MEDS ORDERED: NON-FORMULARY MEDICATION (Arformoterol Tartrate [Brovana] 1 VIAL) INH SCH (09:00)
[2016-10-30] MEDS ORDERED: PLAVIX PO SCH (09:00)
[2016-10-30] MEDS ORDERED: CARDIZEM PO SCH (09:00)
[2016-10-30] MEDS: SOLU-MEDROL 125 MG IVP SCH ×2 (13:18→20:38)
[2016-10-30] MEDS: ROCEPHIN 1 GM in SODIUM CHLORIDE 50 ML IV SCH (20:38)
[2016-10-30] MEDS ORDERED: NON-FORMULARY MEDICATION (Arformoterol Tartrate [Brovana] 1 VIAL) NEB SCH (21:00)
[2016-10-31] MEDS: SOLU-MEDROL 125 MG IVP SCH ×3 (04:01→20:02)
[2016-10-31 04:59] LABS: HEMATOCRIT 30.7 % (42.0-52.0); HEMOGLOBIN 10.7 g/dl (14.0-18.0); IMMATURE GRANULOCYTE % (AUTO) 0.3 % (0.0-5.0); LYMPHOCYTES # (AUTO) 1.5 K/uL (0.60-3.4); LYMPHOCYTES % (AUTO) 24.1 (10.0-50.0); MEAN CORPUSCULAR HEMOGLOBIN 28.5 pg (27.0-31.0); MEAN CORPUSCULAR HGB CONC 34.9 (31.8-35.4); MEAN CORPUSCULAR VOLUME 81.6 fl (80.0-94.0); MONOCYTES # (AUTO) 0.2 K/uL (0.4-2.0); MONOCYTES % (AUTO) 3.6 (0-10); NEUTROPHILS # (AUTO) 4.5 K/ul (2.0-6.9); PLATELET COUNT 268 10^3/uL (140-440); RED BLOOD COUNT 3.76 10^6/ul (4.70-6.10); WHITE BLOOD COUNT 6.18 K/ul (4.2-10.2)
[2016-10-31 05:20] LABS: ALBUMIN 2.8 g/dL (3.4-5.0); ALBUMIN/GLOBULIN RATIO 1.12; ANION GAP 14.2; BILIRUBIN,TOTAL 0.29 mg/dL (0.00-1.20); BUN/CREATININE RATIO 20.58; CALCIUM 8.7 mg/dL (8.2-10.2); CREATININE 0.68 mg/dL (0.60-1.10); POTASSIUM 4.2 mmol/L (3.5-5.1); TOTAL PROTEIN 5.3 g/dL (5.8-8.1)
[2016-10-31] MEDS: XOPENEX 1.25 MG NEB SCH ×4 (05:21→23:02)
[2016-10-31] MEDS: LASIX TAB PO SCH (05:30)
[2016-10-31] MEDS: PERFOROMIST NEB SCH ×2 (05:55→18:24)
[2016-10-31] MEDS ORDERED: PHENAZOPYRIDINE HCL PO PRN (07:28)
[2016-10-31] MEDS: PYRIDIUM PO PRN ×3 (07:51→19:46)
[2016-10-31] MEDS: PLAVIX PO SCH (08:32)
[2016-10-31] MEDS: FLOMAX PO SCH (08:32)
[2016-10-31] MEDS: ASPIRIN EC PO SCH (08:32)
[2016-10-31] MEDS: COREG PO SCH ×2 (08:32→20:02)
[2016-10-31] MEDS: NON-FORMULARY MEDICATION (Cyanocobalamin (Vitamin B-12) [Vitamin B12] 5,000 MCG) PO SCH (08:33)
[2016-10-31] MEDS: SPIRIVA IH SCH (08:33)
--- NOTE | 2016-10-31 10:07 | HP ---
DATE OF SERVICE: 10/30/16 REASON FOR HOSPITALIZATION: COPD with acute shortness of breath. HISTORY OF PRESENT ILLNESS: 71-year-old white male has been having difficulty breathing for 2 days, is coughing up yellowish sputum but mostly it is nonproductive cough day and night. According to the , his appetite is very poor, denies any chills or fever. Unable to sleep at night. REVIEW OF SYSTEMS: CONSTITUTIONAL: Weakness and fatigue. No night sweats. No fever or chills. HEENT: Eyes: No visual changes. No eye pain. No eye discharge. ENT: No runny nose. No epistaxis. No sinus pain. No sore throat. No odynophagia. No ear pain. No congestion. RESPIRATORY: Dry cough and congestion - occasional yellowish sputum. No hemoptysis. CARDIOVASCULAR: Pleuritic type of pain. No angina symptoms. No CHF symptoms. No palpitations. No shortness of breath. No PND, no orthopnea. GASTROINTESTINAL: Poor appetite. No abdominal pain. No nausea or vomiting. No diarrhea or constipation. No hematemesis. No hematochezia. GENITOURINARY: No urgency. No frequency. No dysuria. No hematuria. No obstructive symptoms. No discharge. No pain. No significant abnormal bleeding. MUSCULOSKELETAL: Generalized weakness especially right lower extremity and right upper extremity especially right thumb. NEUROLOGICAL: No headache. No neck pain. No syncope. No seizures. No dizziness. PSYCHIATRIC: Not anxious. No depression. No suicidal thoughts. No homicidal thoughts. SKIN: No rash. No lesions. No wounds. ENDOCRINE: No unexplained weight loss. No weight gain. HEMATOLOGIC/LYMPHATIC: No anemia. No purpura. No petechiae. No prolonged or excessive bleeding. No palpable lymph nodes. PERSONAL/FAMILY/SOCIAL HISTORY: Nonsmoker, quit smoking 15 years ago. No alcohol abuse. and lives with the . Unable to do most activities of daily living, needs help. The patient has a Tolliver catheter. PAST MEDICAL/SURGICAL PROBLEMS: 1. Severe chronic lung disease 2. Cor pulmonale 3. Hypertension 4. Benign prostatic hypertrophy with obstructive problems requiring Tolliver catheter MEDICATIONS: 1. Albuterol 2. ProAir HFA two puffs four times a day 3. Brovana one vial twice a day 4. Carvedilol 12.5 mg twice a day 5. Clopidogrel 75 mg p.o. daily 6. Flomax 0.4 mg daily 7. Aspirin one a day 8. Lasix 40 mg p.o. daily 9. K-Tab 10 mEq p.o. daily 10. Cardizem 60 mg daily 11. Zestril 10 mg p.o. daily 12. Nitroglycerin p.r.n. sublingual for chest pain 13. Spironolactone 225 p.o. daily 14. Spiriva one puff daily ALLERGIES: ERYTHROMYCIN PHYSICAL EXAMINATION: GENERAL: The patient is oriented to time, place and person. VITAL SIGNS: Temperature 97.9, pulse 150/min, respiratory rate 30, BP 85/62, pulse ox 82%. HEENT: Head normocephalic, looks pale. Severe distress. Intercostal space retractions. No slcerotic or icteric sclerae. NECK: Supple. No JVP, no carotid bruit. No lymphadenopathy or thyromegaly. LUNGS: Decreased breath sounds with mild wheeze bilaterlaly. Percussion note normal. Chest symmetrical. HEART: PMI not palpable on auscultation. S1, S2, no S3. No murmurs. No cyanosis or clubbing. No ascites. Pulses: Dorsalis pedis and posterior tibial pulses +1 bilaterally. ABDOMEN: Soft. Nontender. Bowel sounds active. No CVA tenderness. No mass felt. Tolliver catheter present. EXTREMITIES: Trace edema. Full range of motion of all extremities, equal. STEAM FITTER: Normal with normal mental status. SKIN: Not dry. Intact. Turgor - normal. LYMPHATIC: No palpable lymph nodes/no lymphedema. MUSCULOSKELETAL: Normal joints with no swelling. Muscle tone is normal. LABS: ABG p02 81, pc02 34, pH 7.46 with 97% saturation; that is on 2L. Sodium 122, creatinine 0.7, BUN 12, liver profile negative. BNP 15. The patient on room air had 82% saturation with 38 respirations with pulse of 150 on admission with respiratory rate of 38. ASSESSMENT: 1. ACUTE RESPIRATORY FAILURE WITH SEVERE CHRONIC LUNG DISEASE 2. COR PULMONALE 3. PERMANENT TOLLIVER CATHETER FOR THE PAST 3 TO 4 MONTHS WITH BPH 4. WEIGHT LOSS SECONDARY TO MULTIPLE MEDICAL PROBLEMS 5. GENERALIZED OSTEOARTHRITIS 6. ANEMIA 7. HYPONATREMIA PLAN: 1. IV Normal Saline 2. Watch for fluid overload 3. IV Lasix 4. IV steroids 5. IV antiotics 6. Nebs treatment 7. Inhalers 8. Telemetry 9 Daily CBC and CMP CONDITION: Stable PROGNOSIS: Poor TIME SPENT: More than 70 minutes. MTDD
--- NOTE | 2016-10-31 12:01 | PN ---
DATE OF SERVICE: 10/30/16 SUBJECTIVE: The patient is a 71 year old white male hospitalized with acute exacerbation of COPD. The patient has severe chronic lung disease with Cor Pulmonale. The patient's condition is stable at present time and feeling a lot better. His appetite has improved a lot. is in the room. We went through the list of medications and also all his medical problems. REVIEW OF SYSTEMS: CONSTITUTIONAL: No night sweats. No fatigue, malaise, lethargy. No fever or chills. HEENT: Eyes: No visual changes. No eye pain. No eye discharge. ENT: No runny nose. No epistaxis. No sinus pain. No sore throat. No odynophagia. No congestion. RESPIRATORY: No cough, no congestion. No hemoptysis. CARDIOVASCULAR: No angina symptoms. No CHF symptoms. No atypical chest pain for CAD. No palpitations. Shortness of breath on exertion. No PND. No Orthopnea. GASTROINTESTINAL: No abdominal pain. No nausea or vomiting. No diarrhea or constipation. No hematemesis. No hematochezia. GENITOURINARY: No urgency. No frequency. No dysuria. No hematuria. No obstructive symptoms. No discharge. No pain. No significant abnormal bleeding. Still has Ahumada Catheter. MUSCULOSKELETAL: No musculoskeletal pain; no joint swelling. NEUROLOGICAL: No headache. No neck pain. No syncope. No seizures. No dizziness. PSYCHIATRIC: Not anxious. No depression. No suicidal thoughts. No homicidal thoughts. SKIN: No rash. No lesions. No wounds. ENDOCRINE: No unexplained weight loss. No weight gain. HEMATOLOGIC/LYMPHATIC: No anemia. No purpura. No petechiae. No prolonged or excessive bleeding. No palpable lymph nodes. PHYSICAL EXAMINATION: GENERAL: The patient is oriented to time, place and person. VITAL SIGNS: Temperature 99, pulse 86, respiratory rate 20, blood pressure 120/ 60 and pulse ox 99%. HEENT: Head normocephalic, atraumatic. Eyes: Extraocular muscles are intact. Pupils are equal, round and reactive to light and accommodation. Ears: No lesions. Nose appeared normal. Throat: No exudate or erythema. NECK: Supple. No JVD, no carotid bruit. No lymphadenopathy or thyromegaly. LUNGS: Decreased breath sounds but clear to auscultation. Percussion note normal. Chest symmetrical. HEART: S1, S2, no S3. No murmurs. No cyanosis or clubbing. No ascites. Pulses: Dorsalis pedis and posterior tibial pulses +1 to +2 both sides. ABDOMEN: Soft. Nontender. Bowel sounds active. No CVA tenderness. No mass felt. EXTREMITIES: No edema. Full range of motion of all extremities, equal. NEUROLOGIC: No focal deficit. Cranial nerves II through XII are grossly intact. No headache, no double vision or headache. SKIN: Not dry. Intact. Turgor - normal. LYMPHATIC: No palpable lymph nodes/no lymphedema. MUSCULOSKELETAL: Normal joints with no swelling. Muscle tone is normal. The patient has lost some weight in the past three to four months after he has been on Ahumada Catheter. The patient is followed by Dr. Archuleta. Since July the patient Ahumada Catheter. Sever times the Ahumada Catheter was taken out but the patient was unable to void. The patient is not able to undergo cystoscopy because of patient's poor medical condition. The patient ended up the [facility] because of fracture with T spine which Dr. Newell checked it out and there is nothing that could be done. It is a stable fracture which support from above and below according to Dr. Newell that's what said. Dr. Seay was on consultation and echocardiogram revealed that patient has low ejection fraction and they ended up doing Cardiolite test with scare tissue on the heart. The patient's BNP is 15 and doesn't have any CHF but he is definitely Cor Pulmonale. Yesterday the patient's sodium was 118 and today is 127. He is on normal saline 60cc. The patient is also on antibiotics. ASSESSMENT: 1.Acute bronchitis with chronic lung disease 2.Hyponatremia 3.Ahumada Catheter with BPH 4.Severe chronic lung disease 5.Cor Pulmonale 6. Anemia PLAN: 1. Continue IV antibiotics 2. Continue IV normal saline 3. Discontinue Lovenox 4. Discontinue Potassium 5. Continue Ahumada Catheter The patient quit smoking 15 years ago. CONDITION: Stable. TIME SPENT: More than 30 minutes. Plan and coordination of the patient's care discussed in the presence of nurse. SHEA
--- NOTE | 2016-10-31 12:53 | PCM.PROG ---
Attending Provider: ATTENDING PROVIDER: Dr. KATLIN CORTES DATE OF SERVICE: 10/31/16 SUBJECTIVE: This 71 year old WHITE/ M was hospitalized 10/29/16 with COPD and acute bronchitis with respiratory distress. Respiratory rate was 38 with 82% oxygen saturation on admission and low blood pressure. The patient has improved; not in respiratory distress. The patient is still weak and tired and still has Ahumada catheter, which was burning. REVIEW OF SYSTEMS: CONSTITUTIONAL: Weakness, tiredness. No night sweats. No fever or chills. HEENT: Eyes: No visual changes. No eye pain. No eye discharge. ENT: No runny nose. No epistaxis. Voice is hoarse. No sinus pain. No odynophagia. No congestion. RESPIRATORY: No cough, no congestion. No hemoptysis. CARDIOVASCULAR: No angina symptoms. No CHF symptoms. No atypical chest pain for CAD. No palpitations. No shortness of breath. No PND, no orthopnea. GASTROINTESTINAL: No abdominal pain. No nausea or vomiting. No diarrhea or constipation. No hematemesis. No hematochezia. GENITOURINARY: Ahumada in place draining clear urine. MUSCULOSKELETAL: No musculoskeletal pain; no joint swelling. NEUROLOGICAL: Awake, alert, oriented to time, place and person. No headache. No neck pain. No syncope. No seizures. No dizziness. PSYCHIATRIC: Not anxious. No depression. No suicidal thoughts. No homicidal thoughts. SKIN: No rash. No lesions. No wounds. ENDOCRINE: No unexplained weight loss. No weight gain. HEMATOLOGIC/LYMPHATIC: No anemia. No purpura. No petechiae. No prolonged or excessive bleeding. No palpable lymph nodes. PHYSICAL EXAMINATION: GENERAL: The patient is awake, alert and oriented, sitting in chair in no distress. VITAL SIGNS: Temperature 97.3 F, Pulse 85, Respiratory Rate 19, BP 143/80, Pulse Ox 95% HEENT: Head normocephalic, atraumatic. Eyes: Extraocular muscles are intact. Pupils are equal, round and reactive to light and accommodation. Ears: No lesions. Nose appeared normal. Throat: No exudate or erythema. NECK: Supple. No JVD, no carotid bruit. No lymphadenopathy or thyromegaly. LUNGS: Good air entry. Decreased breath sounds. Clear to auscultation. Percussion note normal. Chest symmetrical. HEART: S1, S2, no S3. No murmurs. No cyanosis or clubbing. No ascites. Pulses: Dorsalis pedis and posterior tibial pulses +1 to +2 both sides. ABDOMEN: Soft. Non-tender. Bowel sounds active. No CVA tenderness. No mass felt. EXTREMITIES: No edema. Full range of motion of all extremities, equal. NEUROLOGIC: No focal deficit. Cranial nerves II through XII are grossly intact. No headache, no double vision or headache. SKIN: Not dry. Intact. Turgor-normal. LYMPHATIC: No palpable lymph nodes/no lymphedema. MUSCULOSKELETAL: Normal joints with no swelling. Muscle tone is normal. LAB REVIEW: 10/31/16 04:58 10/31/16 04:58 10/31/16 04:58: WBC 6.18, RBC 3.76 L, Hgb 10.7 L, Hct 30.7 L, MCV 81.6, MCH 28.5 , MCHC 34.9, RDW Coeff of Bull 14.0, Plt Count 268, Immature Gran % (Auto) 0.3, Neut % (Auto) 72.0, Lymph % (Auto) 24.1, Owen % (Auto) 3.6, Eos % (Auto) 0.0, Baso % (Auto) 0.0, Immature Gran # (Auto) 0.0, Neut # 4.5, Lymph # 1.5, Owen # 0.2 L, Eos # 0.0, Baso # 0.0, Sodium 129 L, Potassium 4.2, Chloride 97 L, Carbon Dioxide 22 L, Anion Gap 14.2, BUN 14, Creatinine 0.68, Estimated GFR ( MDRD) 115.00, BUN/Creatinine Ratio 20.58, Glucose 132 H, Calcium 8.7, Total Bilirubin 0.29, AST 18, ALT 18, Alkaline Phosphatase 106, Total Protein 5.3 L, Albumin 2.8 L, Globulin 2.5, Albumin/Globulin Ratio 1.12 ASSESSMENT: 1. Acute bronchitis improving 2. Severe chronic lung disease with cor pulmonale 3. Ahumada with benign prostatic hypertrophy. He has had the Ahumada since July 2016. Dr. Archuleta was unable to do cystoscopy due to the patient's condition. He underwent workup for CHF by Dr. Seay at [facility] when admitted with back pain for thoracic compression fracture. The patient was seen by Dr. Newell, Neurology, who thinks the cerebral compression fracture is supported by vertebral above and below. PLAN: 1. Continue antibiotics steroids nebs treatment. Plan and coordination of the patient's care discussed in the presence of Millinery Blocker and nurse. CONDITION: Stable SCRIBED BY: CHARLETTE PAINTING, Dietetic Tech scribed while in presence of service performed by Dr. KATLIN CORTES on 10/31/16 ([id number])
[2016-10-31] MEDS: SODIUM CHLORIDE 1,000 ML IV SCH (15:09)
--- NOTE | 2016-10-31 15:14 | RS.OTINEVL ---
Subjective - Patient information Date of Evaluation: 10/31/16 Admitted From:: Home Usual Living Arrangement: With Spouse Living Arrangement Comments: Pt lives at home with . He walks with a rollator walker. She is his caregiver. Home Environment: Stairs (few) Medical History Comments:: COPD, irregular heart beat, UIT, SOA, TN, bronchitis , O2 at 2 liters all of the time, Benign prostatic hyperplasia, telemetry, HTN, Subjective Information/ Patient Comments:: "I get so short of breath. Getting in the bed was more difficult that walking." - Level of function Abilities prior to this admission: Patient was working 40 hours a week back in July of this year. Pt has had 5 admissions to the hospital. Pt has had pneumonia x 2, now he has bronchitis , and laryngitis. Current Level of Function: Partially Dependent Current Equipment Used at Home: automatic bp cuff, home o2, rolling walker Pain Assessment - Pain Pain Score: 0 Pain Aggravating Factors: Changing Position Interventions - Objective Patient Orientation: Person, Place, Situation Current Interventions: IV's, Oxygen, Telemetry, Ahumada Catheter Observation: Pt is very weak and has lost alot of weight. Interventions - ROM Right Upper Extremity AROM: WFL's Left Upper Extremity AROM: WFL's - Strength Right Upper Extremity Strength: Mild Weakness Left Upper Extremity Strength: Mild Weakness - Sensation Right Upper Extremity Sensation: Intact/Normal Left Upper Extremity Sensation: Intact/Normal Balance - Sitting Balance Static Sitting Balance: Good Dynamic Sitting Balance: Fair - Standing Balance Static Standing Balance: Fair Dynamic Standing Balance: Fair ADL Skills - Self Feeding Self Feeding: Set Up Only - Grooming Grooming: Set Up Only - Bathing Bathing UE: Min Assist Bathing LE: Min Assist - Dressing Dressing UE: Min Assist Dressing LE: Min Assist - Toilet Management Toileting Management: Min Assist, 2 person assist Functional Mobility - Bed Mobility Rolling R/L: Min Assist Scooting: Min Assist Supine to Sit: Min Assist Sit to Supine: Min Assist - Transfers Sit to Stand: Min Assist Stand to Sit: CGA Stand Pivot Transfers: CGA, 2 person assist - Ambulation Weight Bearing Status: FWB Assistive Device Used: Rollator Assistance needed with Ambulation: CGA, 2 person assist - Safety Awareness Safety Awareness: Good Additional Treatment Performed - Additional units charged ADL: 15 - Time with patient Total treatment time: 34 Activities Patient Interests:: Watching Television Patient Education Patient Education: Education of diagnosis, Activity Modification Teaching Recipient: Patient Teaching Methods: Teach Back Method Used, Discussion, Demonstration Assessment Problem List:: Decreased level of function, Requires training/education, Decreased safety/Risk of falls, Weakness, Pain limits previous level of function Rehab Potential: Good Further Therapy Indicated?: Yes Short Term Goals - Goals GOAL 1: Pt to tolerate bed mobility to CGA. Goal to be met by: 11/07/16 GOAL 2: Pt to increase activity tolerance to 10 minutes with 1 rest. Goal to be met by: 11/07/16 GOAL 3: Pt to increase dyn. stand balance to Good- for sink level ADLS. Cad Design Engineer Goals GOAL 1: Pt to be independent with bed mobility. Goal to be met by: 11/14/16 GOAL 2: Pt to tolerate 20 minutes of activity tolerance. Goal to be met by: 11/14/16 GOAL 3: Pt to increase dyn. stand. balance to Good+ for sink level ADLS. Goal to be met by: 11/14/16 Plan Plan of Care: Therapeutic EX, Neuromuscular Re-Educ, Therapeutic Activity, Self- Care/Home Management Frequency of Treatment: 1-2 X day, as tolerated Duration of Treatment: 2 Weeks Anticipated Discharge Destination: Home
--- NOTE | 2016-10-31 18:16 | RS.BEDDYS ---
Subjective Number of treatment sessions: 1 Date of Evaluation: 10/31/16 Date of Onset/Injury/Change in Status: 10/29/16 Treatment Diagnosis: SOB, coughing with liquids Current Level of Function: This 71 year old male was referred for skilled ST due to observation of coughing with thin liquids. Pt currently requires assistance for walking and bed mobility, however can maintain upright 90 degree posture for up to 60 minutes. Pt has no hx of swallowing difficulties, however has two recent episodes of pneumonia in the last six months. Pt currently has laryngitis with a weak, breathy vocal quality. Pt is at mild risk for aspiration and/or penetration with thin liquids due to laryngeal weakness. Current Diet: Regular diet with thin liquids. Current Subjective/complaints:: Pt complains of laryngitis for one week. This is the first time in 30 years pt has had an episode of laryngitis. Pt reports SOB with exertion and requires up to 10 minutes to recover. Meal times reported at 30 minutes with 50% intake due to fatigue during the middle of the meal. Pt does report slight improvement with breath support since admission to hospital. Medical History Comments:: Anemia, COPD with 2 Liters O2, Acute bronchitis, pneumonia, weight loss, hyponatremia. Pt reported heart attack 2017. Hx Home Medications: Refer to current medications for complete list. Patient's Goals: Pt to increase endurance and breath support and regain vocal quality and loudness. ST to have pt on safest and least restrictive diet texture. General Information - General Patient Orientation: Person, Place, Time, Situation Ability to Follow Directions: Good Oral Expression Ability: No Impairment - Voice Voice Quality: Hoarse, Loss of Voice Voice Pitch: Limited Variation Voice Loudness: Severely Soft/Quiet (Pt reports loss of voice one week prior to admission. Pt not able to phonate. Breathy and hoarse quality noted.) Oral-Facial Assessment - Face Facial Symmetry: Symmetrical Facial Movement: Controlled - Dental/Labial Mouth Occlusion: Normal Teeth Characteristics: Missing, Dental Appliance Lip Protrusion: Normal Lip Retraction: Normal Puff Cheeks: Reduced Strength - Lingual Protrusion: Weak Retraction: Weak Tip Lateralization: Weak Repeated Tip Lateralization: Weak Tip Elevation: Weak Repeated Tip Elevation: Weak Comments: required mandibular assistance for lingual movements. Generalized weakness Food Presentation - Solids Food Presented: Mechanical Soft Behaviors/Comments: APPEALS WRITER presented mechanical soft via spoon and finger foods. WNL with bolus formation and swallow response. Minimal to no lignual residue. No overt s/s of aspiration. Food Presented: Regular Behaviors/Comments: Finger foods presented. Pt with decreased rotary chew and discoordinated breathing pattern. Difficulty with breath support during meal. No overt s/s of aspiration noted. - Liquids Liquid Presented: Thin Behaviors/Comments: 75% of trials pt had delayed cough. Trials all presented via controlled straw drinks. Pt with 2-4 second swallow delay over multiple trials. Discoordinated muscle movements via laryngeal palpation. Liquid Presented: [place] Behaviors/Comments: Via controlled and uncontrolled straw drinks. No overt s/s of aspiration noted. WNL with timing and coordination of liquids. - Recommendations: Dysphagia Evaluation Dietary Recommendations: Normal, [place]-thick liquids Comments:: Softer foods presented to decrease fatigue with meal. Pt safe to have regular diet texture. All liquids to be nectar thick. Dysphagia Swallow Precautions/Strategies: Sitting Upright (90 deg) Comments:: Pt requests straw. APPEALS WRITER recommends straw or open cup with nectar liquids. - Summary Dysphagia Evaluation Summary: Pt with pharyngeal/laryngeal weakness as characterized by laryngitis, swallow delay, and muscle movements assessed via laryngeal palpation. APPEALS WRITER recommends nectar thick liquids with regular texture and soft foods for safest and least restrictive diet texture. Further Therapy Indicated?: Yes Rehab Potential: Good Functional Reporting G Codes: Current CJ Goal CI Severity Impairment Rationale: Pt on nectar thick liquid consistency. Short Term Goals Problem: Swallow response Goal #1: 10/10 trials of thin liquids without overt s/s of aspiration Goal to be met by: 11/07/16 Problem: Swallow muscles Goal #2: Pt to complete laryngeal elevation exercises with mild difficulty. Goal to be met by: 11/07/16 Problem: Laryngitis Goal #3: Pt to complete laryngeal/vocal exercises with mild difficulty Goal to be met by: 11/07/16 Problem: Swallowing safety Goal #4: Pt to verbalize and demonstrate safe swallowing with PO intake. Goal to be met by: 11/07/16 Shelter Goals Problem: Swallowing Goal #1: Pt to consume thin liquids without overt s/s of aspiration Goal to be met by: 11/11/16 Problem: Vocal quality Goal #2: Pt to improve vocal quality for successful communication exchanges. Goal to be met by: 11/07/16 Plan Duration of Treatment: 2 Weeks Frequency of Treatment: 2-3 times a week Anticipated Discharge Destination: Home
[2016-10-31] MEDS ORDERED: MIRALAX PO PRN ×2 (19:52→20:05)
[2016-10-31] MEDS ORDERED: MIRALAX ONE (19:56)
[2016-10-31] MEDS: ROCEPHIN 1 GM in SODIUM CHLORIDE 50 ML IV SCH (20:01)
[2016-11-01] MEDS: PYRIDIUM PO PRN ×3 (01:47→17:58)
[2016-11-01 04:43] LABS: HEMATOCRIT 30.2 % (42.0-52.0); HEMOGLOBIN 10.4 g/dl (14.0-18.0); IMMATURE GRANULOCYTE % (AUTO) 0.5 % (0.0-5.0); LYMPHOCYTES # (AUTO) 1.3 K/uL (0.60-3.4); LYMPHOCYTES % (AUTO) 20.4 (10.0-50.0); MEAN CORPUSCULAR HEMOGLOBIN 28.3 pg (27.0-31.0); MEAN CORPUSCULAR HGB CONC 34.4 (31.8-35.4); MEAN CORPUSCULAR VOLUME 82.3 fl (80.0-94.0); MONOCYTES # (AUTO) 0.3 K/uL (0.4-2.0); MONOCYTES % (AUTO) 5.5 (0-10); NEUTROPHILS # (AUTO) 4.6 K/ul (2.0-6.9); NEUTROPHILS % (AUTO) 73.6; PLATELET COUNT 275 10^3/uL (140-440); RED BLOOD COUNT 3.67 10^6/ul (4.70-6.10); WHITE BLOOD COUNT 6.19 K/ul (4.2-10.2)
[2016-11-01] MEDS: XOPENEX 1.25 MG NEB SCH ×4 (05:00→23:01)
[2016-11-01] MEDS: SOLU-MEDROL 125 MG IVP SCH ×3 (05:08→20:09)
[2016-11-01] MEDS: PERFOROMIST NEB SCH ×2 (05:13→18:20)
[2016-11-01 05:17] LABS: ALBUMIN 2.7 g/dL (3.4-5.0); ALBUMIN/GLOBULIN RATIO 1.17; ANION GAP 11.1; BILIRUBIN,TOTAL 0.26 mg/dL (0.00-1.20); BUN/CREATININE RATIO 27.53; CALCIUM 8.6 mg/dL (8.2-10.2); CREATININE 0.69 mg/dL (0.60-1.10); POTASSIUM 4.1 mmol/L (3.5-5.1)
[2016-11-01] MEDS: LASIX TAB PO SCH (05:38)
[2016-11-01] MEDS: ASPIRIN EC PO SCH (08:22)
[2016-11-01] MEDS ORDERED: DIFLUCAN PO STA (08:39)
[2016-11-01] MEDS: SODIUM CHLORIDE 1,000 ML IV SCH ×2 (08:54→09:30)
[2016-11-01] MEDS: FLOMAX PO SCH (09:28)
[2016-11-01] MEDS: COREG PO SCH ×2 (09:29→20:09)
[2016-11-01] MEDS: SPIRIVA IH SCH (09:29)
[2016-11-01] MEDS: PLAVIX PO SCH (09:29)
[2016-11-01] MEDS: NON-FORMULARY MEDICATION (Cyanocobalamin (Vitamin B-12) [Vitamin B12] 5,000 MCG) PO SCH (09:30)
--- NOTE | 2016-11-01 11:54 | PCM.PROG ---
Attending Provider: ATTENDING PROVIDER: Dr. KATLIN CORTES DATE OF SERVICE: 11/01/16 SUBJECTIVE: This 71 year old WHITE/ M was hospitalized 10/29/16. The patient is lying in bed fatigued. Cough is somewhat improved. The patient has been afebrile through the night. Vital signs are stable. REVIEW OF SYSTEMS: CONSTITUTIONAL: Generalized weakness due to shortness of breath. No night sweats. No fever or chills. HEENT: Eyes: No visual changes. No eye pain. No eye discharge. ENT: No runny nose. No epistaxis. No sinus pain. No odynophagia. No congestion. RESPIRATORY: No cough, no congestion. No hemoptysis. CARDIOVASCULAR: No angina symptoms. No CHF symptoms. No atypical chest pain for CAD. No palpitations. Shortness of breath on minimal exertion. GASTROINTESTINAL: No abdominal pain. No nausea or vomiting. No diarrhea or constipation. No hematemesis. No hematochezia. GENITOURINARY: No urgency. No frequency. No dysuria. No hematuria. No obstructive symptoms. No discharge. No pain. No significant abnormal bleeding. MUSCULOSKELETAL: No musculoskeletal pain; no joint swelling. NEUROLOGICAL: Awake, alert, oriented to time, place and person. No headache. No neck pain. No syncope. No seizures. No dizziness. PSYCHIATRIC: Not anxious. No depression. No suicidal thoughts. No homicidal thoughts. SKIN: No rash. No lesions. No wounds. ENDOCRINE: No unexplained weight loss. No weight gain. HEMATOLOGIC/LYMPHATIC: No anemia. No purpura. No petechiae. No prolonged or excessive bleeding. No palpable lymph nodes. PHYSICAL EXAMINATION: GENERAL: The patient is awake, alert and oriented, lying/sitting in bed in no distress. VITAL SIGNS: Temperature 97.6 F, Pulse 84, Respiratory Rate 20, BP 119/68, Pulse Ox 95% HEENT: Head normocephalic, atraumatic. Eyes: Extraocular muscles are intact. Pupils are equal, round and reactive to light and accommodation. Ears: No lesions. Nose appeared normal. Throat: No exudate or erythema. NECK: Supple. No JVD, no carotid bruit. No lymphadenopathy or thyromegaly. LUNGS: Lungs are clear bilaterally with significantly diminished breath sounds bilaterally. Percussion note normal. Chest symmetrical. HEART: S1, S2, no S3. No murmurs. No cyanosis or clubbing. No ascites. Pulses: Dorsalis pedis and posterior tibial pulses +1 to +2 both sides. ABDOMEN: Soft. Non-tender. Bowel sounds active. No CVA tenderness. No mass felt. EXTREMITIES: No edema. Full range of motion of all extremities, equal. NEUROLOGIC: No focal deficit. Cranial nerves II through XII are grossly intact. No headache, no double vision or headache. SKIN: Not dry. Intact. Turgor-normal. LYMPHATIC: No palpable lymph nodes/no lymphedema. MUSCULOSKELETAL: Normal joints with no swelling. Muscle tone is normal. LAB REVIEW: 11/01/16 04:30 11/01/16 04:30 11/01/16 04:30: WBC 6.19, RBC 3.67 L, Hgb 10.4 L, Hct 30.2 L, MCV 82.3, MCH 28.3 , MCHC 34.4, RDW Coeff of Bull 14.1, Plt Count 275, Immature Gran % (Auto) 0.5, Neut % (Auto) 73.6, Lymph % (Auto) 20.4, [place] % (Auto) 5.5, Eos % (Auto) 0.0, Baso % (Auto) 0.0, Immature Gran # (Auto) 0.0, Neut # 4.6, Lymph # 1.3, [place]le # 0.3 L, Eos # 0.0, Baso # 0.0, Sodium 131 L, Potassium 4.1, Chloride 98, Carbon Dioxide 26, Anion Gap 11.1, BUN 19 H, Creatinine 0.69, Estimated GFR (MDRD) 113.00, BUN/Creatinine Ratio 27.53, Glucose 115, Calcium 8.6, Total Bilirubin 0.26, AST 18, ALT 20, Alkaline Phosphatase 91, Total Protein 5.0 L, Albumin 2.7 L, Globulin 2.3, Albumin/Globulin Ratio 1.17 ASSESSMENT: 1. Acute bronchitis improving 2. Severe chronic lung disease with cor pulmonale 3. Ahumada with benign prostatic hypertrophy. He has had the Ahumada since July 2016. Dr. Archuleta was unable to do cystoscopy due to the patient's condition. He underwent workup for CHF by Dr. Seay at [facility] when admitted with back pain for thoracic compression fracture. The patient was seen by Dr. Newell, Neurology, who thinks the cerebral compression fracture is supported by vertebral above and below. 4. Urine culture positive for yeast. 5. Bladder spasms. 6. Generalized weakness. PLAN: 1. Diet, soft, easy to chew foods with nectar thick liquids. 2. Continue OT treatment and evaluation. 3. Diflucan 150 mg one today and again on . Plan and coordination of the patient's care discussed in the presence of Party Host and nurse. CONDITION: Stable SCRIBED BY: CHARLETTE PAINTING Geographic Information Systems Director scribed while in presence of service performed by Dr. KATLIN CORTES/HANNAH LEIVA APRN on 11/01/16 ([id number])
[2016-11-01] MEDS: ROCEPHIN 1 GM in SODIUM CHLORIDE 50 ML IV SCH (20:09)
[2016-11-02] MEDS: SODIUM CHLORIDE 1,000 ML IV SCH (01:32)
[2016-11-02 04:30] LABS: HEMATOCRIT 29.8 % (42.0-52.0); HEMOGLOBIN 10.3 g/dl (14.0-18.0); IMMATURE GRANULOCYTE % (AUTO) 0.4 % (0.0-5.0); LYMPHOCYTES # (AUTO) 1.2 K/uL (0.60-3.4); LYMPHOCYTES % (AUTO) 24.7 (10.0-50.0); MEAN CORPUSCULAR HEMOGLOBIN 28.6 pg (27.0-31.0); MEAN CORPUSCULAR HGB CONC 34.6 (31.8-35.4); MEAN CORPUSCULAR VOLUME 82.8 fl (80.0-94.0); MONOCYTES # (AUTO) 0.3 K/uL (0.4-2.0); NEUTROPHILS # (AUTO) 3.5 K/ul (2.0-6.9); NEUTROPHILS % (AUTO) 69.9; PLATELET COUNT 260 10^3/uL (140-440); WHITE BLOOD COUNT 4.97 K/ul (4.2-10.2)
[2016-11-02 04:59] LABS: ALBUMIN 2.7 g/dL (3.4-5.0); ALBUMIN/GLOBULIN RATIO 1.35; ANION GAP 11.8; BILIRUBIN,TOTAL 0.29 mg/dL (0.00-1.20); BUN/CREATININE RATIO 27.94; CALCIUM 8.4 mg/dL (8.2-10.2); CREATININE 0.68 mg/dL (0.60-1.10); POTASSIUM 3.8 mmol/L (3.5-5.1); TOTAL PROTEIN 4.7 g/dL (5.8-8.1)
[2016-11-02] MEDS: XOPENEX 1.25 MG NEB SCH ×4 (05:00→23:07)
[2016-11-02] MEDS: PERFOROMIST NEB SCH ×2 (05:14→18:28)
[2016-11-02] MEDS: SOLU-MEDROL 125 MG IVP SCH (05:39)
[2016-11-02] MEDS: LASIX TAB PO SCH (06:00)
[2016-11-02] MEDS: PYRIDIUM PO PRN (06:01)
[2016-11-02] MEDS: SPIRIVA IH SCH (08:55)
[2016-11-02] MEDS: NON-FORMULARY MEDICATION (Cyanocobalamin (Vitamin B-12) [Vitamin B12] 5,000 MCG) PO SCH (08:56)
[2016-11-02] MEDS: FLOMAX PO SCH (08:56)
[2016-11-02] MEDS: ASPIRIN EC PO SCH (08:56)
[2016-11-02] MEDS: PLAVIX PO SCH (08:56)
[2016-11-02] MEDS: COREG PO SCH ×2 (08:57→17:21)
[2016-11-02] MEDS: PREDNISONE PO SCH ×2 (12:15→17:21)
--- NOTE | 2016-11-02 13:56 | PCM.PROG ---
Attending Provider: ATTENDING PROVIDER: Dr. KATLIN CORTES DATE OF SERVICE: 11/02/16 SUBJECTIVE: This 71 year old WHITE/ M was hospitalized 10/29/16 with COPD exacerbation. The patient's condition is improved. He says he is feeling better , coughing less. The patient is still weak and short of breath on minimal exertion. The patient feels much better. REVIEW OF SYSTEMS: CONSTITUTIONAL: Weakness. No night sweats. No fatigue, malaise, lethargy. No fever or chills. HEENT: Eyes: No visual changes. No eye pain. No eye discharge. ENT: No runny nose. No epistaxis. No sinus pain. No odynophagia. No congestion. RESPIRATORY: Less cough, no congestion. No hemoptysis. CARDIOVASCULAR: No angina symptoms. No CHF symptoms. No atypical chest pain for CAD. No palpitations. Shortness of breath on minimal exertion. GASTROINTESTINAL: No abdominal pain. No nausea or vomiting. No diarrhea or constipation. No hematemesis. No hematochezia. GENITOURINARY: No urgency. No frequency. No dysuria. No hematuria. No obstructive symptoms. No discharge. No pain. No significant abnormal bleeding. MUSCULOSKELETAL: No musculoskeletal pain; no joint swelling. NEUROLOGICAL: Awake, alert, oriented to time, place and person. No headache. No neck pain. No syncope. No seizures. No dizziness. PSYCHIATRIC: Not anxious. No depression. No suicidal thoughts. No homicidal thoughts. SKIN: No rash. No lesions. No wounds. ENDOCRINE: No unexplained weight loss. No weight gain. HEMATOLOGIC/LYMPHATIC: No anemia. No purpura. No petechiae. No prolonged or excessive bleeding. No palpable lymph nodes. PHYSICAL EXAMINATION: GENERAL: The patient is awake, alert and oriented, in bed in no distress. VITAL SIGNS: Temperature 97.7 F, Pulse 74, Respiratory Rate 21, BP 126/67, Pulse Ox 92% HEENT: Head normocephalic, atraumatic. Eyes: Extraocular muscles are intact. Pupils are equal, round and reactive to light and accommodation. Ears: No lesions. Nose appeared normal. Throat: No exudate or erythema. NECK: Supple. No JVD, no carotid bruit. No lymphadenopathy or thyromegaly. LUNGS: Decreased breath sounds. Clear to auscultation. Percussion note normal. Chest symmetrical. HEART: S1, S2, no S3. No murmurs. No cyanosis or clubbing. No ascites. Pulses: Dorsalis pedis and posterior tibial pulses +1 to +2 both sides. ABDOMEN: Soft. Non-tender. Bowel sounds active. No CVA tenderness. No mass felt. EXTREMITIES: No edema. Full range of motion of all extremities, equal. NEUROLOGIC: No focal deficit. Cranial nerves II through XII are grossly intact. No headache, no double vision or headache. SKIN: Not dry. Intact. Turgor-normal. LYMPHATIC: No palpable lymph nodes/no lymphedema. MUSCULOSKELETAL: Normal joints with no swelling. Muscle tone is normal. LAB REVIEW: 11/02/16 04:29 11/02/16 04:29 11/02/16 04:29: WBC 4.97, RBC 3.60 L, Hgb 10.3 L, Hct 29.8 L, MCV 82.8, MCH 28.6 , MCHC 34.6, RDW Coeff of Bull 13.9, Plt Count 260, Immature Gran % (Auto) 0.4, Neut % (Auto) 69.9, Lymph % (Auto) 24.7, [place] % (Auto) 5.0, Eos % (Auto) 0.0, Baso % (Auto) 0.0, Immature Gran # (Auto) 0.0, Neut # 3.5, Lymph # 1.2, [place] # 0.3 L, Eos # 0.0, Baso # 0.0, Sodium 131 L, Potassium 3.8, Chloride 96 L, Carbon Dioxide 27, Anion Gap 11.8, BUN 19 H, Creatinine 0.68, Estimated GFR ( MDRD) 115.00, BUN/Creatinine Ratio 27.94, Glucose 107, Calcium 8.4, Total Bilirubin 0.29, AST 16, ALT 20, Alkaline Phosphatase 83, Total Protein 4.7 L, Albumin 2.7 L, Globulin 2.0, Albumin/Globulin Ratio 1.35 ASSESSMENT: 1. Acute bronchitis and sputum grew Serratia sensitive to Rocephin. 2. Severe chronic lung disease 3. Cor Pulmonale 4. Hyponatremia 5. BPH with Ahumada (Dr. Archuleta) 6. The patient has extreme weakness and has lost a lot of muscle, transfers with help but unable to walk. Physical Therapy is working with him showing him exercises. PLAN: 1. Continue Rocephin one more. 2. Discontinue IV fluids. 3. Discontinue Solu-Medrol. 4. Prednisone 10 mg b.i.d. Plan and coordination of the patient's care discussed in the presence of Project/Production Manager Imaging and nurse. CONDITION: Stable SCRIBED BY: CHARLETTE PAINTING Dowel Setting Machine Operator scribed while in presence of service performed by Dr. KATLIN CORTES on 11/02/16 ([id number])
[2016-11-02] MEDS: ROCEPHIN 1 GM in SODIUM CHLORIDE 50 ML IV SCH (21:05)
[2016-11-03] MEDS: PYRIDIUM PO PRN ×2 (02:36→18:38)
[2016-11-03] MEDS: XOPENEX 1.25 MG NEB SCH ×4 (05:20→23:12)
[2016-11-03] MEDS: PERFOROMIST NEB SCH ×2 (05:29→17:20)
[2016-11-03 05:39] LABS: HEMATOCRIT 32.1 % (42.0-52.0); HEMOGLOBIN 11.2 g/dl (14.0-18.0); IMMATURE GRANULOCYTE % (AUTO) 0.9 % (0.0-5.0); LYMPHOCYTES # (AUTO) 1.6 K/uL (0.60-3.4); LYMPHOCYTES % (AUTO) 24.7 (10.0-50.0); MEAN CORPUSCULAR HEMOGLOBIN 28.4 pg (27.0-31.0); MEAN CORPUSCULAR HGB CONC 34.9 (31.8-35.4); MEAN CORPUSCULAR VOLUME 81.3 fl (80.0-94.0); MONOCYTES # (AUTO) 0.6 K/uL (0.4-2.0); MONOCYTES % (AUTO) 8.8 (0-10); NEUTROPHILS # (AUTO) 4.3 K/ul (2.0-6.9); NEUTROPHILS % (AUTO) 65.6; PLATELET COUNT 278 10^3/uL (140-440); RED BLOOD COUNT 3.95 10^6/ul (4.70-6.10); WHITE BLOOD COUNT 6.51 K/ul (4.2-10.2)
[2016-11-03] MEDS: LASIX TAB PO SCH (05:52)
[2016-11-03 05:59] LABS: ALBUMIN 2.8 g/dL (3.4-5.0); ALBUMIN/GLOBULIN RATIO 1.33; ANION GAP 12.4; BILIRUBIN,TOTAL 0.36 mg/dL (0.00-1.20); BUN/CREATININE RATIO 30.88; CALCIUM 8.6 mg/dL (8.2-10.2); CREATININE 0.68 mg/dL (0.60-1.10); POTASSIUM 3.4 mmol/L (3.5-5.1); TOTAL PROTEIN 4.9 g/dL (5.8-8.1)
[2016-11-03] MEDS: NON-FORMULARY MEDICATION (Cyanocobalamin (Vitamin B-12) [Vitamin B12] 5,000 MCG) PO SCH (08:04)
[2016-11-03] MEDS: PLAVIX PO SCH (08:29)
[2016-11-03] MEDS: ASPIRIN EC PO SCH (08:29)
[2016-11-03] MEDS: FLOMAX PO SCH (08:29)
[2016-11-03] MEDS: PREDNISONE PO SCH ×2 (08:29→17:02)
[2016-11-03] MEDS: COREG PO SCH ×2 (08:29→17:02)
[2016-11-03] MEDS: SPIRIVA IH SCH (08:29)
[2016-11-03] MEDS ORDERED: DIFLUCAN PO ONE (09:00)
[2016-11-03] MEDS: CARDIZEM PO SCH ×2 (09:00→21:08)
[2016-11-03] MEDS: ALDACTONE PO SCH (09:01)
[2016-11-03] MEDS: ZESTRIL PO SCH (09:01)
--- NOTE | 2016-11-03 10:25 | RS.DYSPHDC ---
Subjective Date of Discharge: 11/03/16 (d/c hospital 11/04/16) Date of Evaluation: 10/31/16 Duration of Therapy: 1 week Number of sessions: 3 Functional Reporting G Codes: Current CI, Goal CI, Discharge CI Severity Impairment Rationale: Pt with minimal risk for aspiration. Weak vocal quality and dentition quality. Short Term Goals Problem: Swallow response Goal #1: 10/10 trials of thin liquids without overt s/s of aspiration Goal to be met by: 11/07/16 Progress Towards Goal: Met Comments:: No overt s/s of aspiration on 10/10 trials of thin liquids via open cup. Problem: Swallow muscles Goal #2: Pt to complete laryngeal elevation exercises with mild difficulty. Goal to be met by: 11/07/16 Progress Towards Goal: Met Problem: Laryngitis Goal #3: Pt to complete laryngeal/vocal exercises with mild difficulty Goal to be met by: 11/07/16 Progress Towards Goal: Partially Met Comments:: Pt vocalized with soft vocal quality this date. Problem: Swallowing safety Goal #4: Pt to verbalize and demonstrate safe swallowing with PO intake. Goal to be met by: 11/07/16 Progress Towards Goal: Met Comments:: PLYWOOD FACTORY WORKER reviewed all safety strategies and pt demonstrated/verbalized Ind. Long-Term Goals Problem: Swallowing Goal #1: Pt to consume thin liquids without overt s/s of aspiration Goal to be met by: 11/11/16 Progress towards goal: Met Comments:: No overt s/s with and without PO intake. Problem: Vocal quality Goal #2: Pt to improve vocal quality for successful communication exchanges. Goal to be met by: 11/07/16 Progress towards goal: Partially Met Comments:: Pt still has soft vocal quality. Vocal exercises provided for ind practice Reason for Discharge Comments: Pt reported increased fatigue this date, which PLYWOOD FACTORY WORKER attributes to decrease of steroids. Vocal quality was weaker this date, but pt could vocalize. Vocal hygiene education was provided and printed documents were left for pt to use in the home environment. PLYWOOD FACTORY WORKER reviewed all information on printed documents including vocal exercises, laryngeal exercises, and safe swallow techniques. Pt reported no changes with swallow function and consumption of thin liquids. RN reported no changes in lung sounds and that pt had general improvements and was ready for discharge tomorrow this date. Reason for Discharge/Current Status:: Pt is planned to discharge to home tomorrow this date with . Pt is currently on thin liquids with regular diet texture without overt s/s of aspiration. Pt has increased education and training with safe swallowing and monitoring O2 levels with meals. Pt's voice is still weak but improving everyday.
--- NOTE | 2016-11-03 10:53 | PCM.PROG ---
Attending Provider: ATTENDING PROVIDER: Dr. KATLIN CORTES DATE OF SERVICE: 11/03/16 SUBJECTIVE: This 71 year old WHITE/ M was hospitalized 10/29/16. The patient is lying in bed feeling some stronger. The patient walked yesterday. Blood pressure has been elevated. Will restart Cardizem, Lisinopril and Aldactone. The patient is encouraged to be up and about today. REVIEW OF SYSTEMS: CONSTITUTIONAL: Fatigue. No night sweats. No fever or chills. HEENT: Eyes: No visual changes. No eye pain. No eye discharge. ENT: No runny nose. No epistaxis. No sinus pain. No odynophagia. No congestion. RESPIRATORY: No cough, no congestion. No hemoptysis. CARDIOVASCULAR: No angina symptoms. No CHF symptoms. No atypical chest pain for CAD. No palpitations. Shortness of breath is improving. GASTROINTESTINAL: No abdominal pain. No nausea or vomiting. No diarrhea or constipation. No hematemesis. No hematochezia. GENITOURINARY: No urgency. No frequency. No dysuria. No hematuria. No obstructive symptoms. No discharge. No pain. No significant abnormal bleeding. MUSCULOSKELETAL: No musculoskeletal pain; no joint swelling. NEUROLOGICAL: Awake, alert, oriented to time, place and person. No headache. No neck pain. No syncope. No seizures. No dizziness. PSYCHIATRIC: Not anxious. No depression. No suicidal thoughts. No homicidal thoughts. SKIN: No rash. No lesions. No wounds. ENDOCRINE: No unexplained weight loss. No weight gain. HEMATOLOGIC/LYMPHATIC: No anemia. No purpura. No petechiae. No prolonged or excessive bleeding. No palpable lymph nodes. PHYSICAL EXAMINATION: GENERAL: The patient is awake, alert and oriented, lying/sitting in bed in no distress. VITAL SIGNS: Temperature 97 F, Pulse 67, Respiratory Rate 16, BP 147/83, Pulse Ox 99% HEENT: Head normocephalic, atraumatic. Eyes: Extraocular muscles are intact. Pupils are equal, round and reactive to light and accommodation. Ears: No lesions. Nose appeared normal. Throat: No exudate or erythema. NECK: Supple. No JVD, no carotid bruit. No lymphadenopathy or thyromegaly. LUNGS: Breath sounds decreased bilaterally. Clear to auscultation. Percussion note normal. Chest symmetrical. HEART: S1, S2. No murmur. No cyanosis or clubbing. No ascites. Pulses: Dorsalis pedis and posterior tibial pulses +1 to +2 both sides. ABDOMEN: Soft. Non-tender. Bowel sounds active. No CVA tenderness. No mass felt. EXTREMITIES: No edema. Full range of motion of all extremities, equal. NEUROLOGIC: No focal deficit. Cranial nerves II through XII are grossly intact. No headache, no double vision or headache. SKIN: Not dry. Intact. Turgor-normal. LYMPHATIC: No palpable lymph nodes/no lymphedema. MUSCULOSKELETAL: Normal joints with no swelling. Muscle tone is normal. LAB REVIEW: 11/03/16 05:15 11/03/16 05:15 11/03/16 05:15: WBC 6.51, RBC 3.95 L, Hgb 11.2 L, Hct 32.1 L, MCV 81.3, MCH 28.4 , MCHC 34.9, RDW Coeff of Bull 13.6, Plt Count 278, Immature Gran % (Auto) 0.9, Neut % (Auto) 65.6, Lymph % (Auto) 24.7, [place] % (Auto) 8.8, Eos % (Auto) 0.0, Baso % (Auto) 0.0, Immature Gran # (Auto) 0.1, Neut # 4.3, Lymph # 1.6, [place] # 0.6, Eos # 0.0, Baso # 0.0, Sodium 132 L, Potassium 3.4 L, Chloride 95 L, Carbon Dioxide 28, Anion Gap 12.4, BUN 21 H, Creatinine 0.68, Estimated GFR ( MDRD) 115.00, BUN/Creatinine Ratio 30.88, Glucose 99, Calcium 8.6, Total Bilirubin 0.36, AST 17, ALT 20, Alkaline Phosphatase 80, Total Protein 4.9 L, Albumin 2.8 L, Globulin 2.1, Albumin/Globulin Ratio 1.33 ASSESSMENT: Please see below. 1. Acute bronchitis and sputum grew Serratia sensitive to Rocephin. 2. Severe chronic lung disease 3. Cor Pulmonale 4. Hyponatremia 5. BPH with Ahumada (Dr. Archuleta) 6. The patient has extreme weakness and has lost a lot of muscle, transfers with help but unable to walk. Physical Therapy is working with him showing him exercises. PLAN: 1. Up and about as tolerated today. 2. Will start Cardizem 30 mg b.i.d. 3. Will start Lisinopril 10 mg daily. 4. Restart Aldactone. 5. Last dose of IV Rocephin tonight. 6. Anticipate discharge tomorrow. 7. Continue PT/OT as tolerated. Plan and coordination of the patient's care discussed in the presence of Retail Assistant Store Manager and nurse. CONDITION: Stable. SCRIBED BY: Christiana GUILLEN scribed while in presence of service performed by Dr. KATLIN CORTES/HANNAH LEIVA APRN on 11/03/16 ([id number])
[2016-11-03] MEDS: ROCEPHIN 1 GM in SODIUM CHLORIDE 50 ML IV SCH (21:08)
[2016-11-04] MEDS: XOPENEX 1.25 MG NEB SCH ×2 (05:10→11:13)
[2016-11-04] MEDS: PERFOROMIST NEB SCH (05:20)
[2016-11-04] MEDS: LASIX TAB PO SCH (05:39)
[2016-11-04 05:44] LABS: BASOPHILS % (AUTO) 0.1 % (0.0-3.0); EOSINOPHILS % (AUTO) 0.1 % (0.0-7.0); HEMATOCRIT 33.8 % (42.0-52.0); HEMOGLOBIN 11.7 g/dl (14.0-18.0); IMMATURE GRANULOCYTE % (AUTO) 1.1 % (0.0-5.0); LYMPHOCYTES # (AUTO) 2.5 K/uL (0.60-3.4); LYMPHOCYTES % (AUTO) 25.3 (10.0-50.0); MEAN CORPUSCULAR HEMOGLOBIN 28.4 pg (27.0-31.0); MEAN CORPUSCULAR HGB CONC 34.6 (31.8-35.4); MONOCYTES % (AUTO) 10.3 (0-10); NEUTROPHILS # (AUTO) 6.3 K/ul (2.0-6.9); NEUTROPHILS % (AUTO) 63.1; PLATELET COUNT 268 10^3/uL (140-440); RED BLOOD COUNT 4.12 10^6/ul (4.70-6.10); WHITE BLOOD COUNT 9.91 K/ul (4.2-10.2)
[2016-11-04 06:07] LABS: ALBUMIN 2.8 g/dL (3.4-5.0); ALBUMIN/GLOBULIN RATIO 1.27; ANION GAP 11.3; BILIRUBIN,TOTAL 0.36 mg/dL (0.00-1.20); BUN/CREATININE RATIO 29.41; CALCIUM 8.4 mg/dL (8.2-10.2); CREATININE 0.68 mg/dL (0.60-1.10); POTASSIUM 3.3 mmol/L (3.5-5.1)
[2016-11-04] MEDS: NON-FORMULARY MEDICATION (Cyanocobalamin (Vitamin B-12) [Vitamin B12] 5,000 MCG) PO SCH (08:08)
[2016-11-04] MEDS: FLOMAX PO SCH (08:51)
[2016-11-04] MEDS: ALDACTONE PO SCH (08:51)
[2016-11-04] MEDS: COREG PO SCH (08:51)
[2016-11-04] MEDS: ASPIRIN EC PO SCH (08:51)
[2016-11-04] MEDS: CARDIZEM PO SCH (08:51)
[2016-11-04] MEDS: PLAVIX PO SCH (08:52)
[2016-11-04] MEDS: ZESTRIL PO SCH (08:52)
[2016-11-04] MEDS: PREDNISONE PO SCH (08:52)
[2016-11-04] MEDS: SPIRIVA IH SCH (08:57)
[2016-11-04 10:38] VITALS: BP 126/58; TEMP 98.1
[2016-11-04] MEDS ORDERED: K-DUR PO STA (10:42)
--- NOTE | 2016-11-04 11:54 | PCM.PROG ---
Attending Provider: ATTENDING PROVIDER: Dr. KATLIN CORTES DATE OF SERVICE: 11/04/16 SUBJECTIVE: This 71 year old WHITE/ M was hospitalized 10/29/16. The patient's shortness of breath is better. The patient has been up walking. He has a good appetite and is eating better. His cough has improved. REVIEW OF SYSTEMS: CONSTITUTIONAL: Fatigue. Weakness. No night sweats. No fever or chills. HEENT: Eyes: No visual changes. No eye pain. No eye discharge. ENT: No runny nose. No epistaxis. No sinus pain. No odynophagia. No congestion. RESPIRATORY: Less cough, no congestion. No hemoptysis. CARDIOVASCULAR: No angina symptoms. No CHF symptoms. No atypical chest pain for CAD. No palpitations. Mild shortness of breath. GASTROINTESTINAL: No abdominal pain. No nausea or vomiting. No diarrhea or constipation. No hematemesis. No hematochezia. GENITOURINARY: No urgency. No frequency. No dysuria. No hematuria. No obstructive symptoms. No discharge. No pain. No significant abnormal bleeding. MUSCULOSKELETAL: No musculoskeletal pain; no joint swelling. NEUROLOGICAL: Awake, alert, oriented to time, place and person. No headache. No neck pain. No syncope. No seizures. No dizziness. PSYCHIATRIC: Not anxious. No depression. No suicidal thoughts. No homicidal thoughts. SKIN: No rash. No lesions. No wounds. ENDOCRINE: No unexplained weight loss. No weight gain. HEMATOLOGIC/LYMPHATIC: No anemia. No purpura. No petechiae. No prolonged or excessive bleeding. No palpable lymph nodes. PHYSICAL EXAMINATION: GENERAL: The patient is awake, alert and oriented, sitting in chair in no distress. VITAL SIGNS: Temperature 98.0 F, Pulse 71, Respiratory Rate 20, BP 146/72, Pulse Ox 97% HEENT: Head normocephalic, atraumatic. Eyes: Extraocular muscles are intact. Pupils are equal, round and reactive to light and accommodation. Ears: No lesions. Nose appeared normal. Throat: No exudate or erythema. NECK: Supple. No JVD, no carotid bruit. No lymphadenopathy or thyromegaly. LUNGS: Decreased breath sounds bilaterally. Clear to auscultation. Percussion note normal. Chest symmetrical. HEART: S1, S2, no S3. No murmurs. No cyanosis or clubbing. No ascites. Pulses: Dorsalis pedis and posterior tibial pulses +1 to +2 both sides. ABDOMEN: Soft. Non-tender. Bowel sounds active. No CVA tenderness. No mass felt. EXTREMITIES: No edema. Full range of motion of all extremities, equal. NEUROLOGIC: No focal deficit. Cranial nerves II through XII are grossly intact. No headache, no double vision or headache. SKIN: Not dry. Intact. Turgor-normal. LYMPHATIC: No palpable lymph nodes/no lymphedema. MUSCULOSKELETAL: Normal joints with no swelling. Muscle tone is normal. LAB REVIEW: 11/04/16 05:20 11/04/16 05:20 11/04/16 05:20: WBC 9.91, RBC 4.12 L, Hgb 11.7 L, Hct 33.8 L, MCV 82.0, MCH 28.4 , MCHC 34.6, RDW Coeff of Bull 14.0, Plt Count 268, Immature Gran % (Auto) 1.1, Neut % (Auto) 63.1, Lymph % (Auto) 25.3, [place] % (Auto) 10.3 H, Eos % (Auto) 0.1 , Baso % (Auto) 0.1, Immature Gran # (Auto) 0.1, Neut # 6.3, Lymph # 2.5, [place] # 1.0, Eos # 0.0, Baso # 0.0, Sodium 133 L, Potassium 3.3 L, Chloride 95 L, Carbon Dioxide 30, Anion Gap 11.3, BUN 20 H, Creatinine 0.68, Estimated GFR ( MDRD) 115.00, BUN/Creatinine Ratio 29.41, Glucose 84, Calcium 8.4, Total Bilirubin 0.36, AST 16, ALT 20, Alkaline Phosphatase 87, Total Protein 5.0 L, Albumin 2.8 L, Globulin 2.2, Albumin/Globulin Ratio 1.27 ASSESSMENT: 1. Acute bronchitis and sputum grew Serratia sensitive to Rocephin. 2. Severe chronic lung disease. 3. Cor Pulmonale. 4. Hyponatremia. 5. BPH with Ahumada (Dr. Archuleta). 6. The patient has extreme weakness and has lost a lot of muscle, transfers with help but unable to walk. Physical Therapy is working with him showing him exercises. PLAN: 1. Potassium 10 mEq for 10 days. 2. Anticipate discharge today. 3. Continue Prednisone 10 mg for five more days b.i.d. 4. Keflex for 500 t.i.d. times 7 days. Plan and coordination of the patient's care discussed in the presence of Soaker Meat and nurse. CONDITION: Stable SCRIBED BY: CHARLETTE PAINTING Receiving Room Clerk scribed while in presence of service performed by Dr. KATLIN CORTES/HANNAH LEIVA APRN on 11/04/16 ([id number])
--- NOTE | 2016-11-04 11:59 | CM.DICTOOL ---
ADMISSION: 10/29/16 21:15 DISCHARGE: November 04, 2016 DATE OF SERVICE: 11/04/16 FINAL DIAGNOSIS Acute Respiratory Failure Severe Chronic Lung Disease Cor Pulmonale Hyponatremia Anemia BPH with roger catheter (Dr. Archuleta) Weight Loss secondary to multiple medical issues Generalized Osteoarthritis Compression Fracture T9, T11 and L1 LAST VITALS Temp Pulse Resp BP Pulse Ox 98.1 F 88 18 126/58 L 97 11/04/16 10:00 11/04/16 10:00 11/04/16 10:00 11/04/16 10:00 11/04/16 10:00 ACTIVE HOME MEDICATIONS Aspirin (Aspirin Ec) 325 mg PO DAILYWM [facility] Last Admin: 11/04/16 08:51 Dose: 325 mg Clopidogrel Bisulfate (Plavix) 75 mg PO DAILY [facility] Last Admin: 11/04/16 08:52 Dose: 75 mg Arformoterol Tartrate (Brovana) 1 vial IH BID Last Admin: Furosemide (Lasix Tab) 40 mg PO QDAC [facility] Last Admin: 11/04/16 05:39 Dose: 40 mg Lisinopril (Zestril) 10 mg PO DAILY [facility] Last Admin: 11/04/16 08:52 Dose: 10 mg Non-Formulary Medication (Cyanocobalamin (Vitamin B-12) [Vitamin B12]) 5,000 mcg PO DAILY [facility] Last Admin: 11/04/16 08:08 Dose: Not Given Phenazopyridine HCl (Pyridium) 100 mg PO TID PRN PRN Reason: URINARY PAIN Last Admin: 11/03/16 18:38 Dose: 100 mg Polyethylene Glycol (Miralax) 17 gm PO DAILY PRN PRN Reason: Constipation Last Admin: 10/31/16 20:06 Dose: 17 gm Spironolactone (Aldactone) 25 mg PO DAILY [facility] Last Admin: 11/04/16 08:51 Dose: 25 mg Tamsulosin HCl (Flomax) 0.4 mg PO DAILY [facility] Last Admin: 11/04/16 08:51 Dose: 0.4 mg Tiotropium [place] (Spiriva) 1 cap IH DAILY [facility] Last Admin: 11/04/16 08:57 Dose: 1 cap Albuterol Sulfate (ProAir HFA) 2 puff INH q 6H prn Last Admin: Vitamin C 500 mg daily Last Admin: Vitamin E 400 IU daily Last Admin: Potassium Chloride 10 meq Daily Last Admin: Nitroglycerin 0.4 mg SL PRN chest pain Last Admin: ALLERGIES azithromycin Adverse Reaction (Verified 10/16/16 19:12) NEW PRESCRIPTIONS: Keflex 500 mg tid for 7 days Prednisone 10 mg BID for 5 days Cardizem 30 mg BID SMOKING: Not Applicable DISEASE SPECIFIC EDUCATION: COPD Chronic Lung Disease Steroids Prescriptions Activity Nutrition Energy Conservation LAB REVIEW: 11/04/16 05:20 11/04/16 05:20 11/04/16 05:20: WBC 9.91, RBC 4.12 L, Hgb 11.7 L, Hct 33.8 L, MCV 82.0, MCH 28.4 , MCHC 34.6, RDW Coeff of Bull 14.0, Plt Count 268, Immature Gran % (Auto) 1.1, Neut % (Auto) 63.1, Lymph % (Auto) 25.3, [place] % (Auto) 10.3 H, Eos % (Auto) 0.1 , Baso % (Auto) 0.1, Immature Gran # (Auto) 0.1, Neut # 6.3, Lymph # 2.5, [place] # 1.0, Eos # 0.0, Baso # 0.0, Sodium 133 L, Potassium 3.3 L, Chloride 95 L, Carbon Dioxide 30, Anion Gap 11.3, BUN 20 H, Creatinine 0.68, Estimated GFR ( MDRD) 115.00, BUN/Creatinine Ratio 29.41, Glucose 84, Calcium 8.4, Total Bilirubin 0.36, AST 16, ALT 20, Alkaline Phosphatase 87, Total Protein 5.0 L, Albumin 2.8 L, Globulin 2.2, Albumin/Globulin Ratio 1.27 PLAN: Discharge Home Activity: Gradually resume as tolerated. Rest when tired. Use Rollator Elevate legs when up in chair and when in bed Change positions frequently when lying in bed or sitting in chair Medication changes: Cardizem has been changed to 30 mg twice a day Potassium chloride should be discontinued after 10 days Decrease Coreg (carvedilol) to 1/2 tablet 6.25 mg twice a day with meal An appointment has been arranged with Dr. Billings on November 09 at 2:30 pm Continue home nebulizer treatments Continue use of oxygen at 2 liters per nasal cannula Catheter care at least daily with soap and water Mr. Christian is alert and oriented x 3. He is oxygen dependent and uses oxygen at 2 liters per nasal cannula that is supplied by [facility] in [place], [place]. He is independent with feeding, shaving and some personal care. Mr. Christian requires assistance of 1 staff member with transfers. He is ambulatory short distances of 20-30 feet with use of a rollator. Meal intakes have improved at 10-90%, but he requires frequent rest periods while eating. Mr. Christian has a continuous roger catheter due to BPH and is monitored by Dr. Archuleta, urologist in [place], [place]. Mr. Christian has numerous bruises noted to the upper extremities. A stage II pressure ulcer is noted to the right buttock. The area is clean and without drainage. He is encouraged to change positions frequently when sitting and when lying in the bed. Errol Billings MD Erika Rey APRN
--- NOTE | 2016-11-04 12:04 | PN ---
DATE OF SERVICE: 11/03/16 SUBJECTIVE: The patient was seen along with nurse practitioner. Agreed with assessment. REVIEW OF SYSTEMS: CONSTITUTIONAL: No night sweats. No fatigue, malaise, lethargy. No fever or chills. HEENT: Eyes: No visual changes. No eye pain. No eye discharge. ENT: No runny nose. No epistaxis. No sinus pain. No sore throat. No odynophagia. No congestion. RESPIRATORY: No cough, no congestion. No hemoptysis. CARDIOVASCULAR: No angina symptoms. No CHF symptoms. No atypical chest pain for CAD. No palpitations. No shortness of breath. GASTROINTESTINAL: No abdominal pain. No nausea or vomiting. No diarrhea or constipation. No hematemesis. No hematochezia. Feeling better and appetite has improved. GENITOURINARY: No urgency. No frequency. No dysuria. No hematuria. No obstructive symptoms. No discharge. No pain. No significant abnormal bleeding. MUSCULOSKELETAL: No musculoskeletal pain; no joint swelling. NEUROLOGICAL: No headache. No neck pain. No syncope. No seizures. No dizziness. PSYCHIATRIC: Not anxious. No depression. No suicidal thoughts. No homicidal thoughts. SKIN: No rash. No lesions. No wounds. ENDOCRINE: No unexplained weight loss. No weight gain. HEMATOLOGIC/LYMPHATIC: No anemia. No purpura. No petechiae. No prolonged or excessive bleeding. No palpable lymph nodes. PHYSICAL EXAMINATION: GENERAL: The patient is oriented to time, place and person. VITAL SIGNS: Temperature 97, pulse 67, respiratory rate 16, blood pressure 147/ 83 and pulse ox 99%. HEENT: Head normocephalic, atraumatic. Eyes: Extraocular muscles are intact. Pupils are equal, round and reactive to light and accommodation. Ears: No lesions. Nose appeared normal. Throat: No exudate or erythema. NECK: Supple. No JVD, no carotid bruit. No lymphadenopathy or thyromegaly. LUNGS: Decreased breath sounds but clear to auscultation. Percussion note normal. Chest symmetrical. HEART: S1, S2, no S3. No murmurs. No cyanosis or clubbing. No ascites. Pulses: Dorsalis pedis and posterior tibial pulses +1 to +2 both sides. ABDOMEN: Soft. Nontender. Bowel sounds active. No CVA tenderness. No mass felt. EXTREMITIES: No edema. Full range of motion of all extremities, equal. NEUROLOGIC: No focal deficit. Cranial nerves II through XII are grossly intact. No headache, no double vision or headache. SKIN: Not dry. Intact. Turgor - normal. LYMPHATIC: No palpable lymph nodes/no lymphedema. MUSCULOSKELETAL: Normal joints with no swelling. Muscle tone is normal. ASSESSMENT: 1. COPD exacerbation seems to have subsided 2. Burning with Ahumada Catheter is under control PLAN: 1. Lab tests are stable 2. The patient is on PO steroids 3. Restart Cardizem 30mg twice a day, Lisinopril 10mg PO daily and Aldactone and that should correct his hypokalemia. 4. The patient walked yesterday and advised to walk today. CONDITION: Stable TIME SPENT: More than 30 minutes. Plan and coordination of the patient's care discussed in the presence of nurse. SHEA
[2016-11-04 13:13] LABS: AEROBIC + ANAEROB SUSC Final report (.); BACTERIA IDENTIFICATION Final report (.)
[2016-11-04 15:30] LABS: AEROBIC + ANAEROB SUSC RES 1 Gram negative rods (.); BACT ID RESULT 1 Gram negative rods (.)
--- NOTE | 2016-11-11 13:02 | DS ---
DATE OF SERVICE: 11/04/16 FINAL DIAGNOSIS: 1. ACUTE RESPIRATORY FAILURE 2. SEVERE CHRONIC LUNG DISEASE 3. COR PULMONALE 4. HYPONATREMIA 5. ANEMIA 6. BPH WITH TOLLIVER CATHETER (DR. GUADARRAMA) 7. WEIGHT LOSS SECONDARY TO MULTIPLE MEDICAL ISSUES 8. GENERALIZED OSTEOARTHRITIS 9. COMPRESSION FRACTURE T9, T11 AND L1 V/S AT DISCHARGE Temperature 98.1, pulse 88, respiratory rate 18, BP 126/58, pulse ox 97% DISCHARGE INSTRUCTIONS: 1. Followup appointment with Dr. Billings on November 09 at 2:30 p.m. 2. Continue home nebulizer treamtents MEDICATIONS AT DISCHARGE: 1. Carvedilol (Coreg) 12.5 mg p.o. b.i.d. with meal 2. Vitamin E 400 unit p.o. daily 3. Cyanocobalamin 500 mcg p.o. daily 4. Clopidogrel 75 mg p.o. daily 5. Vitamin C 500 mg p.o. daily 6. Brovana one vial INH b.i.d. 7. Albuterol (ProAir) two puff INH q.6h p.r.n. 8. Tamsulosin (Flomax) 0.4 mg p.o. daily 9. Aspirin (Ecotrin) 325 mg p.o. daily 10. Lasix 40 mg p.o. daily 11. Potassium Chloride (Micro-K) 10 mEq p.o. daily 12. Phenazopyridine one tab p.o. t.i.d. p.r.n. 13. Nitroglycerin 0.4 mg SL p.r.n. 14. Tiotropium [place] 18 mcg IH daily 15. Lisinopril (Zestril) 10 mg p.o. daily 16. Spironolactone 25 mg p.o. daily 17. Polyethylene Glycol one packet p.o. daily p.r.n. MEDICATION CHANGES: 1. Cardizem has been changed to 30 mg twice a day 2. Potassium Chloride should be discontinued after 10 days 3. Decrease Coreg (Carvedilol) to 1/2 tablet 6.25 mg twice a day with meal NEW PRESCRIPTIONS: 1. Keflex 500 mg t.i.d. for 7 days 2. Prednisone 10 mg b.i.d. for 5 days 3. Cardizem 30 mg b.i.d. DIET INSTRUCTIONS: As patient tolerates. ACTIVITY: Gradually resume as tolerated. Rest when tired. Use Rollator. Elevate legs when up in chair and when in bed. Change positions frequently when lying in bed or sitting in chair. SMOKING: N/A DISEASE SPECIFIC EDUCATION: COPD Chronic lung disease Steroids Prescriptions Activity Nutrition [employer] Conservation LABS: WBC 9.91, RBC 4.12, Hgb 11.67, Hct 33.8, MCV 82.0, MCH 28.4, MCHC 34.6, RDW Coeff of Bull 14.0, platelet count 268, Immature Gran % (auto) 1.1, Neut % (Auto ) 63.1, Lymph # (Auto) 25.3, [place] % (Auto) 10.3H, Eos % (Auto) 0.1, Baso% (Auto ) 0.1, Immature Gran# (Auto) 0.1, Neut #6.3, Lymph #2.5, [place] #1.90, Eos #0.0, Baso #0.0, Sodium 133 L, Potassium 3.3L, Chloride 95L, Carbon Dioxide 30, Anion Gap 11.3, BUN 20, Creatinine 0.68, Estimated GFR 115.00, BUN/Creatinine ratio 29.41, glucose 84, calcium 8.4, total bilirubin 0.36, AST 16, ALT 20, alkaline phosphatase 87, total protein 5.0L, albumin 2.8, globulin 2.2, albumin/globulin Ratio 1.27. HOSPITAL COURSE: The patient was admitted through the emergency room over the weekend on with COPD exacerbation and shortness of breath and generalized weakness. He was placed in special care unit, put on oxygen, routine telemetry orders. Chest x-ray showed COPD exacerbation with possible pneumonia. He was placed on Rocephin IV along with Solu-Cortef along with nebulizer treatments. During the course of this hospital stay, he slowly improved. He was evaluated and treated with physical therapy and occupational therapy. At the time of admission, the patient was too weak to move from the bed to the chair, almost too weak to eat due to severe shortness of breath. At the time of discharge, he was able to move from the chair to the bed with minimal shortness of breath, eating well on his own. He also had a speech evaluation which recommended soft pureed foods due to it being difficult for him to swallow because of his shortness of breath. Over the course of his stay, due to low blood pressure, his Cardizem was changed to 30 mg b.i.d. along with Coreg to 6.25 mg b.i.d. HIs potassium was high at admission and on the day of discharge was 3.3. He will be sent home with potassium 10 mEq daily for the next 10 days. Repeat chest x-ray showed improving clinical status. He will be discharged home on Keflex 500 mg t.i.d. for 7 days along with Prednisone b.i.d times 5 days. He has oxygen to use at home. His blood pressure has been well controlled and was 146/72 at discharge with oxygen 97% on 2L. On the morning of discharge he was sitting in his chair eating well with no shortness of breath. He was in no distress. He had been p and about already that morning with assistance and stated that his shortness of breath was significantly improved. The patient kept a [place] in the hospital which he has had since July of [address] Solares. He also has a history of bladder spasms which has been on p.r.n. Pyridium and has been under control during his hospital stay. He was a full code. He is being discharged home in stable condition. The patient will followup in our office on 11/09 at 2:30 p.m. He is to continue home nebulizer treatments, continue the Keflex, continue Prednisone, continue use of oxygen at 2L. He will gradually increase activities as tolerated. REVIEW OF SYSTEMS AT DISCHARGE: CONSTITUTIONAL: Positive for generalized weakness which has improved. He is alert and oriented. CARDIOVASCULAR: Positive for shortness of breath which has improved. He has no orthopnea. No chest pain. GI: No nausea, vomiting or diarrhea. PHYSICAL EXAMINATION; NEUROLOGIC: The patient is alert, oriented times three. HEENT: Head is atraumatic, normocephalic. NECK: No carotid bruits, no JVD. HEART: Regular rate and rhythm. No murmurs, clicks or rubs. S1, S2, no S3. LUNGS: Significantly diminished bilaterally but clear. ABDOMEN: Soft, nontender. Bowel sounds active times four quadrants. SKIN: Intact. MUSCULOSKELETAL: Generalized weakness. Discharged in stable condition. TIME SPENT: More than [address] [facility]
== END 2016-11-04 13:40 | disposition home or self-care (01) | DRG 189 ==
LOC: ED 19:27 → SCU 21:15
PROVIDERS: ADMIT Internal Medicine; ATTEND Internal Medicine
DX: J96.00 Acute respiratory failure, unspecified whether with hypoxia or hypercapnia (principal); J44.1 Chronic obstructive pulmonary disease with (acute) exacerbation; E87.1 Hypo-osmolality and hyponatremia; B37.49 Other urogenital candidiasis; R06.02 Shortness of breath; I27.81 Cor pulmonale (chronic); I10 Essential (primary) hypertension; R63.4 Abnormal weight loss; D64.9 Anemia, unspecified; N40.0 Benign prostatic hyperplasia without lower urinary tract symptoms; N32.89 Other specified disorders of bladder; R53.1 Weakness; J20.8 Acute bronchitis due to other specified organisms; B96.89 Other specified bacterial agents as the cause of diseases classified elsewhere; M15.9 Polyosteoarthritis, unspecified; M48.54XD Collapsed vertebra, not elsewhere classified, thoracic region, subsequent encounter for fracture with routine healing; Z96.0 Presence of urogenital implants; Z79.01 Long term (current) use of anticoagulants; Z79.899 Other long term (current) drug therapy; Z87.891 Personal history of nicotine dependence; Z16.11 Resistance to penicillins
CPT/HCPCS: 36415; 80053; 81001; 82803; 83605; 83880; 84145; 85025; 87040; 87070; 87077; 87081; 87086; 87186; 93005; 93010; 94640; 96361; 96365; 96366; 96375; 97802; 99285

== ENCOUNTER 2016-11-30 10:54 | Inpatient (IN) ==
[2016-11-30 11:40] LABS: BASOPHILS # (AUTO) 0.1 K/uL (0-0.2); BASOPHILS % (AUTO) 0.6 % (0.0-3.0); EOSINOPHILS # (AUTO) 0.2 K/ul (0.0-0.7); EOSINOPHILS % (AUTO) 2.2 % (0.0-7.0); HEMOGLOBIN 8.9 g/dl (14.0-18.0); IMMATURE GRANULOCYTE % (AUTO) 2.2 % (0.0-5.0); LYMPHOCYTES # (AUTO) 3.1 K/uL (0.60-3.4); LYMPHOCYTES % (AUTO) 32.8 (10.0-50.0); MEAN CORPUSCULAR HEMOGLOBIN 28.3 pg (27.0-31.0); MEAN CORPUSCULAR HGB CONC 35.6 (31.8-35.4); MEAN CORPUSCULAR VOLUME 79.6 fl (80.0-94.0); MONOCYTES % (AUTO) 10.2 (0-10); NEUTROPHILS # (AUTO) 4.9 K/ul (2.0-6.9); PLATELET COUNT 259 10^3/uL (140-440); RED BLOOD COUNT 3.14 10^6/ul (4.70-6.10); WHITE BLOOD COUNT 9.47 K/ul (4.2-10.2)
[2016-11-30 12:00] LABS: ABG BASE EXCESS -2 (-2.0-2.0); ABG HCO3 21.8 (22.0-26.0); ABG PCO2 31.9 mmHg (35-45); ABG PH 7.442 (7.35-7.45); ABG TCO2 23 (22.0-28.0)
--- NOTE | 2016-11-30 12:01 | DI ---
EXAM: Chest one view, frontal view only. HISTORY: Cough. COMPARISON: 10/29/2016. FINDINGS: The heart size is normal. Atherosclerotic calcifications in the aorta. Coronary stent i s present. There is no pulmonary vascular congestion. The lungs are clear save for biapical scarri ng. No pleural effusion or pneumothorax is seen. No acute osseous abnormality is identified. IMPRESSION: No acute cardiopulmonary process.
[2016-11-30 12:17] LABS: ALANINE AMINOTRANSFERASE 19 U/L (12-78); ALBUMIN 2.7 g/dL (3.4-5.0); ALBUMIN/GLOBULIN RATIO 1.08; ALKALINE PHOSPHATASE 94 U/L (56-119); ANION GAP 11.5; ASPARTATE AMINO TRANSFERASE 16 U/L (15-37); BILIRUBIN,TOTAL 0.44 mg/dL (0.00-1.20); BLOOD UREA NITROGEN 22 mg/dL (7-18); CALCIUM 8.8 mg/dL (8.2-10.2); CARBON DIOXIDE 26 mmol/L (23-31); CHLORIDE 83 mmol/L (98-107); CREATINE KINASE 26 U/L; CREATININE 1.25 mg/dL (0.60-1.10); GLUCOSE 87 mg/dL (82-115); POTASSIUM 5.5 mmol/L (3.5-5.1); TOTAL PROTEIN 5.2 g/dL (5.8-8.1)
[2016-11-30 12:19] LABS: SODIUM 115 mmol/L (136-145)
[2016-11-30] MEDS ORDERED: NITROSTAT SL PRN ×2 (13:10→14:15)
--- NOTE | 2016-11-30 13:18 | ED.PDOC ---
General ED Provider: Dr. MEENA JONES Chief Complaint: Shortness of Air Stated Complaint: SHORT OF AIR Time Seen by Physician: 11:00 (PMD SAW PT IN ED ) Mode of Arrival: Ambulance Information Source: Patient Exam Limitations: No limitations Primary Care Provider: KATLIN CORTES Nursing and Triage Documentation Reviewed and Agree: Yes Respiratory Complaint Exam - Shortness of Air Complaint/Exam Symptoms Are: Still present Timing: Constant Initial Severity: Moderate Current Severity: Moderate Aggravating: Reports: None Alleviating: Reports: None Associated Signs and Symptoms: Reports: Cough History of Healthcare-Acquired Pneumonia: No Pulmonary Embolism Risk Factors: Reports: None Cardiac Risk Factors: Reports: Diabetes, Hypertension Pseudomonas Risk Factors: Reports: None Tuberculosis Risk Factors: Reports: None Home Oxygen Use: No Recent Stress Test: No Recent Echo/LV Function: No Respiratory Distress: None Stridor Present: No Tracheal Deviation: No Subcutaneous Emphysema: No Accessory Muscle Use: No Diminished Breath Sounds: No Prolonged Expiratory Phase: No Unable to Speak Full Sentences: No Fatigue: No Leg Swelling: No Nicole's Sign Present: No Grunting Respirations: No Kussmaul Respirations: No Differential Diagnoses: COPD Exacerbation, Pneumonia Review of Systems - Review Of Systems Constitutional: Reports: Malaise, Weakness Eyes: Reports: No symptoms Ears, Nose, Mouth, Throat: Reports: No symptoms Respiratory: Reports: Cough, Short of air Cardiac: Reports: No symptoms GI: Reports: No symptoms : Reports: No symptoms Musculoskeletal: Reports: No symptoms Skin: Reports: No symptoms Neurological: Reports: No symptoms Endocrine: Reports: No symptoms Hematologic/Lymphatic: Reports: No symptoms All Other Systems: Reviewed and Negative Past Medical History - Past Medical History Previously Healthy: No Endocrine: Reports: Unknown Cardiovascular: Reports: CAD, Hypertension, A-Fib, Unknown Respiratory: Reports: COPD, Unknown Hematological: Reports: Unknown Gastrointestinal: Reports: Unknown Genitourinary: Reports: Unknown Neuro/Psych: Reports: Unknown Musculoskeletal: Reports: Unknown Cancer: Reports: Unknown, Other Other Pertinent Past Medical History: htn ca cadcough/songestion prod yellow - Surgical History General Surgical History: Reports: Stent, Other - Family History Family History: Reports: Unknown - Social History Smoking Status: Former smoker Hx Substance Use: No Alcohol Screening: None Physical Exam - Physical Exam Appearance: Ill-appearing Ill-appearing: Mild Pain Distress: Mild Eyes: CYNTHIA, EOMI, Conjunctiva clear ENT: Dry mucosa Respiratory: Airway patent, Breath sounds clear, Breath sounds equal, Respirations nonlabored Cardiovascular: RRR, Pulses normal, No rub, No murmur GI/: Soft, Nontender, No masses, Bowel sounds normal, No Organomegaly Musculoskeletal: Normal strength, ROM intact, No edema, No calf tenderness Skin: Warm, Dry, Normal color Neurological: Sensation intact, Motor intact, Reflexes intact, Cranial nerves intact, Alert, Oriented Psychiatric: Affect appropriate, Mood appropriate Interpretation - Radiology Interpretation Radiology Interpretation By: Radiologist Radiology Results: No acute changes - Store Cashier Rate: Normal Rhythm: Sinus Ectopy: None - EKG Interpretation Rate: Normal Rhythm: Sinus Ectopy: None Bertha: NL ST Segment: Normal Critical Care Note - Critical Care Note Total Time (mins): 0 Course - Course Hematology/Chemistry: 11/30/16 11:33 11/30/16 11:33 Orders, Labs, Meds: Lab Review 11/30/16 11/30/16 11/30/16 11:23 11:33 11:36 WBC 9.47 RBC 3.14 L Hgb 8.9 L Hct 25.0 L MCV 79.6 L MCH 28.3 MCHC 35.6 H RDW Coeff of Bull 13.8 Plt Count 259 Immature Gran % (Auto) 2.2 Neut % (Auto) 52.0 Lymph % (Auto) 32.8 [place] % (Auto) 10.2 H Eos % (Auto) 2.2 Baso % (Auto) 0.6 Immature Gran # (Auto) 0.2 Neut # 4.9 Lymph # 3.1 [place] # 1.0 Eos # 0.2 Baso # 0.1 Puncture Site Rb O2 Saturation 95.0 ABG pH 7.442 ABG pCO2 31.9 L ABG pO2 70.0 L ABG HCO3 21.8 L ABG Total CO2 23 ABG Base Excess -2 O2 Delivery Device Nc Oxygen Liter Flow 2.00 FiO2 % 28.0 Sodium 115 L* Potassium 5.5 H Chloride 83 L Carbon Dioxide 26 Anion Gap 11.5 BUN 22 H Creatinine 1.25 H Estimated GFR (MDRD) 57.00 BUN/Creatinine Ratio 17.60 Glucose 87 Lactic Acid 13.0 Calcium 8.8 Total Bilirubin 0.44 AST 16 ALT 19 Alkaline Phosphatase 94 Total Creatine Kinase 26 Troponin I < 0.0100 Total Protein 5.2 L Albumin 2.7 L Globulin 2.5 Albumin/Globulin Ratio 1.08 Procalcitonin < 0.05 TSH 1.208 Free T4 1.11 Orders Category Date Time Status PLACE PATIENT OBSERVATION .TO SCU (MONITORED BED) ADMISSION 11/30/16 13:08 Ordered ABG DRAW REQUEST Stat CARDIO 11/30/16 11:24 Completed EKG-(ED ONLY) Stat CARDIO 11/30/16 11:23 Completed EKG-(IP & OP ONLY) DAILY CARDIO 12/01/16 06:00 Ordered EKG-(IP & OP ONLY) DAILY CARDIO 12/02/16 06:00 Ordered EKG-(IP & OP ONLY) DAILY CARDIO 12/03/16 06:00 Ordered NEBULIZER TREATMENT Routine CARDIO 11/30/16 13:12 Ordered ACTIVITY .Complete BR CARE 11/30/16 13:08 Ordered BLOOD GLUCOSE MONITORING ACCUCHECK Q6H CARE 11/30/16 13:08 Ordered INTAKE & OUTPUT Q8HR CARE 11/30/16 13:08 Ordered TELEMETRY MONITORING TELE CARE 11/30/16 13:08 Ordered VITAL SIGNS Q4HR CARE 11/30/16 13:08 Ordered ABG Stat LAB 11/30/16 11:23 Completed BLOOD CULTURE Stat LAB 11/30/16 11:33 Received CBC W/ AUTO DIFF DAILY@0600 LAB 12/01/16 06:00 Ordered CBC W/ AUTO DIFF DAILY@0600 LAB 12/02/16 06:00 Ordered CBC W/ AUTO DIFF DAILY@0600 LAB 12/03/16 06:00 Ordered CBC W/ AUTO DIFF DAILY@0600 LAB 12/04/16 06:00 Ordered CBC W/ AUTO DIFF DAILY@0600 LAB 12/05/16 06:00 Ordered CBC W/ AUTO DIFF DAILY@0600 LAB 12/06/16 06:00 Ordered CBC W/ AUTO DIFF DAILY@0600 LAB 12/07/16 06:00 Ordered CBC W/ AUTO DIFF DAILY@0600 LAB 12/08/16 06:00 Ordered CBC W/ AUTO DIFF DAILY@0600 LAB 12/09/16 06:00 Ordered CBC W/ AUTO DIFF DAILY@0600 LAB 12/10/16 06:00 Ordered CBC W/ AUTO DIFF DAILY@0600 LAB 12/11/16 06:00 Ordered CBC W/ AUTO DIFF DAILY@0600 LAB 12/12/16 06:00 Ordered CBC W/ AUTO DIFF DAILY@0600 LAB 12/13/16 06:00 Ordered CBC W/ AUTO DIFF DAILY@0600 LAB 12/14/16 06:00 Ordered CBC W/ AUTO DIFF DAILY@0600 LAB 12/15/16 06:00 Ordered CBC W/ AUTO DIFF DAILY@0600 LAB 12/16/16 06:00 Ordered CBC W/ AUTO DIFF DAILY@0600 LAB 12/17/16 06:00 Ordered CBC W/ AUTO DIFF DAILY@0600 LAB 12/18/16 06:00 Ordered CBC W/ AUTO DIFF DAILY@0600 LAB 12/19/16 06:00 Ordered CBC W/ AUTO DIFF DAILY@0600 LAB 12/20/16 06:00 Ordered CBC W/ AUTO DIFF [facility] LAB 11/30/16 11:33 Completed COMPREHENSIVE METABOLIC PANEL DAILY@0600 LAB 12/01/16 06:00 Ordered COMPREHENSIVE METABOLIC PANEL DAILY@0600 LAB 12/02/16 06:00 Ordered COMPREHENSIVE METABOLIC PANEL DAILY@0600 LAB 12/03/16 06:00 Ordered COMPREHENSIVE METABOLIC PANEL DAILY@0600 LAB 12/04/16 06:00 Ordered COMPREHENSIVE METABOLIC PANEL DAILY@0600 LAB 12/05/16 06:00 Ordered COMPREHENSIVE METABOLIC PANEL DAILY@0600 LAB 12/06/16 06:00 Ordered COMPREHENSIVE METABOLIC PANEL DAILY@0600 LAB 12/07/16 06:00 Ordered COMPREHENSIVE METABOLIC PANEL DAILY@0600 LAB 12/08/16 06:00 Ordered COMPREHENSIVE METABOLIC PANEL DAILY@0600 LAB 12/09/16 06:00 Ordered COMPREHENSIVE METABOLIC PANEL DAILY@0600 LAB 12/10/16 06:00 Ordered COMPREHENSIVE METABOLIC PANEL DAILY@0600 LAB 12/11/16 06:00 Ordered COMPREHENSIVE METABOLIC PANEL DAILY@0600 LAB 12/12/16 06:00 Ordered COMPREHENSIVE METABOLIC PANEL DAILY@0600 LAB 12/13/16 06:00 Ordered COMPREHENSIVE METABOLIC PANEL DAILY@0600 LAB 12/14/16 06:00 Ordered COMPREHENSIVE METABOLIC PANEL DAILY@0600 LAB 12/15/16 06:00 Ordered COMPREHENSIVE METABOLIC PANEL DAILY@0600 LAB 12/16/16 06:00 Ordered COMPREHENSIVE METABOLIC PANEL DAILY@0600 LAB 12/17/16 06:00 Ordered COMPREHENSIVE METABOLIC PANEL DAILY@0600 LAB 12/18/16 06:00 Ordered COMPREHENSIVE METABOLIC PANEL DAILY@0600 LAB 12/19/16 06:00 Ordered COMPREHENSIVE METABOLIC PANEL DAILY@0600 LAB 12/20/16 06:00 Ordered COMPREHENSIVE METABOLIC PANEL Stat LAB 11/30/16 11:33 Completed CREATINE KINASE Q8H LAB 11/30/16 19:15 Ordered CREATINE KINASE Q8H LAB 12/01/16 03:15 Ordered CREATINE KINASE Stat LAB 11/30/16 11:33 Completed FREE T4 (FREE THYROXINE) Stat LAB 11/30/16 11:33 Completed LACTIC ACID Stat LAB 11/30/16 11:33 Completed PROCALCITONIN Stat LAB 11/30/16 11:36 Completed THYROID STIMULATING HORMONE Stat LAB 11/30/16 11:33 Completed TROPONIN I Q8H LAB 11/30/16 19:15 Ordered TROPONIN I Q8H LAB 12/01/16 03:15 Ordered TROPONIN I Stat LAB 11/30/16 11:33 Completed UA [URINALYSIS C & S IF INDICATED] Stat LAB 11/30/16 11:24 Uncollected Aspirin [Aspirin EC] MEDS 12/01/16 09:00 Ordered 325 mg PO DAILY Carvedilol [Coreg] MEDS 11/30/16 17:30 Ordered 12.5 mg PO BIDWM Clopidogrel Bisulfate [Plavix] MEDS 12/01/16 09:00 Ordered 75 mg PO DAILY Ipratropium/Albuterol Neb [Duoneb] MEDS 11/30/16 18:00 Ordered 1 vial NEB RTQ6H Lisinopril [Zestril] MEDS 12/01/16 09:00 Ordered 10 mg PO DAILY Nitroglycerin [Nitrostat] MEDS 11/30/16 13:10 Ordered 0.4 mg SL PRN PRN Sodium Chloride 3% 500 ml MEDS 11/30/16 13:30 Ordered IV 100 mls/hr Spironolactone [Aldactone] MEDS 12/01/16 09:00 Ordered 25 mg PO DAILY CHEST, 1V AP ONLY Stat RADS 11/30/16 11:22 Completed Medications Generic Name Dose Route Start Last Admin Trade Name Freq PRN Reason Stop Dose Admin Albuterol/Ipratropium 1 vial 11/30/16 18:00 Duoneb NEB RTQ6H ADDY Aspirin 325 mg 12/01/16 09:00 Aspirin Ec PO DAILY ADDY Carvedilol 12.5 mg 11/30/16 17:30 Coreg PO BIDWM ADDY Clopidogrel Bisulfate 75 mg 12/01/16 09:00 Plavix PO DAILY [facility] Sodium Chloride 500 mls @ 100 mls/hr 11/30/16 13:30 Sodium Chloride 3% IV .Q5H [facility] Lisinopril 10 mg 12/01/16 09:00 Zestril PO DAILY [facility] Nitroglycerin 0.4 mg 11/30/16 13:10 Nitrostat SL PRN PRN Chest Pain Spironolactone 25 mg 12/01/16 09:00 Aldactone PO DAILY [facility] Vital Signs: Temp Pulse Resp BP Pulse Ox 11/30/16 10:55 100.9 F H 98 H 32 H 103/66 96 Departure - Departure Time of Disposition: 13:18 (NO NEUROLOGICAL EVENTS WHILE IN ED ) Disposition: ADMITTED INPATIENT Discharge Problem: Hyponatremia Instructions: Hyponatremia (ED) Condition: Good Pt referred to PMD for follow-up: Yes Allergies/Adverse Reactions: Allergies azithromycin Adverse Reaction (Verified 10/16/16 19:12) lost voice, weakness any mycins Adverse Reaction (Uncoded 11/30/16 11:00) Home Medications: Ambulatory Orders Albuterol Sulfate [Proair Hfa] 2 puff INH Q6H PRN 07/10/16 Arformoterol Tartrate [Brovana] 1 vial INH BID 07/10/16 Ascorbate Calcium [Vitamin C] 500 mg PO DAILY 07/10/16 Carvedilol [Coreg] 12.5 mg PO BIDWM 07/10/16 Clopidogrel Bisulfate [Clopidogrel] 75 mg PO DAILY 07/10/16 Cyanocobalamin (Vitamin B-12) [Vitamin B12] 500 mcg PO DAILY 07/10/16 Vitamin E 400 intnl unit PO DAILY 07/10/16 Tamsulosin HCl [Flomax] 0.4 mg PO DAILY 07/15/16 Aspirin [Ecotrin] 325 mg PO DAILY 07/26/16 Furosemide [Lasix] 40 mg PO DAILY 09/11/16 Potassium Chloride [Micro-K Cap] 10 meq PO DAILY 09/11/16 Phenazopyridine HCl [Urinary Pain Relief] 1 tab PO TID PRN 10/16/16 Lisinopril [Zestril] 10 mg PO DAILY 10/29/16 Nitroglycerin 0.4 mg SL PRN PRN 10/29/16 Spironolactone 25 mg PO DAILY 10/29/16 Tiotropium [place] [Spiriva] 18 mcg IH DAILY 10/29/16 Polyethylene Glycol 3350 [Miralax] 1 packet PO DAILY PRN 10/31/16
[2016-11-30] MEDS ORDERED: SODIUM CHLORIDE 3% 100 ML IV SCH ×2 (13:30)
[2016-11-30] MEDS ORDERED: SODIUM CHLORIDE 3% 500 ML IV SCH (13:30)
[2016-11-30] MEDS: SODIUM CHLORIDE 1,000 ML IV SCH (14:25)
[2016-11-30] MEDS ORDERED: ROCEPHIN 1 GM in SODIUM CHLORIDE 50 ML IV STA (14:31)
[2016-11-30 15:14] VITALS: BMI 18.4
[2016-11-30] MEDS: SOLU-MEDROL 125 MG IVP SCH ×2 (15:50→21:15)
[2016-11-30] MEDS ORDERED: FLONASE NAS STA (16:04)
[2016-11-30] MEDS: FLONASE NAS SCH (16:30)
[2016-11-30] MEDS: MORPHINE 2 MG/ML SYRINGE IVP PRN ×2 (16:30→22:09)
[2016-11-30] MEDS: XOPENEX 1.25 MG NEB SCH ×2 (17:15→23:00)
[2016-11-30] MEDS ORDERED: COREG PO SCH (17:30)
[2016-11-30] MEDS: COREG PO SCH (17:55)
[2016-11-30] MEDS ORDERED: DUONEB NEB SCH (18:00)
[2016-11-30] MEDS ORDERED: MIRALAX PO PRN (19:34)
[2016-11-30 19:44] LABS: CREATINE KINASE 41 U/L
[2016-12-01] MEDS: MORPHINE 2 MG/ML SYRINGE IVP PRN ×2 (00:27→08:47)
[2016-12-01] MEDS: SOLU-MEDROL 125 MG IVP SCH ×4 (02:40→20:29)
[2016-12-01] MEDS: SODIUM CHLORIDE 1,000 ML IV SCH ×2 (02:40→15:35)
[2016-12-01 03:13] LABS: HEMATOCRIT 25.6 % (42.0-52.0); IMMATURE GRANULOCYTE % (AUTO) 1.4 % (0.0-5.0); LYMPHOCYTES # (AUTO) 1.5 K/uL (0.60-3.4); LYMPHOCYTES % (AUTO) 23.4 (10.0-50.0); MEAN CORPUSCULAR HGB CONC 35.2 (31.8-35.4); MEAN CORPUSCULAR VOLUME 79.5 fl (80.0-94.0); MONOCYTES % (AUTO) 0.6 (0-10); NEUTROPHILS # (AUTO) 4.7 K/ul (2.0-6.9); NEUTROPHILS % (AUTO) 74.6; PLATELET COUNT 282 10^3/uL (140-440); RED BLOOD COUNT 3.22 10^6/ul (4.70-6.10); WHITE BLOOD COUNT 6.27 K/ul (4.2-10.2)
[2016-12-01 03:34] LABS: ALBUMIN 2.7 g/dL (3.4-5.0); ALBUMIN/GLOBULIN RATIO 1.08; ANION GAP 14.5; BILIRUBIN,TOTAL 0.4 mg/dL (0.00-1.20); BUN/CREATININE RATIO 17.97; CALCIUM 8.8 mg/dL (8.2-10.2); CREATININE 0.89 mg/dL (0.60-1.10); POTASSIUM 5.5 mmol/L (3.5-5.1); TOTAL PROTEIN 5.2 g/dL (5.8-8.1)
[2016-12-01 03:41] LABS: CREATINE KINASE 42 U/L
[2016-12-01] MEDS: XOPENEX 1.25 MG NEB SCH ×4 (04:44→23:40)
[2016-12-01] MEDS: PYRIDIUM PO PRN ×2 (06:30→15:35)
[2016-12-01] MEDS: ROCEPHIN 1 GM in SODIUM CHLORIDE 50 ML IV SCH (08:43)
[2016-12-01] MEDS: FLONASE NAS SCH (08:44)
[2016-12-01] MEDS: ASPIRIN EC PO SCH (08:44)
[2016-12-01] MEDS: PLAVIX PO SCH (08:44)
[2016-12-01] MEDS: COREG PO SCH ×2 (08:45→17:46)
[2016-12-01] MEDS: FLOMAX PO SCH (08:46)
[2016-12-01] MEDS: ZESTRIL PO SCH (08:46)
[2016-12-01] MEDS: LASIX TAB PO SCH (08:46)
[2016-12-01] MEDS ORDERED: ALDACTONE PO SCH (09:00)
--- NOTE | 2016-12-01 09:20 | PN ---
DATE OF SERVICE: 11/30/16 - ADMITTING NOTE- The patient was seen in the Emergency Room and also on the floor. The was present, 11/30/16. REASON FOR HOSPITALIZATION: Shortness of air and hyponatremia. HISTORY OF PRESENT ILLNESS; 71-year-old white male hospitalized with shortness of air, cough and congestion. He, as usual, has productive yellowish sputum. Incidental finding was sodium was 115. According to the , everytime he takes Pyridium there is instruction to drink water so he drinks one whole bottle of water so there is excessive water drinking lately. The patient has a [place] catheter and bladder spasm for which he is taking Pyridium. REVIEW OF SYSTEMS: CONSTITUTIONAL: Weakness. No night sweats. No fever or chills. HEENT: Eyes: No visual changes. No eye pain. No eye discharge. ENT: No runny nose. No epistaxis. No sinus pain. No sore throat. No odynophagia. No congestion. RESPIRATORY: Cough and congestion. No hemoptysis. CARDIOVASCULAR: No angina symptoms. No CHF symptoms. No atypical chest pain for CAD. No palpitations. Shortness of breath. No PND, no orthopnea. GASTROINTESTINAL: No abdominal pain. No nausea or vomiting. No diarrhea or constipation. No hematemesis. No hematochezia. GENITOURINARY: Bladder spasms. MUSCULOSKELETAL: No musculoskeletal pain; no joint swelling. NEUROLOGICAL: No headache. No neck pain. No syncope. No seizures. No dizziness. PSYCHIATRIC: Not anxious. No depression. No suicidal thoughts. No homicidal thoughts. SKIN: No rash. No lesions. No wounds. ENDOCRINE: No unexplained weight loss. No weight gain. HEMATOLOGIC/LYMPHATIC: No anemia. No purpura. No petechiae. No prolonged or excessive bleeding. No palpable lymph nodes. PHYSICAL EXAMINATION: GENERAL: The patient is oriented to time, place and person. VITAL SIGNS: Temperature 100.9, pulse 98, respiratory rate 32, BP 103/66, pulse ox 96%. HEENT: Head normocephalic, atraumatic. Eyes: Extraocular muscles are intact. Pupils are equal, round and reactive to light and accommodation. Ears: No lesions. Nose appeared normal. Throat: No exudate or erythema. NECK: Supple. No JVD, no carotid bruit. No lymphadenopathy or thyromegaly. LUNGS: Decreased breath sounds but clear to auscultation. Percussion note normal. Chest symmetrical. HEART: S1, S2, no S3. No murmurs. No cyanosis or clubbing. No ascites. Pulses: Dorsalis pedis and posterior tibial pulses +1 to +2 both sides. ABDOMEN: Soft. Nontender. Bowel sounds active. No CVA tenderness. No mass felt. EXTREMITIES: No edema. Full range of motion of all extremities, equal. NEUROLOGIC: No focal deficit. Cranial nerves II through XII are grossly intact. No headache, no double vision or headache. SKIN: Not dry. Intact. Turgor - normal. LYMPHATIC: No palpable lymph nodes/no lymphedema. MUSCULOSKELETAL: Normal joints with no swelling. Muscle tone is normal. LABS: Hemoglobin 8.9, hematocrit 25, WBC 9,400, normal differential. ABG p02 70, pc02 31, pH 7.44 with 95% saturation on 28%. Chest x-ray no acute finding. ASSESSMENT: 1. ACUTE BRONCHITIS/PNEUMONITIS 2. FEVER COULD BE FROM BRONCHITIS, COULD BE FROM UTI 3. HYPONATREMIA 4. SEVERE CHRONIC LUNG DISEASE PLAN: 1. Blood cultures 2. Urine cultures 3. IV Rocephin if the patient is not allergic to Penicillin 4. Steroids IV, Sodium 3%, probably 100 cc, 200 cc and then Normal Saline infusion 5. Daily CBC and CMP CONDITION: Stable. TIME SPENT: More than 30 minutes. Plan and coordination of the patient's care discussed in the presence of nurse. SHEA
--- NOTE | 2016-12-01 11:52 | PCM.PROG ---
Attending Provider: ATTENDING PROVIDER: Dr. KATLIN CORTES DATE OF SERVICE: 12/01/16 SUBJECTIVE: This 71 year old WHITE/ M was hospitalized 11/30/16. The patient is seen with Erika, Nurse Practitioner. The patient is lying in bed, alert, having bladder spasms, unable to eat breakfast. REVIEW OF SYSTEMS: CONSTITUTIONAL: No night sweats. No fatigue, malaise, lethargy. No fever or chills. HEENT: Eyes: No visual changes. No eye pain. No eye discharge. ENT: No runny nose. No epistaxis. No sinus pain. No odynophagia. No congestion. RESPIRATORY: Shortness of breath, cough and congestion. No hemoptysis. CARDIOVASCULAR: No angina symptoms. No CHF symptoms. No atypical chest pain for CAD. No palpitations. GASTROINTESTINAL: No abdominal pain. No nausea or vomiting. No diarrhea or constipation. No hematemesis. No hematochezia. GENITOURINARY: Bladder spasms. No significant abnormal bleeding. MUSCULOSKELETAL: No musculoskeletal pain; no joint swelling. NEUROLOGICAL: Awake, alert, oriented to time, place and person. No headache. No neck pain. No syncope. No seizures. No dizziness. PSYCHIATRIC: Not anxious. No depression. No suicidal thoughts. No homicidal thoughts. SKIN: No rash. No lesions. No wounds. ENDOCRINE: No unexplained weight loss. No weight gain. HEMATOLOGIC/LYMPHATIC: No anemia. No purpura. No petechiae. No prolonged or excessive bleeding. No palpable lymph nodes. PHYSICAL EXAMINATION: GENERAL: The patient is awake, alert and oriented, sitting in bed in no distress. VITAL SIGNS: Temperature 97.3 F, Pulse 100, Respiratory Rate 22, BP 98/52, Pulse Ox 92% HEENT: Head normocephalic, atraumatic. Eyes: Extraocular muscles are intact. Pupils are equal, round and reactive to light and accommodation. Ears: No lesions. Nose appeared normal. Throat: No exudate or erythema. NECK: Supple. No JVD, no carotid bruit. No lymphadenopathy or thyromegaly. LUNGS: Bilaterally diminished with upper airway congestion. Percussion note normal. Chest symmetrical. HEART: S1, S2, no S3. No murmurs. Dimiinished heart sounds. No cyanosis or clubbing. No ascites. Pulses: Dorsalis pedis and posterior tibial pulses +1 to +2 both sides. ABDOMEN: Soft. Non-tender. Bowel sounds active. No CVA tenderness. No mass felt. EXTREMITIES: No edema. Full range of motion of all extremities, equal. NEUROLOGIC: No focal deficit. Cranial nerves II through XII are grossly intact. No headache, no double vision or headache. SKIN: Not dry. Intact. Turgor-normal. LYMPHATIC: No palpable lymph nodes/no lymphedema. MUSCULOSKELETAL: Normal joints with no swelling. Muscle tone is normal. LAB REVIEW: 12/01/16 03:05 12/01/16 03:05 12/01/16 03:05: WBC 6.27, RBC 3.22 L, Hgb 9.0 L, Hct 25.6 L, MCV 79.5 L, MCH 28.0, MCHC 35.2, RDW Coeff of Bull 13.6, Plt Count 282, Immature Gran % (Auto) 1.4, Neut % (Auto) 74.6, Lymph % (Auto) 23.4, [place] % (Auto) 0.6, Eos % (Auto) 0.0, Baso % (Auto) 0.0, Immature Gran # (Auto) 0.1, Neut # 4.7, Lymph # 1.5, [place] # 0.0 L, Eos # 0.0, Baso # 0.0, Sodium 123 L, Potassium 5.5 H, Chloride 91 L, Carbon Dioxide 23, Anion Gap 14.5, BUN 16, Creatinine 0.89, Estimated GFR ( MDRD) 84.00, BUN/Creatinine Ratio 17.97, Glucose 130 H, Calcium 8.8, Total Bilirubin 0.40, AST 16, ALT 21, Alkaline Phosphatase 106, Total Creatine Kinase 42, Troponin I < 0.0100, Total Protein 5.2 L, Albumin 2.7 L, Globulin 2.5, Albumin/Globulin Ratio 1.08 11/30/16 19:15: Total Creatine Kinase 41, Troponin I < 0.0100 ASSESSMENT: 1. Hyponatremia 2. Hyperkalemia 3. Acute bronchitis 4. Possible UTI 5. Shortness of breath PLAN: 1. Continue IV fluids 2. Continue Rocephin 3. Restart Flomax 4. D/C Aldactone 5. Start Lasix 20 mg p.o. Plan and coordination of the patient's care discussed in the presence of Farm Truck Driver and nurse. CONDITION: Stable SCRIBED BY: CHARLETTE PAINTING Dye Stand Loader scribed while in presence of service performed by Dr. KATLIN CORTES/ERIKA LEIVA APRN on 12/01/16 ([id number])
[2016-12-02] MEDS: SOLU-MEDROL 125 MG IVP SCH ×4 (03:58→20:15)
[2016-12-02 04:33] LABS: BASOPHILS % (AUTO) 0.1 % (0.0-3.0); HEMATOCRIT 24.7 % (42.0-52.0); HEMOGLOBIN 8.6 g/dl (14.0-18.0); LYMPHOCYTES # (AUTO) 1.5 K/uL (0.60-3.4); LYMPHOCYTES % (AUTO) 15.8 (10.0-50.0); MEAN CORPUSCULAR HGB CONC 34.8 (31.8-35.4); MEAN CORPUSCULAR VOLUME 80.5 fl (80.0-94.0); MONOCYTES # (AUTO) 0.3 K/uL (0.4-2.0); MONOCYTES % (AUTO) 3.2 (0-10); NEUTROPHILS # (AUTO) 7.7 K/ul (2.0-6.9); NEUTROPHILS % (AUTO) 79.9; PLATELET COUNT 285 10^3/uL (140-440); RED BLOOD COUNT 3.07 10^6/ul (4.70-6.10); WHITE BLOOD COUNT 9.61 K/ul (4.2-10.2)
[2016-12-02] MEDS: SODIUM CHLORIDE 1,000 ML IV SCH ×2 (04:37→20:15)
[2016-12-02 05:02] LABS: ALBUMIN 2.7 g/dL (3.4-5.0); ALBUMIN/GLOBULIN RATIO 1.17; ANION GAP 12.7; BILIRUBIN,TOTAL 0.33 mg/dL (0.00-1.20); BUN/CREATININE RATIO 23.68; CALCIUM 8.7 mg/dL (8.2-10.2); CREATININE 0.76 mg/dL (0.60-1.10); POTASSIUM 4.7 mmol/L (3.5-5.1)
[2016-12-02] MEDS: XOPENEX 1.25 MG NEB SCH ×4 (05:08→23:42)
[2016-12-02] MEDS: LASIX TAB PO SCH (06:03)
[2016-12-02] MEDS: ROCEPHIN 1 GM in SODIUM CHLORIDE 50 ML IV SCH (08:38)
[2016-12-02] MEDS: ZESTRIL PO SCH (08:39)
[2016-12-02] MEDS: ASPIRIN EC PO SCH (08:39)
[2016-12-02] MEDS: FLONASE NAS SCH (08:39)
[2016-12-02] MEDS: COREG PO SCH ×2 (08:39→17:12)
[2016-12-02] MEDS: FLOMAX PO SCH (08:40)
[2016-12-02] MEDS: PLAVIX PO SCH (08:40)
[2016-12-02] MEDS ORDERED: VANCOMYCIN 1 GM in SODIUM CHLORIDE 250 ML IV ONE (11:00)
--- NOTE | 2016-12-02 11:32 | PCM.PROG ---
Attending Provider: ATTENDING PROVIDER: Dr. KATLIN CORTES DATE OF SERVICE: 12/02/16 SUBJECTIVE: This 71 year old WHITE/ M was hospitalized 11/30/16. The patient is seen with Erika, Nurse Practitioner. The patient is lying in bed, breathing better today. He states he slept well and feels some better. No bladder spasms. REVIEW OF SYSTEMS: CONSTITUTIONAL: Weakness. No night sweats. No fever or chills. HEENT: Eyes: No visual changes. No eye pain. No eye discharge. ENT: No runny nose. No epistaxis. No sinus pain. No odynophagia. No congestion. RESPIRATORY: Cough. No congestion. No hemoptysis. CARDIOVASCULAR: No angina symptoms. No CHF symptoms. No atypical chest pain for CAD. No palpitations. Shortness of breath, improved. GASTROINTESTINAL: No abdominal pain. No nausea or vomiting. No diarrhea or constipation. No hematemesis. No hematochezia. GENITOURINARY: No urgency. No frequency. No dysuria. No hematuria. No obstructive symptoms. No discharge. No pain. No significant abnormal bleeding. MUSCULOSKELETAL: No musculoskeletal pain; no joint swelling. NEUROLOGICAL: Awake, alert, oriented to time, place and person. No headache. No neck pain. No syncope. No seizures. No dizziness. PSYCHIATRIC: Not anxious. No depression. No suicidal thoughts. No homicidal thoughts. SKIN: No rash. No lesions. No wounds. ENDOCRINE: No unexplained weight loss. No weight gain. HEMATOLOGIC/LYMPHATIC: No anemia. No purpura. No petechiae. No prolonged or excessive bleeding. No palpable lymph nodes. PHYSICAL EXAMINATION: GENERAL: The patient is awake, alert and oriented, lying in bed in no distress. VITAL SIGNS: Temperature 98.0 F, Pulse 97, Respiratory Rate 20, BP 102/70, Pulse Ox 91% HEENT: Head normocephalic, atraumatic. Eyes: Extraocular muscles are intact. Pupils are equal, round and reactive to light and accommodation. Ears: No lesions. Nose appeared normal. Throat: No exudate or erythema. NECK: Supple. No JVD, no carotid bruit. No lymphadenopathy or thyromegaly. LUNGS: Diminished breath sounds bilaterally. Clear to auscultation. Percussion note normal. Chest symmetrical. HEART: S1, S2, no S3. No murmurs. No cyanosis or clubbing. No ascites. Pulses: Dorsalis pedis and posterior tibial pulses +1 to +2 both sides. ABDOMEN: Soft. Non-tender. Bowel sounds active. No CVA tenderness. No mass felt. EXTREMITIES: No edema. Full range of motion of all extremities, equal. NEUROLOGIC: No focal deficit. Cranial nerves II through XII are grossly intact. No headache, no double vision or headache. SKIN: Not dry. Intact. Turgor-normal. LYMPHATIC: No palpable lymph nodes/no lymphedema. MUSCULOSKELETAL: Normal joints with no swelling. Muscle tone is normal. LAB REVIEW: 12/02/16 04:15 12/02/16 04:15 12/02/16 04:15: WBC 9.61, RBC 3.07 L, Hgb 8.6 L, Hct 24.7 L, MCV 80.5, MCH 28.0 , MCHC 34.8, RDW Coeff of Bull 13.9, Plt Count 285, Immature Gran % (Auto) 1.0, Neut % (Auto) 79.9, Lymph % (Auto) 15.8, [place] % (Auto) 3.2, Eos % (Auto) 0.0, Baso % (Auto) 0.1, Immature Gran # (Auto) 0.1, Neut # 7.7 H, Lymph # 1.5, [place] # 0.3 L, Eos # 0.0, Baso # 0.0, Sodium 127 L, Potassium 4.7, Chloride 96 L, Carbon Dioxide 23, Anion Gap 12.7, BUN 18, Creatinine 0.76, Estimated GFR (MDRD ) 101.00, BUN/Creatinine Ratio 23.68, Glucose 130 H, Calcium 8.7, Total Bilirubin 0.33, AST 19, ALT 26, Alkaline Phosphatase 93, Total Protein 5.0 L, Albumin 2.7 L, Globulin 2.3, Albumin/Globulin Ratio 1.17 ASSESSMENT: 1. Hyponatremia, improving 2. Hyperkalemia, resolved 3. Acute bronchitis 4. Possible UTI, urine culture pending 5. Shortness of breath, improved 6. Anemia PLAN: 1. Continue IV fluids 2. Urine culture pending 3. Continue to monitor closely Plan and coordination of the patient's care discussed in the presence of Pipe Liner and nurse. CONDITION: Stable SCRIBED BY: CHARLETTE PAINTING Superintendent Colliery scribed while in presence of service performed by Dr. KATLIN CORTES/ERIKA LEIVA APRN on 12/02/16 ([id number])
[2016-12-02] MEDS: ZYVOX 600 MG in PREMIX 300 ML WATER 1 BAG IV SCH ×2 (12:36→21:35)
--- NOTE | 2016-12-02 13:29 | HP ---
DATE OF SERVICE: 11/30/16 REASON FOR HOSPITALIZATION: Shortness of breath HISTORY OF PRESENT ILLNESS: The patient is a 71 year old male who came to [facility] Emergency Room complaining of shortness of breath. The patient has a long standing history of severe COPD and is on oxygen and also has a history of Cor Pulmonale. He has temperature of 100.9 and stated that he had a productive cough with yellow sputum, generalized weakness. REVIEW OF SYSTEMS: CONSTITUTIONAL: No night sweats. No fatigue. Malaise and weakness. Fever. HEENT: Eyes: No visual changes. No eye pain. No eye discharge. No blurry vision. ENT: No runny nose. No epistaxis. No sinus pain. No sore throat. No odynophagia. No ear pain. No congestion. He has thick yellow secretions. RESPIRATORY: Cough, no congestion. No hemoptysis. Shortness of breath CARDIOVASCULAR: No angina symptoms. No CHF symptoms. No atypical chest pain for CAD. No palpitations. GASTROINTESTINAL: No abdominal pain. No nausea or vomiting. No diarrhea or constipation. No hematemesis. No hematochezia. The patient has history of bladder spasms with Ahumada Catheter. GENITOURINARY: No urgency. No frequency. No dysuria. No hematuria. No obstructive symptoms. No discharge. No pain. No significant abnormal bleeding. MUSCULOSKELETAL: No musculoskeletal pain. No joint swelling. No arthritis.Weakness. NEUROLOGICAL: No headache. No neck pain. No syncope. No seizures. No dizziness. The patient is alert and oriented. PSYCHIATRIC: Not anxious. No depression. No suicidal thoughts. No homicidal thoughts. SKIN: No rash. No lesions. No wounds. No breakdown. ENDOCRINE: No unexplained weight loss. No weight gain. HEMATOLOGIC/LYMPHATIC: No anemia. No purpura. No petechiae. No prolonged or excessive bleeding. No palpable lymph nodes. PERSONAL/FAMILY/SOCIAL HISTORY: The patient is and lives at home with his and is a former heavy smoker although he has quit for the past several years. PAST MEDICAL/SURGICAL PROBLEMS: Severe COPD Coronary artery disease Hypertension Atrial fibrillation History of Cor Pulmonale History of respiratory failure BHP with Indwelling Ahumada Catheter followed by Dr. Archuleta Weight loss secondary to multiple medical issues Compression fractures T9, T 11 and L1 Anemia Osteoarthritis Coronary disease with stent placement MEDICATIONS: Coreg 12.5mg PO twice a day Vitamin E 400 units PO daily Clopidogrel 75mg PO daily Vitamin C 5000mg PO daily Brovana 15mcg one vial INH twice a day ProAir two puff ING Q 6 hours PRN Flomax 0.4mg PO daily Ecotrin 325mg PO daily Lasix 40mg PO daily Micro-K cap 10meq PO daily Phenazopyridine one tablet PO three times a day PRN Nitroglycerin 0.4mg SL PRN Spiriva 18mcg IH daily Zestril 10mg PO daily Spironolactone 25mg PO daily Miralax 17 gram PO daily PRN ALLERGIES: Azithromycin Any mycin PHYSICAL EXAMINATION: GENERAL: The patient is ill appearing and mild respiratory distress and pain distress. VITAL SIGNS: Temperature 100.9, heart 98, respiration 32, blood pressure 103/ 66 and pulse ox 96% on 2 liters of oxygen. HEENT: Head normocephalic, atraumatic. Eyes: Extraocular muscles are intact. Pupils are equal, round and reactive to light and accommodation. Ears: No lesions. Nose appeared normal. Throat: No exudate or erythema. NECK: Supple. No JVD, no carotid bruit. No lymphadenopathy or thyromegaly. LUNGS: Diminished breath sounds bilaterally with bilateral Rhonchi. Percussion note normal. Chest symmetrical. HEART: S1, S2, no S3. No murmurs. No cyanosis or clubbing. No ascites. Pulses: Dorsalis pedis and posterior tibial pulses +1 to +2 both sides. Regular rate and rhythm. ABDOMEN: Soft. Nontender. Bowel sounds active times four quadrants. No CVA tenderness. No mass felt. Indwelling catheter. EXTREMITIES: No edema. Full range of motion of all extremities, equal. Generalized weakness. NEUROLOGIC: No focal deficit. Cranial nerves II through XII are grossly intact. No headache, no double vision or headache. The patient is alert and oriented times three. SKIN: Warm. Dry. Intact. Turgor - normal. LYMPHATIC: No palpable lymph nodes/no lymphedema. MUSCULOSKELETAL: Normal joints with no swelling. Muscle tone is normal. LABS: WBC 9.47, hgb 8.9, hct 25, plt count 259, sodium abnormal at 115, potassium high 5.5, chloride 83, BUN 22, creatinine 1.25, glucose 87. ABG on admission O2 saturation 95, pH 7.4, pCO2 31.9, pO2 70, HCO3 21.8, total CO2 23 on 2 liters of oxygen via nasal cannula. ASSESSMENT: 1. Hyponatremia 2. Hyperkalemia 3. Possible UTI 4. Acute bronchitis 5. COPD with acute exacerbation PLAN: 1. Will admit to special care unit 2. Will give 500cc of 3% sodium chloride do to electrolyte imbalance. 3. Continue home medications 4. Placed on routine telemetry orders 5. Will decrease Lasix to 20mg PO daily rather than 40 6. Will discontinue Aldactone for now 7. Oxygen at 2 liters and can go up as needed 8. Will monitor ABG's periodically 9. Urine for culture and sensitivity 10.Sputum for culture and sensitivity 11.Will keep indwelling catheter 12.Chest x-ray 13. CBC and CMP daily 14. DUO NEB treatment Q 6 hours 15. IV Solu-Medrol 125mg Q 6 hours 16. Rocephin 1 gram Q 24 hours IV 17. Tylenol for fever as needed Will monitor him closely. TIME SPENT: More than 70 minutes. MTDD
[2016-12-02] MEDS: PYRIDIUM PO PRN (20:21)
[2016-12-02] MEDS ORDERED: VANCOMYCIN 500 MG in SODIUM CHLORIDE 100 ML IV SCH (21:00)
[2016-12-03] MEDS: SOLU-MEDROL 125 MG IVP SCH ×4 (03:27→20:08)
[2016-12-03 04:37] LABS: HEMOGLOBIN 8.3 g/dl (14.0-18.0); IMMATURE GRANULOCYTE % (AUTO) 1.4 % (0.0-5.0); LYMPHOCYTES # (AUTO) 1.5 K/uL (0.60-3.4); LYMPHOCYTES % (AUTO) 17.7 (10.0-50.0); MEAN CORPUSCULAR HEMOGLOBIN 27.8 pg (27.0-31.0); MEAN CORPUSCULAR HGB CONC 34.6 (31.8-35.4); MEAN CORPUSCULAR VOLUME 80.3 fl (80.0-94.0); MONOCYTES # (AUTO) 0.3 K/uL (0.4-2.0); MONOCYTES % (AUTO) 3.5 (0-10); NEUTROPHILS # (AUTO) 6.6 K/ul (2.0-6.9); NEUTROPHILS % (AUTO) 77.4; PLATELET COUNT 271 10^3/uL (140-440); RED BLOOD COUNT 2.99 10^6/ul (4.70-6.10); WHITE BLOOD COUNT 8.55 K/ul (4.2-10.2)
[2016-12-03 04:56] LABS: ALBUMIN 2.5 g/dL (3.4-5.0); ALBUMIN/GLOBULIN RATIO 1.09; ANION GAP 10.1; BILIRUBIN,TOTAL 0.27 mg/dL (0.00-1.20); BUN/CREATININE RATIO 28.16; CALCIUM 8.4 mg/dL (8.2-10.2); CREATININE 0.71 mg/dL (0.60-1.10); POTASSIUM 4.1 mmol/L (3.5-5.1); TOTAL PROTEIN 4.8 g/dL (5.8-8.1)
[2016-12-03] MEDS: XOPENEX 1.25 MG NEB SCH ×4 (05:11→22:35)
[2016-12-03] MEDS: LASIX TAB PO SCH (06:01)
[2016-12-03] MEDS: ROCEPHIN 1 GM in SODIUM CHLORIDE 50 ML IV SCH (08:40)
[2016-12-03] MEDS: PYRIDIUM PO PRN (08:40)
[2016-12-03] MEDS: FLOMAX PO SCH (08:41)
[2016-12-03] MEDS: PLAVIX PO SCH (08:41)
[2016-12-03] MEDS: FLONASE NAS SCH (08:41)
[2016-12-03] MEDS: COREG PO SCH ×2 (08:41→17:26)
[2016-12-03] MEDS: ASPIRIN EC PO SCH (08:41)
[2016-12-03] MEDS: ZESTRIL PO SCH (08:41)
[2016-12-03] MEDS: ZYVOX 600 MG in PREMIX 300 ML WATER 1 BAG IV SCH ×2 (09:56→20:08)
[2016-12-03] MEDS: SODIUM CHLORIDE 1,000 ML IV SCH (11:03)
[2016-12-03] MEDS ORDERED: MYLANTA SUSP PO STA ×2 (17:28→17:34)
[2016-12-04] MEDS: SOLU-MEDROL 125 MG IVP SCH ×4 (02:45→20:12)
[2016-12-04] MEDS: XOPENEX 1.25 MG NEB SCH ×4 (05:09→22:56)
[2016-12-04 05:20] LABS: BASOPHILS % (AUTO) 0.1 % (0.0-3.0); HEMATOCRIT 24.8 % (42.0-52.0); HEMOGLOBIN 8.8 g/dl (14.0-18.0); IMMATURE GRANULOCYTE % (AUTO) 1.2 % (0.0-5.0); LYMPHOCYTES # (AUTO) 1.5 K/uL (0.60-3.4); LYMPHOCYTES % (AUTO) 13.3 (10.0-50.0); MEAN CORPUSCULAR HEMOGLOBIN 28.6 pg (27.0-31.0); MEAN CORPUSCULAR HGB CONC 35.5 (31.8-35.4); MEAN CORPUSCULAR VOLUME 80.5 fl (80.0-94.0); MONOCYTES # (AUTO) 0.5 K/uL (0.4-2.0); MONOCYTES % (AUTO) 4.1 (0-10); NEUTROPHILS % (AUTO) 81.3; PLATELET COUNT 250 10^3/uL (140-440); RED BLOOD COUNT 3.08 10^6/ul (4.70-6.10); WHITE BLOOD COUNT 11.07 K/ul (4.2-10.2)
[2016-12-04] MEDS: LASIX TAB PO SCH (05:33)
[2016-12-04 05:37] LABS: ALBUMIN 2.7 g/dL (3.4-5.0); ALBUMIN/GLOBULIN RATIO 1.35; ANION GAP 12.2; BILIRUBIN,TOTAL 0.33 mg/dL (0.00-1.20); BUN/CREATININE RATIO 30.13; CALCIUM 8.9 mg/dL (8.2-10.2); CREATININE 0.73 mg/dL (0.60-1.10); POTASSIUM 4.2 mmol/L (3.5-5.1); TOTAL PROTEIN 4.7 g/dL (5.8-8.1)
[2016-12-04] MEDS ORDERED: ZOFRAN 4 MG/2 ML IVP STA (08:31)
[2016-12-04] MEDS: ROCEPHIN 1 GM in SODIUM CHLORIDE 50 ML IV SCH (09:19)
[2016-12-04] MEDS: CARAFATE PO SCH ×4 (09:38→20:12)
[2016-12-04] MEDS: FLOMAX PO SCH (09:40)
[2016-12-04] MEDS: ASPIRIN EC PO SCH (09:40)
[2016-12-04] MEDS: COREG PO SCH ×2 (09:40→17:00)
[2016-12-04] MEDS: PROTONIX PO SCH ×2 (09:41→17:00)
[2016-12-04] MEDS: PLAVIX PO SCH (09:41)
[2016-12-04] MEDS: ZESTRIL PO SCH (09:41)
[2016-12-04] MEDS: FLONASE NAS SCH (09:42)
[2016-12-04] MEDS: PYRIDIUM PO PRN ×2 (10:01→15:29)
[2016-12-04] MEDS: ZYVOX 600 MG in PREMIX 300 ML WATER 1 BAG IV SCH ×2 (11:06→20:12)
[2016-12-04] MEDS: BENTYL PO PRN (20:12)
[2016-12-04] MEDS: MORPHINE 2 MG/ML SYRINGE IVP PRN (22:55)
[2016-12-05] MEDS: SOLU-MEDROL 125 MG IVP SCH ×4 (04:23→22:19)
[2016-12-05 04:45] LABS: BASOPHILS % (AUTO) 0.1 % (0.0-3.0); HEMATOCRIT 22.8 % (42.0-52.0); IMMATURE GRANULOCYTE % (AUTO) 1.2 % (0.0-5.0); LYMPHOCYTES # (AUTO) 1.8 K/uL (0.60-3.4); LYMPHOCYTES % (AUTO) 16.6 (10.0-50.0); MEAN CORPUSCULAR HEMOGLOBIN 28.7 pg (27.0-31.0); MEAN CORPUSCULAR HGB CONC 35.1 (31.8-35.4); MEAN CORPUSCULAR VOLUME 81.7 fl (80.0-94.0); MONOCYTES # (AUTO) 0.4 K/uL (0.4-2.0); MONOCYTES % (AUTO) 4.1 (0-10); NEUTROPHILS # (AUTO) 8.3 K/ul (2.0-6.9); PLATELET COUNT 229 10^3/uL (140-440); RED BLOOD COUNT 2.79 10^6/ul (4.70-6.10); WHITE BLOOD COUNT 10.64 K/ul (4.2-10.2)
[2016-12-05 05:07] LABS: ALBUMIN 2.3 g/dL (3.4-5.0); ALBUMIN/GLOBULIN RATIO 1.21; ANION GAP 11.7; BILIRUBIN,TOTAL 0.35 mg/dL (0.00-1.20); BUN/CREATININE RATIO 31.16; CALCIUM 8.4 mg/dL (8.2-10.2); CREATININE 0.77 mg/dL (0.60-1.10); POTASSIUM 4.7 mmol/L (3.5-5.1); TOTAL PROTEIN 4.2 g/dL (5.8-8.1)
[2016-12-05] MEDS: XOPENEX 1.25 MG NEB SCH ×4 (05:20→23:03)
[2016-12-05] MEDS: BENTYL PO PRN (05:31)
[2016-12-05] MEDS: LASIX TAB PO SCH (05:31)
[2016-12-05] MEDS: PROTONIX PO SCH ×2 (05:31→17:01)
[2016-12-05] MEDS: CARAFATE PO SCH ×4 (05:31→20:29)
[2016-12-05] MEDS: ZYVOX 600 MG in PREMIX 300 ML WATER 1 BAG IV SCH ×2 (09:05→22:23)
[2016-12-05] MEDS: FLONASE NAS SCH (09:15)
[2016-12-05] MEDS: ASPIRIN EC PO SCH (09:16)
[2016-12-05] MEDS: ZESTRIL PO SCH (09:16)
[2016-12-05] MEDS: PLAVIX PO SCH (09:17)
[2016-12-05] MEDS: COREG PO SCH ×2 (09:17→17:01)
[2016-12-05] MEDS: FLOMAX PO SCH (09:17)
--- NOTE | 2016-12-05 09:22 | PN ---
DATE OF SERVICE: 12/01/16 SUBJECTIVE: The patient is a 71 year old white male hospitalized with hyponatremia, COPD, active bronchitis and fever. The patient's condition has improved and his breathing has improved. The is present in the room. The patient was seen and examined with nurse practitioner and porter sample case. PHYSICAL EXAMINATION: HEENT: Head normocephalic, atraumatic. Eyes: Extraocular muscles are intact. Pupils are equal, round and reactive to light and accommodation. Ears: No lesions. Nose appeared normal. Throat: No exudate or erythema. NECK: Supple. No JVD, no carotid bruit. No lymphadenopathy or thyromegaly. LUNGS: Decreased breath sounds but clear to auscultation. Percussion note normal. Chest symmetrical. HEART: S1, S2, no S3. No murmurs. No cyanosis or clubbing. No ascites. Pulses: Dorsalis pedis and posterior tibial pulses +1 to +2 both sides. ABDOMEN: Soft. Nontender. Bowel sounds active. No CVA tenderness. No mass felt. EXTREMITIES: No edema. Full range of motion of all extremities, equal. NEUROLOGIC: No focal deficit. Cranial nerves II through XII are grossly intact. No headache, no double vision or headache. SKIN: Not dry. Intact. Turgor - normal. LYMPHATIC: No palpable lymph nodes/no lymphedema. MUSCULOSKELETAL: Normal joints with no swelling. Muscle tone is normal. LABS: Sodium 123 and it was 115 on admission. PLAN: 1. IV antibiotics, steroids and NEBS treatment CONDITION: STABLE TIME SPENT: More than 30 minutes. Plan and coordination of the patient's care discussed in the presence of nurse. SHEA
--- NOTE | 2016-12-05 09:30 | PCM.PROG ---
Attending Provider: ATTENDING PROVIDER: Dr. KATLIN CORTES DATE OF SERVICE: 12/05/16 SUBJECTIVE: This 71 year old WHITE/ M was hospitalized 11/30/16. The patient is seen with Erika, Nurse Practitioner. The patient is sitting up in bed, alert, states he is feeling better than over the weekend; no nausea. He is breathing better today. He states he had two BMs yesterday. REVIEW OF SYSTEMS: CONSTITUTIONAL: Weakness. No night sweats. . No fever or chills. HEENT: Eyes: No visual changes. No eye pain. No eye discharge. ENT: No runny nose. No epistaxis. No sinus pain. No odynophagia. No congestion. RESPIRATORY: No cough, no congestion. No hemoptysis. CARDIOVASCULAR: No angina symptoms. No CHF symptoms. No atypical chest pain for CAD. No palpitations. Shortness of breath. GASTROINTESTINAL: No abdominal pain. No nausea or vomiting. No diarrhea or constipation. No hematemesis. No hematochezia. GENITOURINARY: No urgency. No frequency. No dysuria. No hematuria. No obstructive symptoms. No discharge. No pain. No significant abnormal bleeding. MUSCULOSKELETAL: No musculoskeletal pain; no joint swelling. NEUROLOGICAL: Awake, alert, oriented to time, place and person. No headache. No neck pain. No syncope. No seizures. No dizziness. PSYCHIATRIC: Not anxious. No depression. No suicidal thoughts. No homicidal thoughts. SKIN: No rash. No lesions. No wounds. ENDOCRINE: No unexplained weight loss. No weight gain. HEMATOLOGIC/LYMPHATIC: No anemia. No purpura. No petechiae. No prolonged or excessive bleeding. No palpable lymph nodes. PHYSICAL EXAMINATION: GENERAL: The patient is awake, alert and oriented, lying/sitting in bed in no distress. VITAL SIGNS: Temperature 97.2 F, Pulse 76, Respiratory Rate 20, BP 113/61, Pulse Ox 96% HEENT: Head normocephalic, atraumatic. Eyes: Extraocular muscles are intact. Pupils are equal, round and reactive to light and accommodation. Ears: No lesions. Nose appeared normal. Throat: No exudate or erythema. NECK: Supple. No JVD, no carotid bruit. No lymphadenopathy or thyromegaly. LUNGS: Decreased breath sounds bilaterally. Clear to auscultation. Percussion note normal. Chest symmetrical. HEART: S1, S2, no S3. No murmurs. No cyanosis or clubbing. No ascites. Pulses: Dorsalis pedis and posterior tibial pulses +1 to +2 both sides. ABDOMEN: Soft. Non-tender. Bowel sounds active. No CVA tenderness. No mass felt. EXTREMITIES: No edema. Full range of motion of all extremities, equal. NEUROLOGIC: No focal deficit. Cranial nerves II through XII are grossly intact. No headache, no double vision or headache. SKIN: Not dry. Intact. Turgor-normal. LYMPHATIC: No palpable lymph nodes/no lymphedema. MUSCULOSKELETAL: Normal joints with no swelling. Muscle tone is normal. LAB REVIEW: 12/05/16 04:42 12/05/16 04:42 12/05/16 04:42: WBC 10.64 H, RBC 2.79 L, Hgb 8.0 L, Hct 22.8 L, MCV 81.7, MCH 28.7, MCHC 35.1, RDW Coeff of Bull 13.8, Plt Count 229, Immature Gran % (Auto) 1.2, Neut % (Auto) 78.0, Lymph % (Auto) 16.6, [place] % (Auto) 4.1, Eos % (Auto) 0.0, Baso % (Auto) 0.1, Immature Gran # (Auto) 0.1, Neut # 8.3 H, Lymph # 1.8, [place] # 0.4, Eos # 0.0, Baso # 0.0, Sodium 129 L, Potassium 4.7, Chloride 93 L, Carbon Dioxide 29, Anion Gap 11.7, BUN 24 H, Creatinine 0.77, Estimated GFR ( MDRD) 99.00, BUN/Creatinine Ratio 31.16, Glucose 108, Calcium 8.4, Total Bilirubin 0.35, AST 16, ALT 27, Alkaline Phosphatase 67, Total Protein 4.2 L, Albumin 2.3 L, Globulin 1.9, Albumin/Globulin Ratio 1.21 ASSESSMENT: 1. Hyponatremia, improving 2. Acute bronchitis 3. Possible UTI, urine culture pending 4. Shortness of breath, improved 5. Anemia PLAN: 1. Continue Protonix and Carafate. 2. Urine and sputum culture pending. Plan and coordination of the patient's care discussed in the presence of Money Room Supervisor and nurse. CONDITION: Stable SCRIBED BY: CHARLETTE PAINTING, Mix Technician scribed while in presence of service performed by Dr. KATLIN CORTES/ERIKA LEIVA APRN on 12/05/16 ([id number])
--- NOTE | 2016-12-05 09:39 | PN ---
DATE OF SERVICE: 12/02/16 SUBJECTIVE: The patient is a 71 year old white male hospitalized with hyponatremia, COPD and acute bronchitis with fever. The patient's condition has improved and he is feeling a lot better. The cough is much less and no fever. The patient was seen and examined with Nurse Practitioner and Biometrics Specialist. PHYSICAL EXAMINATION: HEENT: Head normocephalic, atraumatic. Eyes: Extraocular muscles are intact. Pupils are equal, round and reactive to light and accommodation. Ears: No lesions. Nose appeared normal. Throat: No exudate or erythema. NECK: Supple. No JVD, no carotid bruit. No lymphadenopathy or thyromegaly. LUNGS: Decreased breath sounds but clear to auscultation. Percussion note normal. Chest symmetrical. HEART: S1, S2, no S3. No murmurs. No cyanosis or clubbing. No ascites. Pulses: Dorsalis pedis and posterior tibial pulses +1 to +2 both sides. ABDOMEN: Soft. Nontender. Bowel sounds active. No CVA tenderness. No mass felt. EXTREMITIES: No edema. Full range of motion of all extremities, equal. NEUROLOGIC: No focal deficit. Cranial nerves II through XII are grossly intact. No headache, no double vision or headache. SKIN: Not dry. Intact. Turgor - normal. LYMPHATIC: No palpable lymph nodes/no lymphedema. MUSCULOSKELETAL: Normal joints with no swelling. Muscle tone is normal. LABS: The patient gram positive cocci in the sputum ASSESSMENT: 1. Hyponatremia is improving, now the sodium is 127. PLAN: 1. The patient is on IV fluids with no evidence of bladder spasm CONDITION: Stable and improving. TIME SPENT: More than 30 minutes. Plan and coordination of the patient's care discussed in the presence of nurse. SHEA
[2016-12-05] MEDS: ROCEPHIN 1 GM in SODIUM CHLORIDE 50 ML IV SCH (11:47)
--- NOTE | 2016-12-05 11:54 | PN ---
DATE OF SERVICE: 12/03/16 SUBJECTIVE: The patient is a 71 year old black male hospitalized with cough, congestion and fever and that patient also had hyponatremia. The patient's condition has steadily improved. His cough and congestion is much less and he is afebrile. Sodium has gone up to 127 from 115. REVIEW OF SYSTEMS: CONSTITUTIONAL: No night sweats. No fatigue, malaise, lethargy. No fever or chills. HEENT: Eyes: No visual changes. No eye pain. No eye discharge. ENT: No runny nose. No epistaxis. No sinus pain. No sore throat. No odynophagia. No congestion. RESPIRATORY: Less cough and congestion. No hemoptysis. CARDIOVASCULAR: No angina symptoms. No CHF symptoms. No atypical chest pain for CAD. No palpitations. No shortness of breath. GASTROINTESTINAL: No abdominal pain. No nausea or vomiting. No diarrhea or constipation. No hematemesis. No hematochezia. Appetite has improved. GENITOURINARY: No urgency. No frequency. No dysuria. No hematuria. No obstructive symptoms. No discharge. No pain. No significant abnormal bleeding. Still has some bladder spasms. MUSCULOSKELETAL: No musculoskeletal pain; no joint swelling. NEUROLOGICAL: No headache. No neck pain. No syncope. No seizures. No dizziness. PSYCHIATRIC: Not anxious. No depression. No suicidal thoughts. No homicidal thoughts. SKIN: No rash. No lesions. No wounds. ENDOCRINE: No unexplained weight loss. No weight gain. HEMATOLOGIC/LYMPHATIC: No anemia. No purpura. No petechiae. No prolonged or excessive bleeding. No palpable lymph nodes. PHYSICAL EXAMINATION: GENERAL: The patient is oriented to time, place and person but looks somewhat pale. VITAL SIGNS: Temperature 97.5, pulse 83, respiratory rate 18, blood pressure 114/70 and pulse ox 95%. HEENT: Head normocephalic, atraumatic. Eyes: Extraocular muscles are intact. Pupils are equal, round and reactive to light and accommodation. Ears: No lesions. Nose appeared normal. Throat: No exudate or erythema. NECK: Supple. No JVD, no carotid bruit. No lymphadenopathy or thyromegaly. LUNGS: Decreased breaths sounds but clear to auscultation. Percussion note normal. Chest symmetrical. HEART: S1, S2, no S3. No murmurs. No cyanosis or clubbing. No ascites. Pulses: Dorsalis pedis and posterior tibial pulses +1 to +2 both sides. ABDOMEN: Soft. Nontender. Bowel sounds active. No CVA tenderness. No mass felt. EXTREMITIES: No edema. Full range of motion of all extremities, equal. NEUROLOGIC: No focal deficit. Cranial nerves II through XII are grossly intact. No headache, no double vision or headache. SKIN: Not dry. Intact. Turgor - normal. LYMPHATIC: No palpable lymph nodes/no lymphedema. MUSCULOSKELETAL: Normal joints with no swelling. Muscle tone is normal. LABS: Hgb 8.3, hct 24, WBC 8,500 normal differential, creatinine 0.7, BUN 20, potassium 4.1. ASSESSMENT: 1. Acute bronchitis with pneumonitis 2. Hyponatremia 3. Cor Pulmonale 4. 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 Ahumada Catheter for more than 6 months now followed by urologist. PLAN: 1. Continue IV antibiotics 2. Continue steroids 3. Discontinue IV Fluids 4. Sodium 127 5. Monitor hgb and hct CONDITION: Stable. TIME SPENT: More than 30 minutes. Plan and coordination of the patient's care discussed in the presence of nurse. SHEA
--- NOTE | 2016-12-05 12:48 | PN ---
DATE OF SERVICE: 12/04/16 SUBJECTIVE: The patient is a 71 year old white male hospitalized with hyponatremia, acute bronchitis and fever. The patient's condition has steadily improved and he is looking a lot better and feeling better. This morning he had a little nausea with reflux type of symptoms. The patient is going to be started on Carafate, Protonix and Zofran will given. REVIEW OF SYSTEMS: CONSTITUTIONAL: No night sweats. No fatigue, malaise, lethargy. No fever or chills. HEENT: Eyes: No visual changes. No eye pain. No eye discharge. ENT: No runny nose. No epistaxis. No sinus pain. No sore throat. No odynophagia. No congestion. RESPIRATORY: mild cough and congestion much better than before.. No hemoptysis. CARDIOVASCULAR: No angina symptoms. No CHF symptoms. No atypical chest pain for CAD. No palpitations. No shortness of breath. No PND. No Orthopnea. GASTROINTESTINAL: No abdominal pain. Mild nausea with reflux type of symptoms. No diarrhea or constipation. No hematemesis. No hematochezia. GENITOURINARY: No urgency. No frequency. No dysuria. No hematuria. No obstructive symptoms. No discharge. No pain. No significant abnormal bleeding. MUSCULOSKELETAL: No musculoskeletal pain; no joint swelling. NEUROLOGICAL: No headache. No neck pain. No syncope. No seizures. No dizziness. PSYCHIATRIC: Not anxious. No depression. No suicidal thoughts. No homicidal thoughts. SKIN: No rash. No lesions. No wounds. ENDOCRINE: No unexplained weight loss. No weight gain. HEMATOLOGIC/LYMPHATIC: No anemia. No purpura. No petechiae. No prolonged or excessive bleeding. No palpable lymph nodes. PHYSICAL EXAMINATION: GENERAL: The patient is oriented to time, place and person. VITAL SIGNS: Temperature 97, pulse 90, respiratory rate 18, blood pressure 145/ 80 and pulse 98%. HEENT: Head normocephalic, atraumatic. Eyes: Extraocular muscles are intact. Pupils are equal, round and reactive to light and accommodation. Ears: No lesions. Nose appeared normal. Throat: No exudate or erythema. NECK: Supple. No JVD, no carotid bruit. No lymphadenopathy or thyromegaly. LUNGS: Decreased breath sounds but clear to auscultation. Percussion note normal. Chest symmetrical. HEART: S1, S2, no S3. No murmurs. No cyanosis or clubbing. No ascites. Pulses: Dorsalis pedis and posterior tibial pulses +1 to +2 both sides. ABDOMEN: Soft. Nontender. Bowel sounds active. No CVA tenderness. No mass felt. EXTREMITIES: No edema. Full range of motion of all extremities, equal. NEUROLOGIC: No focal deficit. Cranial nerves II through XII are grossly intact. No headache, no double vision or headache. SKIN: Not dry. Intact. Turgor - normal. LYMPHATIC: No palpable lymph nodes/no lymphedema. MUSCULOSKELETAL: Normal joints with no swelling. Muscle tone is normal. LABS: hgb 8.8, hct 24, WBC 11,000 normal differential, creatinine 0.7, BUN 22, potassium 4.2 and sodium is now 132. ASSESSMENT: 1. Hyponatremia, resolved 2. Acute bronchitis, much better 3. Chronic lung disease 4. Ahumada Catheter 5. BPH 6. Reflux symptoms PLAN: 1. Carafate 2. Protonix 3. Zofran 4. Continue IV antibiotics and steroids. CONDITION: STABLE TIME SPENT: More than 30 minutes. Plan and coordination of the patient's care discussed in the presence of nurse. SHEA
[2016-12-05 22:37] LABS: HEMATOCRIT 32.2 % (42.0-52.0); HEMOGLOBIN 11.3 g/dl (14.0-18.0)
[2016-12-06] MEDS: SOLU-MEDROL 125 MG IVP SCH (03:55)
[2016-12-06 04:42] LABS: BASOPHILS % (AUTO) 0.1 % (0.0-3.0); HEMATOCRIT 32.6 % (42.0-52.0); HEMOGLOBIN 11.7 g/dl (14.0-18.0); IMMATURE GRANULOCYTE % (AUTO) 1.5 % (0.0-5.0); LYMPHOCYTES # (AUTO) 1.6 K/uL (0.60-3.4); LYMPHOCYTES % (AUTO) 15.4 (10.0-50.0); MEAN CORPUSCULAR HEMOGLOBIN 28.8 pg (27.0-31.0); MEAN CORPUSCULAR HGB CONC 35.9 (31.8-35.4); MEAN CORPUSCULAR VOLUME 80.3 fl (80.0-94.0); MONOCYTES # (AUTO) 0.3 K/uL (0.4-2.0); NEUTROPHILS # (AUTO) 8.3 K/ul (2.0-6.9); PLATELET COUNT 222 10^3/uL (140-440); RED BLOOD COUNT 4.06 10^6/ul (4.70-6.10); WHITE BLOOD COUNT 10.33 K/ul (4.2-10.2)
[2016-12-06 05:02] LABS: ALBUMIN 2.4 g/dL (3.4-5.0); ALBUMIN/GLOBULIN RATIO 1.09; ANION GAP 12.2; BILIRUBIN,TOTAL 0.68 mg/dL (0.00-1.20); BUN/CREATININE RATIO 32.39; CALCIUM 8.4 mg/dL (8.2-10.2); CREATININE 0.71 mg/dL (0.60-1.10); POTASSIUM 4.2 mmol/L (3.5-5.1); TOTAL PROTEIN 4.6 g/dL (5.8-8.1)
[2016-12-06] MEDS: XOPENEX 1.25 MG NEB SCH ×4 (05:13→23:20)
[2016-12-06] MEDS: CARAFATE PO SCH ×5 (05:49→20:19)
[2016-12-06] MEDS: LASIX TAB PO SCH (05:49)
[2016-12-06] MEDS: PROTONIX PO SCH ×2 (05:49→17:05)
[2016-12-06] MEDS ORDERED: DIFLUCAN PO STA (08:02)
[2016-12-06] MEDS: ROCEPHIN 1 GM in SODIUM CHLORIDE 50 ML IV SCH (08:16)
[2016-12-06] MEDS: FLONASE NAS SCH (08:16)
[2016-12-06] MEDS: PREDNISONE PO SCH ×2 (08:16→17:05)
[2016-12-06] MEDS: ZESTRIL PO SCH (08:17)
[2016-12-06] MEDS: FLOMAX PO SCH (08:17)
[2016-12-06] MEDS: ASPIRIN EC PO SCH (08:17)
[2016-12-06] MEDS: PLAVIX PO SCH (08:17)
[2016-12-06] MEDS: COREG PO SCH ×2 (08:17→17:05)
--- NOTE | 2016-12-06 08:55 | PCM.PROG ---
Attending Provider: ATTENDING PROVIDER: Dr. KATLIN CORTES DATE OF SERVICE: 12/06/16 SUBJECTIVE: This 71 year old WHITE/ M was hospitalized 11/30/16. The patient is seen with Erika, Nurse Practitoner. He is lying in bed, alert, states he feels some better. Hemoglobin is up to 11.7 after transfusion yesterday, will try to get him up and about today. REVIEW OF SYSTEMS: CONSTITUTIONAL: Generalized weakness. No night sweats. No fever or chills. HEENT: Eyes: No visual changes. No eye pain. No eye discharge. ENT: No runny nose. No epistaxis. No sinus pain. No odynophagia. No congestion. RESPIRATORY: No cough, no congestion. No hemoptysis. CARDIOVASCULAR: No angina symptoms. No CHF symptoms. No atypical chest pain for CAD. No palpitations. Shortness of breath improved. GASTROINTESTINAL: No abdominal pain. No nausea or vomiting. No diarrhea or constipation. No hematemesis. No hematochezia. GENITOURINARY: No urgency. No frequency. No dysuria. No hematuria. No obstructive symptoms. No discharge. No pain. No significant abnormal bleeding. MUSCULOSKELETAL: No musculoskeletal pain; no joint swelling. NEUROLOGICAL: Awake, alert, oriented to time, place and person. No headache. No neck pain. No syncope. No seizures. No dizziness. PSYCHIATRIC: Not anxious. No depression. No suicidal thoughts. No homicidal thoughts. SKIN: No rash. No lesions. No wounds. ENDOCRINE: No unexplained weight loss. No weight gain. HEMATOLOGIC/LYMPHATIC: No anemia. No purpura. No petechiae. No prolonged or excessive bleeding. No palpable lymph nodes. PHYSICAL EXAMINATION: GENERAL: The patient is awake, alert and oriented lying in bed in no distress. VITAL SIGNS: Temperature 97.0 F, Pulse 67, Respiratory Rate 20, BP 138/66, Pulse Ox 96% HEENT: Head normocephalic, atraumatic. Eyes: Extraocular muscles are intact. Pupils are equal, round and reactive to light and accommodation. Ears: No lesions. Nose appeared normal. Throat: No exudate or erythema. NECK: Supple. No JVD, no carotid bruit. No lymphadenopathy or thyromegaly. LUNGS: Diminished breath sounds bilaterally, equal and clear. Percussion note normal. Chest symmetrical. HEART: S1, S2, no S3. No murmurs. No cyanosis or clubbing. No ascites. Pulses: Dorsalis pedis and posterior tibial pulses +1 to +2 both sides. ABDOMEN: Soft. Non-tender. Bowel sounds active. No CVA tenderness. No mass felt. EXTREMITIES: No edema. Full range of motion of all extremities, equal. NEUROLOGIC: No focal deficit. Cranial nerves II through XII are grossly intact. No headache, no double vision or headache. SKIN: Not dry. Intact. Turgor-normal. LYMPHATIC: No palpable lymph nodes/no lymphedema. MUSCULOSKELETAL: Normal joints with no swelling. Muscle tone is normal. LAB REVIEW: 12/06/16 04:38 12/06/16 04:38 12/06/16 04:38: WBC 10.33 H, RBC 4.06 L, Hgb 11.7 L, Hct 32.6 L, MCV 80.3, MCH 28.8, MCHC 35.9 H, RDW Coeff of Bull 13.2, Plt Count 222, Immature Gran % (Auto) 1.5, Neut % (Auto) 80.0, Lymph % (Auto) 15.4, [place] % (Auto) 3.0, Eos % (Auto) 0.0, Baso % (Auto) 0.1, Immature Gran # (Auto) 0.2, Neut # 8.3 H, Lymph # 1.6, [place] # 0.3 L, Eos # 0.0, Baso # 0.0, Sodium 127 L, Potassium 4.2, Chloride 90 L , Carbon Dioxide 29, Anion Gap 12.2, BUN 23 H, Creatinine 0.71, Estimated GFR ( MDRD) 109.00, BUN/Creatinine Ratio 32.39, Glucose 108, Calcium 8.4, Total Bilirubin 0.68, AST 15, ALT 28, Alkaline Phosphatase 70, Total Protein 4.6 L, Albumin 2.4 L, Globulin 2.2, Albumin/Globulin Ratio 1.09 12/05/16 22:30: Hgb 11.3 L D, Hct 32.2 L D 12/05/16 08:40: Blood Type O POSITIVE, Antibody Screen Negative, Crossmatch (AHG ) See Detail ASSESSMENT: 1. Hyponatremia, improving 2. Acute bronchitis 3. Urine culture positive for yeast growth 4. Shortness of breath, improved 5. Anemia improved PLAN: 1. Encouraged to be up and about today 2. Stop Zyvox 3. Prednisone 10 mg b.i.d 4. One dose of Diflucan 150 mg 5. Stop Solu-Medrol Plan and coordination of the patient's care discussed in the presence of Cops and nurse. CONDITION: Stable SCRIBED BY: CHARLETTE PAINTING Associate Chief Nurse scribed while in presence of service performed by Dr. KATLIN CORTES/ERIKA FUCHS APRN on 12/06/16 ([id number])
--- NOTE | 2016-12-06 09:22 | PN ---
DATE OF SERVICE: 12/05/16 SUBJECTIVE: The patient was seen and examined with Nurse Practitioner.The patient improved some with his bronchitis symptoms initially but now he seems to be deteriorating some with poor appetite, nausea and also has shortness of breath on minimal exertion. REVIEW OF SYSTEMS: CONSTITUTIONAL: No night sweats. No fatigue, malaise, lethargy. No fever or chills. HEENT: Eyes: No visual changes. No eye pain. No eye discharge. ENT: No runny nose. No epistaxis. No sinus pain. No sore throat. No odynophagia. No congestion. RESPIRATORY: No cough, no congestion. No hemoptysis. CARDIOVASCULAR: No angina symptoms. No CHF symptoms. No atypical chest pain for CAD. No palpitations. No shortness of breath. GASTROINTESTINAL: No abdominal pain. No nausea or vomiting. No diarrhea or constipation. No hematemesis. No hematochezia. GENITOURINARY: No urgency. No frequency. No dysuria. No hematuria. No obstructive symptoms. No discharge. No pain. No significant abnormal bleeding. MUSCULOSKELETAL: No musculoskeletal pain; no joint swelling. NEUROLOGICAL: No headache. No neck pain. No syncope. No seizures. No dizziness. PSYCHIATRIC: Not anxious. No depression. No suicidal thoughts. No homicidal thoughts. SKIN: No rash. No lesions. No wounds. ENDOCRINE: No unexplained weight loss. No weight gain. HEMATOLOGIC/LYMPHATIC: No anemia. No purpura. No petechiae. No prolonged or excessive bleeding. No palpable lymph nodes. PHYSICAL EXAMINATION: GENERAL: The patient looks pale. VITAL SIGNS: Temperature 97.2, pulse 76, respiratory rate 20, blood pressure 113/60 and pulse ox 96%. HEENT: Head normocephalic, atraumatic. Eyes: Extraocular muscles are intact. Pupils are equal, round and reactive to light and accommodation. Ears: No lesions. Nose appeared normal. Throat: No exudate or erythema. NECK: Supple. No JVD, no carotid bruit. No lymphadenopathy or thyromegaly. LUNGS: Decreased breaths sounds with mild wheeze bilaterally. Percussion note normal. Chest symmetrical. Shortness of breath on minimal exertion. Unable to talk sentences. HEART: S1, S2, no S3. No murmurs. No cyanosis or clubbing. No ascites. Pulses: Dorsalis pedis and posterior tibial pulses +1 to +2 both sides. ABDOMEN: Soft. Nontender. Bowel sounds active. No CVA tenderness. No mass felt. EXTREMITIES: Trace edema. Full range of motion of all extremities, equal. Ahumada Catheter. NEUROLOGIC: No focal deficit. Cranial nerves II through XII are grossly intact. No headache, no double vision or headache. SKIN: Not dry. Intact. Turgor - normal. LYMPHATIC: No palpable lymph nodes/no lymphedema. MUSCULOSKELETAL: Normal joints with no swelling. Muscle tone is normal. LABS: Hgb has dropped to 8 with hct of 22.8. ASSESSMENT: 1. Acute bronchitis 2. Severe chronic lung disease 3. History Cor Pulmonale 4. Ahumada Catheter with BPH 5. Severe anemia 6. CHF PLAN: 1. The patient will be typed and cross matched and given a couple of units of packed red cells. Reason for blood transfusion at 8 or near 8 or less than 8 is because of patient's shortness of breath on minimal exertion. Weakness doesn't look like he is getting over the hump, appetites has been poor definitely anemia is effecting his overall status and multiple clinical conditions he has. Discussed with the family and we will give him 2 units of packed red cells. 2. Also discussed with Cp Bleacher Operator and Nurse Practitioner and all in agreement with nursing staff. 3. The patient is not medical stable to undergo any further investigation for his drop in the hgb and hct, likely nutrition along with probably GI. 4. The patient is on Carafate and Protonix. TIME SPENT: More than 30 minutes. Plan and coordination of the patient's care discussed in the presence of nurse. SHEA
[2016-12-07 04:42] LABS: BASOPHILS % (AUTO) 0.1 % (0.0-3.0); HEMATOCRIT 32.8 % (42.0-52.0); HEMOGLOBIN 11.6 g/dl (14.0-18.0); IMMATURE GRANULOCYTE % (AUTO) 1.2 % (0.0-5.0); LYMPHOCYTES # (AUTO) 1.5 K/uL (0.60-3.4); MEAN CORPUSCULAR HEMOGLOBIN 28.4 pg (27.0-31.0); MEAN CORPUSCULAR HGB CONC 35.4 (31.8-35.4); MEAN CORPUSCULAR VOLUME 80.4 fl (80.0-94.0); MONOCYTES # (AUTO) 0.9 K/uL (0.4-2.0); MONOCYTES % (AUTO) 5.7 (0-10); NEUTROPHILS # (AUTO) 13.8 K/ul (2.0-6.9); PLATELET COUNT 211 10^3/uL (140-440); RED BLOOD COUNT 4.08 10^6/ul (4.70-6.10); WHITE BLOOD COUNT 16.48 K/ul (4.2-10.2)
[2016-12-07 05:03] LABS: ALBUMIN 2.3 g/dL (3.4-5.0); ALBUMIN/GLOBULIN RATIO 1.1; ANION GAP 12.4; BILIRUBIN,TOTAL 0.75 mg/dL (0.00-1.20); BUN/CREATININE RATIO 36.36; CALCIUM 8.4 mg/dL (8.2-10.2); CREATININE 0.66 mg/dL (0.60-1.10); POTASSIUM 3.4 mmol/L (3.5-5.1); TOTAL PROTEIN 4.4 g/dL (5.8-8.1)
[2016-12-07] MEDS: XOPENEX 1.25 MG NEB SCH ×2 (05:06→11:08)
[2016-12-07] MEDS: LASIX TAB PO SCH (06:07)
[2016-12-07] MEDS: CARAFATE PO SCH ×2 (06:07→11:33)
[2016-12-07] MEDS: PROTONIX PO SCH (06:07)
[2016-12-07] MEDS: ASPIRIN EC PO SCH (08:39)
[2016-12-07] MEDS: FLOMAX PO SCH (08:39)
[2016-12-07] MEDS: FLONASE NAS SCH (08:39)
[2016-12-07] MEDS: PLAVIX PO SCH (08:40)
[2016-12-07] MEDS: ROCEPHIN 1 GM in SODIUM CHLORIDE 50 ML IV SCH (08:40)
[2016-12-07] MEDS: PREDNISONE PO SCH (08:40)
[2016-12-07] MEDS: COREG PO SCH (08:40)
[2016-12-07] MEDS: ZESTRIL PO SCH (08:41)
[2016-12-07 10:01] VITALS: BP 124/70
--- NOTE | 2016-12-07 10:21 | PCM.PROG ---
Attending Provider: ATTENDING PROVIDER: Dr. KATLIN CORTES DATE OF SERVICE: 12/07/16 SUBJECTIVE: This 71 year old WHITE/ M was hospitalized 11/30/16 with hyponatremia and acute bronchitis. The patient also developed anemia and given two units of blood. Now hemoglobin is 11.5 and hematocrit is 32. He showed a lot of improvement after 2 units of PRBCs. His color is good. He is able to sit in the chair and walks with assistance. REVIEW OF SYSTEMS: CONSTITUTIONAL: The patient is feeling better; still weak. No night sweats. No fever or chills. HEENT: Eyes: No visual changes. No eye pain. No eye discharge. ENT: No runny nose. No epistaxis. No sinus pain. No odynophagia. No congestion. RESPIRATORY: No cough, no congestion. No hemoptysis. CARDIOVASCULAR: No angina symptoms. No CHF symptoms. No atypical chest pain for CAD. No palpitations. No shortness of breath. GASTROINTESTINAL: No abdominal pain. No nausea or vomiting. No diarrhea or constipation. No hematemesis. No hematochezia. GENITOURINARY: No bladder spasms. Ahumada catheter in place with clear yellow urine noted. No significant abnormal bleeding. MUSCULOSKELETAL: No musculoskeletal pain; no joint swelling. NEUROLOGICAL: Awake, alert, oriented to time, place and person. No headache. No neck pain. No syncope. No seizures. No dizziness. PSYCHIATRIC: Not anxious. No depression. No suicidal thoughts. No homicidal thoughts. SKIN: No rash. Small right decubitus ulcer. ENDOCRINE: No unexplained weight loss. No weight gain. HEMATOLOGIC/LYMPHATIC: No anemia. No purpura. No petechiae. No prolonged or excessive bleeding. No palpable lymph nodes. PHYSICAL EXAMINATION: GENERAL: The patient is awake, alert and oriented, sitting in bed in no distress; color is good. VITAL SIGNS: Temperature 97.9 F, Pulse 68, Respiratory Rate 20, BP 134/73, Pulse Ox 96% HEENT: Head normocephalic, atraumatic. Eyes: Extraocular muscles are intact. Pupils are equal, round and reactive to light and accommodation. Ears: No lesions. Nose appeared normal. Throat: No exudate or erythema. NECK: Supple. No JVD, no carotid bruit. No lymphadenopathy or thyromegaly. LUNGS: Decreased breath sounds. Clear to auscultation. Percussion note normal. Chest symmetrical. HEART: S1, S2, no S3. No murmurs. No cyanosis or clubbing. No ascites. Pulses: Dorsalis pedis and posterior tibial pulses +1 to +2 both sides. ABDOMEN: Soft. Non-tender. Bowel sounds active. No CVA tenderness. No mass felt. Decubitus right buttock, stable. EXTREMITIES: No edema. Full range of motion of all extremities, equal. NEUROLOGIC: No focal deficit. Cranial nerves II through XII are grossly intact. No headache, no double vision or headache. SKIN: Not dry. Intact. Turgor-normal. LYMPHATIC: No palpable lymph nodes/no lymphedema. MUSCULOSKELETAL: Normal joints with no swelling. Muscle tone is normal. LAB REVIEW: 12/07/16 04:39 12/07/16 04:39 12/07/16 04:39: WBC 16.48 H D, RBC 4.08 L, Hgb 11.6 L, Hct 32.8 L, MCV 80.4, MCH 28.4, MCHC 35.4, RDW Coeff of Bull 13.5, Plt Count 211, Immature Gran % (Auto ) 1.2, Neut % (Auto) 84.0, Lymph % (Auto) 9.0 L, [place] % (Auto) 5.7, Eos % (Auto ) 0.0, Baso % (Auto) 0.1, Immature Gran # (Auto) 0.2, Neut # 13.8 H, Lymph # 1.5 , [place] # 0.9, Eos # 0.0, Baso # 0.0, Sodium 130 L, Potassium 3.4 L, Chloride 91 L, Carbon Dioxide 30, Anion Gap 12.4, BUN 24 H, Creatinine 0.66, Estimated GFR ( MDRD) 119.00, BUN/Creatinine Ratio 36.36, Glucose 80 L, Calcium 8.4, Total Bilirubin 0.75, AST 15, ALT 28, Alkaline Phosphatase 67, Total Protein 4.4 L, Albumin 2.3 L, Globulin 2.1, Albumin/Globulin Ratio 1.10 ASSESSMENT: 1. Hyponatremia, improving, sodium 130. 2. Acute bronchitis seems to be under control. 3. Severe COPD. 4. Cor pulmonale. 5. Ahumada catheter with prostatic hypertrophy followed by Dr. Archuleta. 6. Chronic anemia. 7. Decubitus right buttock, stable. PLAN: 1. Discharge home. 2. Start Aldactone 25 mg daily. 3. Continue Lasix 20 mg. 4. Advised to keep legs elevated higher than hip. 5. Potassium 10 mEq p.o. daily. 6. Keflex 500 mg b.i.d. for 7 days 7. Prednisone 10 mEq b.i.d. for 7 days then one a day for 7 days with meal. 8. Continue Protonix one daily for 3 weeks. 9. D/C Carafate. 10. Diet - encouraged to eat well. 11. Discharge home. Plan and coordination of the patient's care discussed in the presence of Fish Bait Processing Supervisor and nurse. ADDENDUM: The patient will be taken off Plavix and put on baby aspirin due to anemia. There is a possibility of GI bleed. The patient is not medically stable to undergo EGD or colonoscopy. This is explained to the patient and he accepted the change. EDUCATION: Discussed medications, the importance of keeping his legs elevated, diet and activity. CONDITION: Stable. SCRIBED BY: CHARLETTE PAINTING Oyster Washer scribed while in presence of service performed by Dr. KATLIN CORTES on 12/07/16 ([id number])
[2016-12-07] MEDS ORDERED: CALMOSEPTINE OINTMENT TP SCH (10:30)
[2016-12-07 10:39] VITALS: TEMP 97.6
--- NOTE | 2016-12-07 10:52 | CM.DICTOOL ---
ADMISSION: 11/30/16 13:20 DISCHARGE: December 07, 2016 DATE OF SERVICE: 12/07/16 FINAL DIAGNOSIS Hyponatremia COPD Exacerbation History of Cor Pulmonale History of Respiratory Failure Anemia, transfusion 2 units packed cells Hypertension CT, 2017 CAD with stent application Compression Fracutre T9, T11 and L1 History of Atrial Fibrillation BPH with chronic roger catheter Weight loss secondary to multiple medical issues LAST VITALS Temp Pulse Resp BP Pulse Ox 97.9 F 68 20 134/73 96 12/07/16 05:50 12/07/16 05:50 12/07/16 05:50 12/07/16 05:50 12/07/16 05:50 ACTIVE HOME MEDICATIONS Carvedilol (Coreg) 12.5 mg PO BIDWM [facility] Last Admin: 12/07/16 08:40 Dose: 12.5 mg Furosemide (Lasix Tab) 20 mg PO QDAC [facility] Last Admin: 12/07/16 06:07 Dose: 20 mg Lisinopril (Zestril) 10 mg PO DAILY [facility] Last Admin: 12/07/16 08:41 Dose: 10 mg Nitroglycerin (Nitrostat) 0.4 mg SL Q5MIN X 3 DOSES PRN PRN Reason: Chest Pain Polyethylene Glycol (Miralax) 17 gm PO DAILY PRN PRN Reason: Constipation Last Admin: 12/03/16 22:29 Dose: 17 gm Tamsulosin HCl (Flomax) 0.4 mg PO DAILY [facility] Last Admin: 12/07/16 08:39 Dose: 0.4 mg Albuterol Sylfate (ProAir) 2 puffs INH every 6 hours prn Last Admin: Cyanocobalamin (Vitamin B-12) 500 mcg PO Daily Last Admin: Vitamin E 400 intnl units PO Daily Last Admin: Potassium Chloride (Micro-K Cap) 10 meq PO Daily Last Admin: Spironolactone 25 mg PO Daily Last Admin: Arformoterol Tartrate (Brovana) 1 Vial INH BID Last Admin: Tiotropium [place] (Spiriva) 18 mcg IH Daily Last Admin: ALLERGIES azithromycin Adverse Reaction (Verified 10/16/16 19:12) any mycins Adverse Reaction (Uncoded 11/30/16 11:00) NEW PRESCRIPTIONS: Keflex 500 mg BID for 7 days Prednisone 10 mg BID for 7 days, then daily for 7 days Take with food Protonix 40 mg daily for 3 weeks Baby ASA 81 mg daily (over the counter) SMOKING: Not Applicable DISEASE SPECIFIC EDUCATION: Medication Changes Appointment Steroid Use Nutrition LAB REVIEW: 12/07/16 04:39 12/07/16 04:39 12/07/16 04:39: WBC 16.48 H D, RBC 4.08 L, Hgb 11.6 L, Hct 32.8 L, MCV 80.4, MCH 28.4, MCHC 35.4, RDW Coeff of Bull 13.5, Plt Count 211, Immature Gran % (Auto ) 1.2, Neut % (Auto) 84.0, Lymph % (Auto) 9.0 L, [place] % (Auto) 5.7, Eos % (Auto ) 0.0, Baso % (Auto) 0.1, Immature Gran # (Auto) 0.2, Neut # 13.8 H, Lymph # 1.5 , [place] # 0.9, Eos # 0.0, Baso # 0.0, Sodium 130 L, Potassium 3.4 L, Chloride 91 L, Carbon Dioxide 30, Anion Gap 12.4, BUN 24 H, Creatinine 0.66, Estimated GFR ( MDRD) 119.00, BUN/Creatinine Ratio 36.36, Glucose 80 L, Calcium 8.4, Total Bilirubin 0.75, AST 15, ALT 28, Alkaline Phosphatase 67, Total Protein 4.4 L, Albumin 2.3 L, Globulin 2.1, Albumin/Globulin Ratio 1.10 PLAN: Discharge home Diet: Regular as tolerated. Eat several small meals daily, include protein with each meal. Activity: Gradually increase as tolerated. Elevate legs as much as possible when sitting and when in bed Continue oxygen at 2 liters per cannula. Continue home nebulizer treatments of [place] Medication changes: Decrease Lasix to 20 mg daily Stop Plavix Stop Ecotrin 325 mg Continue catheter care; wash around catheter insertion site with soap and water daily Empty drainage bag when 1/2 to 3/4 full. An appointment has been scheduled with Dr. Billings on December 13 at 11:30 am Mr. Christian is alert and oriented x 3. He is able to transfer to the chair, [facility] with assistance of 1 staff member. He is able to ambulate short distance of at least 20 feet with use of a rolling walker, portable oxygen and standby assistance of 1-2 staff members. His appetite is fair with intakes of 25-50% noted. A roger catheter is patent to closed drainage with clear yellow urine noted. A stage II decubitus is noted to the right buttock; no odor or drainage noted. Skin is dry with scattered bruising noted to the upper extremities. Mr. Christian is using oxygen at 2 liters per cannula continuously. Oxygen is available at home via a concentrator and portability. Errol Billings MD
--- NOTE | 2016-12-07 11:04 | PN ---
DATE OF SERVICE: 12/06/16 SUBJECTIVE: The patient is a 71 year old white male seen with the Nurse Practitioner and Weigh Box Tender. The patient's condition has improved some and his hgb is now 11.7 with hct 32. The patient was given a couple units of packed red cells. The patient is feeling a lot better and feeling stronger. The appetite has improved. We will stop Solu-Cortef, will stop Zyvox, Prednisone 10mg twice a day , Diflucan 150mg for skin conditions. REVIEW OF SYSTEMS: CONSTITUTIONAL: No night sweats. No fatigue, malaise, lethargy. No fever or chills. Feeling better. HEENT: Eyes: No visual changes. No eye pain. No eye discharge. ENT: No runny nose. No epistaxis. No sinus pain. No sore throat. No odynophagia. No congestion. RESPIRATORY: No cough, no congestion. No hemoptysis. CARDIOVASCULAR: No angina symptoms. No CHF symptoms. No atypical chest pain for CAD. No palpitations. Less shortness of breath. No PND. No Orthopnea. GASTROINTESTINAL: No abdominal pain. No nausea or vomiting. No diarrhea or constipation. No hematemesis. No hematochezia. Appetite has improved. GENITOURINARY: No urgency. No frequency. No dysuria. No hematuria. No obstructive symptoms. No discharge. No pain. No significant abnormal bleeding. MUSCULOSKELETAL: No musculoskeletal pain; no joint swelling. NEUROLOGICAL: No headache. No neck pain. No syncope. No seizures. No dizziness. PSYCHIATRIC: Not anxious. No depression. No suicidal thoughts. No homicidal thoughts. SKIN: No rash. No lesions. No wounds. ENDOCRINE: No unexplained weight loss. No weight gain. HEMATOLOGIC/LYMPHATIC: No anemia. No purpura. No petechiae. No prolonged or excessive bleeding. No palpable lymph nodes. PHYSICAL EXAMINATION: GENERAL: The patient is oriented to time, place and person. VITAL SIGNS: Temperature 97, pulse 67, respiratory rate 20, blood pressure 138/ 66 and pulse ox 96%. HEENT: Head normocephalic, atraumatic. Eyes: Extraocular muscles are intact. Pupils are equal, round and reactive to light and accommodation. Ears: No lesions. Nose appeared normal. Throat: No exudate or erythema. The patient's color looks a lot better. NECK: Supple. No JVD, no carotid bruit. No lymphadenopathy or thyromegaly. LUNGS:Decreased breath sounds but clear to auscultation. Percussion note normal. Chest symmetrical. HEART: S1, S2, no S3. No murmurs. No cyanosis or clubbing. No ascites. Pulses: Dorsalis pedis and posterior tibial pulses +1 to +2 both sides. ABDOMEN: Soft. Nontender. Bowel sounds active. No CVA tenderness. No mass felt. EXTREMITIES: No edema. Full range of motion of all extremities, equal. NEUROLOGIC: No focal deficit. Cranial nerves II through XII are grossly intact. No headache, no double vision or headache. SKIN: Not dry. Intact. Turgor - normal. LYMPHATIC: No palpable lymph nodes/no lymphedema. MUSCULOSKELETAL: Normal joints with no swelling. Muscle tone is normal. ASSESSMENT: 1. Acute bronchitis, resolving 2. Cor Pulmonale with CHF 3. Severe chronic lung disease 4. Ahumada Catheter with BPH 5. Anemia which has been corrected somewhat with blood transfusions PLAN: 1. Above changes were made 2. The patient's overall status has improved with a couple of units of packed red cells. No evidence of active GI bleed CONDITION: Stable TIME SPENT: More than 30 minutes. Plan and coordination of the patient's care discussed in the presence of nurse. SHEA
[2016-12-08] MEDS ORDERED: ALDACTONE PO SCH (09:00)
[2016-12-09 13:12] LABS: AEROBIC + ANAEROB SUSC Final report (.); BACTERIA IDENTIFICATION Final report (.)
--- NOTE | 2016-12-20 09:58 | DS ---
DATE OF SERVICE: 12/07/16 FINAL DIAGNOSIS: 1. Hyponatremia 2. COPD Exacerbation 3. History of Cor Pulmonale 4. History of Respiratory failure 5. Anemia, transfusion 2 units packed cells 6. Hypertension 7. RI, 2016 8. CAD with stent application 9. Compression fracture T9, T11 and L1 10.History of Atrial fibrillation 11.BPH with Chronic Ahumada Catheter 12.Weight loss secondary to multiple medical issues. LAST VITALS: Temperature 97.9, pulse 68, respiratory rate 20, blood pressure 134/73 and pulse ox 96%. DISCHARGE INSTRUCTIONS: Discharge home. Continue oxygen at 2 liters per cannula. Continue home nebulizer treatments of Brovana. Continue Catheter care; wash around catheter insertion site with soap and water daily. An appointment has been scheduled with Dr. Billings on December 13 at 11:30am. MEDICATIONS AT DISCHARGE: Coreg 12.5mg Twice a day Lasix 20mg PO QDAC Zestril 10mg PO daily Nitrostat 0.4mg SL Q 5 minutes x3 doses PRN Miralax 17 gram PO daily PRN Flomax 0.4mg PO daily ProAir 2 puffs ING every 6 hours PRN Vitamin B-12 500mcg Po daily Vitamin E 400 international units PO daily Micro-K cap 10 meq PO daily Spironolactone 25mg PO daily Brovana 1 vial ING twice a day Spiriva 18mcg IH daily. ALLERGIES: Azithromycin Any mycin NEW PRESCRIPTIONS: Keflex 500mg twice a day for 7 days Prednisone 10mg twice a day for 7 days then daily for 7 days take with food Protonix 40mg daily for 3 weeks Baby ASA 81mg daily (over the counter) DIET INSTRUCTIONS: Regular as tolerated. Eat several small meals daily, include protein with each meal. ACTIVITY: Gradually increase as tolerated. Elevate legs as much as possible when sitting and when in bed. SMOKING: N/A DISEASE SPECIFIC EDUCATION: Medication changes Appointment Steroid Use Nutrition HOSPITAL COURSE: Kishore Christian was hospitalized for weakness, shortness of breath, cough and congestion. The patient during the stay in this hospital was treated with IV steroids, IV antibiotics, NEBS treatment. The patient's hgb fell to 8.1 and he was given a couple of units of packed red cells and that really perked him up and he is strength improved. His appetite improved. The patient has history of Cor Pulmonale and CHF. The patient's anemia is symptomatic with worsening of his CHF and Cor Pulmonale with shortness of breath with hypoxemia. On discharge the patient's appetite has improved. Bronchitis almost had resolved. The patient has a Ahumada Catheter for past several months followed by Dr. Solares. He has been unable to wean him off. The patient has sever benign prostatic hypertrophy. Condition at the time of discharge is stable. TIME SPENT: More than 60 minutes. MTDD
[2016-12-28 14:49] LABS: FUNGAL CULTURE Final report (.); FUNGAL CULTURE RESULT 1 Candida famata (.)
== END 2016-12-07 12:25 | disposition home or self-care (01) | DRG 641 ==
LOC: ED 10:54 → SCU 13:20 → MEDSURG B 12-03 19:22
PROVIDERS: ADMIT Internal Medicine; ATTEND Internal Medicine
PROC: 30233N1 Transfusion of Nonautologous Red Blood Cells into Peripheral Vein, Percutaneous Approach (ICD-10-PCS; principal; 2016-12-05)
PROC: 30233N1 Transfusion of Nonautologous Red Blood Cells into Peripheral Vein, Percutaneous Approach (ICD-10-PCS; 2016-12-05)
DX: E87.1 Hypo-osmolality and hyponatremia (principal); J44.0 Chronic obstructive pulmonary disease with (acute) lower respiratory infection; J44.1 Chronic obstructive pulmonary disease with (acute) exacerbation; J96.11 Chronic respiratory failure with hypoxia; B37.49 Other urogenital candidiasis; J20.9 Acute bronchitis, unspecified; I27.81 Cor pulmonale (chronic); I10 Essential (primary) hypertension; I50.9 Heart failure, unspecified; I25.10 Atherosclerotic heart disease of native coronary artery without angina pectoris; N40.0 Benign prostatic hyperplasia without lower urinary tract symptoms; N32.89 Other specified disorders of bladder; D64.9 Anemia, unspecified; R50.9 Fever, unspecified; R63.4 Abnormal weight loss; E87.5 Hyperkalemia; R11.0 Nausea; R19.8 Other specified symptoms and signs involving the digestive system and abdomen; L89.319 Pressure ulcer of right buttock, unspecified stage; R05 Cough; I25.2 Old myocardial infarction; Z96.0 Presence of urogenital implants; Z79.02 Long term (current) use of antithrombotics/antiplatelets; Z79.899 Other long term (current) drug therapy; Z99.81 Dependence on supplemental oxygen; Z87.891 Personal history of nicotine dependence
CPT/HCPCS: 36415; 36430; 80053; 82550; 82803; 82962; 83605; 84145; 84439; 84443; 84484; 85014; 85018; 85025; 86850; 86900; 86922; 87040; 87070; 87077; 87081; 87086; 87101; 87186; 93005; 93010; 94640; 99223; 99232; 99239; 99284

== ENCOUNTER 2017-03-13 12:16 | Inpatient (IN) ==
[2017-03-13] MEDS ORDERED: DUONEB NEB STA ×2 (12:26→13:12)
[2017-03-13] MEDS ORDERED: SOLU-MEDROL 125 MG IVP STA (12:26)
[2017-03-13 12:37] LABS: ABG PCO2 33.2 mmHg (35-45); ABG PH 7.55 (7.35-7.45)
[2017-03-13 12:38] LABS: ABG BASE EXCESS 7 (-2.0-2.0); ABG HCO3 29 (22.0-26.0); ABG TCO2 30 (22.0-28.0)
[2017-03-13 12:44] LABS: BASOPHILS # (AUTO) 0.1 K/uL (0-0.2); BASOPHILS % (AUTO) 0.4 % (0.0-3.0); EOSINOPHILS # (AUTO) 0.1 K/ul (0.0-0.7); EOSINOPHILS % (AUTO) 0.4 % (0.0-7.0); HEMATOCRIT 37.3 % (42.0-52.0); HEMOGLOBIN 12.3 g/dl (14.0-18.0); IMMATURE GRANULOCYTE % (AUTO) 1.9 % (0.0-5.0); LYMPHOCYTES # (AUTO) 2.5 K/uL (0.60-3.4); LYMPHOCYTES % (AUTO) 20.6 (10.0-50.0); MEAN CORPUSCULAR HEMOGLOBIN 28.2 pg (27.0-31.0); MEAN CORPUSCULAR VOLUME 85.6 fl (80.0-94.0); MONOCYTES # (AUTO) 0.7 K/uL (0.4-2.0); MONOCYTES % (AUTO) 5.4 (0-10); NEUTROPHILS # (AUTO) 8.5 K/ul (2.0-6.9); NEUTROPHILS % (AUTO) 71.3; PLATELET COUNT 337 10^3/uL (140-440); RED BLOOD COUNT 4.36 10^6/ul (4.70-6.10); WHITE BLOOD COUNT 11.95 K/ul (4.2-10.2)
[2017-03-13 13:14] LABS: ALBUMIN 2.4 g/dL (3.4-5.0); ALBUMIN/GLOBULIN RATIO 0.55; ANION GAP 11.7; BILIRUBIN,TOTAL 0.71 mg/dL (0.00-1.20); BUN/CREATININE RATIO 24.19; CALCIUM 9.7 mg/dL (8.2-10.2); CREATININE 0.62 mg/dL (0.60-1.10); POTASSIUM 4.7 mmol/L (3.5-5.1); TOTAL PROTEIN 6.8 g/dL (5.8-8.1); TROPONIN I 0.022 ng/ml (0.0000-0.4000)
--- NOTE | 2017-03-13 13:40 | CT ---
EXAM: CT chest without contrast. HISTORY: Cough. Shortness of air. Weakness. COMPARISON: 10/29/2016. TECHNIQUE: Multiple axial images of the chest were obtained without intravenous contrast. Images we re reformatted in the sagittal and coronal planes. FINDINGS: Evaluation for lymphadenopathy is limited by lack of intravenous contrast per heart size i s normal. There is a small amount pericardial fluid. Atherosclerotic calcification are present. Biapical scarring noted. Emphysematous changes present bilaterally. Bronchial thickening noted bila terally with nodular foci of consolidation seen in both lower lobes, greater on the right. Consolidat ion along the right fissure at the diaphragm on axial image 55 appears to be increased from prior karina dy. Tiny amount of right pleural fluid suspected. Compression deformities of the T8, T9, T11, T12, L1, L2, L3 and L4 vertebral bodies noted with T8 a nd T12 as well as probably the L2-L4 vertebral body compression deformities being new. Limited images of the upper abdomen demonstrate no acute abnormality. IMPRESSION: 1. Bilateral bronchial thickening and bilateral lower lobe nodular densities, most likely due to pne umonia. Increased right basilar consolidation along the fissure. Trace right pleural effusion. Follo w-up in 4-6 weeks recommended for reassessment. 2. Multilevel thoracolumbar compression deformities, worsened since the prior study.
--- NOTE | 2017-03-13 14:06 | ED.PDOC ---
General ED Provider: Dr. MEENA JONES Chief Complaint: Respiratory Complaint Stated Complaint: short of air Time Seen by Physician: 12:20 Mode of Arrival: Ambulance Information Source: Patient, Family, EMT Exam Limitations: No limitations Primary Care Provider: KATLIN CORTES Nursing and Triage Documentation Reviewed and Agree: Yes Respiratory Complaint Exam - Shortness of Air Complaint/Exam Onset/Duration: chronic but worse today Symptoms Are: Still present Timing: Constant Initial Severity: Moderate Current Severity: Moderate Character: Reports: Dyspnea on exertion Aggravating: Reports: URI Alleviating: Reports: Bronchodilators, Upright position Associated Signs and Symptoms: Reports: Cough, Wheezing, Nasal congestion Related History: Reports: Similar episode History of Healthcare-Acquired Pneumonia: Admit w/in last 30 days Pulmonary Embolism Risk Factors: Reports: Bedrest, Smoking Pseudomonas Risk Factors: Reports: Repeat Antibx in 3 months Tuberculosis Risk Factors: Reports: None Home Oxygen Use: No Recent Stress Test: Yes Recent Echo/LV Function: No Stridor Present: No Tracheal Deviation: No Subcutaneous Emphysema: No Accessory Muscle Use: No Retractions: Not Present Diminished Breath Sounds: Yes Prolonged Expiratory Phase: No Unable to Speak Full Sentences: No Fatigue: No Leg Swelling: No Nicole's Sign Present: No Grunting Respirations: No Kussmaul Respirations: No Differential Diagnoses: CHF, Pulmonary Edema, Pneumonia, Bronchitis, Bronchospasm, URI Review of Systems - Review Of Systems Constitutional: Reports: Malaise, Weakness Eyes: Reports: No symptoms Ears, Nose, Mouth, Throat: Reports: No symptoms Respiratory: Reports: Cough, Short of air, Wheezing Cardiac: Reports: No symptoms GI: Reports: No symptoms : Reports: No symptoms Musculoskeletal: Reports: No symptoms Skin: Reports: No symptoms Neurological: Reports: No symptoms Endocrine: Reports: No symptoms Hematologic/Lymphatic: Reports: No symptoms All Other Systems: Reviewed and Negative Past Medical History - Past Medical History Previously Healthy: No Endocrine: Reports: Unknown Cardiovascular: Reports: CAD, Hypertension, A-Fib, Unknown Respiratory: Reports: COPD, Unknown Hematological: Reports: Unknown Gastrointestinal: Reports: Unknown Genitourinary: Reports: Unknown Neuro/Psych: Reports: Unknown Musculoskeletal: Reports: Unknown Cancer: Reports: Unknown, Other Other Pertinent Past Medical History: htn ca cadcough/songestion prod yellow - Surgical History General Surgical History: Reports: Stent, Other - Family History Family History: Reports: Unknown - Social History Smoking Status: Former smoker Hx Substance Use: No Alcohol Screening: None Physical Exam - Physical Exam Appearance: Ill-appearing Ill-appearing: Moderate Pain Distress: Moderate Eyes: CYNTHIA, EOMI, Conjunctiva clear ENT: Ears normal, Nose normal, Oropharynx normal Respiratory: Breath sounds diminished, Rhonchi, Wheezes Cardiovascular: RRR, Pulses normal, No rub, No murmur GI/: Soft, Nontender, No masses, Bowel sounds normal, No Organomegaly Musculoskeletal: Normal strength, ROM intact, No edema, No calf tenderness Skin: Warm, Dry, Normal color Neurological: Sensation intact, Motor intact, Reflexes intact, Cranial nerves intact, Alert, Oriented Psychiatric: Affect appropriate, Mood appropriate Interpretation - Radiology Interpretation Radiology Interpretation By: Radiologist Radiology Results: Positive (lobar consolidation) - Dried Yeast Supervisor Rate: Normal Rhythm: Sinus - EKG Interpretation Rate: Normal Rhythm: Sinus (LBBB) Re-Evaluation - Re-Evaluation Time of Re-Evaluation: 13:00 Status: Improved Vital Signs Stable: Yes Pain Level: 0 Appearance: NAD Lungs: Other (WHEEZING STILL) Skin: Warm and Dry Neuro: Alert and Oriented X3 CV: RRR - Re-Evaluation Time of Re-Evaluation: 14:07 Status: Improved Vital Signs Stable: Yes Pain Level: 0 Appearance: NAD Skin: Warm and Dry Neuro: Alert and Oriented X3 CV: RRR Physician Notification - Case Discussed Physician Notified: PMD Critical Care Note - Critical Care Note Total Time (mins): 0 Course - Course Hematology/Chemistry: 03/13/17 12:40 03/13/17 12:40 Orders, Labs, Meds: Lab Review 03/13/17 03/13/17 03/13/17 12:35 12:40 12:40 WBC 11.95 H RBC 4.36 L Hgb 12.3 L Hct 37.3 L MCV 85.6 MCH 28.2 MCHC 33.0 RDW Coeff of Bull 14.1 Plt Count 337 Immature Gran % (Auto) 1.9 Neut % (Auto) 71.3 Lymph % (Auto) 20.6 Pender % (Auto) 5.4 Eos % (Auto) 0.4 Baso % (Auto) 0.4 Immature Gran # (Auto) 0.2 Neut # 8.5 H Lymph # 2.5 Pender # 0.7 Eos # 0.1 Baso # 0.1 Puncture Site R rad O2 Saturation 91.0 L ABG pH 7.55 H* ABG pCO2 33.2 L ABG pO2 53.0 L* ABG HCO3 29 H ABG Total CO2 30 H ABG Base Excess 7 H Mohamud Test + O2 Delivery Device Nc Oxygen Liter Flow 3.00 Sodium 133 L Potassium 4.7 Chloride 94 L Carbon Dioxide 32 H Anion Gap 11.7 BUN 15 Creatinine 0.62 Estimated GFR (MDRD) 127.00 BUN/Creatinine Ratio 24.19 Glucose 111 Calcium 9.7 Total Bilirubin 0.71 AST 16 ALT 16 Alkaline Phosphatase 113 Total Creatine Kinase 14 Troponin I 0.0220 Total Protein 6.8 Albumin 2.4 L Globulin 4.4 Albumin/Globulin Ratio 0.55 Orders Category Date Time Status ABG DRAW REQUEST Stat CARDIO 03/13/17 12:25 Completed EKG-(ED ONLY) Stat CARDIO 03/13/17 12:25 Completed NEBULIZER TREATMENT Stat CARDIO 03/13/17 12:26 Completed NEBULIZER TREATMENT Stat CARDIO 03/13/17 13:12 Completed ABG Stat LAB 03/13/17 12:35 Completed CBC W/ AUTO DIFF Stat LAB 03/13/17 12:40 Completed COMPREHENSIVE METABOLIC PANEL Stat LAB 03/13/17 12:40 Completed CREATINE KINASE Stat LAB 03/13/17 12:40 Completed TROPONIN I Stat LAB 03/13/17 12:40 Completed Ipratropium/Albuterol Neb [Duoneb] MEDS 03/13/17 12:26 Discontinued 1 vial NEB ONCE STA Ipratropium/Albuterol Neb [Duoneb] MEDS 03/13/17 13:12 Discontinued 1 vial NEB ONCE STA Methylprednisolone Sod Succ/Pf [Solu-Medrol 125 mg] MEDS 03/13/17 12:26 Discontinued 125 [address]P ONCE STA CT CHEST W/O CONTRAST Stat RADS 03/13/17 12:25 Completed Medications Discontinued Medications Generic Name Dose Route Start Last Admin Trade Name Freq PRN Reason Stop Dose Admin Albuterol/Ipratropium 1 vial 03/13/17 12:26 03/13/17 12:30 Duoneb NEB 03/13/17 12:27 1 vial ONCE STA Administration Albuterol/Ipratropium 1 vial 03/13/17 13:12 03/13/17 13:19 Duoneb NEB 03/13/17 13:13 1 vial ONCE STA Administration Methylprednisolone Sodium Succinate 125 mg 03/13/17 12:26 03/13/17 12:57 Solu-Medrol 125 Mg IVP 03/13/17 12:27 125 mg ONCE STA Administration Vital Signs: Temp Pulse Resp BP Pulse Ox 03/13/17 12:18 98 F 82 24 110/83 94 L Departure - Departure Time of Disposition: 14:08 Disposition: ADMITTED INPATIENT Discharge Problem: Pneumonia Instructions: Pneumonitis (ED) Condition: Good Pt referred to PMD for follow-up: Yes Additional Instructions: Please call your Family Physician as soon as possible to schedule a follow-up appointment. Allergies/Adverse Reactions: Allergies azithromycin Adverse Reaction (Verified 03/13/17 12:18) lost voice, weakness any mycins Adverse Reaction (Uncoded 03/13/17 12:18) Home Medications: Ambulatory Orders Albuterol Sulfate [Proair Hfa] 2 puff INH Q6H PRN 07/10/16 Arformoterol Tartrate [Brovana] 1 vial INH BID 07/10/16 Ascorbate Calcium [Vitamin C] 500 mg PO DAILY 07/10/16 Carvedilol [Coreg] 12.5 mg PO BIDWM 07/10/16 Vitamin E 400 intnl unit PO DAILY 07/10/16 Tamsulosin HCl [Flomax] 0.4 mg PO DAILY 07/15/16 Potassium Chloride [Micro-K Cap] 10 meq PO DAILY 09/11/16 Phenazopyridine HCl [Urinary Pain Relief] 1 tab PO TID PRN 10/16/16 Nitroglycerin 0.4 mg SL PRN PRN 10/29/16 Tiotropium [place] [Spiriva] 18 mcg IH DAILY 10/29/16 Furosemide [Lasix] 20 mg PO DAILY #1 tablet 12/07/16 Pantoprazole Sodium [Protonix] 40 mg PO DAILY #21 tablet. 12/07/16 Spironolactone 25 mg PO DAILY 12/07/16 Prednisone 5 mg PO DAILY 03/13/17
[2017-03-13] MEDS ORDERED: ROCEPHIN 1 GM in SODIUM CHLORIDE 50 ML IV STA (14:09)
[2017-03-13] MEDS ORDERED: ROCEPHIN ONE (14:11)
[2017-03-13] MEDS ORDERED: NITROSTAT SL PRN (14:12)
[2017-03-13] MEDS: LEVAQUIN 500 MG in PREMIX 100 ML D5W 1 BAG IV SCH (15:17)
[2017-03-13] MEDS: SODIUM CHLORIDE 1,000 ML IV SCH (15:17)
[2017-03-13 15:43] VITALS: BMI 14.0
[2017-03-13] MEDS ORDERED: COREG PO SCH (17:30)
[2017-03-13] MEDS: DUONEB NEB SCH ×2 (17:34→23:00)
[2017-03-13] MEDS: COREG PO SCH (18:38)
[2017-03-13 20:48] LABS: TROPONIN I 0.023 ng/ml (0.0000-0.4000)
[2017-03-13] MEDS: SOLU-MEDROL 40 MG IVP SCH (21:04)
[2017-03-14] MEDS ORDERED: XANAX PO STA (00:14)
[2017-03-14 04:40] LABS: BASOPHILS % (AUTO) 0.1 % (0.0-3.0); HEMATOCRIT 32.4 % (42.0-52.0); HEMOGLOBIN 10.6 g/dl (14.0-18.0); LYMPHOCYTES % (AUTO) 24.9 (10.0-50.0); MEAN CORPUSCULAR HEMOGLOBIN 27.5 pg (27.0-31.0); MEAN CORPUSCULAR HGB CONC 32.7 (31.8-35.4); MEAN CORPUSCULAR VOLUME 84.2 fl (80.0-94.0); MONOCYTES # (AUTO) 0.2 K/uL (0.4-2.0); MONOCYTES % (AUTO) 2.1 (0-10); NEUTROPHILS # (AUTO) 5.6 K/ul (2.0-6.9); NEUTROPHILS % (AUTO) 70.9; PLATELET COUNT 318 10^3/uL (140-440); RED BLOOD COUNT 3.85 10^6/ul (4.70-6.10); WHITE BLOOD COUNT 7.91 K/ul (4.2-10.2)
[2017-03-14 05:07] LABS: ABG BASE EXCESS 3 (-2.0-2.0); ABG HCO3 26.2 (22.0-26.0); ABG PCO2 35.4 mmHg (35-45); ABG PH 7.476 (7.35-7.45); ABG TCO2 27 (22.0-28.0)
[2017-03-14] MEDS: DUONEB NEB SCH ×4 (05:08→23:01)
[2017-03-14 05:11] LABS: ALBUMIN/GLOBULIN RATIO 0.56; ANION GAP 10.6; BILIRUBIN,TOTAL 0.33 mg/dL (0.00-1.20); BUN/CREATININE RATIO 22.41; CALCIUM 8.8 mg/dL (8.2-10.2); CREATININE 0.58 mg/dL (0.60-1.10); POTASSIUM 4.6 mmol/L (3.5-5.1); TOTAL PROTEIN 5.6 g/dL (5.8-8.1)
[2017-03-14 05:19] LABS: TROPONIN I 0.021 ng/ml (0.0000-0.4000)
[2017-03-14] MEDS: LASIX TAB PO SCH (05:44)
[2017-03-14] MEDS: SODIUM CHLORIDE 1,000 ML IV SCH ×2 (05:45→20:46)
[2017-03-14] MEDS: SOLU-MEDROL 40 MG IVP SCH (05:45)
[2017-03-14] MEDS: ALDACTONE PO SCH (08:24)
[2017-03-14] MEDS: MICRO-K CAP PO SCH (08:24)
[2017-03-14] MEDS: LEVAQUIN 500 MG in PREMIX 100 ML D5W 1 BAG IV SCH (08:24)
[2017-03-14] MEDS: FLOMAX PO SCH (08:25)
[2017-03-14] MEDS: COREG PO SCH ×2 (08:25→16:47)
--- NOTE | 2017-03-14 08:40 | PCM.PROG ---
Attending Provider: ATTENDING PROVIDER: Dr. KATLIN BILLINGS This patient is seen with Erika Rey, Nurse Practitioner. DATE OF SERVICE: 03/14/17 SUBJECTIVE: This 72 year old WHITE/ M was hospitalized 03/13/17. The patient is lying in bed, alert, slept well last night. The patient is still short of breath and coughing which is productive. REVIEW OF SYSTEMS: CONSTITUTIONAL: Severe generalized weakness. No night sweats. No fever or chills. HEENT: Eyes: No visual changes. No eye pain. No eye discharge. ENT: No runny nose. No epistaxis. No sinus pain. No odynophagia. No congestion. RESPIRATORY: Cough and congestion. No hemoptysis. Shortness of breath. CARDIOVASCULAR: No angina symptoms. No CHF symptoms. No atypical chest pain for CAD. No palpitations. No orthopnea.. GASTROINTESTINAL: No abdominal pain. No nausea or vomiting. No diarrhea or constipation. No hematemesis. No hematochezia. GENITOURINARY: Ahumada catheter in place. No urgency. No frequency. No dysuria. No hematuria. No obstructive symptoms. No discharge. No pain. No significant abnormal bleeding. MUSCULOSKELETAL: No musculoskeletal pain; no joint swelling. NEUROLOGICAL: Awake, alert, oriented to time, place and person. No headache. No neck pain. No syncope. No seizures. No dizziness. PSYCHIATRIC: Not anxious. No depression. No suicidal thoughts. No homicidal thoughts. SKIN: No rash. Stage I present on admission back and buttock. ENDOCRINE: No unexplained weight loss. No weight gain. HEMATOLOGIC/LYMPHATIC: No anemia. No purpura. No petechiae. No prolonged or excessive bleeding. No palpable lymph nodes. PHYSICAL EXAMINATION: GENERAL: The patient is awake, alert and oriented, cachexic lying in bed in no distress. VITAL SIGNS: Temperature 97.4 F, Pulse 71, Respiratory Rate 24, BP 115/68, Pulse Ox 98% HEENT: Head normocephalic, atraumatic. Eyes: Extraocular muscles are intact. Pupils are equal, round and reactive to light and accommodation. Ears: No lesions. Nose appeared normal. Throat: No exudate or erythema. NECK: Supple. No JVD, no carotid bruit. No lymphadenopathy or thyromegaly. LUNGS: Severely diminished breath sounds bilaterally, expiratory wheeze. Percussion note normal. Chest symmetrical. HEART: S1, S2, no S3. No murmurs. No cyanosis or clubbing. No ascites. Pulses: Dorsalis pedis and posterior tibial pulses +1 to +2 both sides. ABDOMEN: Soft. Non-tender. Bowel sounds active. No CVA tenderness. No mass felt. EXTREMITIES: No edema. Full range of motion of all extremities, equal. NEUROLOGIC: No focal deficit. Cranial nerves II through XII are grossly intact. No headache, no double vision or headache. SKIN: Warm and dry. Intact. Turgor-normal. Stage I pressure ulcer mid back and right buttock. LYMPHATIC: No palpable lymph nodes/no lymphedema. MUSCULOSKELETAL: Normal joints with no swelling. Muscle tone is normal. LAB REVIEW: 03/14/17 04:20 03/14/17 04:20 03/14/17 05:00: Puncture Site Rr, O2 Saturation 94.0 L, ABG pH 7.476 H, ABG pCO2 35.4, ABG pO2 67.0 L, ABG HCO3 26.2 H, ABG Total CO2 27, ABG Base Excess 3 H, Mohamud Test +, O2 Delivery Device 28, Oxygen Liter Flow 2.00, FiO2 % 28.0 03/14/17 04:20: Sodium 131 L, Potassium 4.6, Chloride 98, Carbon Dioxide 27, Anion Gap 10.6, BUN 13, Creatinine 0.58 L, Estimated GFR (MDRD) 137.00, BUN/ Creatinine Ratio 22.41, Glucose 133 H, Calcium 8.8, Total Bilirubin 0.33, AST 13 L, ALT 13, Alkaline Phosphatase 107, Total Protein 5.6 L, Albumin 2.0 L, Globulin 3.6, Albumin/Globulin Ratio 0.56 03/14/17 04:20: WBC 7.91, RBC 3.85 L, Hgb 10.6 L, Hct 32.4 L, MCV 84.2, MCH 27.5 , MCHC 32.7, RDW Coeff of Bull 13.9, Plt Count 318, Immature Gran % (Auto) 2.0, Neut % (Auto) 70.9, Lymph % (Auto) 24.9, [place]ette % (Auto) 2.1, Eos % (Auto) 0.0, Baso % (Auto) 0.1, Immature Gran # (Auto) 0.2, Neut # 5.6, Lymph # 2.0, Labette # 0.2 L, Eos # 0.0, Baso # 0.0 03/14/17 04:20: Total Creatine Kinase 12, Troponin I 0.0210 03/13/17 20:20: Total Creatine Kinase 12, Troponin I 0.0230 ASSESSMENT: 1. Bilateral pneumonia 2. Stage 1 on back and buttocks, present on admission 3. Shortness of breath 4. Hyponatremia 5. Anemia PLAN: 1. Solu-Medrol 125 q.6hr 2. Rocephin 1 gm daily Plan and coordination of the patient's care discussed in the presence of Driver Education Road Instructor and nurse. CONDITION: Stable SCRIBED BY: CHARLETTE PAINTING Teasel Gig Operator scribed while in presence of service performed by Dr. Billings/Erika Rey APRN on 03/14/17 ([id number])
[2017-03-14] MEDS: ROCEPHIN 1 GM in SODIUM CHLORIDE 50 ML IV SCH (09:54)
[2017-03-14] MEDS ORDERED: SOLU-MEDROL 40 MG IVP SCH (12:00)
[2017-03-14] MEDS: SOLU-MEDROL 125 MG IVP SCH ×2 (12:58→18:24)
[2017-03-14] MEDS: SILVADENE CREAM TP SCH (20:47)
[2017-03-15] MEDS: SOLU-MEDROL 125 MG IVP SCH ×4 (00:51→17:23)
[2017-03-15] MEDS: DUONEB NEB SCH ×4 (05:06→22:12)
[2017-03-15 05:50] LABS: BASOPHILS % (AUTO) 0.1 % (0.0-3.0); HEMATOCRIT 30.4 % (42.0-52.0); HEMOGLOBIN 10.4 g/dl (14.0-18.0); IMMATURE GRANULOCYTE % (AUTO) 2.1 % (0.0-5.0); LYMPHOCYTES # (AUTO) 1.9 K/uL (0.60-3.4); LYMPHOCYTES % (AUTO) 16.7 (10.0-50.0); MEAN CORPUSCULAR HEMOGLOBIN 28.4 pg (27.0-31.0); MEAN CORPUSCULAR HGB CONC 34.2 (31.8-35.4); MEAN CORPUSCULAR VOLUME 83.1 fl (80.0-94.0); MONOCYTES # (AUTO) 0.2 K/uL (0.4-2.0); MONOCYTES % (AUTO) 2.1 (0-10); PLATELET COUNT 347 10^3/uL (140-440); RED BLOOD COUNT 3.66 10^6/ul (4.70-6.10)
[2017-03-15] MEDS: LASIX TAB PO SCH (06:19)
[2017-03-15 06:27] LABS: ALBUMIN 2.1 g/dL (3.4-5.0); ALBUMIN/GLOBULIN RATIO 0.6; BILIRUBIN,TOTAL 0.21 mg/dL (0.00-1.20); BUN/CREATININE RATIO 25.92; CREATININE 0.54 mg/dL (0.60-1.10); TOTAL PROTEIN 5.6 g/dL (5.8-8.1)
[2017-03-15] MEDS ORDERED: CITRATE OF MAGNESIA PO STA (08:26)
[2017-03-15] MEDS: COREG PO SCH ×2 (08:47→17:23)
[2017-03-15] MEDS: MICRO-K CAP PO SCH (08:47)
[2017-03-15] MEDS: FLOMAX PO SCH (08:47)
[2017-03-15] MEDS: ROCEPHIN 1 GM in SODIUM CHLORIDE 50 ML IV SCH (08:48)
[2017-03-15] MEDS: ALDACTONE PO SCH (08:50)
[2017-03-15] MEDS: SILVADENE CREAM TP SCH ×2 (08:50→20:55)
[2017-03-15] MEDS: SODIUM CHLORIDE 1,000 ML IV SCH (10:16)
[2017-03-15] MEDS: LEVAQUIN 500 MG in PREMIX 100 ML D5W 1 BAG IV SCH (10:20)
[2017-03-15] MEDS ORDERED: MIRALAX PO STA (10:21)
--- NOTE | 2017-03-15 10:40 | HP ---
DATE OF SERVICE: 03/14/17 REASON FOR HOSPITALIZATION/HISTORY OF PRESENT ILLNESS: 72 year old male with severe COPD, history of Cor pulmonale who presented to the emergency room yesterday complaining of increasing shortness of breath, productive cough. He has chronic respiratory failure. He is on continuous oxygen. CT scan was done showing bilaterally pneumonia. He was admitted to the floor. PAST MEDICAL HISTORY: Chronic bronchitis COPD Chronic respiratory failure Hypertension Dyslipidemia Coronary artery disease with stent History of congestive heart failure Leg edema BPH, indwelling catheter all the time ProstDr. Geremias andrew History of Cor Pulmonale Weight loss due to severe respiratory failure PAST SURGICAL HISTORY: Coronary artery disease with stent REVIEW OF SYSTEMS: CONSTITUTIONAL: No night sweats. Fatigue. Malaise. Low grade fever. HEENT: Eyes: No visual changes. No eye pain. No eye discharge. ENT: No runny nose. No epistaxis. No sinus pain. No sore throat. No odynophagia. No ear pain. Nasal congestion. RESPIRATORY: Cough, no congestion. Wheeze. No hemoptysis. Shortness of breath. CARDIOVASCULAR: No angina symptoms. No CHF symptoms. No atypical chest pain for CAD. No palpitations. No orthopnea. GASTROINTESTINAL: No abdominal pain. No nausea or vomiting. No diarrhea or constipation. No hematemesis. No hematochezia. Appetite loss. GENITOURINARY: No urgency. No frequency. No dysuria. No hematuria. No obstructive symptoms. No discharge. No pain. No significant abnormal bleeding. The patient has an indwelling catheter. MUSCULOSKELETAL: No musculoskeletal pain. No joint swelling. No arthritis. Generalized weakness, in wheelchair and required assistance. NEUROLOGICAL: No headache. No neck pain. No syncope. No seizures. No dizziness. The patient is alert and appropriate. PSYCHIATRIC: Not anxious. No depression. No suicidal thoughts. No homicidal thoughts. SKIN: No rash. No lesions. No wounds. ENDOCRINE: No unexplained weight loss. No weight gain. HEMATOLOGIC/LYMPHATIC: No anemia. No purpura. No petechiae. No prolonged or excessive bleeding. No palpable lymph nodes. PERSONAL/FAMILY/SOCIAL HISTORY: Family history; father at age 78, mother at age 89 with heart disease and diabetes mellitus type 2. The patient was along term smoker although he has stopped smoking for probably the past 8-10 years. He denies any alcohol or illicit drug use. He current lives at home with his . He is pretty dependant for ADL's. He is extremely short of breath without exertion therefore does not get up and walk, he sits mostly due to shortness of breath. He ambulates by way of a wheelchair. MEDICATIONS: Protonix ProAir Spiriva Lasix Flomax Aldactone Coreg Potassium Brovana Nitro Calcium Aspirin Prednisone 5mg daily ALLERGIES: Azithromycin PHYSICAL EXAMINATION: GENERAL: The patient has cachetic appearance. VITAL SIGNS: Temperature 97.4, heart rate 71, respiratory rate 24, blood pressure 115/68, pulse ox 98% on 2.5 liters. HEENT: Head normocephalic, atraumatic. Eyes: Extraocular muscles are intact. Pupils are equal, round and reactive to light and accommodation. Ears: No lesions. Nose appeared normal. Throat: No exudate or erythema. NECK: Supple. No JVD, no carotid bruit. No lymphadenopathy or thyromegaly. LUNGS: Diminished breath sounds bilaterally with bilateral expiratory rub. Percussion note normal. Chest symmetrical. HEART: S1, S2, no S3. No murmurs. No cyanosis or clubbing. No ascites. Pulses: Dorsalis pedis and posterior tibial pulses +1 to +2 both sides. ABDOMEN: Soft. Nontender. Bowel sounds active times four quadrants. No CVA tenderness. No mass felt. Ahumada is in place. EXTREMITIES: No edema. Full range of motion of all extremities, equal. NEUROLOGIC: No focal deficit. Cranial nerves II through XII are grossly intact. No headache, no double vision or headache. Alert and oriented times three. SKIN: Dry. Pale. Intact. Turgor - normal. Stage 1 decubitus on midback on spinal process with slight sheering present on admission as well as stage 1 on buttock that was also present on admission. Localized erythema. No signs or symptoms of infections. LYMPHATIC: No palpable lymph nodes/no lymphedema. MUSCULOSKELETAL: Normal joints with no swelling. Muscle tone is normal. LABS: Hgb 10.6, hct 32.4, WBC 7.91, plt count 318, sodium 131, potassium 4.6, BUN 13, creatinine 0.58, glucose 133. ASSESSMENT: 1. Bilateral pneumonia 2. Chronic respiratory failure 3. COPD 4. Anemia 5. Stage 1 Decubitus on back and buttocks PLAN: 1. The patient is on Rocephin 1gram IV daily 2. Solu-Medrol IV 125mg Q 6 hours 3. Normal saline at 75cc an hour 4. Silvadene applied decubitus 5. CBC and CMP daily 6. Routine telemetry 7. Xopenex NEB treatment Q 6 hour scheduled 8. Sputum for culture and sensitivity Will follow closely. TIME SPENT: More than 70 minutes. MTDD
--- NOTE | 2017-03-15 13:24 | PCM.PROG ---
Attending Provider: ATTENDING PROVIDER: Dr. KATLIN CORTES DATE OF SERVICE: 03/15/17 SUBJECTIVE: This 72 year old WHITE/ M was hospitalized 03/13/17. The patient is hospitalized with acute bronchitis, dehydration and pneumonitis. He is feeling better. REVIEW OF SYSTEMS: CONSTITUTIONAL: No night sweats. No fatigue, malaise, lethargy. No fever or chills. HEENT: Eyes: No visual changes. No eye pain. No eye discharge. ENT: No runny nose. No epistaxis. No sinus pain. No odynophagia. No congestion. RESPIRATORY: No cough, no congestion. No hemoptysis. No shortness of breath. CARDIOVASCULAR: No angina symptoms. No CHF symptoms. No atypical chest pain for CAD. No palpitations. No orthopnea.. GASTROINTESTINAL: Improved appetite. No abdominal pain. No nausea or vomiting. No diarrhea or constipation. No hematemesis. No hematochezia. GENITOURINARY: Ahumada catheter in place. No urgency. No frequency. No dysuria. No hematuria. No obstructive symptoms. No discharge. No pain. No significant abnormal bleeding. MUSCULOSKELETAL: No musculoskeletal pain; no joint swelling. NEUROLOGICAL: Awake, alert, oriented to time, place and person. No headache. No neck pain. No syncope. No seizures. No dizziness. PSYCHIATRIC: Not anxious. No depression. No suicidal thoughts. No homicidal thoughts. SKIN: No rash. No lesions. No wounds. ENDOCRINE: No unexplained weight loss. No weight gain. HEMATOLOGIC/LYMPHATIC: No anemia. No purpura. No petechiae. No prolonged or excessive bleeding. No palpable lymph nodes. PHYSICAL EXAMINATION: GENERAL: The patient is awake, alert and oriented, lying in bed in no distress. VITAL SIGNS: Temperature 97.6 F, Pulse 77, Respiratory Rate 20, BP 123/72, Pulse Ox 98% HEENT: Head normocephalic, atraumatic. Eyes: Extraocular muscles are intact. Pupils are equal, round and reactive to light and accommodation. Ears: No lesions. Nose appeared normal. Throat: No exudate or erythema. NECK: Supple. No JVD, no carotid bruit. No lymphadenopathy or thyromegaly. LUNGS: Decreased breath sounds, good air entry. No wheezing. Percussion note normal. Chest symmetrical. HEART: S1, S2, no S3. No murmurs. No cyanosis or clubbing. No ascites. Pulses: Dorsalis pedis and posterior tibial pulses +1 to +2 both sides. ABDOMEN: Soft. Non-tender. Bowel sounds active. No CVA tenderness. No mass felt. EXTREMITIES: No edema. Full range of motion of all extremities, equal. NEUROLOGIC: No focal deficit. Cranial nerves II through XII are grossly intact. No headache, no double vision or headache. SKIN: Not dry. Intact. Turgor-normal. LYMPHATIC: No palpable lymph nodes/no lymphedema. MUSCULOSKELETAL: Normal joints with no swelling. Muscle tone is normal. LAB REVIEW: 03/15/17 05:17 03/15/17 05:17 03/15/17 05:17: Sodium 134 L, Potassium 4.0, Chloride 102, Carbon Dioxide 26, Anion Gap 10.0, BUN 14, Creatinine 0.54 L, Estimated GFR (MDRD) 149.00, BUN/ Creatinine Ratio 25.92, Glucose 126 H, Calcium 9.0, Total Bilirubin 0.21, AST 19 , ALT 19, Alkaline Phosphatase 104, Total Protein 5.6 L, Albumin 2.1 L, Globulin 3.5, Albumin/Globulin Ratio 0.60 03/15/17 05:17: WBC 11.40 H, RBC 3.66 L, Hgb 10.4 L, Hct 30.4 L, MCV 83.1, MCH 28.4, MCHC 34.2, RDW Coeff of Bull 13.6, Plt Count 347, Immature Gran % (Auto) 2.1, Neut % (Auto) 79.0, Lymph % (Auto) 16.7, [place] % (Auto) 2.1, Eos % (Auto) 0.0, Baso % (Auto) 0.1, Immature Gran # (Auto) 0.2, Neut # 9.0 H, Lymph # 1.9, [place] # 0.2 L, Eos # 0.0, Baso # 0.0 ASSESSMENT: 1. Acute bronchitis/pneumonitis seems to be improving 2. Dehydration resolved 3. Ahumada catheter, permanent 4. Malnutrition 5. Anemia 6. Hypoalbuminemia PLAN: 1. Encourage the patient to eat protein supplements. 2. Dietary consult. 3. Continue steroids, antibiotics and nebs treatment. 4. D/C IV fluids 5. Up and about Plan and coordination of the patient's care discussed in the presence of Pony Ride Operator and nurse. CONDITION: Stable PROGNOSIS: Poor SCRIBED BY: CHARLETTE PAINTING, Adjunct Phlebotomy Instructor scribed while in presence of service performed by Dr. KATLIN CORTES on 03/15/17 ([id number])
[2017-03-16] MEDS: SOLU-MEDROL 125 MG IVP SCH ×4 (00:13→17:25)
[2017-03-16] MEDS: DUONEB NEB SCH ×4 (05:07→22:43)
[2017-03-16] MEDS: LASIX TAB PO SCH (05:44)
[2017-03-16] MEDS: COREG PO SCH ×2 (09:01→17:24)
[2017-03-16] MEDS: CARAFATE PO SCH ×3 (09:01→20:21)
[2017-03-16] MEDS: MICRO-K CAP PO SCH (09:01)
[2017-03-16] MEDS: PROTONIX PO SCH (09:01)
[2017-03-16] MEDS: ALDACTONE PO SCH (09:01)
[2017-03-16] MEDS: ROCEPHIN 1 GM in SODIUM CHLORIDE 50 ML IV SCH (09:02)
[2017-03-16] MEDS: FLOMAX PO SCH (09:02)
[2017-03-16] MEDS: SILVADENE CREAM TP SCH ×2 (09:45→20:21)
--- NOTE | 2017-03-16 10:19 | PCM.PROG ---
Attending Provider: ATTENDING PROVIDER: Dr. KATLIN BILLINGS This patient is seen with Erika Rey, Nurse Practitioner. DATE OF SERVICE: 03/16/17 SUBJECTIVE: This 72 year old WHITE/ M was hospitalized 03/13/17. The patient is lying in bed, is alert. He states acid reflux has been bothering him. Protonix , home medication had not been continued. REVIEW OF SYSTEMS: CONSTITUTIONAL: No night sweats. No fatigue, malaise, lethargy. No fever or chills. HEENT: Eyes: No visual changes. No eye pain. No eye discharge. ENT: No runny nose. No epistaxis. No sinus pain. No odynophagia. No congestion. RESPIRATORY: Cough and congestion. No hemoptysis. Shortness of breath. CARDIOVASCULAR: No angina symptoms. No CHF symptoms. No atypical chest pain for CAD. No palpitations. No orthopnea.. GASTROINTESTINAL: GERD. No abdominal pain. No nausea or vomiting. No diarrhea or constipation. No hematemesis. No hematochezia. GENITOURINARY: No urgency. No frequency. No dysuria. No hematuria. No obstructive symptoms. No discharge. No pain. No significant abnormal bleeding. MUSCULOSKELETAL: No musculoskeletal pain; no joint swelling. NEUROLOGICAL: Awake, alert, oriented to time, place and person. No headache. No neck pain. No syncope. No seizures. No dizziness. PSYCHIATRIC: Not anxious. No depression. No suicidal thoughts. No homicidal thoughts. SKIN: No rash. No lesions. No wounds. ENDOCRINE: No unexplained weight loss. No weight gain. HEMATOLOGIC/LYMPHATIC: No anemia. No purpura. No petechiae. No prolonged or excessive bleeding. No palpable lymph nodes. PHYSICAL EXAMINATION: GENERAL: The patient is awake, alert and oriented, lying in bed in no distress. VITAL SIGNS: Temperature 97.9 F, Pulse 81, Respiratory Rate 16, BP 115/74, Pulse Ox 99% HEENT: Head normocephalic, atraumatic. Eyes: Extraocular muscles are intact. Pupils are equal, round and reactive to light and accommodation. Ears: No lesions. Nose appeared normal. Throat: No exudate or erythema. NECK: Supple. No JVD, no carotid bruit. No lymphadenopathy or thyromegaly. LUNGS: Severely diminished breath sounds bilaterally. Mild expiratory wheeze. Percussion note normal. Chest symmetrical. HEART: S1, S2, no S3. No murmurs. No cyanosis or clubbing. No ascites. Pulses: Dorsalis pedis and posterior tibial pulses +1 to +2 both sides. ABDOMEN: Soft. Non-tender. Bowel sounds active. No CVA tenderness. No mass felt. EXTREMITIES: No edema. Full range of motion of all extremities, equal. NEUROLOGIC: No focal deficit. Cranial nerves II through XII are grossly intact. No headache, no double vision or headache. SKIN: Not dry. Intact. Turgor-normal. LYMPHATIC: No palpable lymph nodes/no lymphedema. MUSCULOSKELETAL: Normal joints with no swelling. Muscle tone is normal. LAB REVIEW: 03/15/17 05:17 03/15/17 05:17 ASSESSMENT: 1. Acute bronchitis/pneumonitis seems to be improving 2. Dehydration resolved 3. Ahumada catheter, permanent 4. Malnutrition 5. Anemia 6. Hypoalbuminemia 7. GERD PLAN: 1. Protonix 40 mg daily 2. Carafate 1 gm t.i.d. 3. CBC, CMP Plan and coordination of the patient's care discussed in the presence of Community Associate and nurse. CONDITION: Stable SCRIBED BY: CHARLETTE PAINTING Car Supervisor scribed while in presence of service performed by Dr. Billings/Erika Rey APRN on 03/16/17 ([id number])
[2017-03-16] MEDS: LEVAQUIN 500 MG in PREMIX 100 ML D5W 1 BAG IV SCH (10:33)
--- NOTE | 2017-03-16 14:01 | PN ---
DATE OF SERVICE: 03/14/17 SUBJECTIVE: 72 year old white male hospitalized with acute bronchitis/pneumonitis, dehydration. The patient's condition has improved. The patient's hydration status has improved. The patient is on Rocephin, Solu-Medrol. PHYSICAL EXAMINATION: HEENT: Head normocephalic, atraumatic. Eyes: Extraocular muscles are intact. Pupils are equal, round and reactive to light and accommodation. Ears: No lesions. Nose appeared normal. Throat: No exudate or erythema. NECK: Supple. No JVD, no carotid bruit. No lymphadenopathy or thyromegaly. LUNGS: Decreased breath sounds. Better air entry. Clear to auscultation. Percussion note normal. Chest symmetrical. HEART: S1, S2, no S3. No murmurs. No cyanosis or clubbing. No ascites. Pulses: Dorsalis pedis and posterior tibial pulses +1 to +2 both sides. ABDOMEN: Soft. Nontender. Bowel sounds active. No CVA tenderness. No mass felt. EXTREMITIES: No edema. Full range of motion of all extremities, equal. NEUROLOGIC: No focal deficit. Cranial nerves II through XII are grossly intact. No headache, no double vision or headache. SKIN: Not dry. Intact. Turgor - normal. LYMPHATIC: No palpable lymph nodes/no lymphedema. MUSCULOSKELETAL: Normal joints with no swelling. Muscle tone is normal. CONDITION: Stable The patient was seen and examined with Nurse Practitioner and Tree Worker. TIME SPENT: More than 30 minutes. Plan and coordination of the patient's care discussed in the presence of nurse. SHEA
[2017-03-17] MEDS: SOLU-MEDROL 125 MG IVP SCH ×4 (00:42→20:11)
[2017-03-17] MEDS: DUONEB NEB SCH ×4 (05:02→23:16)
[2017-03-17 05:03] LABS: BASOPHILS % (AUTO) 0.1 % (0.0-3.0); HEMATOCRIT 31.3 % (42.0-52.0); HEMOGLOBIN 10.7 g/dl (14.0-18.0); IMMATURE GRANULOCYTE % (AUTO) 2.8 % (0.0-5.0); LYMPHOCYTES # (AUTO) 1.4 K/uL (0.60-3.4); LYMPHOCYTES % (AUTO) 14.4 (10.0-50.0); MEAN CORPUSCULAR HEMOGLOBIN 28.2 pg (27.0-31.0); MEAN CORPUSCULAR HGB CONC 34.2 (31.8-35.4); MEAN CORPUSCULAR VOLUME 82.4 fl (80.0-94.0); MONOCYTES # (AUTO) 0.3 K/uL (0.4-2.0); MONOCYTES % (AUTO) 2.6 (0-10); NEUTROPHILS # (AUTO) 7.8 K/ul (2.0-6.9); NEUTROPHILS % (AUTO) 80.1; PLATELET COUNT 344 10^3/uL (140-440); WHITE BLOOD COUNT 9.77 K/ul (4.2-10.2)
[2017-03-17 05:31] LABS: ALBUMIN/GLOBULIN RATIO 0.71; ANION GAP 9.8; BILIRUBIN,TOTAL 0.19 mg/dL (0.00-1.20); BUN/CREATININE RATIO 26.41; CALCIUM 8.9 mg/dL (8.2-10.2); CREATININE 0.53 mg/dL (0.60-1.10); POTASSIUM 3.8 mmol/L (3.5-5.1); TOTAL PROTEIN 4.8 g/dL (5.8-8.1)
[2017-03-17] MEDS: PROTONIX PO SCH (06:07)
[2017-03-17] MEDS: LASIX TAB PO SCH (06:07)
[2017-03-17] MEDS ORDERED: PREDNISONE PO SCH (08:30)
[2017-03-17] MEDS ORDERED: SOLU-MEDROL 125 MG 125 MG in SODIUM CHLORIDE 50 ML IV SCH (08:30)
[2017-03-17] MEDS: FLOMAX PO SCH (08:52)
[2017-03-17] MEDS: MICRO-K CAP PO SCH (08:53)
[2017-03-17] MEDS: CARAFATE PO SCH ×3 (08:53→17:07)
[2017-03-17] MEDS: COREG PO SCH ×2 (08:53→17:07)
[2017-03-17] MEDS: ALDACTONE PO SCH (08:53)
[2017-03-17] MEDS: ROCEPHIN 1 GM in SODIUM CHLORIDE 50 ML IV SCH (08:53)
[2017-03-17] MEDS: SILVADENE CREAM TP SCH ×2 (08:55→20:10)
--- NOTE | 2017-03-17 09:22 | PCM.PROG ---
Attending Provider: ATTENDING PROVIDER: Dr. KATLIN BILLINGS This patient is seen with Erika Rey, Nurse Practitioner. DATE OF SERVICE: 03/17/17 SUBJECTIVE: This 72 year old WHITE/ M was hospitalized 03/13/17. The patient is lying in bed, alert. He states he feels better today. He slept well. He was up to chair yesterday. GERD symptoms improved from yesterday. He is still weak , short of breath. REVIEW OF SYSTEMS: CONSTITUTIONAL: Generalized weakness. No night sweats. No fever or chills. HEENT: Eyes: No visual changes. No eye pain. No eye discharge. ENT: No runny nose. No epistaxis. No sinus pain. No odynophagia. No congestion. RESPIRATORY: Cough. No congestion. No hemoptysis. Shortness of breath. CARDIOVASCULAR: No angina symptoms. No CHF symptoms. No atypical chest pain for CAD. No palpitations. No orthopnea.. GASTROINTESTINAL: No abdominal pain. No nausea or vomiting. No diarrhea or constipation. No hematemesis. No hematochezia. GENITOURINARY: No urgency. No frequency. No dysuria. No hematuria. No obstructive symptoms. No discharge. No pain. No significant abnormal bleeding. MUSCULOSKELETAL: No musculoskeletal pain; no joint swelling. NEUROLOGICAL: Awake, alert, oriented to time, place and person. No headache. No neck pain. No syncope. No seizures. No dizziness. PSYCHIATRIC: Not anxious. No depression. No suicidal thoughts. No homicidal thoughts. SKIN: No rash. No lesions. Present wounds unchanged with no sign of infection. ENDOCRINE: No unexplained weight loss. No weight gain. HEMATOLOGIC/LYMPHATIC: No anemia. No purpura. No petechiae. No prolonged or excessive bleeding. No palpable lymph nodes. PHYSICAL EXAMINATION: GENERAL: The patient is awake, alert and oriented, lying/sitting in bed in no distress. VITAL SIGNS: Temperature 98.5 F, Pulse 77, Respiratory Rate 17, BP 123/77, Pulse Ox 100% HEENT: Head normocephalic, atraumatic. Eyes: Extraocular muscles are intact. Pupils are equal, round and reactive to light and accommodation. Ears: No lesions. Nose appeared normal. Throat: No exudate or erythema. NECK: Supple. No JVD, no carotid bruit. No lymphadenopathy or thyromegaly. LUNGS: Severely diminished breath sounds bilaterally. Clear to auscultation. Percussion note normal. Chest symmetrical. HEART: S1, S2, no S3. No murmurs. No cyanosis or clubbing. No ascites. Pulses: Dorsalis pedis and posterior tibial pulses +1 to +2 both sides. ABDOMEN: Soft. Non-tender. Bowel sounds active. No CVA tenderness. No mass felt. EXTREMITIES: No edema. Full range of motion of all extremities, equal. NEUROLOGIC: No focal deficit. Cranial nerves II through XII are grossly intact. No headache, no double vision or headache. SKIN: Warm, dry. Present wounds unchanged with no sign of infection. Turgor- normal. LYMPHATIC: No palpable lymph nodes/no lymphedema. MUSCULOSKELETAL: Normal joints with no swelling. Muscle tone is normal. LAB REVIEW: 03/17/17 04:26 03/17/17 04:26 03/17/17 04:26: Sodium 133 L, Potassium 3.8, Chloride 99, Carbon Dioxide 28, Anion Gap 9.8, BUN 14, Creatinine 0.53 L, Estimated GFR (MDRD) 152.00, BUN/ Creatinine Ratio 26.41, Glucose 117 H, Calcium 8.9, Total Bilirubin 0.19, AST 18 , ALT 23, Alkaline Phosphatase 92, Total Protein 4.8 L, Albumin 2.0 L, Globulin 2.8, Albumin/Globulin Ratio 0.71 03/17/17 04:26: WBC 9.77, RBC 3.80 L, Hgb 10.7 L, Hct 31.3 L, MCV 82.4, MCH 28.2 , MCHC 34.2, RDW Coeff of Bull 13.7, Plt Count 344, Immature Gran % (Auto) 2.8, Neut % (Auto) 80.1, Lymph % (Auto) 14.4, [place] % (Auto) 2.6, Eos % (Auto) 0.0, Baso % (Auto) 0.1, Immature Gran # (Auto) 0.3, Neut # 7.8 H, Lymph # 1.4, [place] # 0.3 L, Eos # 0.0, Baso # 0.0 ASSESSMENT: 1. Acute bronchitis/pneumonitis seems to be improving 2. Dehydration resolved 3. Ahumada catheter, permanent 4. Malnutrition 5. Anemia 6. Hypoalbuminemia 7. GERD PLAN: 1. Encouraged to eat 2. Decrease Solu-Medrol to q.8hr Plan and coordination of the patient's care discussed in the presence of Quality Control Scientist and nurse. CONDITION: Stable SCRIBED BY: CHARLETTE PAINTING Qm Nurse scribed while in presence of service performed by Dr. Billings/Erika Rey APRN on 03/17/17 ([id number])
[2017-03-17] MEDS: LEVAQUIN 500 MG in PREMIX 100 ML D5W 1 BAG IV SCH (10:00)
--- NOTE | 2017-03-17 13:15 | PN ---
DATE OF SERVICE: 03/13/17 SUBJECTIVE: 72-year-old white male came to the emergency room with cough, congestion, respiratory failure. The patient is coughing up yellowish sputum. CT scan showed consolidation and possibility of pneumonia. The patient's is in the room. The patient was seen in Room 118, Bed 1. REVIEW OF SYSTEMS: CONSTITUTIONAL: Weakness. No night sweats. No fever or chills. HEENT: Eyes: No visual changes. No eye pain. No eye discharge. ENT: No runny nose. No epistaxis. No sinus pain. No sore throat. No odynophagia. No congestion. RESPIRATORY: Cough and congestion. No hemoptysis. No shortness of breath. CARDIOVASCULAR: No angina symptoms. No CHF symptoms. No atypical chest pain for CAD. No palpitations. No orthopnea. GASTROINTESTINAL: Loss of appetite lately for the last couple of days, some weight loss. No abdominal pain. No nausea or vomiting. No diarrhea or constipation. No hematemesis. No hematochezia. GENITOURINARY: No urgency. No frequency. No dysuria. No hematuria. No obstructive symptoms. No discharge. No pain. No significant abnormal bleeding. MUSCULOSKELETAL: No musculoskeletal pain; no joint swelling. NEUROLOGICAL: No headache. No neck pain. No syncope. No seizures. No dizziness. PSYCHIATRIC: Not anxious. No depression. No suicidal thoughts. No homicidal thoughts. SKIN: No rash. No lesions. No wounds. ENDOCRINE: Some weight loss. HEMATOLOGIC/LYMPHATIC: No anemia. No purpura. No petechiae. No prolonged or excessive bleeding. No palpable lymph nodes. PHYSICAL EXAMINATION: GENERAL: The patient is oriented to time, place and person. Skin color pale, looks sick. He looks emaciated. BMI is low 14. He weighs 92 lbs. V/S: Temperature 98, pulse 80, respiratory rate 24, BP 110/83, pulse ox 91%. HEENT: Head normocephalic, atraumatic. Eyes: Extraocular muscles are intact. Pupils are equal, round and reactive to light and accommodation. Ears: No lesions. Nose appeared normal. Throat: No exudate or erythema. NECK: Supple. No JVD, no carotid bruit. No lymphadenopathy or thyromegaly. LUNGS: Decreased breath sounds with wheeze bilaterally. Percussion note normal. Chest symmetrical. HEART: S1, S2, no S3. No murmurs. No cyanosis or clubbing. No ascites. Pulses: Dorsalis pedis and posterior tibial pulses +1 to +2 both sides. ABDOMEN: Soft. Nontender. Bowel sounds active. No CVA tenderness. No mass felt. EXTREMITIES: No edema. Full range of motion of all extremities, equal. NEUROLOGIC: No focal deficit. Cranial nerves II through XII are grossly intact. No headache, no double vision or headache. SKIN: Not dry. Intact. Turgor - normal. LYMPHATIC: No palpable lymph nodes/no lymphedema. MUSCULOSKELETAL: Normal joints with no swelling. Muscle tone is normal. LABS: Hemoglobin 12.3, hematocrit 37, WBC 11,900, normal differential. ABG shows p02 of 53, pc02 33, pH 7.55 with 91% saturation that was on 3L of oxygen. Creatnine 0.6, BUN 15, potassium 4.7. Normal liver profile. CT of the chest showed bilateral bronchial thickening and bilateral lower lobe nodular density most likely due to pneumonia. Increased right basilar consolidation along the fissure noted. Right-sided pleural effusion was also noted. Multilevel lumbar compression deformities was noted. ASSESSMENT: 1. ACUTE RESPIRATORY FAILURE 2. BRONCHIAL THICKENING WITH BILATERAL LOWER LOBE NODULAR DENSITIES INDICATING PNEUMONIA 3. SEVERE CHRONIC LUNG DISEASE 4. BENIGN PROSTATIC HYPERTROPHY WITH OBSTRUCTION WITH PERMANENT TOLLIVER CATHETER 5. COMPRESSION FRACTURES PLAN: 1. Duonebs q.6 2. Coreg 12.5 twice a day 3. Lasix 20 mg p.o. daily 4. Levofloxacin 500 mg p.o. daily 5. Sodium Chloride IV fluids 12 hourly 1,000 cc 6. Solu-Medrol 40 mg IV one dose TIME SPENT: More than 30 minutes. Plan and coordination of the patient's care discussed in the presence of nurse. SHEA
[2017-03-18] MEDS: DUONEB NEB SCH ×4 (05:16→22:00)
[2017-03-18 05:29] LABS: ALBUMIN 2.1 g/dL (3.4-5.0); ALBUMIN/GLOBULIN RATIO 0.75; ANION GAP 9.8; BILIRUBIN,TOTAL 0.22 mg/dL (0.00-1.20); BUN/CREATININE RATIO 28.07; CALCIUM 8.9 mg/dL (8.2-10.2); CREATININE 0.57 mg/dL (0.60-1.10); POTASSIUM 3.8 mmol/L (3.5-5.1); TOTAL PROTEIN 4.9 g/dL (5.8-8.1)
[2017-03-18] MEDS: PROTONIX PO SCH (05:37)
[2017-03-18] MEDS: CARAFATE PO SCH ×3 (05:37→17:38)
[2017-03-18] MEDS: LASIX TAB PO SCH (05:37)
[2017-03-18] MEDS: SOLU-MEDROL 125 MG IVP SCH ×3 (05:38→20:13)
[2017-03-18] MEDS: FLOMAX PO SCH (08:47)
[2017-03-18] MEDS: MICRO-K CAP PO SCH (08:47)
[2017-03-18] MEDS: ALDACTONE PO SCH (08:47)
[2017-03-18] MEDS: COREG PO SCH ×2 (08:47→17:09)
[2017-03-18] MEDS: ROCEPHIN 1 GM in SODIUM CHLORIDE 50 ML IV SCH (08:48)
[2017-03-18] MEDS ORDERED: KEFLEX PO SCH (09:00)
[2017-03-18] MEDS: LEVAQUIN 500 MG in PREMIX 100 ML D5W 1 BAG IV SCH (09:26)
[2017-03-18] MEDS: SILVADENE CREAM TP SCH ×2 (09:27→20:14)
[2017-03-19] MEDS: DUONEB NEB SCH ×4 (05:05→23:01)
[2017-03-19] MEDS: PROTONIX PO SCH (05:44)
[2017-03-19] MEDS: LASIX TAB PO SCH (05:44)
[2017-03-19] MEDS: CARAFATE PO SCH ×3 (05:45→16:59)
[2017-03-19] MEDS: SOLU-MEDROL 125 MG IVP SCH ×3 (05:45→20:38)
[2017-03-19] MEDS: ALDACTONE PO SCH (08:38)
[2017-03-19] MEDS: FLOMAX PO SCH (08:38)
[2017-03-19] MEDS: LEVAQUIN 500 MG in PREMIX 100 ML D5W 1 BAG IV SCH (08:38)
[2017-03-19] MEDS: COREG PO SCH ×2 (08:38→17:13)
[2017-03-19] MEDS: MICRO-K CAP PO SCH (08:38)
[2017-03-19] MEDS: SILVADENE CREAM TP SCH ×2 (08:40→20:39)
[2017-03-19] MEDS: TUSSIONEX PO SCH ×2 (08:57→20:38)
[2017-03-19] MEDS: ROCEPHIN 1 GM in SODIUM CHLORIDE 50 ML IV SCH (10:04)
[2017-03-19] MEDS: XANAX PO SCH (21:56)
[2017-03-20] MEDS: DUONEB NEB SCH ×4 (04:52→23:02)
[2017-03-20] MEDS: LASIX TAB PO SCH (05:47)
[2017-03-20] MEDS: PROTONIX PO SCH (05:47)
[2017-03-20] MEDS: CARAFATE PO SCH (05:47)
[2017-03-20] MEDS: SOLU-MEDROL 125 MG IVP SCH ×3 (05:47→20:56)
[2017-03-20 07:50] LABS: ALBUMIN/GLOBULIN RATIO 0.74; ANION GAP 8.3; BILIRUBIN,TOTAL 0.34 mg/dL (0.00-1.20); BUN/CREATININE RATIO 35.71; CALCIUM 8.6 mg/dL (8.2-10.2); CREATININE 0.56 mg/dL (0.60-1.10); POTASSIUM 3.3 mmol/L (3.5-5.1); TOTAL PROTEIN 4.7 g/dL (5.8-8.1)
[2017-03-20] MEDS ORDERED: K-DUR PO STA (08:11)
[2017-03-20] MEDS: SILVADENE CREAM TP SCH ×2 (08:36→20:55)
[2017-03-20] MEDS: LEVAQUIN 500 MG in PREMIX 100 ML D5W 1 BAG IV SCH (08:36)
[2017-03-20] MEDS: TUSSIONEX PO SCH ×2 (08:36→20:56)
[2017-03-20] MEDS: COREG PO SCH ×2 (08:37→17:07)
[2017-03-20] MEDS: ALDACTONE PO SCH (08:37)
[2017-03-20] MEDS: FLOMAX PO SCH (08:37)
--- NOTE | 2017-03-20 08:42 | PN ---
DATE OF SERVICE: 03/17/17 SUBJECTIVE: 72 year old white male hospitalized with acute bronchitis/pneumonitis. The patient's condition has steadily improved. He is still weak and frail but hydration status has improved. PHYSICAL EXAMINATION: VITALS: Blood pressure 123/77, pulse ox 100% on 2 liters, temperature 98.5. HEENT: Head normocephalic, atraumatic. Eyes: Extraocular muscles are intact. Pupils are equal, round and reactive to light and accommodation. Ears: No lesions. Nose appeared normal. Throat: No exudate or erythema. NECK: Supple. No JVD, no carotid bruit. No lymphadenopathy or thyromegaly. LUNGS: Decreased breath sounds but clear to auscultation. Percussion note normal. Chest symmetrical. HEART: S1, S2, no S3. No murmurs. No cyanosis or clubbing. No ascites. Pulses: Dorsalis pedis and posterior tibial pulses +1 to +2 both sides. ABDOMEN: Soft. Nontender. Bowel sounds active. No CVA tenderness. No mass felt. EXTREMITIES: No edema. Full range of motion of all extremities, equal. NEUROLOGIC: No focal deficit. Cranial nerves II through XII are grossly intact. No headache, no double vision or headache. SKIN: Not dry. Intact. Turgor - normal. LYMPHATIC: No palpable lymph nodes/no lymphedema. MUSCULOSKELETAL: Normal joints with no swelling. Muscle tone is normal. ASSESSMENT: 1. Pneumonia seems to be resolving 2. Severe chronic lung disease 3. Malnutrition 4. Chronic urinary tract infection, permanent Ahumada Catheter. in the room PROGNOSIS: Poor, knows about it. PLAN: 1. The patient strongly advised to eat as much as he could 2. Need to increase the Protein intake 3. Should be up and about with help The patient was seen and examined with Nurse Practitioner and Care Support Representative. TIME SPENT: More than 30 minutes. Plan and coordination of the patient's care discussed in the presence of nurse. SHEA
--- NOTE | 2017-03-20 09:22 | DI ---
EXAM: CHEST FRONTAL AND LATERAL VIEWS HISTORY: Cough. COMPARISON: 11/30/2016 FINDINGS: Heart size is within normal limits. Moderate atherosclerotic disease. Lungs are hyperinfl ated. Blunting of the right costophrenic angle with a broader density at this level is suggested on the lateral. Lungs are otherwise clear. IMPRESSION: Mass like density in the right base. Consider a loculated pleural fluid, atelectasis, pne umonia or neoplasia. Similar finding seen on recent CT chest.
--- NOTE | 2017-03-20 09:42 | PCM.PROG ---
Attending Provider: ATTENDING PROVIDER: Dr. KATLIN BILLINGS This patient is seen with Erika Rey, Nurse Practitioner. DATE OF SERVICE: 03/20/17 SUBJECTIVE: This 72 year old WHITE/ M was hospitalized 03/13/17. The patient is lying in bed, alert. He states he slept well last night, is feeling better today. Shortness of breath has improved. REVIEW OF SYSTEMS: CONSTITUTIONAL: Weakness. No night sweats. No fever or chills. HEENT: Eyes: No visual changes. No eye pain. No eye discharge. ENT: No runny nose. No epistaxis. No sinus pain. No odynophagia. No congestion. RESPIRATORY: Cough and congestion. No hemoptysis. No shortness of breath. CARDIOVASCULAR: No angina symptoms. No CHF symptoms. No atypical chest pain for CAD. No palpitations. No orthopnea.. GASTROINTESTINAL: No abdominal pain. No nausea or vomiting. No diarrhea or constipation. No hematemesis. No hematochezia. GENITOURINARY: No urgency. No frequency. No dysuria. No hematuria. No obstructive symptoms. No discharge. No pain. No significant abnormal bleeding. MUSCULOSKELETAL: No musculoskeletal pain; no joint swelling. NEUROLOGICAL: Awake, alert, oriented to time, place and person. No headache. No neck pain. No syncope. No seizures. No dizziness. PSYCHIATRIC: Not anxious. No depression. No suicidal thoughts. No homicidal thoughts. SKIN: No rash. No lesions. No wounds. ENDOCRINE: No unexplained weight loss. No weight gain. HEMATOLOGIC/LYMPHATIC: No anemia. No purpura. No petechiae. No prolonged or excessive bleeding. No palpable lymph nodes. PHYSICAL EXAMINATION: GENERAL: The patient is awake, alert and oriented, lying/sitting in bed in no distress. VITAL SIGNS: Temperature 97.0 F, Pulse 70, Respiratory Rate 15, BP 126/74, Pulse Ox 100% HEENT: Head normocephalic, atraumatic. Eyes: Extraocular muscles are intact. Pupils are equal, round and reactive to light and accommodation. Ears: No lesions. Nose appeared normal. Throat: No exudate or erythema. NECK: Supple. No JVD, no carotid bruit. No lymphadenopathy or thyromegaly. LUNGS: Severely diminished breath sounds bilaterally. Clear to auscultation. Percussion note normal. Chest symmetrical. HEART: S1, S2, no S3. No murmurs. No cyanosis or clubbing. No ascites. Pulses: Dorsalis pedis and posterior tibial pulses +1 to +2 both sides. ABDOMEN: Soft. Non-tender. Bowel sounds active. No CVA tenderness. No mass felt. EXTREMITIES: No edema. Full range of motion of all extremities, equal. NEUROLOGIC: No focal deficit. Cranial nerves II through XII are grossly intact. No headache, no double vision or headache. SKIN: Not dry. Intact. Turgor-normal. LYMPHATIC: No palpable lymph nodes/no lymphedema. MUSCULOSKELETAL: Normal joints with no swelling. Muscle tone is normal. LAB REVIEW: 03/17/17 04:26 03/18/17 04:21 ASSESSMENT: 1. Acute bronchitis/pneumonitis seems to be improving 2. Dehydration resolved 3. Ahumada catheter, permanent 4. Malnutrition 5. Anemia 6. Hypoalbuminemia 7. GERD 8. Hypokalemia PLAN: 1. D/C with Carafate 2. CBC and CMP today. 3. Repeat chest x-ray. 4. Potassium 40 mEq t.i.d. 5. Encouraged to eat. Plan and coordination of the patient's care discussed in the presence of Asphalt Paving Supervisor and nurse. CONDITION: Stable SCRIBED BY: CHARLETTE PAINTING Cylinder Steamer scribed while in presence of service performed by Dr. Billings/Erika Rey APRN on 03/20/17 ([id number])
[2017-03-20] MEDS: ROCEPHIN 1 GM in SODIUM CHLORIDE 50 ML IV SCH (10:33)
--- NOTE | 2017-03-20 11:07 | PN ---
DATE OF SERVICE: 03/18/17 SUBJECTIVE: 72 year old white male hospitalized with pneumonia. The patient's condition has steadily improved. The is in the room. They said that the room is cold, we will change the patient's room. The patient's room is near the main door which sends a draft of cold air whenever anyone gets in and out. REVIEW OF SYSTEMS: CONSTITUTIONAL: No night sweats. Fatigued and tired feeling. No fever or chills. HEENT: Eyes: No visual changes. No eye pain. No eye discharge. ENT: No runny nose. No epistaxis. No sinus pain. No sore throat. No odynophagia. No congestion. RESPIRATORY:Coughing is much less, no congestion. No hemoptysis. No shortness of breath. CARDIOVASCULAR: No angina symptoms. No CHF symptoms. No atypical chest pain for CAD. No palpitations. No orthopnea. GASTROINTESTINAL: No abdominal pain. No nausea or vomiting. No diarrhea or constipation. No hematemesis. No hematochezia. Appetite has improved. GENITOURINARY: No urgency. No frequency. No dysuria. No hematuria. No obstructive symptoms. No discharge. No pain. No significant abnormal bleeding. MUSCULOSKELETAL: No musculoskeletal pain; no joint swelling. NEUROLOGICAL: No headache. No neck pain. No syncope. No seizures. No dizziness. No black out spells. PSYCHIATRIC: Not anxious. No depression. No suicidal thoughts. No homicidal thoughts. SKIN: No rash. No lesions. No wounds. ENDOCRINE: No unexplained weight loss. No weight gain. HEMATOLOGIC/LYMPHATIC: No anemia. No purpura. No petechiae. No prolonged or excessive bleeding. No palpable lymph nodes. PHYSICAL EXAMINATION: GENERAL: The patient is oriented to time, place and person. VITAL SIGNS: Temperature 97.5, pulse 76, respiratory rate 20, blood pressure 121/73, pulse ox 96% HEENT: Head normocephalic, atraumatic. Eyes: Extraocular muscles are intact. Pupils are equal, round and reactive to light and accommodation. Ears: No lesions. Nose appeared normal. Throat: No exudate or erythema. NECK: Supple. No JVD, no carotid bruit. No lymphadenopathy or thyromegaly. LUNGS: Decreased breath sounds with mild wheeze. Percussion note normal. Chest symmetrical. HEART: S1, S2, no S3. No murmurs. No cyanosis or clubbing. No ascites. Pulses: Dorsalis pedis and posterior tibial pulses +1 to +2 both sides. ABDOMEN: Soft. Nontender. Bowel sounds active. No CVA tenderness. No mass felt. EXTREMITIES: No edema. Full range of motion of all extremities, equal. NEUROLOGIC: No focal deficit. Cranial nerves II through XII are grossly intact. No headache, no double vision or headache. SKIN: Not dry. Intact. Turgor - normal. LYMPHATIC: No palpable lymph nodes/no lymphedema. MUSCULOSKELETAL: Normal joints with no swelling. Muscle tone is normal. LABS: Hgb 10.7, hct 31, WBC 9,700 normal differential, kidney profile normal. ASSESSMENT: 1. Acute bronchitis/pneumonitis resolving 2. Severe chronic lung disease 3. Malnutrition 4. BPH with permanent Ahumada Catheter. PLAN: 1. Continue IV antibiotics, steroids, NEBS treatment 2. Encouraged the patient to eat 3. The patient's nutritional status is poor with patient weighing 92 lbs with BMI of 14. The patient has already been seen by Optical Technician. CONDITION: Stable TIME SPENT: More than 30 minutes. Plan and coordination of the patient's care discussed in the presence of nurse. SHEA
[2017-03-20] MEDS: K-DUR PO SCH ×2 (12:22→17:07)
--- NOTE | 2017-03-20 13:09 | PN ---
DATE OF SERVICE: 03/19/17 SUBJECTIVE: 72 year old white male hospitalized with bronchitis/pneumonia. The patient's condition is good. Today he looks a lot better and eating by himself in a warmer room today. REVIEW OF SYSTEMS: CONSTITUTIONAL: No night sweats. No fatigue, malaise, lethargy. No fever or chills. HEENT: Eyes: No visual changes. No eye pain. No eye discharge. ENT: No runny nose. No epistaxis. No sinus pain. No sore throat. No odynophagia. No congestion. RESPIRATORY: Mild cough,congestion. No hemoptysis. No shortness of breath. CARDIOVASCULAR: No angina symptoms. No CHF symptoms. No atypical chest pain for CAD. No palpitations. No orthopnea. GASTROINTESTINAL: No abdominal pain. No nausea or vomiting. No diarrhea or constipation. No hematemesis. No hematochezia. GENITOURINARY: No urgency. No frequency. No dysuria. No hematuria. No obstructive symptoms. No discharge. No pain. No significant abnormal bleeding. MUSCULOSKELETAL: No musculoskeletal pain; no joint swelling. NEUROLOGICAL: No headache. No neck pain. No syncope. No seizures. No dizziness. PSYCHIATRIC: Not anxious. No depression. No suicidal thoughts. No homicidal thoughts. SKIN: No rash. No lesions. No wounds. ENDOCRINE: No unexplained weight loss. No weight gain. HEMATOLOGIC/LYMPHATIC: No anemia. No purpura. No petechiae. No prolonged or excessive bleeding. No palpable lymph nodes. PHYSICAL EXAMINATION: GENERAL: The patient is oriented to time, place and person. VITAL SIGNS: Temperature 97.7, pulse 76, respiratory rate 22, blood pressure 120/66 and pulse ox 96%. HEENT: Head normocephalic, atraumatic. Eyes: Extraocular muscles are intact. Pupils are equal, round and reactive to light and accommodation. Ears: No lesions. Nose appeared normal. Throat: No exudate or erythema. NECK: Supple. No JVD, no carotid bruit. No lymphadenopathy or thyromegaly. LUNGS: Decreased breath sounds but clear to auscultation. Percussion note normal. Chest symmetrical. HEART: S1, S2, no S3. No murmurs. No cyanosis or clubbing. No ascites. Pulses: Dorsalis pedis and posterior tibial pulses +1 to +2 both sides. ABDOMEN: Soft. Nontender. Bowel sounds active. No CVA tenderness. No mass felt. EXTREMITIES: No edema. Full range of motion of all extremities, equal. NEUROLOGIC: No focal deficit. Cranial nerves II through XII are grossly intact. No headache, no double vision or headache. SKIN: Not dry. Intact. Turgor - normal. LYMPHATIC: No palpable lymph nodes/no lymphedema. MUSCULOSKELETAL: Normal joints with no swelling. Muscle tone is normal. LABS: Hgb needs to be checked again. Daily CBC and CMP has been stopped, will reorder it. ASSESSMENT: 1. Acute bronchitis/pneumonitis seems to be resolving 2. Malnutrition seems to be improving, the patient is under weight PLAN: 1. The patient was advised to put on some weight. CONDITION: Stable. TIME SPENT: More than 30 minutes. Plan and coordination of the patient's care discussed in the presence of nurse. SHEA
[2017-03-20] MEDS: XANAX PO SCH (20:56)
[2017-03-21] MEDS: SOLU-MEDROL 125 MG IVP SCH ×3 (04:15→21:58)
[2017-03-21] MEDS: DUONEB NEB SCH ×3 (05:03→18:25)
[2017-03-21 05:09] LABS: BASOPHILS % (AUTO) 0.1 % (0.0-3.0); HEMATOCRIT 33.9 % (42.0-52.0); HEMOGLOBIN 11.4 g/dl (14.0-18.0); IMMATURE GRANULOCYTE % (AUTO) 1.1 % (0.0-5.0); LYMPHOCYTES # (AUTO) 1.1 K/uL (0.60-3.4); LYMPHOCYTES % (AUTO) 6.9 (10.0-50.0); MEAN CORPUSCULAR HEMOGLOBIN 28.4 pg (27.0-31.0); MEAN CORPUSCULAR HGB CONC 33.6 (31.8-35.4); MEAN CORPUSCULAR VOLUME 84.3 fl (80.0-94.0); MONOCYTES # (AUTO) 0.5 K/uL (0.4-2.0); NEUTROPHILS # (AUTO) 14.5 K/ul (2.0-6.9); NEUTROPHILS % (AUTO) 88.9; PLATELET COUNT 314 10^3/uL (140-440); RED BLOOD COUNT 4.02 10^6/ul (4.70-6.10); WHITE BLOOD COUNT 16.34 K/ul (4.2-10.2)
[2017-03-21 05:23] LABS: ALBUMIN 2.1 g/dL (3.4-5.0); ALBUMIN/GLOBULIN RATIO 0.78; BILIRUBIN,TOTAL 0.41 mg/dL (0.00-1.20); BUN/CREATININE RATIO 35.71; CALCIUM 8.9 mg/dL (8.2-10.2); CREATININE 0.56 mg/dL (0.60-1.10); TOTAL PROTEIN 4.8 g/dL (5.8-8.1)
[2017-03-21] MEDS: LASIX TAB PO SCH (05:42)
[2017-03-21] MEDS: PROTONIX PO SCH (05:43)
[2017-03-21] MEDS ORDERED: K-DUR PO SCH (09:00)
[2017-03-21] MEDS: ROCEPHIN 1 GM in SODIUM CHLORIDE 50 ML IV SCH (09:33)
[2017-03-21] MEDS: FLOMAX PO SCH (09:34)
[2017-03-21] MEDS: COREG PO SCH ×2 (09:34→17:34)
[2017-03-21] MEDS: SILVADENE CREAM TP SCH ×2 (09:34→22:12)
[2017-03-21] MEDS: TUSSIONEX PO SCH ×2 (09:34→21:59)
[2017-03-21] MEDS: ALDACTONE PO SCH (09:35)
[2017-03-21] MEDS: K-DUR PO SCH (09:59)
[2017-03-21] MEDS ORDERED: B & O SUPPOSITORY RC PRN (10:32)
[2017-03-21] MEDS: LEVAQUIN 500 MG in PREMIX 100 ML D5W 1 BAG IV SCH (10:34)
--- NOTE | 2017-03-21 10:41 | PCM.PROG ---
Attending Provider: ATTENDING PROVIDER: Dr. KATLIN BILLINGS This patient is seen with Erika Rey, Nurse Practitioner. DATE OF SERVICE: 03/21/17 SUBJECTIVE: This 72 year old WHITE/ M was hospitalized 03/13/17. The patient is lying in bed, alert. He states he is not feeling quite as well and did not sleep as well last night. He would like his breathing treatment in evening to be after supper, otherwise has been eating about 50%. REVIEW OF SYSTEMS: CONSTITUTIONAL: Weakness. No night sweats. No fever or chills. HEENT: Eyes: No visual changes. No eye pain. No eye discharge. ENT: No runny nose. No epistaxis. No sinus pain. No odynophagia. No congestion. RESPIRATORY: Cough and congestion. No hemoptysis. Shortness of breath. CARDIOVASCULAR: No angina symptoms. No CHF symptoms. No atypical chest pain for CAD. No palpitations. No orthopnea.. GASTROINTESTINAL: No abdominal pain. No nausea or vomiting. No diarrhea or constipation. No hematemesis. No hematochezia. GENITOURINARY: No urgency. No frequency. No dysuria. No hematuria. No obstructive symptoms. No discharge. No pain. No significant abnormal bleeding. MUSCULOSKELETAL: No musculoskeletal pain; no joint swelling. NEUROLOGICAL: Awake, alert, oriented to time, place and person. No headache. No neck pain. No syncope. No seizures. No dizziness. PSYCHIATRIC: Not anxious. No depression. No suicidal thoughts. No homicidal thoughts. SKIN: No rash. No lesions. No wounds. ENDOCRINE: No unexplained weight loss. No weight gain. HEMATOLOGIC/LYMPHATIC: No anemia. No purpura. No petechiae. No prolonged or excessive bleeding. No palpable lymph nodes. PHYSICAL EXAMINATION: GENERAL: The patient is awake, alert and oriented, lying in bed in no distress. VITAL SIGNS: Temperature 97.6 F, Pulse 78, Respiratory Rate 20, BP 132/67, Pulse Ox 100% HEENT: Head normocephalic, atraumatic. Eyes: Extraocular muscles are intact. Pupils are equal, round and reactive to light and accommodation. Ears: No lesions. Nose appeared normal. Throat: No exudate or erythema. NECK: Supple. No JVD, no carotid bruit. No lymphadenopathy or thyromegaly. LUNGS: Severely diminished breath sounds bilaterally. Clear to auscultation. Percussion note normal. Chest symmetrical. HEART: S1, S2, no S3. No murmurs. No cyanosis or clubbing. No ascites. Pulses: Dorsalis pedis and posterior tibial pulses +1 to +2 both sides. ABDOMEN: Soft. Non-tender. Bowel sounds active. No CVA tenderness. No mass felt. EXTREMITIES: No edema. Full range of motion of all extremities, equal. NEUROLOGIC: No focal deficit. Cranial nerves II through XII are grossly intact. No headache, no double vision or headache. SKIN: Not dry. Intact. Turgor-normal. LYMPHATIC: No palpable lymph nodes/no lymphedema. MUSCULOSKELETAL: Normal joints with no swelling. Muscle tone is normal. LAB REVIEW: 03/21/17 04:30 03/21/17 04:30 03/21/17 04:30: Sodium 135 L, Potassium 5.0, Chloride 100, Carbon Dioxide 28, Anion Gap 12.0, BUN 20 H, Creatinine 0.56 L, Estimated GFR (MDRD) 143.00, BUN/ Creatinine Ratio 35.71, Glucose 108, Calcium 8.9, Total Bilirubin 0.41, AST 13 L , ALT 19, Alkaline Phosphatase 82, Total Protein 4.8 L, Albumin 2.1 L, Globulin 2.7, Albumin/Globulin Ratio 0.78 03/21/17 04:30: WBC 16.34 H D, RBC 4.02 L, Hgb 11.4 L, Hct 33.9 L, MCV 84.3, MCH 28.4, MCHC 33.6, RDW Coeff of Bull 14.4, Plt Count 314, Immature Gran % (Auto ) 1.1, Neut % (Auto) 88.9, Lymph % (Auto) 6.9 L, [place] % (Auto) 3.0, Eos % (Auto ) 0.0, Baso % (Auto) 0.1, Immature Gran # (Auto) 0.2, Neut # 14.5 H, Lymph # 1.1 , [place] # 0.5, Eos # 0.0, Baso # 0.0 ASSESSMENT: 1. Acute bronchitis/pneumonitis seems to be improving 2. Dehydration resolved 3. Ahumada catheter, permanent 4. Malnutrition 5. Anemia 6. Hypoalbuminemia 7. GERD 8. Hypokalemia, resolved PLAN: 1. Breathing treatments to be given after supper 2. Restart 10 mEq potassium today Plan and coordination of the patient's care discussed in the presence of Master Lay Out Specialist and nurse. CONDITION: Stable SCRIBED BY: CHARLETTE PAINTING Crop Nutrition Scientist scribed while in presence of service performed by Dr. Billings/Erika Rey APRN on 03/21/17 ([id number])
--- NOTE | 2017-03-21 11:50 | PN ---
DATE OF SERVICE: 03/16/17 SUBJECTIVE: 72-year-old white male hospitalized with bronchitis/pneumonitis. The patient has improved. He has reflux symptoms and now on Protonix and Carafate. PHYSICAL EXAMINATION: HEENT: Head normocephalic, atraumatic. Eyes: Extraocular muscles are intact. Pupils are equal, round and reactive to light and accommodation. Ears: No lesions. Nose appeared normal. Throat: No exudate or erythema. NECK: Supple. No JVD, no carotid bruit. No lymphadenopathy or thyromegaly. LUNGS: Air entry is much better. Decreased breath sounds. Clear to auscultation. Percussion note normal. Chest symmetrical. HEART: S1, S2, no S3. No murmurs. No cyanosis or clubbing. No ascites. Pulses: Dorsalis pedis and posterior tibial pulses +1 to +2 both sides. ABDOMEN: Soft. Nontender. Bowel sounds active. No CVA tenderness. No mass felt. EXTREMITIES: No edema. Full range of motion of all extremities, equal. NEUROLOGIC: No focal deficit. Cranial nerves II through XII are grossly intact. No headache, no double vision or headache. SKIN: Not dry. Intact. Turgor - normal. LYMPHATIC: No palpable lymph nodes/no lymphedema. MUSCULOSKELETAL: Normal joints with no swelling. Muscle tone is normal. ASSESSMENT: The patient's air entry in the lungs is much better. Hydration status is better. Appetite improved. He still has constipation, he refuses Mag Citrate. The patient was seen and examined with the nurse practitioner. TIME SPENT: More than 30 minutes. Plan and coordination of the patient's care discussed in the presence of nurse. SHEA
[2017-03-21] MEDS: XANAX PO SCH (21:58)
[2017-03-22] MEDS: DUONEB NEB SCH ×4 (05:20→19:48)
[2017-03-22 05:49] LABS: ALBUMIN/GLOBULIN RATIO 0.74; BILIRUBIN,TOTAL 0.34 mg/dL (0.00-1.20); BUN/CREATININE RATIO 42.59; CALCIUM 9.1 mg/dL (8.2-10.2); CREATININE 0.54 mg/dL (0.60-1.10); TOTAL PROTEIN 4.7 g/dL (5.8-8.1)
[2017-03-22] MEDS: PROTONIX PO SCH (05:57)
[2017-03-22] MEDS: LASIX TAB PO SCH (05:57)
[2017-03-22] MEDS: SOLU-MEDROL 125 MG IVP SCH ×3 (05:57→21:25)
[2017-03-22] MEDS: FLOMAX PO SCH (09:07)
[2017-03-22] MEDS: COREG PO SCH ×2 (09:07→18:25)
[2017-03-22] MEDS: TUSSIONEX PO SCH ×2 (09:07→20:21)
[2017-03-22] MEDS: MICRO-K CAP PO SCH (09:07)
[2017-03-22] MEDS: ALDACTONE PO SCH (09:07)
[2017-03-22] MEDS: CIPRO PO SCH ×2 (09:07→20:21)
[2017-03-22] MEDS: SILVADENE CREAM TP SCH ×2 (09:09→20:21)
--- NOTE | 2017-03-22 09:27 | PCM.PROG ---
Attending Provider: ATTENDING PROVIDER: Dr. KATLIN CORTES DATE OF SERVICE: 03/22/17 SUBJECTIVE: This 72 year old WHITE/ M was hospitalized 03/13/17. The patient was hospitalized with bronchitis/pneumonia. Condition is slowly improving, looks better than yesterday. REVIEW OF SYSTEMS: CONSTITUTIONAL: Fatigue and weakness. No night sweats. No fever or chills. HEENT: Eyes: No visual changes. No eye pain. No eye discharge. ENT: No runny nose. No epistaxis. No sinus pain. No odynophagia. No congestion. RESPIRATORY: Cough productive of yellow phlegm. No hemoptysis. No shortness of breath. CARDIOVASCULAR: No angina symptoms. No CHF symptoms. No atypical chest pain for CAD. No palpitations. No orthopnea.. GASTROINTESTINAL: Appetite is improving. No abdominal pain. No nausea or vomiting. No diarrhea or constipation. No hematemesis. No hematochezia. GENITOURINARY: No urgency. No frequency. No dysuria. No hematuria. No obstructive symptoms. No discharge. No pain. No significant abnormal bleeding. MUSCULOSKELETAL: No musculoskeletal pain; no joint swelling. NEUROLOGICAL: Awake, alert, oriented to time, place and person. No headache. No neck pain. No syncope. No seizures. No dizziness. PSYCHIATRIC: Not anxious. No depression. No suicidal thoughts. No homicidal thoughts. SKIN: No rash. No lesions. No wounds. ENDOCRINE: No unexplained weight loss. No weight gain. HEMATOLOGIC/LYMPHATIC: No anemia. No purpura. No petechiae. No prolonged or excessive bleeding. No palpable lymph nodes. PHYSICAL EXAMINATION: GENERAL: The patient is awake, alert and oriented, lying in bed in no distress. VITAL SIGNS: Temperature 97.4 F, Pulse 81, Respiratory Rate 20, BP 133/67, Pulse Ox 99% HEENT: Head normocephalic, atraumatic. Eyes: Extraocular muscles are intact. Pupils are equal, round and reactive to light and accommodation. Ears: No lesions. Nose appeared normal. Throat: No exudate or erythema. NECK: Supple. No JVD, no carotid bruit. No lymphadenopathy or thyromegaly. LUNGS: Good breath sounds. No wheeze. Clear to auscultation. Percussion note normal. Chest symmetrical. HEART: S1, S2, no S3. No murmurs. No cyanosis or clubbing. No ascites. Pulses: Dorsalis pedis and posterior tibial pulses +1 to +2 both sides. ABDOMEN: Soft. Non-tender. Bowel sounds active. No CVA tenderness. No mass felt. EXTREMITIES: No edema. Full range of motion of all extremities, equal. NEUROLOGIC: No focal deficit. Cranial nerves II through XII are grossly intact. No headache, no double vision or headache. SKIN: Warm, dry and intact. Turgor-better LYMPHATIC: No palpable lymph nodes/no lymphedema. MUSCULOSKELETAL: Normal joints with no swelling. Muscle tone is normal. LAB REVIEW: 03/21/17 04:30 03/22/17 04:29 03/22/17 04:29: Sodium 137, Potassium 4.0, Chloride 99, Carbon Dioxide 31, Anion Gap 11.0, BUN 23 H, Creatinine 0.54 L, Estimated GFR (MDRD) 149.00, BUN/ Creatinine Ratio 42.59, Glucose 155 H, Calcium 9.1, Total Bilirubin 0.34, AST 11 L, ALT 17, Alkaline Phosphatase 84, Total Protein 4.7 L, Albumin 2.0 L, Globulin 2.7, Albumin/Globulin Ratio 0.74 ASSESSMENT: 1. Pneumonia resolving slowly because of malnutrition, weakness, severe chronic lung disease and other multiple medical conditions. PLAN: 1. D/C Rocephin and Levaquin 2. Cipro 250 mg b.i.d. Plan and coordination of the patient's care discussed in the presence of Gluing Crew Leader and nurse. CONDITION: Stable SCRIBED BY: CHARLETTE PAINTING Packaging Machine Operator scribed while in presence of service performed by Dr. KATLIN CORTES on 03/22/17 ([id number])
--- NOTE | 2017-03-22 11:35 | PN ---
DATE OF SERVICE: 03/20/17 SUBJECTIVE: 72 year old white male hospitalized with acute bronchitis and pneumonitis. The patient's condition has improved remarkably. He is feeling a lot better and appetite has improved. REVIEW OF SYSTEMS: CONSTITUTIONAL: No night sweats. No fatigue, malaise, lethargy. No fever or chills. HEENT: Eyes: No visual changes. No eye pain. No eye discharge. ENT: No runny nose. No epistaxis. No sinus pain. No sore throat. No odynophagia. No congestion. RESPIRATORY: No cough, no congestion. No hemoptysis. No shortness of breath. CARDIOVASCULAR: No angina symptoms. No CHF symptoms. No atypical chest pain for CAD. No palpitations. No orthopnea. GASTROINTESTINAL: No abdominal pain. No nausea or vomiting. No diarrhea or constipation. No hematemesis. No hematochezia. Appetite has improved. GENITOURINARY: No urgency. No frequency. No dysuria. No hematuria. No obstructive symptoms. No discharge. No pain. No significant abnormal bleeding. MUSCULOSKELETAL: No musculoskeletal pain; no joint swelling. NEUROLOGICAL: No headache. No neck pain. No syncope. No seizures. No dizziness. PSYCHIATRIC: Not anxious. No depression. No suicidal thoughts. No homicidal thoughts. SKIN: No rash. No lesions. No wounds. ENDOCRINE: No unexplained weight loss. No weight gain. HEMATOLOGIC/LYMPHATIC: No anemia. No purpura. No petechiae. No prolonged or excessive bleeding. No palpable lymph nodes. PHYSICAL EXAMINATION: GENERAL: The patient is oriented to time, place and person HEENT: Head normocephalic, atraumatic. Eyes: Extraocular muscles are intact. Pupils are equal, round and reactive to light and accommodation. Ears: No lesions. Nose appeared normal. Throat: No exudate or erythema. NECK: Supple. No JVD, no carotid bruit. No lymphadenopathy or thyromegaly. LUNGS: Decreased breath sounds but clear to auscultation. Percussion note normal. Chest symmetrical. HEART: S1, S2, no S3. No murmurs. No cyanosis or clubbing. No ascites. Pulses: Dorsalis pedis and posterior tibial pulses +1 to +2 both sides. ABDOMEN: Soft. Nontender. Bowel sounds active. No CVA tenderness. No mass felt. EXTREMITIES: No edema. Full range of motion of all extremities, equal. NEUROLOGIC: No focal deficit. Cranial nerves II through XII are grossly intact. No headache, no double vision or headache. SKIN: Not dry. Intact. Turgor - normal. LYMPHATIC: No palpable lymph nodes/no lymphedema. MUSCULOSKELETAL: Normal joints with no swelling. Muscle tone is normal. PLAN: 1. Continue on same antibiotics, steroids 2. Side effect of steroids including avascular necrosis of the femoral bone discussed. The patient was seen and examined with Nurse Practitioner. TIME SPENT: More than 30 minutes. Plan and coordination of the patient's care discussed in the presence of nurse. SHEA
--- NOTE | 2017-03-22 13:58 | PN ---
DATE OF SERVICE: 03/21/17 SUBJECTIVE: 72 year old white male hospitalized with pneumonia, acute bronchitis, COPD and malnutrition. The patient's condition has steadily improved. PHYSICAL EXAMINATION: HEENT: Head normocephalic, atraumatic. Eyes: Extraocular muscles are intact. Pupils are equal, round and reactive to light and accommodation. Ears: No lesions. Nose appeared normal. Throat: No exudate or erythema. NECK: Supple. No JVD, no carotid bruit. No lymphadenopathy or thyromegaly. LUNGS: Decreased breath sounds but clear to auscultation. Percussion note normal. Chest symmetrical. HEART: S1, S2, no S3. No murmurs. No cyanosis or clubbing. No ascites. Pulses: Dorsalis pedis and posterior tibial pulses +1 to +2 both sides. ABDOMEN: Soft. Nontender. Bowel sounds active. No CVA tenderness. No mass felt. Appetite is improving. EXTREMITIES: No edema. Full range of motion of all extremities, equal. NEUROLOGIC: No focal deficit. Cranial nerves II through XII are grossly intact. No headache, no double vision or headache. SKIN: Not dry. Intact. Turgor - normal. LYMPHATIC: No palpable lymph nodes/no lymphedema. MUSCULOSKELETAL: Normal joints with no swelling. Muscle tone is normal. ASSESSMENT: 1. Pneumonia/ bronchitis subsiding 2. Ahumada Catheter draining clear urine The patient was seen and examined with Nurse Practitioner. CONDITION: Stable. TIME SPENT: More than 30 minutes. Plan and coordination of the patient's care discussed in the presence of nurse. SHEA
[2017-03-22] MEDS: XANAX PO SCH (20:21)
[2017-03-23] MEDS: DUONEB NEB SCH ×4 (05:10→21:19)
[2017-03-23] MEDS: LASIX TAB PO SCH (05:49)
[2017-03-23] MEDS: PROTONIX PO SCH (05:49)
[2017-03-23] MEDS: SOLU-MEDROL 125 MG IVP SCH (05:49)
[2017-03-23 07:51] LABS: BASOPHILS % (AUTO) 0.2 % (0.0-3.0); HEMATOCRIT 34.5 % (42.0-52.0); HEMOGLOBIN 11.3 g/dl (14.0-18.0); IMMATURE GRANULOCYTE % (AUTO) 0.6 % (0.0-5.0); LYMPHOCYTES # (AUTO) 0.7 K/uL (0.60-3.4); LYMPHOCYTES % (AUTO) 4.4 (10.0-50.0); MEAN CORPUSCULAR HEMOGLOBIN 28.1 pg (27.0-31.0); MEAN CORPUSCULAR HGB CONC 32.8 (31.8-35.4); MEAN CORPUSCULAR VOLUME 85.8 fl (80.0-94.0); MONOCYTES # (AUTO) 0.6 K/uL (0.4-2.0); MONOCYTES % (AUTO) 3.5 (0-10); NEUTROPHILS # (AUTO) 15.5 K/ul (2.0-6.9); NEUTROPHILS % (AUTO) 91.3; PLATELET COUNT 254 10^3/uL (140-440); RED BLOOD COUNT 4.02 10^6/ul (4.70-6.10); WHITE BLOOD COUNT 16.99 K/ul (4.2-10.2)
[2017-03-23 08:06] LABS: ALBUMIN/GLOBULIN RATIO 0.67; ANION GAP 8.7; BILIRUBIN,TOTAL 0.43 mg/dL (0.00-1.20); BUN/CREATININE RATIO 43.63; CALCIUM 9.2 mg/dL (8.2-10.2); CREATININE 0.55 mg/dL (0.60-1.10); POTASSIUM 4.7 mmol/L (3.5-5.1)
[2017-03-23] MEDS: MICRO-K CAP PO SCH (08:14)
[2017-03-23] MEDS: COREG PO SCH ×2 (08:15→17:32)
[2017-03-23] MEDS: FLOMAX PO SCH (08:15)
[2017-03-23] MEDS: ALDACTONE PO SCH (08:15)
[2017-03-23] MEDS: CIPRO PO SCH ×2 (08:15→20:21)
[2017-03-23] MEDS: SILVADENE CREAM TP SCH ×2 (08:15→20:21)
[2017-03-23] MEDS: TUSSIONEX PO SCH ×2 (08:16→20:21)
[2017-03-23] MEDS: PREDNISONE PO SCH ×2 (09:02→17:33)
--- NOTE | 2017-03-23 09:53 | PCM.PROG ---
Attending Provider: ATTENDING PROVIDER: Dr. KATLIN CORTES This patient is seen with Erika Rey, Nurse Practitioner. DATE OF SERVICE: 03/23/17 SUBJECTIVE: This 72 year old WHITE/ M was hospitalized 03/13/17. The patient is lying in bed, alert. He slept well. He was up to chair yesterday. He states he is not ready to go home today. REVIEW OF SYSTEMS: CONSTITUTIONAL: Weakness. No night sweats. No fever or chills. HEENT: Eyes: No visual changes. No eye pain. No eye discharge. ENT: No runny nose. No epistaxis. No sinus pain. No odynophagia. No congestion. RESPIRATORY: Cough, better. No hemoptysis. Shortness of breath, improved. CARDIOVASCULAR: No angina symptoms. No CHF symptoms. No atypical chest pain for CAD. No palpitations. No orthopnea.. GASTROINTESTINAL: No abdominal pain. No nausea or vomiting. No diarrhea or constipation. No hematemesis. No hematochezia. GENITOURINARY: No urgency. No frequency. No dysuria. No hematuria. No obstructive symptoms. No discharge. No pain. No significant abnormal bleeding. MUSCULOSKELETAL: No musculoskeletal pain; no joint swelling. NEUROLOGICAL: Awake, alert, oriented to time, place and person. No headache. No neck pain. No syncope. No seizures. No dizziness. PSYCHIATRIC: Not anxious. No depression. No suicidal thoughts. No homicidal thoughts. SKIN: No rash. No lesions. No wounds. ENDOCRINE: No unexplained weight loss. No weight gain. HEMATOLOGIC/LYMPHATIC: No anemia. No purpura. No petechiae. No prolonged or excessive bleeding. No palpable lymph nodes. PHYSICAL EXAMINATION: GENERAL: The patient is awake, alert and oriented, lying/sitting in bed in no distress. VITAL SIGNS: Temperature 97.6 F, Pulse 85, Respiratory Rate 22, BP 129/72, Pulse Ox 93% HEENT: Head normocephalic, atraumatic. Eyes: Extraocular muscles are intact. Pupils are equal, round and reactive to light and accommodation. Ears: No lesions. Nose appeared normal. Throat: No exudate or erythema. NECK: Supple. No JVD, no carotid bruit. No lymphadenopathy or thyromegaly. LUNGS: Diminished breath sounds bilaterally with improved air movement. Percussion note normal. Chest symmetrical. HEART: S1, S2, no S3. No murmurs. No cyanosis or clubbing. No ascites. Pulses: Dorsalis pedis and posterior tibial pulses +1 to +2 both sides. ABDOMEN: Soft. Non-tender. Bowel sounds active. No CVA tenderness. No mass felt. EXTREMITIES: No edema. Full range of motion of all extremities, equal. NEUROLOGIC: No focal deficit. Cranial nerves II through XII are grossly intact. No headache, no double vision or headache. SKIN: Not dry. Intact. Turgor-normal. LYMPHATIC: No palpable lymph nodes/no lymphedema. MUSCULOSKELETAL: Normal joints with no swelling. Muscle tone is normal. LAB REVIEW: 03/21/17 04:30 03/22/17 04:29 ASSESSMENT: 1. Pneumonia resolving slowly because of malnutrition, weakness, severe chronic lung disease and other multiple medical conditions. PLAN: 1. Prednisone 20 mg b.i.d. 2. PT/OT consult 3. Repeat CBC/CMP today and tomorrow Plan and coordination of the patient's care discussed in the presence of Drawer Waxer and nurse. CONDITION: Stable SCRIBED BY: Christiana GUILLEN scribed while in presence of service performed by Dr. Cortes/Erika Rey APRN on 03/23/17 ([id number])
--- NOTE | 2017-03-23 11:50 | RS.PTINEVL ---
Subjective - Patient information Date of Evaluation: 03/23/17 Date of Arrival on Unit: 03/13/17 Admitted From:: Home Diagnosis: bronchitis, pneumonia Usual Living Arrangement: With Spouse Living Arrangement Comments: Pt lives at home with , and Grandson stays with them. He walks with a rollator walker. is his caregiver. Home Environment: House, Ramp Medical History: Hypertension, COPD, CHF Medical History Comments:: chronic resp failure, CAD, BPH LATEX ALLERGY?: No Subjective Information/ Patient Comments:: pt states " I am so weak." States that he has been only transferring at home. - Level of function Prior to this admission, the patient could do the following:: Partially Dependent Ambulation Abilities prior to this admission: pt required assist with all bed mobility, transfers, and amb Current Level of Function: Partially Dependent Current Equipment Used at Home: OXYGEN, NEB, WHEELCHAIR, WALKER, ROLLATOR, COMMODE. Interventions - Objective Patient Orientation: Person, Place, Time Current Interventions: IV's, Oxygen, Telemetry, Ahumada Catheter Range of Motion - ROM Right Upper Extremity AROM: WFL's Left Upper Extremity AROM: WFL's Right Lower Extremity AROM: WFL's Left Lower Extremity AROM: WFL's Muscle Strength - Muscle Strength Right Upper Extremity Strength: Mild Weakness (shld flex 3+/5, elbow flex/ext 4- /5, decreased beauty director strength) Left Upper Extremity Strength: Mild Weakness (shld flex 3+/5, elbow flex/ext 4-/ 5, decreased beauty director strength) Right Lower Extremity Strength: Mild Weakness (hip flex 3+/5, knee flex/ext 4-/5 , ankle df/pf 4-/5) Left Lower Extremity Strength: Mild Weakness (hip flex 3+/5, knee flex/ext 4-/5 , ankle df/pf 4-/5) Sensation - Sensation Right Upper Extremity Sensation: Intact/Normal Left Upper Extremity Sensation: Intact/Normal Right Lower Extremity Sensation: Intact/Normal Left Lower Extremity Sensation: Intact/Normal Balance - Sitting Balance and Reactions Static Sitting Balance: Fair Dynamic Sitting Balance: Poor Sitting Equilibrium Reactions: Delayed Left, Delayed Right Sitting Protective Reactions: Delayed Left, Delayed Right - Standing Balance and Reactions Static Standing Balance: Poor Dynamic Standing Balance: Poor Standing Equilibrium Reactions: Delayed Left, Delayed Right Standing Protective Reactions: Delayed Left, Delayed Right - Comments Balance Assessment Comments: pt unable to maintain static standing balance without min to mod assist. Functional Mobility - Bed Mobility Rolling R/L: Mod Assist Supine to Sit: Mod Assist - Transfers Sit to Stand: Mod Assist, 1 person assist, 2 person assist Stand to Sit: Mod Assist, 1 person assist - Safety Awareness Safety Awareness: Fair Ambulation - Ambulation Assistive Device Used: Rolling Walker Distance: 2 steps Assistance needed with Ambulation: Mod Assist, 1 person assist, 2 person assist Gait Deviations: Shuffling gait, Forward posture, Short stride Ambulation Comments: pt scoots feet, unable to clear feet from floor, flexed posture Factors Affecting Ambulation: Weakness, Decreased Safety, Limited Endurance Treatment time - Time with patient Total treatment time: 28 Patient Education - Education Patient Education: Home Exercise Program, Activity Modification, Education of Plan of Care Teaching Recipient: Patient Teaching Methods: Discussion Assessment - Assessment Problem List:: Decreased level of function, Requires training/education, Decreased safety/Risk of falls, Weakness, Pain limits previous level of function Rehab Potential: Good Further Therapy Indicated?: Yes Short Term Goals GOAL #1: pt transfer sup to/from sit to/from stand min x 1 Goal to be met by: 03/26/17 GOAL #2: pt amb with rwx 20ft with min to mod x 1 with O2. Goal to be met by: 03/26/17 [employer] [place] Marshal Goals GOAL #1: pt demonstrate rolling and scooting up in bed with min x 1 Goal to be met by: 03/29/17 GOAL #2: pt transfer sup to/from sit to/from stand CGA Goal to be met by: 03/29/17 GOAL #3: pt amb 40ft with rwx with min to CGA x 1 with O2 Goal to be met by: 03/29/17 Plan Plan of Care: Therapeutic EX, Therapeutic Activity, Self-Care/Home Management Other:: gait training Frequency of Treatment: 1-2 X day, as tolerated Duration of Treatment: 6 days Anticipated Discharge Destination: Home Has the Physician been added for Co-signature?: Yes
[2017-03-23] MEDS: XANAX PO SCH (20:21)
[2017-03-24 05:01] LABS: BASOPHILS % (AUTO) 0.2 % (0.0-3.0); HEMATOCRIT 34.9 % (42.0-52.0); HEMOGLOBIN 11.5 g/dl (14.0-18.0); IMMATURE GRANULOCYTE % (AUTO) 0.6 % (0.0-5.0); LYMPHOCYTES # (AUTO) 0.9 K/uL (0.60-3.4); LYMPHOCYTES % (AUTO) 4.9 (10.0-50.0); MEAN CORPUSCULAR HEMOGLOBIN 28.3 pg (27.0-31.0); MEAN CORPUSCULAR VOLUME 85.7 fl (80.0-94.0); MONOCYTES # (AUTO) 0.8 K/uL (0.4-2.0); MONOCYTES % (AUTO) 4.6 (0-10); NEUTROPHILS # (AUTO) 16.3 K/ul (2.0-6.9); NEUTROPHILS % (AUTO) 89.7; PLATELET COUNT 243 10^3/uL (140-440); RED BLOOD COUNT 4.07 10^6/ul (4.70-6.10)
[2017-03-24] MEDS: DUONEB NEB SCH ×2 (05:14→10:10)
[2017-03-24 05:24] LABS: ALBUMIN 1.9 g/dL (3.4-5.0); ALBUMIN/GLOBULIN RATIO 0.63; ANION GAP 10.3; BILIRUBIN,TOTAL 0.51 mg/dL (0.00-1.20); BUN/CREATININE RATIO 47.27; CALCIUM 9.5 mg/dL (8.2-10.2); CREATININE 0.55 mg/dL (0.60-1.10); POTASSIUM 4.3 mmol/L (3.5-5.1); TOTAL PROTEIN 4.9 g/dL (5.8-8.1)
[2017-03-24] MEDS: LASIX TAB PO SCH (06:11)
[2017-03-24] MEDS: PROTONIX PO SCH (06:11)
[2017-03-24] MEDS: TUSSIONEX PO SCH (08:57)
[2017-03-24] MEDS: COREG PO SCH (08:58)
[2017-03-24] MEDS: ALDACTONE PO SCH (08:58)
[2017-03-24] MEDS: CIPRO PO SCH (08:58)
[2017-03-24] MEDS: PREDNISONE PO SCH (08:58)
[2017-03-24] MEDS: MICRO-K CAP PO SCH (08:58)
[2017-03-24] MEDS: FLOMAX PO SCH (08:58)
[2017-03-24] MEDS: SILVADENE CREAM TP SCH (09:01)
[2017-03-24 09:47] VITALS: BP 132/80; TEMP 97.4
--- NOTE | 2017-03-24 12:41 | PCM.PROG ---
Attending Provider: ATTENDING PROVIDER: Dr. KATLIN CORTES This patient is seen with Erika Rey, Nurse Practitioner. DATE OF SERVICE: 03/24/17 SUBJECTIVE: This 72 year old WHITE/ M was hospitalized 03/13/17. The patient is alert, lying in bed. He states he slept well and is feeling some better today. He has been eating decently well for him. He had PT/OT consult yesterday. REVIEW OF SYSTEMS: CONSTITUTIONAL: Generalized weakness and fatigue. No night sweats. No fever or chills. HEENT: Eyes: No visual changes. No eye pain. No eye discharge. ENT: No runny nose. No epistaxis. No sinus pain. No odynophagia. No congestion. RESPIRATORY: Cough and congestion. No hemoptysis. Shortness of breath. CARDIOVASCULAR: No angina symptoms. No CHF symptoms. No atypical chest pain for CAD. No palpitations. No orthopnea.. GASTROINTESTINAL: No abdominal pain. No nausea or vomiting. No diarrhea or constipation. No hematemesis. No hematochezia. GENITOURINARY: No urgency. No frequency. No dysuria. No hematuria. No obstructive symptoms. No discharge. No pain. No significant abnormal bleeding. MUSCULOSKELETAL: No musculoskeletal pain; no joint swelling. NEUROLOGICAL: Awake, alert, oriented to time, place and person. No headache. No neck pain. No syncope. No seizures. No dizziness. PSYCHIATRIC: Not anxious. No depression. No suicidal thoughts. No homicidal thoughts. SKIN: No rash. No lesions. No wounds. ENDOCRINE: No unexplained weight loss. No weight gain. HEMATOLOGIC/LYMPHATIC: No anemia. No purpura. No petechiae. No prolonged or excessive bleeding. No palpable lymph nodes. PHYSICAL EXAMINATION: GENERAL: The patient is awake, alert and oriented, lying in bed in no distress. VITAL SIGNS: Temperature 97.6 F, Pulse 80, Respiratory Rate 16, BP 130/74, Pulse Ox 95% HEENT: Head normocephalic, atraumatic. Eyes: Extraocular muscles are intact. Pupils are equal, round and reactive to light and accommodation. Ears: No lesions. Nose appeared normal. Throat: No exudate or erythema. NECK: Supple. No JVD, no carotid bruit. No lymphadenopathy or thyromegaly. LUNGS: Severely diminished breath sounds bilaterally. Clear to auscultation. Percussion note normal. Chest symmetrical. HEART: S1, S2, no S3. No murmurs. No cyanosis or clubbing. No ascites. Pulses: Dorsalis pedis and posterior tibial pulses +1 to +2 both sides. ABDOMEN: Soft. Non-tender. Bowel sounds active. No CVA tenderness. No mass felt. EXTREMITIES: No edema. Full range of motion of all extremities, equal. NEUROLOGIC: No focal deficit. Cranial nerves II through XII are grossly intact. No headache, no double vision or headache. SKIN: Not dry. Intact. Turgor-normal. LYMPHATIC: No palpable lymph nodes/no lymphedema. MUSCULOSKELETAL: Normal joints with no swelling. Muscle tone is normal. LAB REVIEW: 03/24/17 04:41 03/24/17 04:41 03/24/17 04:41: Sodium 139, Potassium 4.3, Chloride 98, Carbon Dioxide 35 H, Anion Gap 10.3, BUN 26 H, Creatinine 0.55 L, Estimated GFR (MDRD) 146.00, BUN/ Creatinine Ratio 47.27, Glucose 138 H, Calcium 9.5, Total Bilirubin 0.51, AST 13 L, ALT 18, Alkaline Phosphatase 84, Total Protein 4.9 L, Albumin 1.9 L, Globulin 3.0, Albumin/Globulin Ratio 0.63 03/24/17 04:41: WBC 18.10 H, RBC 4.07 L, Hgb 11.5 L, Hct 34.9 L, MCV 85.7, MCH 28.3, MCHC 33.0, RDW Coeff of Bull 15.2 H, Plt Count 243, Immature Gran % (Auto) 0.6, Neut % (Auto) 89.7, Lymph % (Auto) 4.9 L, [place] % (Auto) 4.6, Eos % (Auto) 0.0, Baso % (Auto) 0.2, Immature Gran # (Auto) 0.1, Neut # 16.3 H, Lymph # 0.9, [place] # 0.8, Eos # 0.0, Baso # 0.0 03/23/17 07:30: Sodium 138, Potassium 4.7, Chloride 99, Carbon Dioxide 35 H, Anion Gap 8.7, BUN 24 H, Creatinine 0.55 L, Estimated GFR (MDRD) 146.00, BUN/ Creatinine Ratio 43.63, Glucose 117 H, Calcium 9.2, Total Bilirubin 0.43, AST 12 L, ALT 18, Alkaline Phosphatase 85, Total Protein 5.0 L, Albumin 2.0 L, Globulin 3.0, Albumin/Globulin Ratio 0.67 03/23/17 07:30: WBC 16.99 H, RBC 4.02 L, Hgb 11.3 L, Hct 34.5 L, MCV 85.8, MCH 28.1, MCHC 32.8, RDW Coeff of Bull 14.9 H, Plt Count 254, Immature Gran % (Auto) 0.6, Neut % (Auto) 91.3, Lymph % (Auto) 4.4 L, [place] % (Auto) 3.5, Eos % (Auto) 0.0, Baso % (Auto) 0.2, Immature Gran # (Auto) 0.1, Neut # 15.5 H, Lymph # 0.7, [place] # 0.6, Eos # 0.0, Baso # 0.0 ASSESSMENT: 1. Pneumonia resolving slowly because of malnutrition, weakness, severe chronic lung disease and other multiple medical conditions. 2. Severe COPD, oxygen dependent limits his mobility 3. Generalized weakness PLAN: 1. PT/OT 2. Discussed Home Health for nursing care, PT/OT with the patient and family and they are in agreement. Plan and coordination of the patient's care discussed in the presence of Documentation Specialist and nurse. CONDITION: Stable SCRIBED BY: CHARLETTE PAINTING, Interactive Media Project Manager scribed while in presence of service performed by Dr. Cortes/Erika Rey APRN on 03/24/17 ([id number])
--- NOTE | 2017-03-24 13:18 | PN ---
DATE OF SERVICE: 03/23/17 SUBJECTIVE: The patient was seen and examined with Nurse Practitioner and Case Manger. The patient's condition is steadily improving. Still is extremely week. The appetite has been improving. PHYSICAL EXAMINATION: HEENT: Head normocephalic, atraumatic. Eyes: Extraocular muscles are intact. Pupils are equal, round and reactive to light and accommodation. Ears: No lesions. Nose appeared normal. Throat: No exudate or erythema. NECK: Supple. No JVD, no carotid bruit. No lymphadenopathy or thyromegaly. LUNGS: Decreased breath sounds with no wheeze. Percussion note normal. Chest symmetrical. HEART: S1, S2, no S3. No murmurs. No cyanosis or clubbing. No ascites. Pulses: Dorsalis pedis and posterior tibial pulses +1 to +2 both sides. ABDOMEN: Soft. Nontender. Bowel sounds active. No CVA tenderness. No mass felt. EXTREMITIES: No edema. Full range of motion of all extremities, equal. NEUROLOGIC: No focal deficit. Cranial nerves II through XII are grossly intact. No headache, no double vision or headache. SKIN: Not dry. Intact. Turgor - normal. LYMPHATIC: No palpable lymph nodes/no lymphedema. MUSCULOSKELETAL: Normal joints with no swelling. Muscle tone is normal. PLAN: 1. Will do echocardiogram if it is not done in past 6 months. CONDITION: Stable. TIME SPENT: More than 30 minutes. Plan and coordination of the patient's care discussed in the presence of nurse. SHEA
--- NOTE | 2017-03-24 13:41 | CM.DICTOOL ---
ADMISSION: 03/13/17 14:09 DISCHARGE: 03/24/17 FINAL DIAGNOSIS PNEUMONIA HISTORY OF: CATARACTS AFIB 08/22 AMI 3!7 CAD DYSLIPIDEMIA CARDIAC ARRHYTHMIA HYPERTENSION COPD CHRONIC LEFT FAILURE GERD ENLARGED PROSTATE WITH CAUDET CATH INSERTION T11-L1 COMPRESSION FRACTURE SKIN CANCER MALNUTRITION CHRONIC BRONCHITIS CHRONIC RESPIRATORY FAILURE HX OF CHF LEG EDEMA PROSTATISM, DR. GUADARRAMA HX OF COR PULMONALE WEIGHT LOSS DUE TO SEVERE RESPIRATORY FAILURE SURGICAL HISTORY: CARDIAC STENTS DATE UNKNOWN LAST VITALS Temp Pulse Resp BP Pulse Ox 97.4 F L 84 24 132/80 92 L 03/24/17 09:46 03/24/17 09:46 03/24/17 09:46 03/24/17 09:46 03/24/17 09:46 ACTIVE HOME MEDICATIONS Carvedilol (Coreg) 12.5 mg PO BIDWM [facility] Last Admin: 03/24/17 08:58 Dose: 12.5 mg Furosemide (Lasix Tab) 20 mg PO QDAC [facility] Last Admin: 03/24/17 06:11 Dose: 20 mg Nitroglycerin (Nitrostat) 0.4 mg SL Q5MIN X 3 DOSES PRN PRN Reason: Angina Pantoprazole Sodium (Protonix) 40 mg PO QDAC [facility] Last Admin: 03/24/17 06:11 Dose: 40 mg Potassium Chloride (Micro-K Cap) 10 meq PO DAILYWM [facility] Last Admin: 03/24/17 08:58 Dose: 10 meq Silver Sulfadiazine (Silvadene Cream) 1 applic TP BID [facility] Last Admin: 03/24/17 09:01 Dose: 1 applic Spironolactone (Aldactone) 25 mg PO DAILY [facility] Last Admin: 03/24/17 08:58 Dose: 25 mg Tamsulosin HCl (Flomax) 0.4 mg PO DAILY [facility] Last Admin: 03/24/17 08:58 Dose: 0.4 mg PROAIR 2 PUFF EVERY 6 HOURS NEEDED BROVANA 1 VIAL BID VITAMIN C 500MG DIALY VITAMIN 3 400IU DAILY PHENAZOPYRIDINE HCL 1 TAB TID PRN SPIRIVA 18MCG DAILY ALLERGIES azithromycin Adverse Reaction (Verified 03/13/17 12:18) any mycins Adverse Reaction (Uncoded 03/13/17 12:18) NEW PRESCRIPTIONS: NEW MEDICATIONS: 1. PREDNISONE 20MG TAKE 1 DAILY FOR 5 DAYS. THEN 10MG DAILY FOR 5 DAYS. TAKE WITH FOOD. 2. CIPRO 500MG TAKE 1 BID FOR 5 DAYS. TAKE UNTIL ALL GONE SMOKING: N/A DISEASE SPECIFIC EDUCATION: PNEUMONIA MEDICATIONS STEROID THERAPY ANTIBIOTIC DIET O2 THERAPY ACTIVITY HOME HEALTH LAB REVIEW: 03/24/17 04:41 03/24/17 04:41 03/24/17 04:41: Sodium 139, Potassium 4.3, Chloride 98, Carbon Dioxide 35 H, Anion Gap 10.3, BUN 26 H, Creatinine 0.55 L, Estimated GFR (MDRD) 146.00, BUN/ Creatinine Ratio 47.27, Glucose 138 H, Calcium 9.5, Total Bilirubin 0.51, AST 13 L, ALT 18, Alkaline Phosphatase 84, Total Protein 4.9 L, Albumin 1.9 L, Globulin 3.0, Albumin/Globulin Ratio 0.63 03/24/17 04:41: WBC 18.10 H, RBC 4.07 L, Hgb 11.5 L, Hct 34.9 L, MCV 85.7, MCH 28.3, MCHC 33.0, RDW Coeff of Bull 15.2 H, Plt Count 243, Immature Gran % (Auto) 0.6, Neut % (Auto) 89.7, Lymph % (Auto) 4.9 L, [place] % (Auto) 4.6, Eos % (Auto) 0.0, Baso % (Auto) 0.2, Immature Gran # (Auto) 0.1, Neut # 16.3 H, Lymph # 0.9, [place] # 0.8, Eos # 0.0, Baso # 0.0 PLAN: DISCHARGE HOME TODAY CONTINUE HOME MEDICATIONS PER NURSING SHEETS. NEW MEDICATIONS: 1. PREDNISONE 20MG TAKE 1 DAILY FOR 5 DAYS. TAKE WITH FOOD. 2. CIPRO 500MG TAKE 1 DAILY FOR 5 DAYS. TAKE UNTIL ALL GONE DIET TOLERATED. GRADUALLY RESUME ACTIVITY. HOME HEALTH FOR NURSING ASSESSMENT, NUTRITION, RESPIRATORY, POX MONITORING, TOLLIVER CATHETER MAINTENANCE, MEDICATION MANAGEMENT, WOUND CARE AND PT/OT EVALUATION AND TREATMENT ESPECIALLY FOR OXYGEN CONSERVATION. FOLLOW UP WITH DR. CORTES ON MondayMarch 130PM. SITTING UP IN BED. ALERT AND ORIENTED X 4. MFranck LEIVA WELDER FITTER APPRENTICE INTO SEE PATIENT. PATIENT STATES SLEPT GOOD BUT ANKLES HURT. PLAN OF CARE DISCUSSED PER Marianela FUCHS INCLUDING POSSIBLE DISCHARGE TODAY. PATIENT VERBALIZES UNDERSTANDING AND AGREEMENT. WILL AWAIT CONFIRMATION FROM DR. CORTES. APPETITE IS POOR. DR. CORTES CAME BY AND DISCUSSED DISCHARGE WITH PATIENT INCLUDING MEDICATIONS, DIET, ACTIVITY, HOME HEALTH AND FOLLOW UP. PATIENT AGREEABLE. VITAL SIGNS ARE STABLE. IS AFEBRILE. POX 95% ON 2L/C. HEART TONES ARE REGULAR WITH TELEMETRY REVEALING SINUS RHYTHM. LUNGS ARE COARSE WITH DIMINISHED BREATH SOUNDS. HAS PRODUCTIVE COUGH OF YELLOW SPUTUM BUT HAS MUCH DIFFICULTY GETTING SPUTUM UP. IS UNABLE TO LIE FLAT DUE TO DYSPNEA. HAS DYSPNEA AT REST AND WITH ACTIVITY. ABDOMEN IS SOFT , NON-TENDER WITH BOWEL SOUNDS POSITIVE IN ALL 4 QUADS. LAST BM 03/22/17. PEDAL PULSES POSITIVE WITHOUT EDEMA. HAS STAGE 2 TO MID BACK AND STAGE 1 TO RIGHT BUTTOCK BUT REFUSES TO TURN OFF BACK. BOTH AREAS HAVE RED TISSUE WITH SURROUNDING TISSUE IS PINK. HAS SALINE LOCK IN RIGHT FOREARM SITE IS CLEAR. HAS TOLLIVER CATH TO BSD DRAINING YELLOW URINE. IS FALL RISK WITH FALL PRECAUTIONS IN USE. MODERATE ASSIST OF [address] KATLIN CORTES MD Marianela LEIVA APRN
--- NOTE | 2017-03-27 13:33 | DS ---
DATE OF SERVICE: 03/24/17 FINAL DIAGNOSIS: 1. PNEUMONIA 2. HISTORY OF CATARACTS 3. ATRIAL FIBRILLATION 08/22 4. AMI 07/12 5. CAD 6. DYSLIPIDEMIA 7. CARDIAC ARRHYTHMIA 8. HYPERTENSION 9. COPD/CHRONIC RESPIRATORY FAILURE 10. GERD 11. ENLARGED PROSTATE WITH CAUDET CATH INSERTION 12. T11-L1 COMPRESSION FRACTURE 13. SKIN CANCER 14. MALNUTRITION 15. CHRONIC BRONCHITIS 16. CHRONIC RESPIRATORY FAILURE 17. HISTORY OF CHF 18. LEG EDEMA 19. PROSTATISM DR. GUADARRAMA 20. HISTORY OF COR PULMONALE 21. WEIGHT LOSS DUE TO SEVERE RESPIRATORY FAILURE 22. SURGICAL HISTORY OF CARDIAC STENTS, DATE UNKNOWN DISCHARGE INSTRUCTIONS: Followup appointment: Dr. Billings on March 29, 1:30 p.m. Home health assessment for nursing assessment, nutrition, respiratory, POX monitoring , Ahumada catheter maintenance, medication management, wound care and PT/OT evaluation and treatment especially for oxygen conservation. MEDICATIONS AT DISCHARGE: Coreg 12.5 mg p.o. b.i.d. with meal ADDY Lasix 20 mg p.o. q.d a.c. ADDY Nitrostat 0.4 mg SL q.5 min times three doses p.r.n. Protonix 40 mg p.o. q.d a.c. ADDY Potassium Chloride (Micro-K) 10 mEq p.o. daily with meal ADDY Silvadene Cream one application TP b.i.d. ADDY Aldactone 25 mg p.o. daily ADDY Flomax 0.4 mg p.o. daily ADDY ProAir two puff every 6 hours as needed Brovana one vial b.i.d. Vitamin C 500 mg daily Vitamin E 400 IU daily Phenazopyridine HCL one tab t.i.d. p.r.n. Spiriva 18 mcg daily NEW PRESCRIPTIONS: Prednisone 20 mg take one daily for 5 days, take with food Cipro 500 mg take one daily for 5 days, take until all gone DIET INSTRUCTIONS: As tolerated ACTIVITY: Gradually resume activity. SMOKING: N/A DISEASE SPECIFIC EDUCATION: Pneumonia Medications Steroid therapy Antibiotics Diet 02 therapy Activity Home Health HOSPITAL COURSE: This is a 72-year-old white male with a long history of severe COPD dependent on oxygen with also history of cor pulmonale. He presented to the emergency room complaining of worsening cough and shortness of breath over the past couple of days. CT of the chest was done which showed bilateral pneumonia. He was then admitted, placed on Rocephin and Levaquin 500 mg IV. Due to his severe COPD and long history of chronic lung disease, he was placed on Solu-Cortef 125 mg q.6hr along with Duonebs every 4 to 6 hours. All of his home medications were continued. The patient is limited in his mobility and activities due to severe shortness of breath. He is cachetic, he has lost weight. He doesn't have much appetite as he tires out due to shortness of breath. He refuses to changes position in bed due to worsening his shortness of breath. Most of the time he refuses to get up in the chair. His poor prognosis has been discussed in great detail with he and his . He currently lives with his at home. His vital signs have remained stable during his hospital stay. Today, on day of discharge, blood pressure 130/74, pulse ox 95, respirations 16, pulse 80, temperature 97.6. He has remained afebrile during the course of his stay. His weakness has improved for the past two days. He has been eating 25 to 50% of his meals which is good. Today, however, his white count is elevated 18.10 however this is thought to be elevated due to high steroid use. He has been on Prednisone 20 mg b.i.d. for the past two days and has been doing well. He will go home on a tapering dose of steroids 20 b.i.d. for the next three days and then 10 b.i.d. for the next 5 days. He will also be discharged home on Cipro 250 mg b.i.d. for the next 7 days. We will followup with him early next week in the office. Repeat chest x-ray was done two days ago which showed improving pneumonia in both lobes. He has had no edema. No signs of CHF. His hemoglobin has remained stable as he does have a history of anemia. Today, on day of discharge, hemoglobin 11.5, hematocrit 34.9, platelets 243. Kidney function is normal for him. BUN 26, creatinine 0.55, sodium 139, potassium 4.3. The patient has done remarkably well although improvement has been slow but steady. He is going home. He is encouraged to eat as much as possible. We will do Home Health for PT and OT as well as for nursing care. We will follow up with him in the office early next week. He is discharged in stable condition. TIME SPENT: More than 60 minutes. SHEA
== END 2017-03-24 14:40 | disposition home or self-care (01) | DRG 193 ==
LOC: ED 12:16 → MEDSURG B 14:09
PROVIDERS: ADMIT Internal Medicine; ATTEND Internal Medicine
DX: J18.9 Pneumonia, unspecified organism (principal); J96.20 Acute and chronic respiratory failure, unspecified whether with hypoxia or hypercapnia; S22.080A Wedge compression fracture of T11-T12 vertebra, initial encounter for closed fracture; S32.010A Wedge compression fracture of first lumbar vertebra, initial encounter for closed fracture; N13.8 Other obstructive and reflux uropathy; E87.1 Hypo-osmolality and hyponatremia; E46 Unspecified protein-calorie malnutrition; R60.0 Localized edema; I27.81 Cor pulmonale (chronic); L89.101 Pressure ulcer of unspecified part of back, stage 1; L89.321 Pressure ulcer of left buttock, stage 1; L89.311 Pressure ulcer of right buttock, stage 1; I48.91 Unspecified atrial fibrillation; I25.10 Atherosclerotic heart disease of native coronary artery without angina pectoris; E78.5 Hyperlipidemia, unspecified; N40.1 Benign prostatic hyperplasia with lower urinary tract symptoms; I49.9 Cardiac arrhythmia, unspecified; I10 Essential (primary) hypertension; J44.9 Chronic obstructive pulmonary disease, unspecified; K21.9 Gastro-esophageal reflux disease without esophagitis; D64.9 Anemia, unspecified; I50.9 Heart failure, unspecified; E88.09 Other disorders of plasma-protein metabolism, not elsewhere classified; E86.0 Dehydration; I25.2 Old myocardial infarction; Z79.02 Long term (current) use of antithrombotics/antiplatelets; Z87.891 Personal history of nicotine dependence; Z99.81 Dependence on supplemental oxygen; Z96.0 Presence of urogenital implants; Z95.5 Presence of coronary angioplasty implant and graft; Z85.828 Personal history of other malignant neoplasm of skin; Z87.440 Personal history of urinary (tract) infections
CPT/HCPCS: 36415; 80053; 82550; 82803; 84484; 85025; 93005; 93010; 94640; 96365; 96375; 97802; 99284

== ENCOUNTER 2017-03-29 12:11 | Inpatient (IN) ==
[2017-03-29] MEDS ORDERED: DUONEB NEB ONE (12:17)
[2017-03-29] MEDS ORDERED: DUONEB NEB STA (12:18)
[2017-03-29] MEDS ORDERED: SOLU-MEDROL 125 MG IVP STA ×3 (12:18→14:25)
[2017-03-29] MEDS ORDERED: DEXTROSE 5%-NS IV SOLUTION 1,000 ML IV STA (12:21)
--- NOTE | 2017-03-29 12:47 | DI ---
EXAM: Chest one view, frontal view only. HISTORY: Shortness of breath. COMPARISON: None available. FINDINGS: Consolidation seen throughout both lungs, greatest in the right perihilar region. Small p leural effusions not excluded. No pneumothorax identified per heart size is normal. Coronary artery stent noted. Atherosclerotic calcifications present.. IMPRESSION: Bilateral consolidation, greater on the right, suggesting pneumonia. Follow-up is recommended
[2017-03-29] MEDS ORDERED: LIDOCAINE HCL 1% SDV SUBCUT STA ×2 (14:23→14:39)
[2017-03-29] MEDS ORDERED: ROCEPHIN IM STA (14:23)
[2017-03-29] MEDS ORDERED: NITROSTAT SL PRN (14:26)
[2017-03-29] MEDS ORDERED: ROCEPHIN 1 GM in SODIUM CHLORIDE 50 ML IV STA (14:39)
[2017-03-29] MEDS ORDERED: ROCEPHIN ONE (14:46)
[2017-03-29 16:03] VITALS: BMI 12.7
[2017-03-29] MEDS: SODIUM CHLORIDE 1,000 ML IV SCH ×2 (16:21→22:16)
[2017-03-29] MEDS: DUONEB NEB SCH ×2 (17:02→23:44)
[2017-03-29] MEDS: LEVAQUIN 500 MG in PREMIX 100 ML D5W 1 BAG IV SCH (17:30)
[2017-03-29] MEDS: DIFLUCAN PO SCH (17:44)
[2017-03-29] MEDS: NYSTATIN ORAL SUSP PO SCH ×2 (17:44→20:47)
[2017-03-29] MEDS: COREG PO SCH (17:45)
[2017-03-29] MEDS: TORADOL IVP PRN (20:47)
[2017-03-29] MEDS: SOLU-MEDROL 125 MG IVP SCH (20:47)
[2017-03-30] MEDS: DUONEB NEB SCH ×4 (05:00→22:53)
[2017-03-30] MEDS: SOLU-MEDROL 125 MG IVP SCH ×3 (05:38→21:22)
[2017-03-30] MEDS: NYSTATIN ORAL SUSP PO SCH ×4 (05:38→21:23)
[2017-03-30] MEDS: TORADOL IVP PRN ×3 (05:38→21:22)
[2017-03-30] MEDS: PROTONIX PO SCH (05:40)
[2017-03-30] MEDS ORDERED: LASIX TAB PO SCH (06:30)
--- NOTE | 2017-03-30 08:40 | DI ---
EXAM: Single view chest COMPARISON: Chest Xray from 1 day earlier HISTORY: Pneumonia FINDINGS: Previously noted bilateral perihilar infiltrates have improved somewhat compared to the ear lier exam. There are continued reticulonodular airspace opacities in the perihilar areas however rig ht greater than left. There is no lobar consolidation. There is some flattening of the hemidiaphragm s probably from chronic obstructive pulmonary disease. Cardiac and mediastinal silhouettes are unrem arkable. No acute soft tissue or osseous abnormalities. IMPRESSION: Improving bilateral infiltrates as described.
[2017-03-30] MEDS: CALMOSEPTINE OINTMENT TP SCH ×2 (09:34→21:21)
[2017-03-30] MEDS: LEVAQUIN 500 MG in PREMIX 100 ML D5W 1 BAG IV SCH (09:34)
[2017-03-30] MEDS: COREG PO SCH ×2 (09:34→17:33)
[2017-03-30] MEDS: ALDACTONE PO SCH (09:34)
[2017-03-30] MEDS: DIFLUCAN PO SCH (09:35)
[2017-03-30] MEDS: FLOMAX PO SCH (09:35)
[2017-03-30] MEDS: MICRO-K CAP PO SCH (09:35)
[2017-03-30] MEDS ORDERED: LASIX IVP STA (09:58)
[2017-03-30] MEDS: LASIX IVP SCH (10:45)
[2017-03-30] MEDS: SODIUM CHLORIDE 1,000 ML IV SCH (11:57)
[2017-03-30] MEDS ORDERED: TORADOL IVP STA (17:13)
[2017-03-30] MEDS: MORPHINE 2 MG/ML SYRINGE IVP PRN (23:21)
[2017-03-31] MEDS: SODIUM CHLORIDE 1,000 ML IV SCH ×2 (00:31→16:10)
[2017-03-31] MEDS: DUONEB NEB SCH ×4 (04:40→23:59)
[2017-03-31] MEDS: NYSTATIN ORAL SUSP PO SCH ×4 (06:09→20:40)
[2017-03-31] MEDS: SOLU-MEDROL 125 MG IVP SCH ×3 (06:09→20:39)
[2017-03-31] MEDS: LASIX IVP SCH (06:11)
[2017-03-31] MEDS: PROTONIX PO SCH (06:16)
[2017-03-31] MEDS: MICRO-K CAP PO SCH (08:00)
[2017-03-31] MEDS: PROTONIX IV 40 MG in SODIUM CHLORIDE 100 ML IV SCH (09:14)
[2017-03-31] MEDS: FLOMAX PO SCH (09:22)
[2017-03-31] MEDS: DIFLUCAN PO SCH (09:22)
[2017-03-31] MEDS: COREG PO SCH ×2 (09:22→17:30)
[2017-03-31] MEDS: ALDACTONE PO SCH (09:23)
[2017-03-31] MEDS: LEVAQUIN 500 MG in PREMIX 100 ML D5W 1 BAG IV SCH (10:28)
[2017-03-31] MEDS: CALMOSEPTINE OINTMENT TP SCH ×2 (10:30→20:40)
[2017-04-01] MEDS: MORPHINE 2 MG/ML SYRINGE IVP PRN ×4 (01:23→21:18)
[2017-04-01] MEDS: DUONEB NEB SCH ×4 (05:00→23:09)
[2017-04-01] MEDS: SODIUM CHLORIDE 1,000 ML IV SCH (05:11)
[2017-04-01] MEDS: LASIX IVP SCH (05:52)
[2017-04-01] MEDS: SOLU-MEDROL 125 MG IVP SCH ×3 (05:52→21:21)
[2017-04-01] MEDS: PROTONIX IV 40 MG in SODIUM CHLORIDE 100 ML IV SCH (05:53)
[2017-04-01] MEDS: LEVAQUIN 500 MG in PREMIX 100 ML D5W 1 BAG IV SCH (09:11)
[2017-04-01] MEDS: ALDACTONE PO SCH (09:11)
[2017-04-01] MEDS: CALMOSEPTINE OINTMENT TP SCH ×2 (09:11→21:21)
[2017-04-01] MEDS: DIFLUCAN PO SCH (09:12)
[2017-04-01] MEDS: COREG PO SCH (09:12)
[2017-04-01] MEDS: FLOMAX PO SCH (09:12)
[2017-04-01] MEDS: MICRO-K CAP PO SCH (09:12)
[2017-04-01] MEDS: NYSTATIN ORAL SUSP PO SCH ×6 (09:13→21:22)
[2017-04-01] MEDS: XANAX PO SCH (23:24)
[2017-04-02] MEDS: DUONEB NEB SCH ×4 (05:00→23:00)
[2017-04-02] MEDS: SOLU-MEDROL 125 MG IVP SCH ×3 (05:44→21:32)
[2017-04-02] MEDS: PROTONIX IV 40 MG in SODIUM CHLORIDE 100 ML IV SCH (05:44)
[2017-04-02] MEDS: LASIX IVP SCH (05:45)
[2017-04-02] MEDS: NYSTATIN ORAL SUSP PO SCH ×4 (05:45→21:32)
[2017-04-02] MEDS: SODIUM CHLORIDE 1,000 ML IV SCH ×3 (07:22→11:07)
[2017-04-02] MEDS: COREG PO SCH ×3 (07:24→17:45)
[2017-04-02] MEDS: LEVAQUIN 500 MG in PREMIX 100 ML D5W 1 BAG IV SCH (09:18)
[2017-04-02] MEDS: CALMOSEPTINE OINTMENT TP SCH ×2 (09:18→21:32)
[2017-04-02] MEDS: FLOMAX PO SCH (09:21)
[2017-04-02] MEDS: ALDACTONE PO SCH (09:21)
[2017-04-02] MEDS: MICRO-K CAP PO SCH (09:22)
[2017-04-02] MEDS: MORPHINE 2 MG/ML SYRINGE IVP PRN ×5 (11:58→23:37)
--- NOTE | 2017-04-02 13:11 | HP ---
DATE OF SERVICE: 03/29/17 HISTORY OF PRESENT ILLNESS: This is a 74-year-old male with severe COPD, recent hospitalization with pneumonia who presented to the emergency room today complaining of increasing shortness of breath, weakness and productive cough. He has chronic respiratory failure, is on continuous oxygen. CT scan was done showing similar appearing bilateral pneumonia vs atelectasis. PAST MEDICAL HISTORY: Recent pneumonia History of cataracts Atrial fibrillation AMI Coronary artery disease Dyslipidemia History of cardiac arrhythmia Hypertension COPD Chronic respiratory failure GERD Enlarged prostate with permanent catheter T11 through L1 compression fracture History of skin cancer Malnutrition and weight loss Chronic bronchitis History of CHF History of cor pulmonale Leg edema Prostatism Coronary artery disease with stent Decubitus Stage 1 on spinal process on the back and then on the buttocks present on admission PAST SURGICAL HISTORY: Cataract replacement Coronary artery disease with stent placement REVIEW OF SYSTEMS: CONSTITUTIONAL: Positive for fatigue, malaise, generalized weakness. No night sweats. No fever or chills. HEENT: Eyes: No visual changes. No blurry vision. No eye pain. No eye discharge. ENT: No runny nose. No nasal congestion. No epistaxis. No sinus pain. No sore throat. No odynophagia. No ear pain. No congestion. RESPIRATORY: Positive for shortness of breath. Positive for cough, no congestion. No hemoptysis. CARDIOVASCULAR: No angina symptoms. No CHF symptoms. No atypical chest pain for CAD. No palpitations. No orthopnea. GASTROINTESTINAL: Positive for poor appetite. No abdominal pain. No nausea or vomiting. No diarrhea or constipation. No hematemesis. No hematochezia. GENITOURINARY: No urgency. No frequency. No dysuria. No hematuria. The patient has indwelling catheter. No obstructive symptoms. No discharge. No pain. No significant abnormal bleeding. MUSCULOSKELETAL: Severe leg weakness, unable to stand on his own. No joint swelling or redness. NEUROLOGICAL: Alert. No headache. No neck pain. No syncope. No seizures. No dizziness. PSYCHIATRIC: Not anxious. No depression. No suicidal thoughts. No homicidal thoughts. SKIN: No rash. No lesions. No wounds. ENDOCRINE: No unexplained weight loss. No weight gain. HEMATOLOGIC/LYMPHATIC: No anemia. No purpura. No petechiae. No prolonged or excessive bleeding. No palpable lymph nodes. PERSONAL/FAMILY/SOCIAL HISTORY: The patient currently resides at home with his . He is a previous smoker although has not smoked for a number of years. Denies any alcohol or ilicit drug use. He no longer drives, fairly dependent on his for activities of daily living due to his severe shortness of breath. Family History: Father at age 78. Mother at age 89 with coronary artery disease, diabetes mellitus type 2. MEDICATIONS: Coreg 12.5 mg b.i.d. Lasix 20 mg daily Nitro 0.4 p.r.n. Protonix 40 mg daily Potassium Chloride 10 mEq daily Aldactone 25 mg daily Flomax 0.5 mg daily ProAir two puffs q.4 to 6 hr p.r.n. Brovana one vial b.i.d. Phenazopyridine one tablet t.i.d. Spiriva 18 mcg daily ALLERGIES: AZITHROMYCIN PHYSICAL EXAMINATION: GENERAL: The patient is cachetic. VITAL SIGNS: HEENT: Head normocephalic, atraumatic. Eyes: Extraocular muscles are intact. Pupils are equal, round and reactive to light and accommodation. Ears: No lesions. Nose appeared normal. Throat: No exudate or erythema. NECK: Supple. No JVD, no carotid bruit. No lymphadenopathy or thyromegaly. LUNGS: Severely diminished breath sounds bilaterally with bilateral expiratory wheeze. Percussion note normal. Chest symmetrical. HEART: Regular rate and rhythm with no murmur, click or rub. S1, S2, no S3. No cyanosis or clubbing. No ascites. Pulses: Dorsalis pedis and posterior tibial pulses +1 times four extremities. ABDOMEN: Soft. Nontender. Bowel sounds active times four quadrants. Ahumada catheter in place. No CVA tenderness. No hepatosplenomegaly. EXTREMITIES: No edema. The patient has severe leg weakness with decreased range of motion of all extremities. No calf tenderness or swelling. Negative Nicole's sign bilaterally. NEUROLOGIC: Alert, oriented times three. No focal deficit. Cranial nerves II through XII are grossly intact. No headache, no double vision or headache. SKIN: Pale, dry and cool. The patient has Stage I decubitus mid back spinal process present on admission as well as Stage I on buttock but is also present on admission. No signs or symptoms of infection. LYMPHATIC: No palpable lymph nodes/no lymphedema. MUSCULOSKELETAL: Normal joints with no swelling. Muscle tone is normal. LABS: D. dimer 1483, PT 11.5, INR 1.13. ABGs 02 delivery on non rebreather pH 7.365, pc02 41.8, p02 95. Base excess negative 1, bicarb 23.9, TC02 25, 02 sat 97. Again this is at 15 L on a non rebreather. White blood count 21.38, red blood cells 4.43, hemoglobin 12.4, hematocrit 38.1, platelets 225. Sodium 135, potassium 5.0, chloride 97, c02 25, BUN 32, creatinine 0.74, glucose 137, GFR 104, calcium 8.8, total bili 0.87, AST 12, ALT 15, CK 13, total protein 5.2, albumin 1.7, globulin 3.5. Alkaline phosphatase 87, free T4 0.72, TSH 1.337, BNP 91. Lactic acid 20.8, procalcitonin 0.92, rapid flu A and B both negative. Chest x-ray reveals bilateral consolidation greater on the right suggesting pneumonia. ASSESSMENT: 1. SEVERE ACUTE RESPIRATORY FAILURE 2. SEVERE COPD 3. QUESTIONABLE BILATERAL PNEUMONIA 4. ANEMIA 5. STAGE I DECUBITUS ON BACK AND BUTTOCKS 6. HISTORY OF CARDIAC ARRHYTHMIA 7. HYPERTENSION 8. GENERALIZED WEAKNESS 9. CORONARY ARTERY DISEASE 10. T11 THROUGH L1 COMPRESSION FRACTURE 11. MALNUTRITION 12. CHRONIC BRONCHITIS 13. HISTORY OF CHF 14. COR PULMONALE PLAN: 1. Admit the patient 2. CBC, CMP daily 3. Rocephin 1 gm IV daily 4. Solu-Medrol 125 mg q.6hr 5. Duonebs q.6hr scheduled 6. Normal Saline D5 1/2 at 75 cc an hour 7. Silvadene apply to decubitus, please swab decubitus for culture and sensitivity 8. Sputum culture and sensitivity 9. Blood cultures times two 10. ABGs on room air 11. Routine telemetry 12. Oxygen as needed 13. We will follow closely TIME SPENT: More than 70 minutes. MTDD
[2017-04-02] MEDS: XANAX PO SCH (22:30)
[2017-04-03] MEDS: DUONEB NEB SCH ×4 (04:59→20:33)
[2017-04-03] MEDS: MORPHINE 2 MG/ML SYRINGE IVP PRN ×7 (05:23→23:52)
[2017-04-03] MEDS: SOLU-MEDROL 125 MG IVP SCH ×3 (05:24→21:48)
[2017-04-03] MEDS: NYSTATIN ORAL SUSP PO SCH ×4 (05:30→21:43)
[2017-04-03] MEDS: LASIX IVP SCH (05:30)
[2017-04-03] MEDS: PROTONIX IV 40 MG in SODIUM CHLORIDE 100 ML IV SCH (05:30)
--- NOTE | 2017-04-03 11:18 | PCM.PROG ---
Attending Provider: ATTENDING PROVIDER: Dr. KATLIN CORTES This patient is seen with Erika Rey, Nurse Practitioner. DATE OF SERVICE: 04/03/17 SUBJECTIVE: This 72 year old WHITE/ M was hospitalized 03/29/17. The patient is lying in bed, alert on Venti mask in no distress. Comfort measures being given. Both patient and family demonstrate understanding of poor prognosis. REVIEW OF SYSTEMS: CONSTITUTIONAL: Weakness and fatigue. No night sweats. No fever or chills. HEENT: Eyes: No visual changes. No eye pain. No eye discharge. ENT: No runny nose. No epistaxis. No sinus pain. No odynophagia. No congestion. RESPIRATORY: No cough, no congestion. No hemoptysis. Positive for shortness of breath. CARDIOVASCULAR: No angina symptoms. No CHF symptoms. No atypical chest pain for CAD. No palpitations. No orthopnea.. GASTROINTESTINAL: Decreased appetite. No abdominal pain. No nausea or vomiting. No diarrhea or constipation. No hematemesis. No hematochezia. GENITOURINARY: No urgency. No frequency. No dysuria. No hematuria. No obstructive symptoms. No discharge. No pain. No significant abnormal bleeding. MUSCULOSKELETAL: No musculoskeletal pain; no joint swelling. NEUROLOGICAL: Awake, alert, oriented to time, place and person. No headache. No neck pain. No syncope. No seizures. No dizziness. PSYCHIATRIC: Not anxious. No depression. No suicidal thoughts. No homicidal thoughts. SKIN: No rash. No lesions. No wounds. ENDOCRINE: No unexplained weight loss. No weight gain. HEMATOLOGIC/LYMPHATIC: No anemia. No purpura. No petechiae. No prolonged or excessive bleeding. No palpable lymph nodes. PHYSICAL EXAMINATION: GENERAL: The patient is awake, alert and oriented, lying in bed in no distress on Venti mask. VITAL SIGNS: Temperature 96.4 F, Pulse 77, Respiratory Rate 25, BP 109/58, Pulse Ox 99% HEENT: Head normocephalic, atraumatic. Eyes: Extraocular muscles are intact. Pupils are equal, round and reactive to light and accommodation. Ears: No lesions. Nose appeared normal. Throat: No exudate or erythema. NECK: Supple. No JVD, no carotid bruit. No lymphadenopathy or thyromegaly. LUNGS: Severely diminished breath sounds bilaterally. Clear to auscultation. Percussion note normal. Chest symmetrical. HEART: S1, S2, no S3. No murmurs. No cyanosis or clubbing. No ascites. Pulses: Dorsalis pedis and posterior tibial pulses +1 to +2 both sides. ABDOMEN: Soft. Non-tender. Bowel sounds active. No CVA tenderness. No mass felt. EXTREMITIES: Positive for pedal edema. Full range of motion of all extremities , equal. NEUROLOGIC: No focal deficit. Cranial nerves II through XII are grossly intact. No headache, no double vision or headache. SKIN: Not dry. Intact. Turgor-normal. LYMPHATIC: No palpable lymph nodes/no lymphedema. MUSCULOSKELETAL: Normal joints with no swelling. Muscle tone is normal. LAB REVIEW: 04/03/17 04:50 04/02/17 07:35 04/03/17 04:50: WBC 7.96, RBC 3.37 L, Hgb 9.4 L, Hct 29.4 L, MCV 87.2, MCH 27.9 , MCHC 32.0, RDW Coeff of Bull 15.9 H, Plt Count 95 L, Immature Gran % (Auto) 0.6 , Neut % (Auto) 92.0, Lymph % (Auto) 4.9 L, [place] % (Auto) 2.4, Eos % (Auto) 0.0 , Baso % (Auto) 0.1, Immature Gran # (Auto) 0.1, Neut # 7.3 H, Lymph # 0.4 L, Lee # 0.2 L, Eos # 0.0, Baso # 0.0 04/02/17 07:35: WBC 12.18 H, RBC 3.56 L, Hgb 10.0 L, Hct 30.6 L, MCV 86.0, MCH 28.1, MCHC 32.7, RDW Coeff of Bull 16.0 H, Plt Count 115 L, Immature Gran % (Auto ) 0.6, Neut % (Auto) 95.2, Lymph % (Auto) 3.0 L, Lee % (Auto) 1.0, Eos % (Auto ) 0.0, Baso % (Auto) 0.2, Immature Gran # (Auto) 0.1, Neut # 11.6 H, Lymph # 0.4 L, Lee # 0.1 L, Eos # 0.0, Baso # 0.0 04/02/17 07:35: Sodium 142, Potassium 3.6, Chloride 110 H, Carbon Dioxide 25, Anion Gap 10.6, BUN 27 H, Creatinine 0.47 L, Estimated GFR (MDRD) 175.00, BUN/ Creatinine Ratio 57.44, Glucose 187 H, Calcium 8.8, Total Bilirubin 0.41, AST 10 L, ALT 13, Alkaline Phosphatase 69, Total Protein 4.7 L, Albumin 1.5 L, Globulin 3.2, Albumin/Globulin Ratio 0.47 ASSESSMENT: 1. SEVERE ACUTE RESPIRATORY FAILURE 2. SEVERE COPD 3. QUESTIONABLE BILATERAL PNEUMONIA 4. ANEMIA 5. STAGE I DECUBITUS ON BACK AND BUTTOCKS 6. HISTORY OF CARDIAC ARRHYTHMIA 7. HYPERTENSION 8. GENERALIZED WEAKNESS 9. CORONARY ARTERY DISEASE 10. T11 THROUGH L1 COMPRESSION FRACTURE 11. MALNUTRITION 12. CHRONIC BRONCHITIS 13. HISTORY OF CHF 14. COR PULMONALE PLAN: 1. CBC and CMP daily 2. Comfort measures 3. The is considering Hospice care Plan and coordination of the patient's care discussed in the presence of Incubator Tender and nurse. CONDITION: Critical PROGNOSIS: Poor SCRIBED BY: CHARLETTE PAINTING Cancer Researcher scribed while in presence of service performed by Dr. Cortes/Erika Rey, ARLYN on 04/03/17 ([id number])
[2017-04-03] MEDS: LEVAQUIN 500 MG in PREMIX 100 ML D5W 1 BAG IV SCH (13:52)
[2017-04-03] MEDS: FLOMAX PO SCH (13:55)
[2017-04-03] MEDS: COREG PO SCH ×2 (13:55→17:42)
[2017-04-03] MEDS: MICRO-K CAP PO SCH (13:56)
[2017-04-03] MEDS: ALDACTONE PO SCH (13:56)
[2017-04-03] MEDS: TORADOL IVP PRN ×2 (15:04→23:16)
[2017-04-03] MEDS: CALMOSEPTINE OINTMENT TP SCH ×2 (16:38→23:22)
[2017-04-03] MEDS: SODIUM CHLORIDE 1,000 ML IV SCH (21:03)
[2017-04-03] MEDS: XANAX PO SCH (23:14)
[2017-04-04] MEDS: MORPHINE 2 MG/ML SYRINGE IVP PRN ×12 (02:04→23:05)
[2017-04-04] MEDS: DUONEB NEB SCH ×4 (04:43→20:00)
[2017-04-04] MEDS: SOLU-MEDROL 125 MG IVP SCH ×3 (05:29→20:40)
[2017-04-04] MEDS: SODIUM CHLORIDE 1,000 ML IV SCH (05:30)
[2017-04-04] MEDS: PROTONIX IV 40 MG in SODIUM CHLORIDE 100 ML IV SCH (05:33)
[2017-04-04] MEDS: LASIX IVP SCH (05:33)
[2017-04-04] MEDS: NYSTATIN ORAL SUSP PO SCH ×4 (05:34→20:40)
[2017-04-04] MEDS: ALDACTONE PO SCH (08:34)
[2017-04-04] MEDS: COREG PO SCH ×2 (08:34→17:56)
[2017-04-04] MEDS: FLOMAX PO SCH (08:34)
[2017-04-04] MEDS: MICRO-K CAP PO SCH (08:34)
[2017-04-04] MEDS: LEVAQUIN 500 MG in PREMIX 100 ML D5W 1 BAG IV SCH (08:35)
[2017-04-04] MEDS: CALMOSEPTINE OINTMENT TP SCH ×2 (08:35→20:39)
--- NOTE | 2017-04-04 10:46 | PCM.PROG ---
Attending Provider: ATTENDING PROVIDER: Dr. KATLIN CORTES This patient is seen with Erika Rey, Nurse Practitioner. DATE OF SERVICE: 04/04/17 SUBJECTIVE: This 72 year old WHITE/ M was hospitalized 03/29/17. The patient is lying in bed seems to be resting comfortably. Morphine has been given for pain frequently through the night. The patient is still wearing Venti mask. The patient has had minimal oral intake for the past 24 hours. REVIEW OF SYSTEMS: CONSTITUTIONAL: Weakness, fatigue, shortness of breath. No night sweats. No fever or chills. HEENT: Eyes: No visual changes. No eye pain. No eye discharge. ENT: No runny nose. No epistaxis. No sinus pain. No odynophagia. No congestion. RESPIRATORY: No cough, no congestion. No hemoptysis. No shortness of breath. CARDIOVASCULAR: No angina symptoms. No CHF symptoms. No atypical chest pain for CAD. No palpitations. No orthopnea.. GASTROINTESTINAL: No abdominal pain. No nausea or vomiting. No diarrhea or constipation. No hematemesis. No hematochezia. GENITOURINARY: No urgency. No frequency. No dysuria. No hematuria. No obstructive symptoms. No discharge. No pain. No significant abnormal bleeding. MUSCULOSKELETAL: No musculoskeletal pain; no joint swelling. NEUROLOGICAL: Awake, alert, oriented to time, place and person. No headache. No neck pain. No syncope. No seizures. No dizziness. PSYCHIATRIC: Not anxious. No depression. No suicidal thoughts. No homicidal thoughts. SKIN: No rash. No lesions. No wounds. ENDOCRINE: No unexplained weight loss. No weight gain. HEMATOLOGIC/LYMPHATIC: No anemia. No purpura. No petechiae. No prolonged or excessive bleeding. No palpable lymph nodes. PHYSICAL EXAMINATION: GENERAL: The patient is drowsy, lying in bed in no distress. VITAL SIGNS: Temperature 97.8 F, Pulse 71, Respiratory Rate 19, BP 124/60, Pulse Ox 99% HEENT: Head normocephalic, atraumatic. Eyes: Extraocular muscles are intact. Pupils are equal, round and reactive to light and accommodation. Ears: No lesions. Nose appeared normal. Throat: No exudate or erythema. NECK: Supple. No JVD, no carotid bruit. No lymphadenopathy or thyromegaly. LUNGS: Severely diminished breath sounds bilaterally. Clear to auscultation. Percussion note normal. Chest symmetrical. HEART: S1, S2, no S3. No murmurs. No cyanosis or clubbing. No ascites. Pulses: Dorsalis pedis and posterior tibial pulses +1 to +2 both sides. ABDOMEN: Soft. Non-tender. Bowel sounds active. No CVA tenderness. No mass felt. EXTREMITIES: No edema. Full range of motion of all extremities, equal. NEUROLOGIC: No focal deficit. Cranial nerves II through XII are grossly intact. No headache, no double vision or headache. SKIN: Not dry. Intact. Turgor-normal. LYMPHATIC: No palpable lymph nodes/no lymphedema. MUSCULOSKELETAL: Normal joints with no swelling. Muscle tone is normal. LAB REVIEW: 04/04/17 04:45 04/04/17 04:45 04/04/17 04:45: Sodium 139, Potassium 4.6, Chloride 106, Carbon Dioxide 29, Anion Gap 8.6, BUN 23 H, Creatinine 0.41 L, Estimated GFR (MDRD) 205.00, BUN/ Creatinine Ratio 56.09, Glucose 106, Calcium 9.0, Total Bilirubin 0.44, AST 10 L , ALT 11 L, Alkaline Phosphatase 67, Total Protein 4.3 L, Albumin 1.3 L, Globulin 3.0, Albumin/Globulin Ratio 0.43 04/04/17 04:45: WBC 5.53, RBC 3.41 L, Hgb 9.6 L, Hct 30.0 L, MCV 88.0, MCH 28.2 , MCHC 32.0, RDW Coeff of Bull 15.8 H, Plt Count 83 L, Immature Gran % (Auto) 1.1 , Neut % (Auto) 90.7, Lymph % (Auto) 5.1 L, [place] % (Auto) 2.9, Eos % (Auto) 0.0 , Baso % (Auto) 0.2, Immature Gran # (Auto) 0.1, Neut # 5.0, Lymph # 0.3 L, [place] # 0.2 L, Eos # 0.0, Baso # 0.0 ASSESSMENT: 1. SEVERE ACUTE RESPIRATORY FAILURE 2. SEVERE COPD 3. QUESTIONABLE BILATERAL PNEUMONIA 4. ANEMIA 5. STAGE I DECUBITUS ON BACK AND BUTTOCKS 6. HISTORY OF CARDIAC ARRHYTHMIA 7. HYPERTENSION 8. GENERALIZED WEAKNESS 9. CORONARY ARTERY DISEASE 10. T11 THROUGH L1 COMPRESSION FRACTURE 11. MALNUTRITION 12. CHRONIC BRONCHITIS 13. HISTORY OF CHF 14. COR PULMONALE PLAN: We discussed hospice care with family and at this point, the family would not like to go home. The family prefers hospice care in the hospital. Plan and coordination of the patient's care discussed in the presence of Computer Numerical Control Grinder and nurse. CONDITION: Poor PROGNOSIS: Poor SCRIBED BY: CHARLETTE PAINTING, Household Appliance Repairer scribed while in presence of service performed by Dr. Cortes/Erika Rey, ARLYN on 04/04/17 ([id number])
--- NOTE | 2017-04-04 14:57 | PN ---
DATE OF SERVICE: 03/30/17 SUBJECTIVE: The patient is in Special Care Unit. He is on Venti Mask at 45%. He is having extreme weakness and shortness of breath today. He is unable to drink from a straw, take his medications by mouth. Prognosis has been discussed with the family. The patient was made a Do Not Intubate yesterday on admission. REVIEW OF SYSTEMS: CONSTITUTIONAL: Positive for extreme generalized weakness, fatigue. No night sweats. No fever or chills. HEENT: Eyes: No visual changes. No eye pain. No eye discharge. ENT: No runny nose. No epistaxis. No sinus pain. No sore throat. No odynophagia. No congestion. RESPIRATORY: Positive for cough and congestion. No hemoptysis. Positive for extreme shortness of breath. CARDIOVASCULAR: No angina symptoms. No CHF symptoms. No atypical chest pain for CAD. No palpitations. No orthopnea. GASTROINTESTINAL: No abdominal pain. No nausea or vomiting. No diarrhea or constipation. No hematemesis. No hematochezia. GENITOURINARY: No urgency. No frequency. No dysuria. No hematuria. No obstructive symptoms. No discharge. No pain. No significant abnormal bleeding. MUSCULOSKELETAL: No musculoskeletal pain; no joint swelling. NEUROLOGICAL: No headache. No neck pain. No syncope. No seizures. No dizziness. PSYCHIATRIC: Not anxious. No depression. No suicidal thoughts. No homicidal thoughts. SKIN: No rash. No lesions. No wounds. ENDOCRINE: No unexplained weight loss. No weight gain. HEMATOLOGIC/LYMPHATIC: No anemia. No purpura. No petechiae. No prolonged or excessive bleeding. No palpable lymph nodes. PHYSICAL EXAMINATION: GENERAL: The patient is cachectic, very ill-appearing, pale. HEENT: Head normocephalic, atraumatic. Eyes: Extraocular muscles are intact. Pupils are equal, round and reactive to light and accommodation. Ears: No lesions. Nose appeared normal. Throat: No exudate or erythema. NECK: Supple. No JVD, no carotid bruit. No lymphadenopathy or thyromegaly. LUNGS: Severely diminished breath sounds bilaterally with rhonchi bilaterally. Percussion note normal. Chest symmetrical. HEART: S1, S2, no S3. No murmurs. No cyanosis or clubbing. No ascites. Pulses: Dorsalis pedis and posterior tibial pulses +1 to +2 both sides. ABDOMEN: Soft. Nontender. Bowel sounds active. No CVA tenderness. No mass felt. EXTREMITIES: No edema. Full range of motion of all extremities, equal. NEUROLOGIC: No focal deficit. Cranial nerves II through XII are grossly intact. No headache, no double vision or headache. SKIN: Not dry. Intact. Turgor - normal. LYMPHATIC: No palpable lymph nodes/no lymphedema. MUSCULOSKELETAL: Normal joints with no swelling. Muscle tone is normal. ASSESSMENT: 1. BILATERAL PNEUMONIA 2. ACUTE RESPIRATORY FAILURE 3. SHORTNESS OF BREATH 4. HISTORY OF COR PULMONALE 5. CORONARY ARTERY DISEASE 6. BPH WITH INDWELLING CATHETER 7. HISTORY OF ANEMIA 8. HISTORY OF CHF PLAN: 1. The patient is unable to take p.o. medications. 2. Will do Lasix 20 mg IV. 3. Will increase Solu-Medrol to 125 mg IV q.8hr. 4. Continue with the Venti mask. 5. Continue with IV fluids 75 cc an hour. 6. Continue with Levaquin. 7. Will monitor closely. TIME SPENT: More than 30 minutes. Plan and coordination of the patient's care discussed in the presence of nurse. SHEA
--- NOTE | 2017-04-04 15:51 | PN ---
DATE OF SERVICE: 04/03/17 SUBJECTIVE: The patient was hospitalized with cute respiratory failure and pneumonia. The patient's condition has stabilized. Respiratory status is stable but patient's overall condition is deteriorating. His nutritional status is not good. He has been trying to drink fluids. The patient is still trying to decide about the Hospice Care. PHYSICAL EXAMINATION: HEENT: Head normocephalic, atraumatic. Eyes: Extraocular muscles are intact. Pupils are equal, round and reactive to light and accommodation. Ears: No lesions. Nose appeared normal. Throat: No exudate or erythema. NECK: Supple. No JVD, no carotid bruit. No lymphadenopathy or thyromegaly. LUNGS: Decreased breath sounds. Clear to auscultation. Percussion note normal. Chest symmetrical. HEART: S1, S2, no S3. No murmurs. No cyanosis or clubbing. No ascites. Pulses: Dorsalis pedis and posterior tibial pulses +1 to +2 both sides. ABDOMEN: Soft. Nontender. Bowel sounds active. No CVA tenderness. No mass felt. The patient is emaciated. Extremely under weight. EXTREMITIES: No edema. Full range of motion of all extremities, equal. NEUROLOGIC: No focal deficit. Cranial nerves II through XII are grossly intact. No headache, no double vision or headache. SKIN: Not dry. Intact. Turgor - normal. LYMPHATIC: No palpable lymph nodes/no lymphedema. MUSCULOSKELETAL: Normal joints with no swelling. Muscle tone is normal. ASSESSMENT: HOSPICE DIAGNOSIS: 1. Severe chronic lung disease with chronic respiratory failure 2. Coronary artery disease 3. Congestive heart failure 4. Cor Pulmonale 5. Ahumada Catheter with BPH PROGNOSIS: Poor. The patient was seen and examined with Nurse Practitioner. TIME SPENT: More than 30 minutes. Plan and coordination of the patient's care discussed in the presence of nurse. SHEA
[2017-04-04] MEDS: ATIVAN IVP PRN ×2 (17:18→23:04)
[2017-04-05] MEDS: MORPHINE 2 MG/ML SYRINGE IVP PRN ×12 (00:18→15:01)
[2017-04-05] MEDS: ATIVAN IVP PRN ×2 (03:39→10:20)
[2017-04-05] MEDS: SOLU-MEDROL 125 MG IVP SCH ×2 (05:07→13:09)
[2017-04-05] MEDS: SODIUM CHLORIDE 1,000 ML IV SCH (05:09)
[2017-04-05] MEDS: DUONEB NEB SCH (05:25)
[2017-04-05] MEDS: NYSTATIN ORAL SUSP PO SCH ×2 (06:05→11:11)
[2017-04-05] MEDS: LASIX IVP SCH (06:09)
[2017-04-05] MEDS: PROTONIX IV 40 MG in SODIUM CHLORIDE 100 ML IV SCH (06:10)
[2017-04-05] MEDS ORDERED: LANOXIN IVP STA (08:10)
[2017-04-05] MEDS: MICRO-K CAP PO SCH (08:33)
[2017-04-05] MEDS: COREG PO SCH (08:33)
[2017-04-05] MEDS: LEVAQUIN 500 MG in PREMIX 100 ML D5W 1 BAG IV SCH (08:41)
[2017-04-05] MEDS: CALMOSEPTINE OINTMENT TP SCH (09:57)
[2017-04-05] MEDS: FLOMAX PO SCH (09:58)
[2017-04-05] MEDS: ALDACTONE PO SCH (09:58)
--- NOTE | 2017-04-05 11:24 | PN ---
DATE OF SERVICE: 04/01/17 SUBJECTIVE: 72 year old white male hospitalized with acute respiratory failure, pneumonia. The patient's respiratory rate seems to be stable. His main problem is malnutrition. The patient's appetite is still poor. The patient's family is thinking about Hospice. I had long discussion with the yesterday. She had several questions about Hospice. The patient is on pain medication, Morphine Sulfate which is helping. The was present in the room again, discussed in detail about Hospice today. He has a Boost, Gatorade, some water oral condition is deteriorating. REVIEW OF SYSTEMS: CONSTITUTIONAL: No night sweats. No fatigue, malaise, lethargy. No fever or chills. HEENT: Eyes: No visual changes. No eye pain. No eye discharge. ENT: No runny nose. No epistaxis. No sinus pain. No sore throat. No odynophagia. No congestion. RESPIRATORY: No cough, no congestion. No hemoptysis. Mild shortness of breath. CARDIOVASCULAR: No angina symptoms. No CHF symptoms. No atypical chest pain for CAD. No palpitations. No orthopnea. GASTROINTESTINAL: No abdominal pain. No nausea or vomiting. No diarrhea or constipation. No hematemesis. No hematochezia. GENITOURINARY: No urgency. No frequency. No dysuria. No hematuria. No obstructive symptoms. No discharge. No pain. No significant abnormal bleeding. Appetite is poor. MUSCULOSKELETAL: No musculoskeletal pain; no joint swelling. Back pain. NEUROLOGICAL: No headache. No neck pain. No syncope. No seizures. No dizziness. PSYCHIATRIC: Not anxious. No depression. No suicidal thoughts. No homicidal thoughts. SKIN: No rash. No lesions. No wounds. ENDOCRINE: No unexplained weight loss. No weight gain. HEMATOLOGIC/LYMPHATIC: No anemia. No purpura. No petechiae. No prolonged or excessive bleeding. No palpable lymph nodes. PHYSICAL EXAMINATION: GENERAL: The patient is sleepy but oriented to person. VITAL SIGNS: Temperature 97.9, pulse 89, respiratory rate 20, blood pressure 136/72 and pulse ox 96%. HEENT: Head normocephalic, atraumatic. Eyes: Extraocular muscles are intact. Pupils are equal, round and reactive to light and accommodation. Ears: No lesions. Nose appeared normal. Throat: No exudate or erythema. NECK: Supple. No JVD, no carotid bruit. No lymphadenopathy or thyromegaly. LUNGS: Decreased breath sounds but clear to auscultation. Percussion note normal. Chest symmetrical. HEART: S1, S2, no S3. No murmurs. No cyanosis or clubbing. No ascites. Pulses: Dorsalis pedis and posterior tibial pulses +1 to +2 both sides. ABDOMEN: Soft. Nontender. Bowel sounds active. No CVA tenderness. No mass felt. The patient is emaciated. EXTREMITIES: No edema. Full range of motion of all extremities, equal. NEUROLOGIC: No focal deficit. Cranial nerves II through XII are grossly intact. No headache, no double vision or headache. SKIN: Not dry. Intact. Turgor - normal. LYMPHATIC: No palpable lymph nodes/no lymphedema. MUSCULOSKELETAL: Normal joints with no swelling. Muscle tone is normal. LABS: Hgb 10.8, hct 32, WBC 18,000 normal differential, creatinine 0.5, BUN 48, potassium 4, INR 1.1, BNP 91. ASSESSMENT: 1. Acute respiratory failure 2. Acute bronchitis 3. Severe chronic lung disease 4. Malnutrition 5. Pneumonia 6. Respiratory failure 7. Permanent [place]umada Catheter with BPH PLAN: 1. Continue NEBS 2. Continue IV antibiotics 3. Continue Steroids 4. Encourage patient to eat 5. Hospice again discussed with the family, granddaughter is also present. Discussion took place for a long time. TIME SPENT: More than 30 minutes. Plan and coordination of the patient's care discussed in the presence of nurse. SHEA
--- NOTE | 2017-04-05 13:31 | PN ---
DATE OF SERVICE: 04/02/17 SUBJECTIVE: 72 year old white male hospitalized with pneumonia. The patient had respiratory failure with Cor Pulmonale. The patient weighs 93 pounds and his BMI is 13. He is terribly under weight, malnourished. The patient is chronically sick for past couple of years slowly deteriorating. He is to the point where now he is to be given Morphine Sulfate for his back pain. The is aware of the fact that patient's condition is declining fast. They are thinking about putting him on Hospice. REVIEW OF SYSTEMS: CONSTITUTIONAL: No night sweats. No fatigue, malaise, lethargy. No fever or chills. HEENT: Eyes: No visual changes. No eye pain. No eye discharge. ENT: No runny nose. No epistaxis. No sinus pain. No sore throat. No odynophagia. No congestion. RESPIRATORY: No cough, no congestion. No hemoptysis. No shortness of breath. CARDIOVASCULAR: No angina symptoms. No CHF symptoms. No atypical chest pain for CAD. No palpitations. No orthopnea. GASTROINTESTINAL: No abdominal pain. No nausea or vomiting. No diarrhea or constipation. No hematemesis. No hematochezia. GENITOURINARY: No urgency. No frequency. No dysuria. No hematuria. No obstructive symptoms. No discharge. No pain. No significant abnormal bleeding. MUSCULOSKELETAL: No musculoskeletal pain; no joint swelling. NEUROLOGICAL: No headache. No neck pain. No syncope. No seizures. No dizziness. PSYCHIATRIC: Not anxious. No depression. No suicidal thoughts. No homicidal thoughts. SKIN: No rash. No lesions. No wounds. ENDOCRINE: No unexplained weight loss. No weight gain. HEMATOLOGIC/LYMPHATIC: No anemia. No purpura. No petechiae. No prolonged or excessive bleeding. No palpable lymph nodes. PHYSICAL EXAMINATION: GENERAL: The patient is sleepy but confused but oriented to person and place. VITAL SIGNS: Temperature 97.6, pulse 86, respiratory rate 20, blood pressure 102 /58 and pulse ox 100% on 3 liters. HEENT: Head normocephalic, atraumatic. Eyes: Extraocular muscles are intact. Pupils are equal, round and reactive to light and accommodation. Ears: No lesions. Nose appeared normal. Throat: No exudate or erythema. NECK: Supple. No JVD, no carotid bruit. No lymphadenopathy or thyromegaly. LUNGS: Decreased breath sounds with mild wheeze. Clear to auscultation. Percussion note normal. Chest symmetrical. HEART: S1, S2, no S3. No murmurs. No cyanosis or clubbing. No ascites. Pulses: Dorsalis pedis and posterior tibial pulses +1 to +2 both sides. ABDOMEN: Soft. Nontender. Bowel sounds active. No CVA tenderness. No mass felt. EXTREMITIES: No edema. Full range of motion of all extremities, equal. NEUROLOGIC: No focal deficit. Cranial nerves II through XII are grossly intact. No headache, no double vision or headache. SKIN: Not dry. Intact. Turgor - normal. LYMPHATIC: No palpable lymph nodes/no lymphedema. MUSCULOSKELETAL: Normal joints with no swelling. Muscle tone is normal. PLAN: 1. Continue Steroids, Antibiotics. 2. Morphine Sulfate as needed PRN 3. Xanax 0.25mg at night PRN CONDITION: Stable, deteriorating. PROGNOSIS: Poor TIME SPENT: More than 30 minutes. Plan and coordination of the patient's care discussed in the presence of nurse. SHEA
--- NOTE | 2017-04-05 13:37 | PCM.PROG ---
Attending Provider: ATTENDING PROVIDER: Dr. KATLIN CORTES DATE OF SERVICE: 04/05/17 SUBJECTIVE: This 72 year old WHITE/ M was hospitalized 03/29/17. The patient is hospitalized with pneumonia and respiratory failure. The patient's condition is deteriorating slowly. The patent has end stage respiratory failure, chronic severe osteoporosis with osteoarthritis. He is in continuous pain and distress. Last night he did better and slept throughout the night without moaning or groaning on increased dose of Morphine Sulfate and Ativan. Condition is stable. Prognosis is poor. REVIEW OF SYSTEMS: CONSTITUTIONAL: Weakness, fatigue. No night sweats. No fever or chills. HEENT: Eyes: No visual changes. No eye pain. No eye discharge. ENT: No runny nose. No epistaxis. No sinus pain. No odynophagia. No congestion. RESPIRATORY: No cough, no congestion. No hemoptysis. Shortness of breath. CARDIOVASCULAR: No angina symptoms. No CHF symptoms. No atypical chest pain for CAD. No palpitations. No orthopnea.. GASTROINTESTINAL: No abdominal pain. No nausea or vomiting. No diarrhea or constipation. No hematemesis. No hematochezia. GENITOURINARY: No urgency. No frequency. No dysuria. No hematuria. No obstructive symptoms. No discharge. No pain. No significant abnormal bleeding. MUSCULOSKELETAL: No musculoskeletal pain; no joint swelling. NEUROLOGICAL: Resting quietly in no distress. No headache. No neck pain. No syncope. No seizures. No dizziness. PSYCHIATRIC: Not anxious. No depression. No suicidal thoughts. No homicidal thoughts. SKIN: No rash. No lesions. No wounds. ENDOCRINE: No unexplained weight loss. No weight gain. HEMATOLOGIC/LYMPHATIC: No anemia. No purpura. No petechiae. No prolonged or excessive bleeding. No palpable lymph nodes. PHYSICAL EXAMINATION: GENERAL: The patient is resting comfortably in bed in no distress. VITAL SIGNS: Temperature 97.8 F, Pulse 138, Respiratory Rate 16, BP 124/60, Pulse Ox 96% HEENT: Head normocephalic, atraumatic. Eyes: Extraocular muscles are intact. Pupils are equal, round and reactive to light and accommodation. Ears: No lesions. Nose appeared normal. Throat: No exudate or erythema. NECK: Supple. No JVD, no carotid bruit. No lymphadenopathy or thyromegaly. LUNGS: Severely diminished breath sounds bilaterally. Clear to auscultation. Percussion note normal. Chest symmetrical. HEART: S1, S2, no S3. No murmurs. No cyanosis or clubbing. No ascites. Pulses: Dorsalis pedis and posterior tibial pulses +1 to +2 both sides. ABDOMEN: Soft. Non-tender. Bowel sounds active. No CVA tenderness. No mass felt. EXTREMITIES: No edema. Full range of motion of all extremities, equal. NEUROLOGIC: No focal deficit. Cranial nerves II through XII are grossly intact. No headache, no double vision or headache. SKIN: Not dry. Intact. Turgor-normal. LYMPHATIC: No palpable lymph nodes/no lymphedema. MUSCULOSKELETAL: Normal joints with no swelling. Muscle tone is normal. LAB REVIEW: 04/04/17 04:45 04/04/17 04:45 ASSESSMENT: 1. ACUTE RESPIRATORY FAILURE 2. BILATERAL PNEUMONIA 3. COPD 4. CAD WITH STENT APPLICATION TIMES FOUR 5. HYPERTENSION 6. HISTORY OF CHF 7. ENLARGED PROSTATE WITH PERMANENT TOLLIVER CATHETER 8. COMPRESSION FRACTURE T8, 9, 11, 12 AND L1, 2, 3 and 4. 9. GERD PLAN: 1. Lanoxin IV 0.25 mg Plan and coordination of the patient's care discussed in the presence of Mold Sprayer and nurse. CONDITION: Stable. PROGNOSIS: Poor. SCRIBED BY: Christiana GUILLEN scribed while in presence of service performed by Dr. KATLIN CORTES on 04/05/17 ([id number])
--- NOTE | 2017-04-05 15:33 | PN ---
DATE OF SERVICE: 04/04/17 SUBJECTIVE: 72 year old white male hospitalized with pneumonia and respiratory failure. The patient's family's considering Hospice. Want the patient home so we are finding out how we can get the patient on Hospice and still be in the hospital. The patient was seen and examined with Nurse Practitioner and Information Technology Architect. ASSESSMENT: Hospice 1. Chronic respiratory failure with hypoxemia 2. Malnutrition 3. Severe chronic lung disease 4. Cor Pulmonale TIME SPENT: More than 30 minutes. Plan and coordination of the patient's care discussed in the presence of nurse. SHEA
[2017-04-05 16:12] VITALS: BP 92/40; TEMP 96.8
--- NOTE | 2017-04-06 10:59 | PN ---
DATE OF SERVICE: 03/31/17 SUBJECTIVE: 72 year old white male hospitalized with pneumonia and respiratory failure. The patient's condition is stable as far as respiratory condition is concerned. No distress noted but patient's overall condition is deteriorating. REVIEW OF SYSTEMS: CONSTITUTIONAL: No night sweats. No fatigue, malaise, lethargy. No fever or chills. HEENT: Eyes: No visual changes. No eye pain. No eye discharge. ENT: No runny nose. No epistaxis. No sinus pain. No sore throat. No odynophagia. No congestion. RESPIRATORY: No cough, no congestion. No hemoptysis. No shortness of breath. CARDIOVASCULAR: No angina symptoms. No CHF symptoms. No atypical chest pain for CAD. No palpitations. No orthopnea. GASTROINTESTINAL: No abdominal pain. No nausea or vomiting. No diarrhea or constipation. No hematemesis. No hematochezia. Appetite has increased some but still way behind. GENITOURINARY: No urgency. No frequency. No dysuria. No hematuria. No obstructive symptoms. No discharge. No pain. No significant abnormal bleeding. MUSCULOSKELETAL: No musculoskeletal pain; no joint swelling. NEUROLOGICAL: No headache. No neck pain. No syncope. No seizures. No dizziness. PSYCHIATRIC: Not anxious. No depression. No suicidal thoughts. No homicidal thoughts. SKIN: No rash. No lesions. No wounds. ENDOCRINE: No unexplained weight loss. No weight gain. HEMATOLOGIC/LYMPHATIC: No anemia. No purpura. No petechiae. No prolonged or excessive bleeding. No palpable lymph nodes. PHYSICAL EXAMINATION: GENERAL: The patient is oriented to person and place but he is sleepy TEMPERATURE: Temperature 97.6, pulse 90, respiratory rate 20, blood pressure 124 /74 and pulse ox 97%. HEENT: Head normocephalic, atraumatic. Eyes: Extraocular muscles are intact. Pupils are equal, round and reactive to light and accommodation. Ears: No lesions. Nose appeared normal. Throat: No exudate or erythema. NECK: Supple. No JVD, no carotid bruit. No lymphadenopathy or thyromegaly. LUNGS: Decreased breath sounds with mild wheeze. Percussion note normal. Chest symmetrical. HEART: S1, S2, no S3. No murmurs. No cyanosis or clubbing. No ascites. Pulses: Dorsalis pedis and posterior tibial pulses +1 to +2 both sides. ABDOMEN: Soft. Nontender. Bowel sounds active. No CVA tenderness. No mass felt. EXTREMITIES: No edema. Full range of motion of all extremities, equal. NEUROLOGIC: No focal deficit. Cranial nerves II through XII are grossly intact. No headache, no double vision or headache. SKIN: Not dry. Intact. Turgor - normal. LYMPHATIC: No palpable lymph nodes/no lymphedema. MUSCULOSKELETAL: Normal joints with no swelling. Muscle tone is normal. ASSESSMENT: 1. Respiratory failure seems to be under control PLAN: 1. Continue NEBS 2. Continue Steroids 3. Antibiotics 4. Encouraged patient to eat, the patient's nutritional status to improve but I doubt that it will happen from his chronic condition . The patient is not to resuscitate with intubation or respirator. CONDITION: Stable TIME SPENT: More than 30 minutes. Plan and coordination of the patient's care discussed in the presence of nurse. SHEA
--- NOTE | 2017-04-07 09:23 | PN ---
DATE OF SERVICE: 03/29/17 SUBJECTIVE: 72 year old white male was brought to the emergency room with acute respiratory distress. The patient's oxygen saturation was noted to be 73-74% by home health care. The patient has been short of breath for the last couple of days. On further work up the patient had pneumonia. In the emergency room I examined the patient in the emergency room and the was present. Now the patient seems to be breathing better with practically no distress. PHYSICAL EXAMINATION: GENERAL: The patient is oriented to time, place and person. HEENT: Head normocephalic, atraumatic. Eyes: Extraocular muscles are intact. Pupils are equal, round and reactive to light and accommodation. Ears: No lesions. Nose appeared normal. Throat: No exudate or erythema. NECK: Supple. No JVD, no carotid bruit. No lymphadenopathy or thyromegaly. LUNGS: Decreased breath sounds with mild expiratory wheeze. Percussion note normal. Chest symmetrical. HEART: S1, S2, no S3. No murmurs. No cyanosis or clubbing. No ascites. Pulses: Dorsalis pedis and posterior tibial pulses +1 to +2 both sides. ABDOMEN: Soft. Nontender. Bowel sounds active. No CVA tenderness. No mass felt. EXTREMITIES: No edema. Full range of motion of all extremities, equal. NEUROLOGIC: No focal deficit. Cranial nerves II through XII are grossly intact. No headache, no double vision or headache. SKIN: Not dry. Intact. Turgor - normal. LYMPHATIC: No palpable lymph nodes/no lymphedema. MUSCULOSKELETAL: Normal joints with no swelling. Muscle tone is normal. LABS: ABG on nonbreather with 15 liters shows pO2 95, pVT642, pH 7.36 with 97% saturation. The patient's WBC count is 21,000. ASSESSMENT: 1. Acute respiratory failure 2. Pneumonia 3. Severe chronic lung disease 4. Malnutrition with failing health 5. Congestive heart failure 6. History of CHF PLAN: 1. IV antibiotics 2. IV steroids 3. NEBS treatment 4. DNR status discussed with the and the patient. The patient clearly mentions that he does not want any intubation or mechanical respirations to keep him alive. The is agreeable. The document was signed by my in the emergency room along with nursing staff stating that resuscitate this patient except for no intubation or mechanical respiratory. CONDITION: Stable PROGNOSIS: Guarded The patient was seen and examined with Nurse Practitioner. TIME SPENT: More than 30 minutes. Plan and coordination of the patient's care discussed in the presence of nurse. SHEA
--- NOTE | 2017-04-07 10:24 | PN ---
DATE OF SERVICE: 03/30/17 SUBJECTIVE: The patient was hospitalized with acute respiratory failure. The patient is not in distress. PHYSICAL EXAMINATION: GENERAL: The patient looks extremely emaciated. HEENT: Head normocephalic, atraumatic. Eyes: Extraocular muscles are intact. Pupils are equal, round and reactive to light and accommodation. Ears: No lesions. Nose appeared normal. Throat: No exudate or erythema. NECK: Supple. No JVD, no carotid bruit. No lymphadenopathy or thyromegaly. LUNGS: Decreased breath sounds but Clear to auscultation. Percussion note normal. Chest symmetrical. HEART: S1, S2, no S3. No murmurs. No cyanosis or clubbing. No ascites. Pulses: Dorsalis pedis and posterior tibial pulses +1 to +2 both sides. ABDOMEN: Soft. Nontender. Bowel sounds active. No CVA tenderness. No mass felt. Been trying to eat EXTREMITIES: No edema. Full range of motion of all extremities, equal. NEUROLOGIC: No focal deficit. Cranial nerves II through XII are grossly intact. No headache, no double vision or headache. SKIN: Not dry. Intact. Turgor - normal. LYMPHATIC: No palpable lymph nodes/no lymphedema. MUSCULOSKELETAL: Normal joints with no swelling. Muscle tone is normal. CONDITION: Improved. PROGNOSIS: Not good. PLAN: 1. The patient is DNR The patient's granddaughter in the room. The patient was encouraged to eat. The patient was seen and examined with Nurse Practitioner. TIME SPENT: More than 30 minutes. Plan and coordination of the patient's care discussed in the presence of nurse. SHEA
--- NOTE | 2017-04-07 11:08 | DS ---
DATE OF SERVICE: 04/05/17 - ADMITTED TO HOSPICE- INPATIENT FINAL DIAGNOSIS: 1. BILATERAL PNEUMONIA 2. ACUTE ON CHRONIC RESPIRATORY FAILURE 3. WORSENING SHORTNESS OF BREATH 4. COPD WITH COR PULMONALE 5. CARDIOMYOPATHY 6. FAILURE TO THRIVE DISCHARGE INSTRUCTIONS: Admitted to inpatient hospice care. . MEDICATIONS AT DISCHARGE: IV Sodium Chloride 0.9% 30 mls/hr Morphine 2 mg IVP q.1hr p.r.n. Tylenol 650 mg RC q.6h p.r.n. Dulcolax 10 mg RC daily p.r.n. Levsin 0.125 mg p.o. q.4hr p.r.n. Ativan 1 mg IVP q.4h Morphine 2 mg IVP q.2hr NEW PRESCRIPTIONS: None DIET INSTRUCTIONS: Only sips of liquid tolerated at this time. ACTIVITY: The family declines patient to be turned at this time due to increased pain from multiple compression fractures SMOKING: N/A DISEASE SPECIFIC EDUCATION: Hospice HOSPITAL COURSE: This is a 72-year-old white male who initially presented to the emergency room with worsening shortness of breath.He has a long history of severe COPD, chronic respiratory failure. He is oxygen dependent. He has lost weight and has had a history of failure to thrive due to his shortness of breath and COPD. HE was found to have bilaterally pneumonia on chest CT. His ABGs were abnormal. On admission he was unable to take his medicine. He could not eat due to his worsening shortness of breath. We started him on IV steroids, Solu-Cortef 125 mg q.6hr along with Rocephin 1 gm IV daily and Zithromax 500 mg IV daily for 3 days. He has a long history with this illness and recurrent hospitalization due to the severe COPD with acute exacerbations and he does have a history of recurrent pneumonia. During the course of this hospital stay his condition did not improve, steadily worsened. He had no appetite at all. He improved slightly with steroids and then declined again. He is unable to talk due to shortness of breath. He reports extreme weakness and fatigue. He is unable to move. He cannot even turn in bed. He required Venti mask at 60% just in order to be without any distress. After discussing with he and the family, he determined that he would like to be put on hospice care and comfort care measures only. He stated that he ddi not want to be intubated, he did not want any resuscitation efforts and that he felt that he was ready to go. After long discussion with the family regarding his condition, prognosis, we determined we would admit to hospice care and they took over are on 04/05/17. Hospice will discontinue medications as needed. [facility] will take over and we will follow up as needed with him while he stays in the hospital. VITAL SIGNS: Temperature 97.8, heart rate 106, respirations 20, BP 74/46, pulse ox 86%. TIME SPENT: More than 60 minutes. SHEA
== END 2017-04-05 15:30 | disposition short-term general hospital (02) | DRG 193 ==
LOC: ED 12:11 → SCU 15:02
PROVIDERS: ADMIT Internal Medicine; ATTEND Internal Medicine
DX: J18.9 Pneumonia, unspecified organism (principal); J96.20 Acute and chronic respiratory failure, unspecified whether with hypoxia or hypercapnia; I42.9 Cardiomyopathy, unspecified; E46 Unspecified protein-calorie malnutrition; Z68.1 Body mass index [BMI] 19.9 or less, adult; R06.02 Shortness of breath; I10 Essential (primary) hypertension; J44.9 Chronic obstructive pulmonary disease, unspecified; I27.81 Cor pulmonale (chronic); I50.9 Heart failure, unspecified; R53.1 Weakness; N40.0 Benign prostatic hyperplasia without lower urinary tract symptoms; L89.101 Pressure ulcer of unspecified part of back, stage 1; L89.321 Pressure ulcer of left buttock, stage 1; M48.54XD Collapsed vertebra, not elsewhere classified, thoracic region, subsequent encounter for fracture with routine healing; M48.56XD Collapsed vertebra, not elsewhere classified, lumbar region, subsequent encounter for fracture with routine healing; L89.311 Pressure ulcer of right buttock, stage 1; I25.10 Atherosclerotic heart disease of native coronary artery without angina pectoris; D64.9 Anemia, unspecified; K21.9 Gastro-esophageal reflux disease without esophagitis; R62.7 Adult failure to thrive; Z87.01 Personal history of pneumonia (recurrent); Z96.0 Presence of urogenital implants; Z79.899 Other long term (current) drug therapy; Z87.891 Personal history of nicotine dependence; Z95.5 Presence of coronary angioplasty implant and graft
CPT/HCPCS: 36415; 80053; 82550; 82803; 83605; 83880; 84145; 84439; 84443; 84484; 85025; 85379; 85610; 85730; 87040; 87070; 87081; 87804; 93005; 93010; 94640; 96361; 96365; 96375; 97802; 99284

== ENCOUNTER 2017-04-05 16:42 | Inpatient (IN) ==
[2017-04-05] MEDS ORDERED: TYLENOL RC PRN (17:53)
[2017-04-05] MEDS ORDERED: LEVSIN PO PRN (17:53)
[2017-04-05] MEDS ORDERED: MORPHINE 2 MG/ML SYRINGE IVP PRN (17:53)
[2017-04-05] MEDS ORDERED: DULCOLAX RC PRN (17:53)
[2017-04-05] MEDS: ATIVAN IVP SCH ×2 (18:31→22:55)
[2017-04-05] MEDS: MORPHINE 2 MG/ML SYRINGE IVP SCH ×4 (18:32→22:55)
[2017-04-05 19:39] VITALS: BMI 12.6
[2017-04-05] MEDS: ROXANOL 20 MG/ML PO SCH (23:56)
[2017-04-06] MEDS: MORPHINE 2 MG/ML SYRINGE IVP SCH ×9 (01:18→18:51)
[2017-04-06] MEDS: ROXANOL 20 MG/ML PO SCH ×8 (01:23→18:51)
[2017-04-06] MEDS: ATIVAN IVP SCH ×5 (02:19→18:49)
[2017-04-06 05:23] VITALS: BP 74/46; TEMP 97.8
[2017-04-06] MEDS: ATIVAN INTENSOL PO SCH ×3 (09:16→18:49)
--- NOTE | 2017-04-06 12:34 | PCM.PROG ---
Attending Provider: ATTENDING PROVIDER: Dr. KATLIN CORTES This patient is seen with Erika Rey, Nurse Practitioner. DATE OF SERVICE: 04/06/17 SUBJECTIVE: This 72 year old WHITE/ M was hospitalized 04/05/17. The patient is resting comfortably, Hospice care has taken over as of yesterday. The family is at bedside. REVIEW OF SYSTEMS: (The patient is mostly unresponsive, obtunded) CONSTITUTIONAL: No night sweats. No fatigue, malaise, lethargy. No fever or chills. HEENT: Eyes: No visual changes. No eye pain. No eye discharge. ENT: No runny nose. No epistaxis. No sinus pain. No odynophagia. No congestion. RESPIRATORY: No cough, no congestion. No hemoptysis. No shortness of breath. CARDIOVASCULAR: No angina symptoms. No CHF symptoms. No atypical chest pain for CAD. No palpitations. No orthopnea.. GASTROINTESTINAL: No abdominal pain. No nausea or vomiting. No diarrhea or constipation. No hematemesis. No hematochezia. GENITOURINARY: No urgency. No frequency. No dysuria. No hematuria. No obstructive symptoms. No discharge. No pain. No significant abnormal bleeding. MUSCULOSKELETAL: No musculoskeletal pain; no joint swelling. NEUROLOGICAL: No headache. No neck pain. No syncope. No seizures. No dizziness. PSYCHIATRIC: Not anxious. No depression. No suicidal thoughts. No homicidal thoughts. SKIN: No rash. No lesions. No wounds. ENDOCRINE: No unexplained weight loss. No weight gain. HEMATOLOGIC/LYMPHATIC: No anemia. No purpura. No petechiae. No prolonged or excessive bleeding. No palpable lymph nodes. PHYSICAL EXAMINATION: GENERAL: The patient is obtunded, unresponsive resting comfortably in bed. VITAL SIGNS: Temperature 97.8 F, Pulse 106, Respiratory Rate 20, BP 74/46, Pulse Ox 86% HEENT: Head normocephalic, atraumatic. Eyes: Extraocular muscles are intact. Pupils are equal, round and reactive to light and accommodation. Ears: No lesions. Nose appeared normal. Throat: No exudate or erythema. NECK: Supple. No JVD, no carotid bruit. No lymphadenopathy or thyromegaly. LUNGS: Severely diminished breath sounds. Clear to auscultation. Percussion note normal. Chest symmetrical. HEART: S1, S2, no S3. No murmurs. No cyanosis or clubbing. No ascites. Pulses: Dorsalis pedis and posterior tibial pulses +1 to +2 both sides. ABDOMEN: Soft. Non-tender. Bowel sounds active. No CVA tenderness. No mass felt. EXTREMITIES: No edema. Full range of motion of all extremities, equal. NEUROLOGIC: No focal deficit. Cranial nerves II through XII are grossly intact. No headache, no double vision or headache. SKIN: Not dry. Intact. Turgor-normal. LYMPHATIC: No palpable lymph nodes/no lymphedema. MUSCULOSKELETAL: Normal joints with no swelling. Muscle tone is normal. ASSESSMENT: 1. Bilateral pneumonia 2. Chronic respiratory failure with cor pulmonale 3. Failure to thrive 4. Shortness of breath PLAN: 1. The patient will remain inpatient hospice. 2. Will follow as needed Plan and coordination of the patient's care discussed in the presence of Carton Liner and nurse. Prognosis is poor. SCRIBED BY: CHARLETTE PAINTING Log Rafter scribed while in presence of service performed by Dr. Cortes/Erika Rey APRN on 04/06/17 ([id number])
[2017-04-06] MEDS: SODIUM CHLORIDE 1,000 ML IV SCH ×2 (14:00→14:55)
--- NOTE | 2017-04-06 18:25 | PCM.PROG ---
Time of : 18:10 (no heart or breath sound ) Preliminary Cause of : respiratory failure
--- NOTE | 2017-04-10 09:10 | PN ---
DATE OF SERVICE: 04/06/17 SUBJECTIVE: 72 year old white male admitted with pneumonia and respiratory failure. His family has agreed to put patient on Hospice. The patient's condition is deteriorating. The patient is comfortable. Respiratory status is stable with respiratory rate of 20. PHYSICAL EXAMINATION: HEENT: Head normocephalic, atraumatic. Eyes: Extraocular muscles are intact. Pupils are equal, round and reactive to light and accommodation. Ears: No lesions. Nose appeared normal. Throat: No exudate or erythema. NECK: Supple. No JVD, no carotid bruit. No lymphadenopathy or thyromegaly. LUNGS: Decreased breath sounds. Clear to auscultation. Percussion note normal. Chest symmetrical. HEART: S1, S2, no S3. No murmurs. No cyanosis or clubbing. No ascites. Pulses: Dorsalis pedis and posterior tibial pulses +1 to +2 both sides. ABDOMEN: Soft. Nontender. Bowel sounds active. No CVA tenderness. No mass felt. EXTREMITIES: No edema. Full range of motion of all extremities, equal. NEUROLOGIC: No focal deficit. Cranial nerves II through XII are grossly intact. No headache, no double vision or headache. SKIN: Not dry. Intact. Turgor - normal. LYMPHATIC: No palpable lymph nodes/no lymphedema. MUSCULOSKELETAL: Normal joints with no swelling. Muscle tone is normal. CONDITION: Stable. TIME SPENT: More than 30 minutes. Plan and coordination of the patient's care discussed in the presence of nurse. SHEA
== END 2017-04-06 20:30 | disposition expired | DRG 296 ==
LOC: MEDSURG B 16:42
PROVIDERS: ADMIT Internal Medicine; ATTEND Internal Medicine
DX: I46.9 Cardiac arrest, cause unspecified (principal); J96.20 Acute and chronic respiratory failure, unspecified whether with hypoxia or hypercapnia; J18.9 Pneumonia, unspecified organism; I42.9 Cardiomyopathy, unspecified; E46 Unspecified protein-calorie malnutrition; Z68.1 Body mass index [BMI] 19.9 or less, adult; J44.9 Chronic obstructive pulmonary disease, unspecified; I10 Essential (primary) hypertension; I27.81 Cor pulmonale (chronic); I50.9 Heart failure, unspecified; R53.1 Weakness; N40.0 Benign prostatic hyperplasia without lower urinary tract symptoms; L89.101 Pressure ulcer of unspecified part of back, stage 1; L89.321 Pressure ulcer of left buttock, stage 1; L89.311 Pressure ulcer of right buttock, stage 1; M48.54XD Collapsed vertebra, not elsewhere classified, thoracic region, subsequent encounter for fracture with routine healing; M48.56XD Collapsed vertebra, not elsewhere classified, lumbar region, subsequent encounter for fracture with routine healing; I25.10 Atherosclerotic heart disease of native coronary artery without angina pectoris; D64.9 Anemia, unspecified; K21.9 Gastro-esophageal reflux disease without esophagitis; R62.7 Adult failure to thrive; Z87.01 Personal history of pneumonia (recurrent); Z96.0 Presence of urogenital implants; Z79.899 Other long term (current) drug therapy; Z87.891 Personal history of nicotine dependence; Z95.5 Presence of coronary angioplasty implant and graft